=== PATIENT | female | born 1950 | race Caucasian/White ===

== ENCOUNTER 2020-05-11 21:32 | Emergency (ER) | payer MEDICARE, OTHER, SELFPAY ==
[2020-05-11 22:03] VITALS: BP 175/100; PULSE 67; RESP 18; TEMP 36.7; O2SAT 97; BMI 34.9
[2020-05-11 22:35] LABS: Basophils # 0.1 10^3/uL (0.0-0.1); Basophils % 1.2 %; Eosinophils # 0.1 10^3/uL (0.0-0.8); Eosinophils % 1.2 %; Hemoglobin 13.3 g/dL (11.5-15.3); Lymphocytes # 1.7 10^3/uL (0.8-4.8); Lymphocytes % 28.6 %; Mean Corpuscular HGB Conc 34.1 g/dL (30.0-36.0); Mean Corpuscular Hemoglobin 29.6 pg (28.0-34.0); Mean Corpuscular Volume 86.9 fL (81-99); Mean Platelet Volume 10.4 fL (7.4-10.4); Monocytes % 16.8 %; Nucleated Red Blood Cells % 0 %; Platelet Count 180 10^3/cmm (130-400); Red Blood Count 4.49 10^6/uL (4.1-5.3); Red Cell Distribution Width 12.2 % (12.1-15.1); White Blood Count 5.8 10^3/uL (4.0-10.0)
[2020-05-11 22:44] LABS: INR 1.09 (0.8-1.2)
--- NOTE | 2020-05-11 22:44 | ED_ITS ---
HPI - General Adult General: Chief complaint: General Medical Stated complaint: ams, n/v, shakes, twitching, anxiety Time Seen by Provider: 05/11/20 22:07 Source: patient Mode of arrival: ambulatory Limitations: no limitations History of Present Illness: HPI narrative: Belkis is a 69-year-old female who states she has been having muscle twitches and pains for days and weeks. She states it hurts all over and states she feels very anxious over. She states she also has had difficulty urinating. She denies any fever. She denies chest or abdominal pain. She states that she just feels like she has muscle spasms to her whole body. Associated symptoms: Deny chest pain, dyspnea, headache(s), nausea, rash or vomiting Review of Systems Const: Denies: fever(s), chills, body aches or change in appetite Eyes: Denies: blurry vision or eye discomfort ENMT: Denies: throat pain or dental pain Card: Denies: chest pain Resp: Denies: dyspnea GI: Denies: abdominal pain, nausea, vomiting or diarrhea : Denies: dysuria Musc: Denies: neck pain or back pain Skin/Breast: Denies: rash Neuro: Denies: headache(s) Psych: Reports: anxiety [place]/Lymph: Denies: easy bruising All/Imm: Denies: urticaria Physical Exam Const: COMMON NORMALS: no acute distress, patient oriented x3 and healthy appearing HENMT: COMMON NORMALS: normocephalic and atraumatic HEAD & SCALP: normocephalic and atraumatic Eye: COMMON NORMALS: Equal, round and reactive pupils present and EOMs intact bilaterally PUPIL: Yes Equal, round and reactive pupils present Neck/C-Spine: COMMON NORMALS: full ROM and supple Chest: COMMONS NORMALS: normal inspection of the chest and normal palpation of entire chest wall Resp: COMMON NORMALS: normal respiratory effort, No retractions, No use of accessory muscles and clear to auscultation bilaterally AUSCULTATION: clear to auscultation bilaterally Cardio: COMMON NORMALS: regular rate, regular rhythm and No murmurs present (Cardio) RATE: regular rate RHYTHM: regular rhythm GI: COMMON NORMALS: Normal to inspection, nondistended, normoactive bowel sounds present, Soft to palpation, non-tender and no masses PALPATION: Yes Soft to palpation Extremity: COMMON NORMALS: normal to inspection and full ROM Neuro: COMMON NORMALS: patient oriented x3, moves all extremities and no focal motor deficits Psych: COMMON NORMALS: mental status grossly normal, Normal thought process present and cooperative MOOD & AFFECT: Yes anxious THOUGHT PROCESS: Normal thought process present Skin: COMMON NORMALS: no rashes or lesions noted and no wounds GENERAL SKIN EXAM: no rashes or lesions noted Course Vital Signs: Vital signs: Vital Signs Temperature 98.1 F 05/11/20 22:03 Pulse Rate 69 05/12/20 00:39 Respiratory Rate 18 05/12/20 00:39 Blood Pressure 115/65 05/12/20 00:39 Pulse Oximetry 97 05/12/20 00:39 MDM - General Adult MDM Narrative: Medical decision making narrative: Patient presents with multiple claims with her main complaint of muscle spasms all over. She feels much improved after Ativan. Patient's lab work is normal including a normal EKG and x-ray. Patient's exam is benign and she is stable for discharge. Will prescribe her Robaxin for muscle spasms. She is to follow-up with her primary care doctor in 3 to 5 days and return if worsening. Lab Data: Labs: Lab Results 05/11/20 05/11/20 05/11/20 Range/Units 22:26 22:26 22:26 WBC 5.8 (4.0-10.0) 10^3/ uL RBC 4.49 (4.1-5.3) 10^6/u L Hgb 13.3 (11.5-15.3) g/dL Hct 39.0 (37.0-47.0) % MCV 86.9 (81-99) fL MCH 29.6 (28.0-34.0) pg MCHC 34.1 (30.0-36.0) g/dL RDW 12.2 (12.1-15.1) % Plt Count 180 (130-400) 10^3/c mm MPV 10.4 (7.4-10.4) fL Neut % (Auto) 52.0 % Lymph % (Auto) 28.6 % [place] % (Auto) 16.8 % Eos % (Auto) 1.2 % Baso % (Auto) 1.2 % Neut # (Auto) 3.0 (1.8-7.7) 10^3/u L Lymph # (Auto) 1.7 (0.8-4.8) 10^3/u L [place] # (Auto) 1.0 H (0.2-0.9) 10^3/u L Eos # (Auto) 0.1 (0.0-0.8) 10^3/u L Baso # (Auto) 0.1 (0.0-0.1) 10^3/u L Nucleated RBC % (a uto) 0 % Nucleated RBCs # 0.0 /100WBC PT 14.50 H (10.5-13.3) SECO NDS INR 1.09 (0.8-1.2) Sodium 137 (136-145) mmol/L Potassium 4.2 (3.5-5.1) mmol/L Chloride 100 (98-107) mmol/L Carbon Dioxide 25 (22-29) mmol/L Anion Gap 16.2 (5-19) BUN 8 (8-23) mg/dL Creatinine 0.6 (0.5-0.9) mg/dL GFR Calculation 98.8 (90-130) mL/min Glucose 120 H (65-115) mg/dL Calculated Osmolal ity 281 L (285-295) mOsm/k g Calcium 9.7 (8.5-10.5) mg/dL Total Bilirubin 0.5 (0.15-1.2) mg/dL AST 22 (0-32) U/L ALT 16 (0-33) U/L Alkaline Phosphata se 74 (35-105) IU/L Total Protein 6.3 L (6.6-8.7) g/dL Albumin 4.5 (3.5-5.2) g/dL Globulin 1.8 (1.3-4.6) g/dL Imaging Data^: CXR: Attestation: I personally reviewed and interpreted this imaging study as follows: My impression: no acute abnormality EKG Data^: EKG 1: Attestation: I personally reviewed and interpreted this EKG as follows: EKG interpretation date: 05/11/20 EKG interpretation time: 23:17 Interpretation: sinus martine hr [address] or t wave abnormalities qrs 95 qtc 395 Discharge Plan Discharge Patient Disposition: Home, Self-Care Clinical Impression: Muscle spasm Vomiting Qualifiers: Vomiting type: unspecified Vomiting Intractability: non-intractable Nausea presence: with nausea Qualified Code(s): R11.2 - Nausea with vomiting, unspeci fied Condition: Stable Prescriptions: New ondansetron 4 mg tablet,disintegrating 4 mg PO Q6H PRN (Reason: nausea and vomiting) Qty: 14 RF: 0 Robaxin-750 750 mg tablet 750 mg PO Q6H Qty: 30 RF: 0 Discharge Orders: Discharge Order (Routine); Ordered 05/11/20 Ordered By: Alba Stiles Referrals: Chung Holden MD [Primary Care Provider] - 1-3 days Discharge Diet: Advance as tolerated Discharge Activity: Resume usual activity Patient Instructions: Acute Nausea and Vomiting (ED), Muscle Spasm (ED) Discharge Date/Time: 05/12/20 00:40 Coding Level of Care Code ED Product Manager E Commerce for Walt Fwd Exam Comprehensive
[2020-05-11 22:49] LABS: Alanine Aminotransferase 16 U/L (0-33); Albumin Level 4.5 g/dL (3.5-5.2); Alkaline Phosphatase 74 IU/L (35-105); Anion Gap 16.2 (5-19); Aspartate Amino Transferase 22 U/L (0-32); Blood Urea Nitrogen 8 mg/dL (8-23); Calcium 9.7 mg/dL (8.5-10.5); Carbon Dioxide 25 mmol/L (22-29); Chloride 100 mmol/L (98-107); Globulin 1.8 g/dL (1.3-4.6); Glomerular Filtration Rate 98.8 mL/min (90-130); Glucose 120 mg/dL (65-115); Osmolality Calculated 281 mOsm/kg (285-295); Potassium 4.2 mmol/L (3.5-5.1); Sodium 137 mmol/L (136-145); Total Bilirubin 0.5 mg/dL (0.15-1.2); Total Protein 6.3 g/dL (6.6-8.7)
[2020-05-11] MEDS: sodium chloride 0.9% 1,000 ML 999 ML IV (22:52)
[2020-05-11] MEDS: LORazepam 2 mg/mL INJ 1 mL 1 MG IVP (22:53)
--- NOTE | 2020-05-11 22:54 | ECG_ITS ---
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 Measurements Intervals [place] Rate: 55 P: 57 NC: 187 QRS: 0 QRSD: 95 T: 46 QT: 407 QTc: 390 Interpretive Statements SINUS BRADYCARDIA Compared to ECG 06/16/2018 00:03:53 Sinus rhythm no longer present T-wave abnormality no longer present Electronically Signed On 05-12-2020 17:43:26 CDT by Partha Anderson M.D. [email or web address].[employer]/store/NU/[id number] f
[2020-05-11 22:57] VITALS: BP 147/97; PULSE 60; RESP 18; O2SAT 97
--- NOTE | 2020-05-11 22:57 | XRR_ITS ---
PROCEDURE INFORMATION: Exam: XR Chest, 1 View Exam date and time: 05/11/2020 11:27 PM Age: 69 years old Clinical indication: Other: AMS, anxiety; Additional info: HTN TECHNIQUE: Imaging protocol: XR of the chest Views: 1 view. COMPARISON: CR Chest 1 [place] [id number] 06/15/2018 9:11 PM FINDINGS: Lungs: Unremarkable. No consolidation. Pleural space: Unremarkable. No pleural effusion. No pneumothorax. Heart/Mediastinum: Unremarkable. No cardiomegaly. Bones/joints: Unremarkable. XR/XR chest 1V portable [id number] IMPRESSION: No acute findings.
[2020-05-11 23:39] VITALS: BP 165/74; PULSE 52; RESP 16; O2SAT 96
[2020-05-11 23:40] VITALS: BP 165/74; PULSE 50; RESP 13; O2SAT 96
[2020-05-12] VITALS: BP 156/88; PULSE 68; RESP 21; O2SAT 98
[2020-05-12 00:39] VITALS: BP 115/65; PULSE 69; RESP 18; O2SAT 97
--- NOTE | 2020-05-12 04:10 | ECG_ITS ---
[facility] Test Date: 2020-05-11 Pat Name: Belkis Henson Department: Room: Gender: Female [place] Tender: : 1950 Requested By: Alba Stiles Order Number: [id number] Devan MD: Partha Anderson M.D. Measurements Intervals [place] Rate: 55 P: 57 MS: 187 QRS: 0 QRSD: 95 T: 46 QT: 407 QTc: 390 Interpretive Statements SINUS BRADYCARDIA Compared to ECG 06/16/2018 00:03:53 Sinus rhythm no longer present T-wave abnormality no longer present Electronically Signed On 05-12-2020 17:45:44 CDT by Partha Anderson M.D. [email or web address].[employer]/store/NU/[id number] f
== END 2020-05-12 00:40 | disposition home or self-care (01) ==
PROVIDERS: Emergency Provider Emergency Medicine; PCP Family Medicine
DX: M62.838 Other muscle spasm (principal); R11.2 Nausea with vomiting, unspecified
CPT/HCPCS: 12345; 36415; 71045; 80053; 85025; 85610; 93005; 96361; 96374; 96375; 99283; J2060; J7030

== ENCOUNTER 2021-04-06 15:03 | Outpatient (CLI) | payer MEDICARE, SELFPAY ==
--- NOTE | 2021-04-06 15:19 | XR_ITS ---
WS: [id number] Exam: XR knee RT 1-2V [id number] Date/Time of Exam: 04/06/2021 3:25 PM Reason For Exam: RIGHT KNNEE PAIN No fracture or dislocation. The joint compartments are relatively well maintained. No joint effusion. XR/XR knee RT 1-2V [id number] IMPRESSION: 1. No fracture, joint effusion or other significant finding.
--- NOTE | 2021-04-06 15:25 | XR_ITS ---
WS: [id number] Exam: XR hip RT 2-3V wo/w pel* [id number] Date/Time of Exam: 04/06/2021 3:25 PM Reason For Exam: RT KNEE PAIN Comparison 12/05/2018. No acute fracture or dislocation. Moderate DJD of the joint compartment. Normal soft tissues. XR/XR hip RT 2-3V wo/w pel* [id number] IMPRESSION: 1. Moderate DJD. No fracture or other significant finding.
== END 2021-04-06 15:04 | disposition home or self-care (01) ==
LOC: RAD 15:12
PROVIDERS: PCP Family Medicine; Visit Provider Family Medicine
DX: M25.561 Pain in right knee (principal); M16.11 Unilateral primary osteoarthritis, right hip
CPT/HCPCS: 73502; 73560

== ENCOUNTER → 2021-05-18 09:40 | Outpatient (BNVA) | payer MEDICARE, SELFPAY | PROVIDERS: PCP Family Medicine; Referring Provider Family Medicine; Visit Provider Specialist | DX: M16.11 Unilateral primary osteoarthritis, right hip (principal); M77.8 Other enthesopathies, not elsewhere classified; M25.551 Pain in right hip; M25.561 Pain in right knee | CPT/HCPCS: 73502; 73560; 73565 ==

== ENCOUNTER 2021-05-24 14:03 | Outpatient (RCR) | payer MEDICARE, SELFPAY | END 2021-06-07 11:07 | disposition home or self-care (01) | LOC: SPT 14:03 | PROVIDERS: PCP Family Medicine; Referring Provider Specialist; Visit Provider Specialist | DX: M54.5 Low back pain (principal) | CPT/HCPCS: 97110; 97161 ==

== ENCOUNTER → 2021-09-28 10:56 | Outpatient (BNVA) | payer MEDICARE, SELFPAY | PROVIDERS: PCP Family Medicine; Visit Provider Specialist | DX: M79.661 Pain in right lower leg (principal) | CPT/HCPCS: 73590 ==

== ENCOUNTER 2021-11-28 10:59 | Outpatient (CLI) | payer MEDICARE, SELFPAY ==
[2021-11-28 11:11] VITALS: BP 158/86; BP 167/93; PULSE 69; PULSE 71; RESP 18; TEMP 36.5; TEMP 36.6; O2SAT 96; O2SAT 97; BMI 35.5
[2021-11-28 12:06] VITALS: BP 177/94; PULSE 72; RESP 18; TEMP 36.5; O2SAT 97
== END 2021-11-28 11:00 | disposition home or self-care (01) ==
LOC: OPS 11:09
PROVIDERS: PCP Family Medicine
DX: U07.1 COVID-19 (principal)
CPT/HCPCS: 96365

== ENCOUNTER 2023-08-04 18:04 | Emergency (ER) | payer MEDICARE, SELFPAY ==
--- NOTE | 2023-08-04 18:09 | ECG_ITS ---
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 Measurements Intervals [place] Rate: 72 P: 61 CT: 176 QRS: 5 QRSD: 89 T: 56 QT: 363 QTc: 397 Interpretive Statements SINUS RHYTHM Compared to ECG 05/11/2020 23:17:40 Sinus bradycardia no longer present Electronically Signed On 08-04-2023 20:29:15 CDT by Jose Elias Toussaint M.D. [email or web address] hospital[facility].fabrik/store/NU/[id number] f
[2023-08-04 18:11] VITALS: BP 167/72; PULSE 61; RESP 17; TEMP 36.9; BMI 34.9
--- NOTE | 2023-08-04 18:14 | XRR_ITS ---
PROCEDURE INFORMATION: Exam: XR Chest Exam date and time: 08/04/2023 6:33 PM Age: 72 years old Clinical indication: Pain; Chest pressure; Patient HX: C/O cp; Additional info: Chest pain TECHNIQUE: Imaging protocol: Radiologic exam of the chest. Views: 1 view. COMPARISON: CR XR chest 1V portable [id number] 05/11/2020 11:14 PM FINDINGS: Lungs: Unremarkable. No consolidation. Pleural spaces: Unremarkable. No pleural effusion. No pneumothorax. Heart/Mediastinum: Unremarkable. No cardiomegaly. Bones/joints: Unremarkable for age. XR/XR chest 1V portable [id number] IMPRESSION: Negative chest exam.
[2023-08-04 18:22] VITALS: O2SAT 96
[2023-08-04 18:48] LABS: Basophils # 0.1 10^3/uL (0.0-0.1); Basophils % 1.1 %; Eosinophils # 0.2 10^3/uL (0.0-0.8); Eosinophils % 2.9 %; Hematocrit 37.6 % (36-47); Lymphocytes # 1.2 10^3/uL (0.8-4.8); Lymphocytes % 19.3 %; Mean Corpuscular HGB Conc 34.6 g/dL (30-55); Mean Corpuscular Hemoglobin 29.7 pg (27-33); Mean Corpuscular Volume 85.8 fl (85-98); Mean Platelet Volume 10.4 fL (7.4-10.4); Monocytes # 0.8 10^3/uL (0.2-0.9); Monocytes % 13.2 %; Neutrophils # 3.96 10^3/uL (1.8-7.7); Nucleated Red Blood Cells % 0 %; Platelet Count 214 10^3/cmm (157-399); Red Blood Count 4.38 10^6/uL (3.85-5.65); Red Cell Distribution Width 12.5 % (12.1-15.1); White Blood Count 6.28 10^3/uL (3.29-11.43)
--- NOTE | 2023-08-04 18:48 | W.ED.CHESTPA ---
HPI - Chest Pain General: Chief Complaint: Chest Pain Stated Complaint: chest pain,heaviness Time Seen by Provider: 08/04/23 18:14 History of Present Illness: Patient presents to the ER with complaints of chest heaviness. She said that her chest pain when it first started she could push on her chest and make it hurt worse and it was very sensitive so she put lidocaine patch on which helped but then it started becoming more pressure. Patient denies any previous episodes of chest pain, coronary artery disease, stents etc. Review of Systems General: Reports: 10 or more systems reviewed and unremarkable except in HPI and below PFSH ED PFSH: Surgical History History of laminectomy Physical Exam Const: COMMON NORMALS: no acute distress, average body habitus, patient oriented x3, no limitations, healthy appearing, alert and well nourished HENMT: COMMON NORMALS: normocephalic, atraumatic, hearing grossly normal bilaterally, external ears normal, Normal external nose present and moist oral mucous membranes HEAD & SCALP: normocephalic and atraumatic NOSE: Normal external nose present EXTERNAL EAR: Yes external ears normal Eye: COMMON NORMALS: Equal, round and reactive pupils present, EOMs intact bilaterally, conjunctivae normal and no scleral icterus CONJUNCTIVA: Yes conjunctivae normal PUPIL: Yes Equal, round and reactive pupils present Neck/C-Spine: COMMON NORMALS: full ROM, no lymphadenopathy, supple, no meningeal signs, no JVD and Thyroid normal THYROID: Thyroid normal Chest: COMMONS NORMALS: normal inspection of the chest; negative for normal palpation of entire chest wall (Tender to palpate sternal region) Resp: COMMON NORMALS: normal respiratory effort, No retractions, No use of accessory muscles and clear to auscultation bilaterally AUSCULTATION: clear to auscultation bilaterally Cardio: COMMON NORMALS: no JVD, regular rate, regular rhythm, S1 normal heart sound present, S2 normal heart sound present, No gallops present (Cardio), No clicks present (Cardio), No murmurs present (Cardio) and No rub (Cardio) RATE: regular rate RHYTHM: regular rhythm HEART SOUNDS: S1 normal heart sound present and S2 normal heart sound present GI: COMMON NORMALS: Normal to inspection, nondistended, normoactive bowel sounds present, Soft to palpation, non-tender, No hepatosplenomegaly present and no masses PALPATION: Yes Soft to palpation and Yes No hepatosplenomegaly present : COMMON NORMALS: Yes no CVA tenderness BLADDER/KIDNEY EXAM: Yes no CVA tenderness Back/Pelvis: COMMON NORMALS: no CVA tenderness Extremity: NARRATIVE EXTREMITY EXAM: No edema bilateral lower extremities Neuro: COMMON NORMALS: patient oriented x3 SENSORIUM/ORIENTATION: Yes alert MENINGEAL SIGNS: Yes no meningeal signs Course Vital Signs: Vital signs: Vital Signs Temperature 98.5 F 08/04/23 18:11 Pulse Rate 101 H 08/04/23 20:40 Respiratory Rate 17 08/04/23 18:11 Blood Pressure 146/80 08/04/23 20:40 Pulse Oximetry 95 08/04/23 20:40 Oxygen Delivery Me thod Room Air 08/04/23 18:22 MDM - Chest Pain Medical Decision Making Patient presents to the ER with complaints of chest pain. Patient was worked up in a normal chest pain fashion that included chest x-ray serial EKGs and serial lab work. All of which were negative. This is felt the patient's chest pain is noncardiac in nature therefore patient be discharged home to follow-up with her PCP in the next 7 days for further evaluation and testing. Differential Diagnosis Unlikely acute massive pulmonary embolism, acute respiratory failure, acute myocardial infarction, cardiac arrest or sudden cardiac Medical Records I reviewed the patient's medical records. Lab Data I reviewed the patient's lab results. 08/04/23 18:30 08/04/23 18:30 Radiology Impressions Chest X-Ray 08/04/23 18:14 IMPRESSION: Negative chest exam. Laboratory Results WBC 6.28 10^3/uL (3.29-11.43) 08/04/23 18:30 RBC 4.38 10^6/uL (3.85-5.65) 08/04/23 18:30 Hgb 13.00 g/dL (11.27-16.99) 08/04/23 18:30 Hct 37.6 % (36-47) 08/04/23 18:30 MCV 85.8 fl (85-98) 08/04/23 18:30 MCH 29.7 pg (27-33) 08/04/23 18:30 MCHC 34.6 g/dL (30-55) 08/04/23 18:30 RDW 12.5 % (12.1-15.1) 08/04/23 18:30 Plt Count 214 10^3/cmm (157-399) 08/04/23 18:30 MPV 10.4 fL (7.4-10.4) 08/04/23 18:30 Neut % (Auto) 63.0 % 08/04/23 18:30 Lymph % (Auto) 19.3 % 08/04/23 18:30 [place] % (Auto) 13.2 % 08/04/23 18:30 Eos % (Auto) 2.9 % 08/04/23 18:30 Baso % (Auto) 1.1 % 08/04/23 18:30 Neut # (Auto) 3.96 10^3/uL (1.8-7.7) 08/04/23 18:30 Lymph # (Auto) 1.2 10^3/uL (0.8-4.8) 08/04/23 18:30 [place] # (Auto) 0.8 10^3/uL (0.2-0.9) 08/04/23 18:30 Eos # (Auto) 0.2 10^3/uL (0.0-0.8) 08/04/23 18:30 Baso # (Auto) 0.1 10^3/uL (0.0-0.1) 08/04/23 18:30 Nucleated RBC % (auto) 0 % 08/04/23 18:30 Nucleated RBCs # 0.0 /100WBC 08/04/23 18:30 Sodium 132 mmol/L (136-145) L 08/04/23 18:30 Potassium 3.9 mmol/L (3.5-5.1) 08/04/23 18:30 Chloride 98 mmol/L (98-107) 08/04/23 18:30 Carbon Dioxide 25 mmol/L (22-29) 08/04/23 18:30 Anion Gap 12.9 (5-19) 08/04/23 18:30 BUN 18 mg/dL (8-23) 08/04/23 18:30 Creatinine 0.7 mg/dL (0.5-0.9) 08/04/23 18:30 GFR Calculation Not Reportable 08/04/23 18: Glucose 322 mg/dL (65-115) H 08/04/23 18:30 Calculated Osmolality 288 mOsm/kg (285-295) 08/04/23 18:30 Calcium 9.7 mg/dL (8.5-10.5) 08/04/23 18:30 Total Bilirubin 0.4 mg/dL (0.15-1.2) 08/04/23 18:30 AST 19 U/L (0-32) 08/04/23 18:30 ALT 16 U/L (0-33) 08/04/23 18:30 Alkaline Phosphatase 78 U/L (35-105) 08/04/23 18:30 Troponin T Baseline 8 ng/L (0-10) 08/04/23 18:30 Troponin T 120 Minute 8.02 ng/L (0-10) 08/04/23 20:30 Delta Troponin T 0.02 ABS# (0-10) 08/04/23 20:30 Total Protein 5.9 g/dL (6.6-8.7) L 08/04/23 18:30 Albumin 4.1 g/dL (3.5-5.2) 08/04/23 18:30 Globulin 1.8 g/dL (1.3-4.6) 08/04/23 18:30 All radiology interpretation(s) finalized by discharge EKG Data EKG 1: I personally reviewed and interpreted this EKG as follows: EKG interpretation date: 08/04/23 EKG interpretation time: 18:10 Prior EKG tracings: not available for review Interpretation: EKG showed ventricular rate 72 bpm, NE interval 176, QRS duration 89, QTc 386, sinus rhythm no ST-T wave changes EKG 2: I personally reviewed and interpreted this EKG as follows: EKG interpretation date: 08/04/23 EKG interpretation time: 20:34 Prior EKG tracings: available for review Interpretation: EKG showed ventricular rate 58 bpm, NE interval 208, QRS duration 81, QTc of 384, sinus bradycardia no ST-T wave changes Discharge Plan Discharge Patient Disposition: Home Clinical Impression: Chest pain, non-cardiac Condition: Stable Prescriptions: No Action metformin 500 mg tablet 500 mg PO DAILY permethrin 5 % cream 1 applic topical Q14D Rx Instructions: apply second treatment 14 days after first treatment if live lice remain tramadol-acetaminophen 37.5-325 mg tablet 1 tab PO BID PRN coenzyme Q10 [Co Q-10] 10 mg capsule 10 mg PO TID fluticasone propionate 50 mcg/actuation spray,suspension 1 spray intranasal DAILY Rx Instructions: administer into each nostril rosuvastatin [Crestor] 20 mg tablet 20 mg PO DAILY lisinopril 20 mg tablet 20 mg PO DAILY Vitamin D3 100 mcg (4,000 unit) capsule 100 mcg PO DAILY meloxicam 15 mg tablet 15 mg PO DAILY (DME) FreeStyle Lite Strips Strip See Rx Instructions .Route Qty: 100 3RF Rx Instructions: to use once daily in freestyle lite meter 90 day supply montelukast 10 mg tablet See Rx Instructions .ROUTE .COMPLEX Qty: 90 3RF Dose Instruction: TAKE 1 TABLET BY MOUTH EVERY DAY Rx Instructions: TAKE 1 TABLET BY MOUTH EVERY DAY Robaxin-750 750 mg tablet 750 mg PO Q6H Qty: 30 0RF Discharge Orders: Discharge ED (Routine); Ordered 08/04/23 Ordered By: Dale Alfaro Referrals: Edison Johns, [Primary Care Provider] - 1 week Patient Instructions: Noncardiac Chest Pain (ED) Activity Restrictions/Additional Instructions: Please follow-up with your family practice physician in the next 7 days for further evaluation and treatment of your chest pain that is felt to be noncardiac in nature. Coding Level of Care Code ED [place] Trimmer for Walt Tong
[2023-08-04 19:06] LABS: Troponin(5th) Baseline 8 ng/L (0-10)
[2023-08-04 19:08] LABS: Alanine Aminotransferase 16 U/L (0-33); Albumin Level 4.1 g/dL (3.5-5.2); Alkaline Phosphatase 78 U/L (35-105); Anion Gap 12.9 (5-19); Aspartate Amino Transferase 19 U/L (0-32); Blood Urea Nitrogen 18 mg/dL (8-23); Calcium 9.7 mg/dL (8.5-10.5); Carbon Dioxide 25 mmol/L (22-29); Chloride 98 mmol/L (98-107); Globulin 1.8 g/dL (1.3-4.6); Glucose 322 mg/dL (65-115); Osmolality Calculated 288 mOsm/kg (285-295); Potassium 3.9 mmol/L (3.5-5.1); Sodium 132 mmol/L (136-145); Total Bilirubin 0.4 mg/dL (0.15-1.2); Total Protein 5.9 g/dL (6.6-8.7)
--- NOTE | 2023-08-04 19:23 | PC.NURSE ---
Received report at [facility] at [id number]
--- NOTE | 2023-08-04 19:33 | PC.NURSE ---
EKG was performed during dayshift. This nurse documented EKG has been completed, at this time.
--- NOTE | 2023-08-04 20:37 | ECG_ITS ---
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 Measurements Intervals [place] Rate: 58 P: 63 ND: 208 QRS: -9 QRSD: 81 T: 52 QT: 386 QTc: 382 Interpretive Statements SINUS BRADYCARDIA Compared to ECG 08/04/2023 18:10:16 Sinus rhythm no longer present Electronically Signed On 08-05-2023 14:53:12 CDT by Jose Elias Toussaint M.D. [email or web address].[facility] healthNetBoss Technologiespremier healthCatapult Health/store/OM/[id number]
[2023-08-04 20:40] VITALS: BP 146/80; PULSE 101; O2SAT 95
[2023-08-04 21:00] LABS: Troponin 5 2HR 8.02 ng/L (0-10)
[2023-08-04 21:02] LABS: Troponin 5 2HR Delta 0.02 ABS# (0-10)
[2023-08-04 21:33] VITALS: BP 137/76; PULSE 61; RESP 18; O2SAT 96
== END 2023-08-04 21:40 | disposition home or self-care (01) ==
PROVIDERS: Emergency Provider Emergency Medicine; PCP Electrodiagnostic Medicine
DX: R07.89 Other chest pain (principal); Z79.84 Long term (current) use of oral hypoglycemic drugs
CPT/HCPCS: 36415; 71045; 80053; 84484; 85025; 93005; 99285

== ENCOUNTER 2024-10-18 12:54 | Emergency (ER) | payer MEDICARE, SELFPAY ==
[2024-10-18 13:38] VITALS: BP 170/101; PULSE 66; RESP 20; TEMP 36.9; O2SAT 99
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
[2024-10-18 15:28] VITALS: RESP 18; O2SAT 97
[2024-10-18] MEDS: oxyCODONE-APAP 5-325 mg Tablet 1 TAB PO (15:28)
[2024-10-18 16:53] VITALS: BP 184/79; PULSE 62; RESP 16; O2SAT 96
== END 2024-10-18 16:49 | disposition home or self-care (01) ==
PROVIDERS: Emergency Provider Emergency Medicine; PCP Electrodiagnostic Medicine
DX: S29.012A Strain of muscle and tendon of back wall of thorax, initial encounter (principal); V89.2XXA Person injured in unspecified motor-vehicle accident, traffic, initial encounter; Z79.84 Long term (current) use of oral hypoglycemic drugs
CPT/HCPCS: 72125; 72128; 99284

== ENCOUNTER 2025-03-13 08:00 | Emergency (ER) | payer MEDICARE, OTHER, SELFPAY ==
[2025-03-13 08:09] VITALS: BP 156/106; PULSE 59; RESP 16; TEMP 36.8; O2SAT 96; BMI 32.1
--- NOTE | 2025-03-13 08:15 | CT_ITS ---
WS: [id number] CT scan of the abdomen and pelvis without Oral and IV contrast. Additional two- dimensional coronal and sagittal reconstruction was performed. 03/13/2025 Clinical Data: l flank pain Comparison: CT abdomen pelvis, 09/26/2016 DLP: 800.[address] scans at [facility] use at least one of these dose optimization techniques: automated exposure control; mA and/or kV adjustment per patient size (includes targeted exams where dose is matched to clinical indication); or iterative reconstruction. Findings: The lower lungs show no nodules, masses or effusions. There is a small hiatal hernia. The gallbladder, spleen, adrenal glands and pancreas are normal. There are cholecystectomy clips in the gallbladder fossa. The kidneys show equal bilateral contrast excretion with no hydronephrosis, masses or calculi. There is a left renal cortical cyst. The abdominal aorta is normal in size. No appendicitis or diverticulitis is seen. The stomach and small bowel are not remarkable. The patient has had distal colon surgery. No abscess, adenopathy, ascites or intra-abdominal mass is seen. The bladder is unremarkable. No inguinal hernia is seen. The uterus is normal. The lumbar vertebral bodies show osteoarthritis, levoscoliosis and minimal compression fractures. CT/CT kidney stone [id number] Impression: Negative for acute intra-abdominal or pelvic abnormalities.
--- NOTE | 2025-03-13 08:16 | W.ED.BACK ---
HPI - Back Pain/Injury General: Chief Complaint: Back Pain/Injury Stated Complaint: left lower abdominal/back pain Time Seen by Provider: 03/13/25 08:03 Source: patient Mode of arrival: ambulatory Limitations: no limitations History of Present Illness: 74-year-old female who states that she been having left flank pain over the last 2 days states pains been sharp in nature rates an 8 out of 10 states that radiates in her left lower quadrant and into her groin denies any pain with palpation denies any worsening improving factors denies any fevers or dysuria Associated symptoms: Reports abdominal pain; Deny chills, dysuria, fever(s), nausea or vomiting Related Data Home Medications ?Medication ?Instructions ?Recorded ?Confirmed fluticasone propionate 50 1 spray intranasal DAILY 05/18/21 03/13/25 mcg/actuation nasal spray,suspension lisinopril 20 mg tablet 20 mg PO DAILY 05/18/21 03/13/25 levocetirizine 5 mg tablet 5 mg PO DAILY PRN allergies 10/18/24 03/13/25 metformin 500 mg tablet,extended 500 mg PO BID 03/13/25 03/13/25 release 24 hr Previous Rx's ?Medication ?Instructions ?Recorded blood sugar diagnostic (FreeStyle #100 ea 03/19/23 Lite Strips) naproxen 500 mg tablet (Naprosyn) 500 mg PO BID PRN pain #20 tabs 10/18/24 hydrocodone 5 mg-acetaminophen 325 1 tab PO Q6H PRN pain #14 tabs 03/13/25 mg tablet naproxen 500 mg tablet (Naprosyn) 500 mg PO BID PRN pain #20 tabs 03/13/25 Allergies Allergy/AdvReac Type Severity Reaction Status Date / Time No Known Allergies Allergy Verified 03/12/25 10:06 Review of Systems Const: Denies: fever(s), chills, body aches or change in appetite ENMT: Denies: throat pain or dental pain Card: Denies: chest pain Resp: Denies: dyspnea GI: Reports: abdominal pain; Denies: nausea, vomiting or diarrhea : Reports: flank pain; Denies: dysuria Musc: Denies: neck pain or back pain Skin/Breast: Denies: rash Neuro: Denies: headache(s) PFSH ED PFSH: Surgical History History of laminectomy Physical Exam Const: COMMON NORMALS: no acute distress, patient oriented x3 and healthy appearing HENMT: COMMON NORMALS: normocephalic and atraumatic HEAD & SCALP: normocephalic and atraumatic Eye: COMMON NORMALS: conjunctivae normal CONJUNCTIVA: Yes conjunctivae normal Neck/C-Spine: COMMON NORMALS: full ROM and supple Chest: COMMONS NORMALS: normal inspection of the chest Resp: COMMON NORMALS: normal respiratory effort Cardio: COMMON NORMALS: regular rate, regular rhythm and No murmurs present (Cardio) RATE: regular rate RHYTHM: regular rhythm GI: COMMON NORMALS: Normal to inspection, nondistended, normoactive bowel sounds present, Soft to palpation, non-tender and no masses PALPATION: Yes Soft to palpation Extremity: COMMON NORMALS: normal to inspection and full ROM Neuro: COMMON NORMALS: patient oriented x3, moves all extremities and no focal motor deficits Psych: COMMON NORMALS: mental status grossly normal, Normal thought process present and cooperative THOUGHT PROCESS: Normal thought process present Skin: COMMON NORMALS: no rashes or lesions noted and no wounds GENERAL SKIN EXAM: no rashes or lesions noted Course Vital Signs: Vital signs: Vital Signs Temperature 98.2 F 03/13/25 08:09 Pulse Rate 60 03/13/25 08:43 Respiratory Rate 18 03/13/25 08:43 Blood Pressure 161/81 03/13/25 08:43 Pulse Oximetry 95 03/13/25 08:43 Oxygen Delivery Me thod Room Air 03/13/25 08:43 MDM - Back Pain/Injury Medical Decision Making Patient presents here with flank pain urine blood work CT scan here are all normal could be muscle pain she does feel improved here we will prescribe her pain meds for home she has to follow-up with PCP and return if worsening. Medical Records I reviewed the patient's medical records. Labs I reviewed the patient's lab results. 03/13/25 08:24 03/13/25 08:24 Radiology Impressions Abdomen/Pelvis CT 03/13/25 08:15 Impression: Negative for acute intra-abdominal or pelvic abnormalities. Laboratory Results WBC 8.12 10^3/uL (3.29-11.43) 03/13/25 08:24 RBC 4.39 10^6/uL (3.85-5.65) 03/13/25 08:24 Hgb 13.20 g/dL (11.27-16.99) 03/13/25 08:24 Hct 37.7 % (36-47) 03/13/25 08:24 MCV 85.9 fl (85-98) 03/13/25 08:24 MCH 30.1 pg (27-33) 03/13/25 08:24 MCHC 35.0 g/dL (30-55) 03/13/25 08:24 RDW 12.0 % (12.1-15.1) L 03/13/25 08:24 Plt Count 243 10^3/cmm (157-399) 03/13/25 08:24 MPV 9.7 fL (7.4-10.4) 03/13/25 08:24 Neut % (Auto) 65.7 % 03/13/25 08:24 Lymph % (Auto) 13.3 % 03/13/25 08:24 Frio % (Auto) 16.7 % 03/13/25 08:24 Eos % (Auto) 2.2 % 03/13/25 08:24 Baso % (Auto) 1.1 % 03/13/25 08:24 Neut # (Auto) 5.33 10^3/uL (1.8-7.7) 03/13/25 08:24 Lymph # (Auto) 1.1 10^3/uL (0.8-4.8) 03/13/25 08:24 Frio # (Auto) 1.4 10^3/uL (0.2-0.9) H 03/13/25 08:24 Eos # (Auto) 0.2 10^3/uL (0.0-0.8) 03/13/25 08:24 Baso # (Auto) 0.1 10^3/uL (0.0-0.1) 03/13/25 08:24 Nucleated RBC % (auto) 0 % 03/13/25 08:24 Nucleated RBCs # 0.0 /100WBC 03/13/25 08:24 Sodium 132 mmol/L (136-145) L 03/13/25 08:24 Potassium 4.5 mmol/L (3.5-5.1) 03/13/25 08:24 Chloride 97 mmol/L (98-107) L 03/13/25 08:24 Carbon Dioxide 23 mmol/L (22-29) 03/13/25 08:24 Anion Gap 16.5 (5-19) 03/13/25 08:24 BUN 17 mg/dL (8-23) 03/13/25 08:24 Creatinine 0.6 mg/dL (0.5-0.9) 03/13/25 08:24 GFR Calculation Not Reportable 03/13/25 08:24 Glucose 153 mg/dL (65-115) H 03/13/25 08:24 Calculated Osmolality 279 mOsm/kg (285-295) L 03/13/25 08:24 Calcium 9.4 mg/dL (8.5-10.5) 03/13/25 08:24 Total Bilirubin 0.5 mg/dL (0.15-1.2) 03/13/25 08:24 AST 15 U/L (0-32) 03/13/25 08:24 ALT 14 U/L (0-33) 03/13/25 08:24 Alkaline Phosphatase 88 U/L (35-105) 03/13/25 08:24 Total Protein 6.1 g/dL (6.6-8.7) L 03/13/25 08:24 Albumin 3.8 g/dL (3.5-5.2) 03/13/25 08:24 Globulin 2.3 g/dL (1.3-4.6) 03/13/25 08:24 Lipase 27 U/L (13-60) 03/13/25 08:24 Urine Color Yellow (Yellow) 03/13/25 09:23 Urine Appearance Clear (CLEAR) 03/13/25 09:23 Urine pH 5.5 (5-7) 03/13/25 09:23 Ur Specific [place] 1.008 (1.005-1.030) 03/13/25 09:23 Urine Protein Negative (Negative) 03/13/25 09:23 Urine Glucose (UA) Negative (Normal) 03/13/25 09:23 Urine Ketones Negative (Negative) 03/13/25 09:23 Urine Blood Negative (Negative) 03/13/25 09:23 Urine Nitrate Negative (Negative) 03/13/25 09:23 Urine Bilirubin Negative (Negative) 03/13/25 09:23 Urine Urobilinogen 0.2 mg/dL (Negative) 03/13/25 09:23 Ur Leukocyte Esterase Negative (Negative) 03/13/25 09:23 Urine RBC 0-2 /hpf (0-2) 03/13/25 09:23 Urine WBC 0-5 /hpf (0-5) 03/13/25 09:23 Ur Squamous Epith Cells 0-5 /hpf (0-5) 03/13/25 09:23 Amorphous Sediment Not Reportable 03/13/25 09:23 Urine Bacteria None seen /hpf (NONE) 03/13/25 09:23 Hyaline Casts 0-4 /lpf H 03/13/25 09:23 All radiology interpretation(s) finalized by discharge Discharge Plan Discharge Patient Disposition: Home Clinical Impression: Back pain Condition: Stable Prescriptions: New hydrocodone-acetaminophen 5-325 mg tablet 1 tab PO Q6H PRN (Reason: pain) Qty: 14 0RF naproxen [Naprosyn] 500 mg tablet 500 mg PO BID PRN (Reason: pain) Qty: 20 0RF No Action fluticasone propionate 50 mcg/actuation spray,suspension 1 spray intranasal DAILY Rx Instructions: administer into each nostril lisinopril 20 mg tablet 20 mg PO DAILY (DME) FreeStyle Lite Strips Strip See Rx Instructions .Route Qty: 100 3RF Rx Instructions: to use once daily in freestyle lite meter 90 day supply levocetirizine 5 mg tablet 5 mg PO DAILY PRN (Reason: allergies) naproxen [Naprosyn] 500 mg tablet 500 mg PO BID PRN (Reason: pain) Qty: 20 0RF metformin 500 mg tablet extended release 24 hr 500 mg PO BID Discharge Orders: Discharge ED (Routine); Ordered 03/13/25 Ordered By: Alba Stiles Referrals: Edison Johns DO [Primary Care Provider, Family Practice] - 4-7 days Discharge Diet: Advance as tolerated Discharge Activity: Resume usual activity Patient Instructions: Back Pain (ED), Opioid Safety Print Language: Japanese Coding Level of Care Code ED 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
[2025-03-13 08:32] LABS: Basophils # 0.1 10^3/uL (0.0-0.1); Basophils % 1.1 %; Eosinophils # 0.2 10^3/uL (0.0-0.8); Eosinophils % 2.2 %; Hematocrit 37.7 % (36-47); Lymphocytes # 1.1 10^3/uL (0.8-4.8); Lymphocytes % 13.3 %; Mean Corpuscular Hemoglobin 30.1 pg (27-33); Mean Corpuscular Volume 85.9 fl (85-98); Mean Platelet Volume 9.7 fL (7.4-10.4); Monocytes # 1.4 10^3/uL (0.2-0.9); Monocytes % 16.7 %; Neutrophils # 5.33 10^3/uL (1.8-7.7); Neutrophils % 65.7 %; Nucleated Red Blood Cells % 0 %; Platelet Count 243 10^3/cmm (157-399); Red Blood Count 4.39 10^6/uL (3.85-5.65); White Blood Count 8.12 10^3/uL (3.29-11.43)
[2025-03-13] MEDS: morphine 4 mg/mL SDV 1 mL IVP (08:39)
[2025-03-13] MEDS: ondansetron 2 mg/ML SDV 2 mL 4 MG IVP (08:39)
[2025-03-13 08:43] VITALS: BP 161/81; PULSE 60; RESP 18; O2SAT 95
[2025-03-13 08:54] LABS: Alanine Aminotransferase 14 U/L (0-33); Albumin Level 3.8 g/dL (3.5-5.2); Alkaline Phosphatase 88 U/L (35-105); Anion Gap 16.5 (5-19); Aspartate Amino Transferase 15 U/L (0-32); Blood Urea Nitrogen 17 mg/dL (8-23); Calcium 9.4 mg/dL (8.5-10.5); Carbon Dioxide 23 mmol/L (22-29); Chloride 97 mmol/L (98-107); Creatinine Clr Calc Pharmacy 57.0959; Globulin 2.3 g/dL (1.3-4.6); Glucose 153 mg/dL (65-115); Lipase 27 U/L (13-60); Osmolality Calculated 279 mOsm/kg (285-295); Potassium 4.5 mmol/L (3.5-5.1); Sodium 132 mmol/L (136-145); Total Bilirubin 0.5 mg/dL (0.15-1.2); Total Protein 6.1 g/dL (6.6-8.7)
[2025-03-13 09:29] LABS: Bilirubin Urine Negative (Negative); Blood Urine Negative (Negative); Glucose Urine UA Negative (Normal); Ketones Urine Negative (Negative); Leukocyte Esterase Urine Negative (Negative); Nitrate Urine Negative (Negative); Protein Urine Negative (Negative); Specific Gravity, Urine 1.008 (1.005-1.030); Urine Appearance Clear (CLEAR); Urine Color Yellow (Yellow); Urobilinogen Urine 0.2 mg/dL (Negative); pH Urine 5.5 (5-7)
[2025-03-13 09:35] LABS: Add Urine Microscopic? YES; Bacteria Urine None Seen /hpf; Hyaline Casts Urine 0-4 /lpf; RBC Urine 0-2 /hpf (0-2); Squamous Epithelial Cell Urine 0-5 /hpf (0-5); WBC Urine 0-5 /hpf (0-5)
[2025-03-13 10:35] VITALS: BP 166/80; PULSE 62; RESP 18; O2SAT 97
== END 2025-03-13 10:36 | disposition home or self-care (01) ==
PROVIDERS: Emergency Provider Emergency Medicine; PCP Electrodiagnostic Medicine
DX: M54.9 Dorsalgia, unspecified (principal); Z79.84 Long term (current) use of oral hypoglycemic drugs; R10.32 Left lower quadrant pain
CPT/HCPCS: 36415; 74176; 80053; 81001; 83690; 85025; 96374; 96375; 99285; J2270; J2405

== ENCOUNTER 2025-03-19 21:13 | Emergency (ER) | payer MEDICARE, OTHER, SELFPAY ==
[2025-03-19 21:17] VITALS: BP 163/57; PULSE 73; RESP 18; TEMP 36.4; O2SAT 97; BMI 33.0
--- NOTE | 2025-03-19 21:26 | ECG_ITS ---
[facility]: 2025-03-19 Pat Name: Belkis Henson Department: Room: Gender: Female Ophthalmology Technician: : 1950 Requested By: GRISELDA MOE Order Number: [id number] Devan MD: FRANCA POOLE Measurements Intervals [place] Rate: 68 P: 50 AL: 189 QRS: 10 QRSD: 90 T: 50 QT: 361 QTc: 385 Interpretive Statements SINUS RHYTHM Compared to ECG 08/04/2023 20:37:33 Sinus bradycardia no longer present Electronically Signed On 03-21-2025 16:27:23 CDT by FRANCA POOLE [email or web address] [id number]
== END 2025-03-19 22:25 | disposition left against medical advice (07) ==
PROVIDERS: Emergency Provider Family Medicine; PCP Electrodiagnostic Medicine
DX: R00.1 Bradycardia, unspecified (principal)
CPT/HCPCS: 93005

== ENCOUNTER 2025-04-19 15:18 | Emergency (ER) | payer MEDICARE, OTHER, SELFPAY ==
[2025-04-19] VITALS (7 sets, daily range): BP systolic 148–195; BP diastolic 81–121; PULSE 54–72; RESP 16–19; TEMP 36.7; O2SAT 93–97; BMI 33.4
--- NOTE | 2025-04-19 15:32 | CTR_ITS ---
PROCEDURE INFORMATION: Exam: CT Head Without Contrast Exam date and time: 04/19/2025 3:35 PM Age: 74 years old Clinical indication: Stroke-like symptoms; Visual disturbance; Additional info: Symptoms of acute stroke TECHNIQUE: Imaging protocol: Computed tomography of the head without contrast. Radiation optimization: All CT scans at this facility use at least one of these dose optimization techniques: automated exposure control; mA and/or kV adjustment per patient size (includes targeted exams where dose is matched to clinical indication); or iterative reconstruction. Other technique: STROKE PROTOCOL was implemented. COMPARISON: CT cervical spin wo con* [id number] 10/18/2024 3:18 PM RADIATION DOSE METRICS: Total DLP (mGy-cm): 1035.38 FINDINGS: Brain: No intracranial hemorrhage. There is global parenchymal volume loss. Periventricular white matter hypoattenuation is nonspecific but most likely due to small vessel disease. No evidence of acute territorial infarct or cerebral edema. No mass effect or midline shift. Cerebral ventricles: Prominent ventricles likely secondary to volume loss. Paranasal sinuses: Mild mucosal thickening of the paranasal sinuses. No air-fluid levels. Mastoid air cells: The mastoid air cells are clear. Bones: Benign hyperostosis frontalis is present. Soft tissues: Soft tissues are unremarkable as visualized. CT/CT head thrombolytic [id number] IMPRESSION: No acute intracranial findings. ASSESSMENT: ASPECTS ([facility] Stroke Program Early CT Score) is 10.
[2025-04-19 15:36] LABS: Glucose Point of Care 145 mg/dL (70-110)
--- NOTE | 2025-04-19 15:36 | CTR_ITS ---
PROCEDURE INFORMATION: Exam: CTA Head With Contrast, Arteriography Exam date and time: 04/19/2025 3:44 PM Age: 74 years old Clinical indication: Visual disturbance; Additional info: VALLES TECHNIQUE: Imaging protocol: Computed tomographic angiography of the head with contrast. Exam focused on the arteries. 3D rendering (Not supervised by radiologist): MIP and/or 3D reconstructed images were created by the technologist. Radiation optimization: All CT scans at this facility use at least one of these dose optimization techniques: automated exposure control; mA and/or kV adjustment per patient size (includes targeted exams where dose is matched to clinical indication); or iterative reconstruction. Contrast material: OMNI 350; Contrast volume: 100 ml; Contrast route: INTRAVENOUS (IV); COMPARISON: CT head thrombolytic [id number] 04/19/2025 3:35 PM RADIATION DOSE METRICS: Total DLP (mGy-cm): 416.16 FINDINGS: ANTERIOR CIRCULATION: Right internal carotid artery: The intracranial right internal carotid artery demonstrates mild atherosclerotic calcification of the carotid siphon without significant stenosis. No aneurysm. Right middle cerebral artery: Right middle cerebral artery is patent. No significant stenosis. No aneurysm. Right anterior cerebral artery: Right anterior cerebral artery is patent. No significant stenosis. No aneurysm. Left internal carotid artery: The intracranial left internal carotid artery demonstrates mild atherosclerotic calcification of the carotid siphon without significant stenosis. No aneurysm. Left middle cerebral artery: Left middle cerebral artery is patent. No significant stenosis. No aneurysm. Left anterior cerebral artery: Left anterior cerebral artery is patent. No significant stenosis. No aneurysm. POSTERIOR CIRCULATION: Right vertebral artery: Right vertebral artery is patent. No significant stenosis. No aneurysm. Left vertebral artery: Left vertebral artery is patent. No significant stenosis. No aneurysm. Basilar artery: The basilar artery is patent. No significant stenosis. No aneurysm. Right posterior cerebral artery: Right posterior cerebral artery is patent. No significant stenosis. No aneurysm. Left posterior cerebral artery: Left posterior cerebral artery is patent. No significant stenosis. No aneurysm. Veins: The visualized dural venous sinuses are patent. Brain: Please see separately ordered CT of the head for detailed report. Cerebral ventricles: Please see separately ordered CT of the head for detailed report. Bones/joints: Unremarkable. Soft tissues: Unremarkable. PROCEDURE INFORMATION: Exam: CTA Neck With Contrast Exam date and time: 04/19/2025 3:44 PM Age: 74 years old Clinical indication: Visual disturbance; Additional info: VALLES TECHNIQUE: Imaging protocol: Computed tomographic angiography of the neck with contrast. Exam focused on the cervical segments of the vasculature. 3D rendering (Not supervised by radiologist): MIP and/or 3D reconstructed images were created by the technologist. Radiation optimization: All CT scans at this facility use at least one of these dose optimization techniques: automated exposure control; mA and/or kV adjustment per patient size (includes targeted exams where dose is matched to clinical indication); or iterative reconstruction. Contrast material: OMNI 350; Contrast volume: 100 ml; Contrast route: INTRAVENOUS (IV); COMPARISON: CT cervical spin wo con* [id number] 10/18/2024 3:18 PM RADIATION DOSE METRICS: Total DLP (mGy-cm): 416.16 FINDINGS: Right common carotid artery: The right common carotid artery demonstrates mild atherosclerotic narrowing, predominantly at the level of the carotid bulb. No significant stenosis. No dissection. Right internal carotid artery: The right internal carotid artery shows no evidence of significant stenosis. Right external carotid artery: The right external carotid artery shows no evidence of significant stenosis. Left common carotid artery: The left common carotid artery demonstrates mild atherosclerotic narrowing, predominantly at the level of the carotid bulb. No significant stenosis. No dissection. Left internal carotid artery: The left internal carotid artery shows no evidence of significant stenosis. Left external carotid artery: The left external carotid artery shows no evidence of significant stenosis. Right vertebral artery: Mild stenosis of the ostium of the right vertebral artery and the proximal V2 segment. No high-grade stenosis or occlusion. Left vertebral artery: Mild stenosis of the left vertebral artery proximal V2 segment due to degenerative changes of the cervical spine. No high-grade stenosis or occlusion. Thyroid: 7 mm left thyroid lobe nodule. Soft tissues: Partially visualized 3.8 cm left subscapular bursal cyst. Bones/joints: The cervical spine demonstrates severe degenerative changes at multiple levels. Postsurgical/decompressive changes from C3-C6. Lungs: The visualized portions of the lungs are unremarkable. CT/CT angio headneck* [id number] IMPRESSION: No large vessel stenosis or occlusion. IMPRESSION: No significant stenosis or occlusion. COMMENTS: Consistent with the [employer]'s Incidental Findings Committee white paper (J Am Renee Radiol 2015): In patients aged 35 years and older with an incidental thyroid nodule equal to or greater than 1.[address], MRI or extrathyroidal US, further evaluation with dedicated thyroid US is recommended for patients with normal life expectancy and without comorbidities. For smaller nodules without suspicious features, no further evaluation or follow up is recommended. REFERENCES: NASCET CRITERIA. The degree of stenosis in the cervical segment of the internal carotid artery is based on NASCET criteria. Normal is no stenosis. Mild is less than 50% stenosis. Moderate is 50-69% stenosis. Severe is 70% to 99% stenosis. Total occlusion is no detectable patent lumen.
--- NOTE | 2025-04-19 15:55 | W.ED.NEUROSD ---
HPI - Neuro Symptoms/Deficit General: Chief Complaint: Neuro Symptoms/Deficit Stated Complaint: stroke like symptoms Time Seen by Provider: 04/19/25 15:30 Source: patient Mode of arrival: ambulatory Limitations: no limitations History of Present Illness: 74-year-old female states that roughly 8 3 PM she started having seeing some spots in her vision with both eyes and then had a headache. She denies any slurred speech denies any weakness she is amatory here. She states that her headaches improved and her vision is improved as well and is back to baseline. She denies any vomiting diarrhea denies any chest pain Associated symptoms: Reports headache(s); Deny chest pain, nausea or vomiting Related Data Home Medications ?Medication ?Instructions ?Recorded ?Confirmed fluticasone propionate 50 1 spray intranasal DAILY PRN 05/18/21 04/19/25 mcg/actuation nasal allergies spray,suspension levocetirizine 5 mg tablet 5 mg PO DAILY PRN allergies 10/18/24 04/19/25 metformin 500 mg tablet,extended 500 mg PO DAILY 03/13/25 04/19/25 release 24 hr acetaminophen 325 mg tablet 650 mg PO QID PRN Pain 04/19/25 04/19/25 ascorbic acid (vitamin C) 500 mg 500 mg PO BID 04/19/25 04/19/25 tablet (Vitamin C) cholecalciferol (vitamin D3) 50 50 mcg PO DAILY 04/19/25 04/19/25 mcg (2,000 unit) tablet (Vitamin D3) cyanocobalamin (vitamin B-12) 100 100 mcg PO DAILY 04/19/25 04/19/25 mcg tablet (Vitamin B-12) magnesium 250 mg tablet 250 mg PO DAILY 04/19/25 04/19/25 metoprolol succinate 50 mg 50 mg PO QPM 04/19/25 04/19/25 tablet,extended release 24 hr omega 3,6,9-borage seed 2 cap PO DAILY 04/19/25 04/19/25 oil-flaxseed oil-fish oil 1,233 mg capsule (Felice 3-6-9) sennosides 8.6 mg-docusate sodium 10 tab PO BID PRN Constipation 04/19/25 04/19/25 50 mg tablet (Senexon-S) tramadol 50 mg tablet 50 mg PO TID PRN Pain 04/19/25 04/19/25 vitamin B complex 1 tab PO DAILY 04/19/25 04/19/25 Previous Rx's ?Medication ?Instructions ?Recorded blood sugar diagnostic (FreeStyle #100 ea 03/19/23 Lite Strips) hydrocodone 5 mg-acetaminophen 325 1 tab PO Q6H PRN pain #14 tabs 03/13/25 mg tablet aspirin 81 mg capsule 81 mg PO DAILY #30 caps 04/19/25 atorvastatin 80 mg tablet (Lipitor) 80 mg PO DAILY #30 tabs 04/19/25 Allergies Allergy/AdvReac Type Severity Reaction Status Date / Time No Known Allergies Allergy Verified 03/19/25 21:28 Review of Systems Const: Denies: fever(s), chills, body aches or change in appetite Eyes: Reports: blurry vision; Denies: eye discomfort ENMT: Denies: throat pain or dental pain Card: Denies: chest pain Resp: Denies: dyspnea GI: Denies: abdominal pain, nausea, vomiting or diarrhea Musc: Denies: neck pain or back pain Skin/Breast: Denies: rash Neuro: Reports: headache(s) PFSH ED PFSH: Surgical History History of laminectomy NIH stroke score NIHSS: Level Of Consciousness - 1a: 0 Level Of Consciousness Questions - 1b: Both Correct Level Of Consciousness Commands - 1c: Both Correct Best Gaze - 2: Normal Visual Pelaez - 3: No Visual Loss Facial Palsy - 4: Normal Motor Arm Right - 5: No Drift Motor Arm Left - 5: No Drift Motor Leg Right - 6: No Drift Motor Leg Left - 6: No Drift Limb Ataxia - 7: Absent Sensory - 8: Normal Best Language - 9: No Aphasia Dysarthia - 10: Normal Extinction And Inattention - 11: 0 Score: Total Score: 0 Physical Exam Const: COMMON NORMALS: no acute distress, patient oriented x3 and healthy appearing HENMT: COMMON NORMALS: normocephalic and atraumatic HEAD & SCALP: normocephalic and atraumatic Eye: COMMON NORMALS: Equal, round and reactive pupils present and EOMs intact bilaterally GENERAL EYE: appearance normal, both eyes and all related structures VISUAL PELAEZ: No peripheral vision loss, No central vision loss, No left visual field cut, No right visual field cut, No bitemporal visual field cut, No binasal visual field cut and No visual field cut by quadrant ALIGNMENT: Yes alignment normal PUPIL: Yes Equal, round and reactive pupils present EOM: No EOM abnormal Neck/C-Spine: COMMON NORMALS: full ROM and supple Chest: COMMONS NORMALS: normal inspection of the chest Resp: COMMON NORMALS: normal respiratory effort, No retractions, No use of accessory muscles and clear to auscultation bilaterally AUSCULTATION: clear to auscultation bilaterally Cardio: COMMON NORMALS: regular rate, regular rhythm and No murmurs present (Cardio) RATE: regular rate RHYTHM: regular rhythm Extremity: COMMON NORMALS: normal to inspection and full ROM Neuro: COMMON NORMALS: patient oriented x3, moves all extremities and no focal motor deficits CRANIAL NERVES: Yes CN normal except as noted SPEECH: speech normal GAIT: Yes Normal gait present SENSORY EXAM: No sensory level loss detected MOTOR EXAM: 5/5 motor strength present throughout Psych: COMMON NORMALS: mental status grossly normal, Normal thought process present and cooperative THOUGHT PROCESS: Normal thought process present Skin: COMMON NORMALS: no rashes or lesions noted and no wounds GENERAL SKIN EXAM: no rashes or lesions noted Course Vital Signs: Vital signs: Vital Signs Temperature 98.0 F 04/19/25 15:22 Pulse Rate 60 04/19/25 17:25 Respiratory Rate 18 04/19/25 17:03 Blood Pressure 148/88 04/19/25 17:25 Pulse Oximetry 97 04/19/25 17:25 Oxygen Delivery Me thod Room Air 04/19/25 17:05 MDM - Neuro Symptoms/Deficit Medical Decision Making Patient presents here with headache along with some blurred vision that is all since resolved. She has no signs of acute stroke here no signs of meningitis or surrounding hemorrhage CTA is normal she stable for discharge has follow-up with her PCP along with neurology return if worsening. Medical Records I reviewed the patient's medical records. Lab Data I reviewed the patient's lab results. 04/19/25 16:04 04/19/25 16:[address] 04/19/25 15:32 IMPRESSION: No acute intracranial findings. ASSESSMENT: ASPECTS (Dorothy Stroke Program Early CT Score) is 10. ADDENDUM: 04/19/25 6531 COMMENT: THIS REPORT CONTAINS FINDINGS THAT MAY BE CRITICAL TO PATIENT CARE. The exam findings were verbally communicated by me to DANIKA KEEN via telephone conference at 3:49 PM CDT on 04/19/2025. The findings were acknowledged and understood. Head/Neck CTA 04/19/25 15:36 IMPRESSION: No large vessel stenosis or occlusion. IMPRESSION: No significant stenosis or occlusion. COMMENTS: Consistent with the [place] [employer]'s Incidental Findings Committee white paper (J Am Renee Radiol 2015): In patients aged 35 years and older with an incidental thyroid nodule equal to or greater than 1.[address], MRI or extrathyroidal US, further evaluation with dedicated thyroid US is recommended for patients with normal life expectancy and without comorbidities. For smaller nodules without suspicious features, no further evaluation or follow up is recommended. REFERENCES: NASCET CRITERIA. The degree of stenosis in the cervical segment of the internal carotid artery is based on NASCET criteria. Normal is no stenosis. Mild is less than 50% stenosis. Moderate is 50-69% stenosis. Severe is 70% to 99% stenosis. Total occlusion is no detectable patent lumen. Laboratory Results WBC 6.32 10^3/uL (3.29-11.43) 04/19/25 16:04 Corrected WBC Cancelled 04/19/25 15:40 RBC 4.42 10^6/uL (3.85-5.65) 04/19/25 16:04 Hgb 12.90 g/dL (11.27-16.99) 04/19/25 16:04 Hct 38.7 % (36-47) 04/19/25 16:04 MCV 87.6 fl (85-98) 04/19/25 16:04 MCH 29.2 pg (27-33) 04/19/25 16:04 MCHC 33.3 g/dL (30-55) 04/19/25 16:04 RDW 12.8 % (12.1-15.1) 04/19/25 16:04 Plt Count 193 10^3/cmm (157-399) 04/19/25 16:04 MPV 10.5 fL (7.4-10.4) H 04/19/25 16:04 Gran % Cancelled 04/19/25 15:40 Neut % (Auto) 56.0 % 04/19/25 16:04 Lymph % (Auto) 21.4 % 04/19/25 16:04 [place] % (Auto) 18.5 % 04/19/25 16:04 Eos % (Auto) 2.2 % 04/19/25 16:04 Baso % (Auto) 1.3 % 04/19/25 16:04 Neut # (Auto) 3.54 10^3/uL (1.8-7.7) 04/19/25 16:04 Lymph # (Auto) 1.4 10^3/uL (0.8-4.8) 04/19/25 16:04 [place] # (Auto) 1.2 10^3/uL (0.2-0.9) H 04/19/25 16:04 Eos # (Auto) 0.1 10^3/uL (0.0-0.8) 04/19/25 16:04 Baso # (Auto) 0.1 10^3/uL (0.0-0.1) 04/19/25 16:04 Absolute Gran (auto) Cancelled 04/19/25 15:40 Nucleated RBC % (auto) 0 % 04/19/25 16:04 Nucleated RBCs # 0.0 /100WBC 04/19/25 16:04 PT 14.50 SECONDS (12.1-14.9) 04/19/25 16:04 INR 1.06 (0.8-1.2) 04/19/25 16:04 APTT 25.9 SECONDS (23.9-36.7) 04/19/25 16:04 Sodium 135 mmol/L (136-145) L 04/19/25 16:04 Potassium 4.2 mmol/L (3.5-5.1) 04/19/25 16:04 Chloride 100 mmol/L (98-107) 04/19/25 16:04 Carbon Dioxide 24 mmol/L (22-29) 04/19/25 16:04 Anion Gap 15.2 (5-19) 04/19/25 16:04 BUN 13 mg/dL (8-23) 04/19/25 16:04 Creatinine 0.8 mg/dL (0.5-0.9) 04/19/25 16:04 GFR Calculation Not Reportable 04/19/25 16:04 Glucose 134 mg/dL (65-115) H 04/19/25 16:04 POC Glucose 145 mg/dL (70-110) H 04/19/25 15:33 Calculated Osmolality 282 mOsm/kg (285-295) L 04/19/25 16:04 Calcium 9.2 mg/dL (8.5-10.5) 04/19/25 16:04 Total Bilirubin 0.4 mg/dL (0.15-1.2) 04/19/25 16:04 AST 18 U/L (0-32) 04/19/25 16:04 ALT 10 U/L (0-33) 04/19/25 16:04 Alkaline Phosphatase 114 U/L (35-105) H 04/19/25 16:04 Total Protein 6.2 g/dL (6.6-8.7) L 04/19/25 16:04 Albumin 3.8 g/dL (3.5-5.2) 04/19/25 16:04 Globulin 2.4 g/dL (1.3-4.6) 04/19/25 16:04 Urine Color Yellow (Yellow) 04/19/25 16:22 Urine Appearance Clear (CLEAR) 04/19/25 16:22 Urine pH 5.0 (5-7) 04/19/25 16:22 Ur Specific [place] 1.059 (1.005-1.030) H 04/19/25 16:22 Urine Protein Negative (Negative) 04/19/25 16:22 Urine Glucose (UA) Negative (Normal) 04/19/25 16:22 Urine Ketones Negative (Negative) 04/19/25 16:22 Urine Blood Negative (Negative) 04/19/25 16:22 Urine Nitrate Negative (Negative) 04/19/25 16:22 Urine Bilirubin Negative (Negative) 04/19/25 16:22 Urine Urobilinogen 0.2 mg/dL (Negative) 04/19/25 16:22 Ur Leukocyte Esterase Negative (Negative) 04/19/25 16:22 Urine RBC 0-2 /hpf (0-2) 04/19/25 16:22 Urine WBC 0-5 /hpf (0-5) 04/19/25 16:22 Ur Squamous Epith Cells 0-5 /hpf (0-5) 04/19/25 16:22 Amorphous Sediment Not Reportable 04/19/25 16:22 Urine Bacteria None seen /hpf (NONE) 04/19/25 16:22 Hyaline Casts 0-4 /lpf H 04/19/25 16:22 Urine Opiates Screen Negative ng/mL (Negative) 04/19/25 16:22 Ur Barbiturates Screen Negative ng/mL (Negative) 04/19/25 16:22 Ur Phencyclidine Scrn Negative ng/mL (Negative) 04/19/25 16:22 Ur Amphetamines Screen Negative ng/mL (Negative) 04/19/25 16:22 U Benzodiazepines Scrn Negative ng/mL (Negative) 04/19/25 16:22 Urine Cocaine Screen Negative ng/mL (Negative) 04/19/25 16:22 U Marijuana (THC) Screen Negative ng/mL (Negative) 04/19/25 16:22 All radiology interpretation(s) finalized by discharge Discharge Plan Discharge Patient Disposition: Home Clinical Impression: Headache, Hypertension Condition: Stable Prescriptions: New aspirin 81 mg capsule 81 mg PO DAILY Qty: 30 0RF atorvastatin [Lipitor] 80 mg tablet 80 mg PO DAILY Qty: 30 0RF No Action fluticasone propionate 50 mcg/actuation spray,suspension 1 spray intranasal DAILY PRN (Reason: allergies) Rx Instructions: administer into each nostril (DME) FreeStyle Lite Strips Strip See Rx Instructions .Route Qty: 100 3RF Rx Instructions: to use once daily in freestyle lite meter 90 day supply levocetirizine 5 mg tablet 5 mg PO DAILY PRN (Reason: allergies) metformin 500 mg tablet extended release 24 hr 500 mg PO DAILY hydrocodone-acetaminophen 5-325 mg tablet 1 tab PO Q6H PRN (Reason: pain) Qty: 14 0RF acetaminophen 325 mg Tablet 650 mg PO QID PRN (Reason: Pain) cyanocobalamin (vitamin B-12) [Vitamin B-12] 100 mcg Tablet 100 mcg PO DAILY metoprolol succinate 50 mg tablet extended release 24 hr 50 mg PO QPM sennosides-docusate sodium [Senexon-S] 8.6-50 mg tablet 10 tab PO BID PRN (Reason: Constipation) tramadol 50 mg tablet 50 mg PO TID PRN (Reason: Pain) ascorbic acid (vitamin C) [Vitamin C] 500 mg Tablet 500 mg PO BID vitamin B complex Tablet 1 tab PO DAILY magnesium 250 mg Tablet 250 mg PO DAILY cholecalciferol (vitamin D3) [Vitamin D3] 50 mcg (2,000 unit) Tablet 50 mcg PO DAILY Felice 3-6-9 1,233 mg Capsule 2 cap PO DAILY Discharge Orders: Discharge ED (Routine); Ordered 04/19/25 Ordered By: Danika Keen Referrals: Edison Johns, [Primary Care Provider, Family Practice] - 4-7 days Discharge Diet: Advance as tolerated Discharge Activity: Resume usual activity Patient Instructions: General Headache (ED) Print Language: Maltese Coding Level of Care Code ED Television Announcer for Walt Tong
[2025-04-19] MEDS: iohexol 350 mg/mL 500 mL Btl (per mL) IV (15:56)
--- NOTE | 2025-04-19 15:59 | ECG_ITS ---
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 Measurements Intervals [place] Rate: 61 P: 53 NV: 190 QRS: -29 QRSD: 82 T: 43 QT: 410 QTc: 416 Interpretive Statements SINUS RHYTHM BORDERLINE LEFT AXIS DEVIATION [QRS AXIS < -20] Compared to ECG 03/19/2025 21:26:39 No significant changes Electronically Signed On 04-20-2025 08:58:25 CDT by Jose Elias Toussaint M.D. [email or web address]
[2025-04-19 16:10] LABS: Basophils # 0.1 10^3/uL (0.0-0.1); Basophils % 1.3 %; Eosinophils # 0.1 10^3/uL (0.0-0.8); Eosinophils % 2.2 %; Hematocrit 38.7 % (36-47); Lymphocytes # 1.4 10^3/uL (0.8-4.8); Lymphocytes % 21.4 %; Mean Corpuscular HGB Conc 33.3 g/dL (30-55); Mean Corpuscular Hemoglobin 29.2 pg (27-33); Mean Corpuscular Volume 87.6 fl (85-98); Mean Platelet Volume 10.5 fL (7.4-10.4); Monocytes # 1.2 10^3/uL (0.2-0.9); Monocytes % 18.5 %; Neutrophils # 3.54 10^3/uL (1.8-7.7); Nucleated Red Blood Cells % 0 %; Platelet Count 193 10^3/cmm (157-399); Red Blood Count 4.42 10^6/uL (3.85-5.65); Red Cell Distribution Width 12.8 % (12.1-15.1); White Blood Count 6.32 10^3/uL (3.29-11.43)
[2025-04-19 16:22] LABS: INR 1.06 (0.8-1.2)
[2025-04-19 16:23] LABS: Partial Thromboplastin Time 25.9 SECONDS (23.9-36.7)
[2025-04-19 16:26] LABS: Alanine Aminotransferase 10 U/L (0-33); Albumin Level 3.8 g/dL (3.5-5.2); Alkaline Phosphatase 114 U/L (35-105); Anion Gap 15.2 (5-19); Aspartate Amino Transferase 18 U/L (0-32); Blood Urea Nitrogen 13 mg/dL (8-23); Calcium 9.2 mg/dL (8.5-10.5); Carbon Dioxide 24 mmol/L (22-29); Chloride 100 mmol/L (98-107); Creatinine Clr Calc Pharmacy 58.2792; Globulin 2.4 g/dL (1.3-4.6); Glucose 134 mg/dL (65-115); Osmolality Calculated 282 mOsm/kg (285-295); Potassium 4.2 mmol/L (3.5-5.1); Sodium 135 mmol/L (136-145); Total Bilirubin 0.4 mg/dL (0.15-1.2); Total Protein 6.2 g/dL (6.6-8.7)
[2025-04-19] MEDS: ketorolac 30 mg/mL INJ 15 MG IVP (16:32)
[2025-04-19] MEDS: hyDRALAzine 20 mg/mL INJ 1 mL 10 MG IVP (16:33)
[2025-04-19 16:46] LABS: Bilirubin Urine Negative (Negative); Blood Urine Negative (Negative); Glucose Urine UA Negative (Normal); Ketones Urine Negative (Negative); Leukocyte Esterase Urine Negative (Negative); Nitrate Urine Negative (Negative); Protein Urine Negative (Negative); Urine Appearance Clear (CLEAR); Urine Color Yellow (Yellow); Urobilinogen Urine 0.2 mg/dL (Negative)
[2025-04-19 16:50] LABS: Amphetamines Screen Urine Negative (Negative); Barbiturates Screen Urine Negative (Negative); Benzodiazepines Screen Urine Negative (Negative); Cocaine Screen Urine Negative (Negative); Opiate Screen Urine Negative (Negative); PCP Screen Urine Negative (Negative); THC Screen Urine Negative (Negative)
[2025-04-19 16:51] LABS: Add Urine Microscopic? YES; Bacteria Urine None Seen /hpf; Hyaline Casts Urine 0-4 /lpf; RBC Urine 0-2 /hpf (0-2); Squamous Epithelial Cell Urine 0-5 /hpf (0-5); WBC Urine 0-5 /hpf (0-5)
[2025-04-19 16:52] LABS: Specific Gravity, Urine 1.059 (1.005-1.030)
[2025-04-19] MEDS: morphine 4 mg/mL SDV 1 mL IVP (17:03)
[2025-04-19] MEDS: ondansetron 2 mg/ML SDV 2 mL 4 MG IVP (17:03)
--- NOTE | 2025-04-20 07:32 | DCPLANNER ---
messaged neurology for er f/u
== END 2025-04-19 17:26 | disposition home or self-care (01) ==
PROVIDERS: Emergency Provider Emergency Medicine; PCP Electrodiagnostic Medicine
DX: I10 Essential (primary) hypertension (principal); R51.9 Headache, unspecified; Z79.84 Long term (current) use of oral hypoglycemic drugs; Z79.899 Other long term (current) drug therapy
CPT/HCPCS: 36416; 70450; 70496; 70498; 80053; 80306; 81001; 82962; 85025; 85610; 85730; 93005; 96374; 96375; 99285; J0360; J1885; J2270; J2405

== ENCOUNTER 2025-04-24 18:59 | Emergency (ER) | payer MEDICARE, OTHER, SELFPAY ==
[2025-04-24 19:03] VITALS: BP 216/85; PULSE 63; RESP 18; TEMP 36.7; O2SAT 97; BMI 33.0
--- NOTE | 2025-04-24 19:27 | W.ED.RECABL ---
HPI - Recheck/Abnormal Lab/Rx General: Chief Complaint: Recheck/Abnormal Lab/Rx Stated Complaint: High BP Shaking Not comfortable Breathing Time Seen by Provider: 04/24/25 19:21 History of Present Illness: Patient is a female presenting with elevated blood pressure. She reports a recent ER visit on Sunday (4 days ago) for visual disturbances described as jagged light in her vision and a severe headache, which she states is unusual for her. At that time, her home BP reading was 166/92-99. In the ER, she received a head CT scan and medications for blood pressure and headache. Today, she reports a concerning home BP reading of 199/111, with a second reading of 220/111, prompting her visit. Patient has a complex history involving back pain that began in February, which she initially treated with traction, massage therapy, and exercise. She was previously prescribed hydrocodone and naproxen, which caused GI upset. Her PCP reportedly found abnormal electrolytes (high potassium, low sodium) and subsequently changed her antihypertensive medication from lisinopril, which she had taken for years, to metoprolol. She was also prescribed tramadol for pain. Patient reports being cautious about medication use, preferring non-pharmacological approaches including ice, TENS unit, massage, and traction. She also mentions persistent nausea for which she saw her doctor on and was prescribed what she believes was omeprazole ( something azole ) and calcium carbonate ( prescription Tums ). Patient denies feeling stressed when asked directly. Related Data Home Medications ?Medication ?Instructions ?Recorded ?Confirmed fluticasone propionate 50 1 spray intranasal DAILY PRN 05/18/21 04/19/25 mcg/actuation nasal allergies spray,suspension levocetirizine 5 mg tablet 5 mg PO DAILY PRN allergies 10/18/24 04/19/25 metformin 500 mg tablet,extended 500 mg PO DAILY 03/13/25 04/19/25 release 24 hr acetaminophen 325 mg tablet 650 mg PO QID PRN Pain 04/19/25 04/19/25 ascorbic acid (vitamin C) 500 mg 500 mg PO BID 04/19/25 04/19/25 tablet (Vitamin C) cholecalciferol (vitamin D3) 50 50 mcg PO DAILY 04/19/25 04/19/25 mcg (2,000 unit) tablet (Vitamin D3) cyanocobalamin (vitamin B-12) 100 100 mcg PO DAILY 04/19/25 04/19/25 mcg tablet (Vitamin B-12) magnesium 250 mg tablet 250 mg PO DAILY 04/19/25 04/19/25 metoprolol succinate 50 mg 50 mg PO QPM 04/19/25 04/19/25 tablet,extended release 24 hr omega 3,6,9-borage seed 2 cap PO DAILY 04/19/25 04/19/25 oil-flaxseed oil-fish oil 1,233 mg capsule (Felice 3-6-9) sennosides 8.6 mg-docusate sodium 10 tab PO BID PRN Constipation 04/19/25 04/19/25 50 mg tablet (Senexon-S) tramadol 50 mg tablet 50 mg PO TID PRN Pain 04/19/25 04/19/25 vitamin B complex 1 tab PO DAILY 04/19/25 04/19/25 Previous Rx's ?Medication ?Instructions ?Recorded blood sugar diagnostic (FreeStyle #100 ea 03/19/23 Lite Strips) hydrocodone 5 mg-acetaminophen 325 1 tab PO Q6H PRN pain #14 tabs 03/13/25 mg tablet aspirin 81 mg capsule 81 mg PO DAILY #30 caps 04/19/25 atorvastatin 80 mg tablet (Lipitor) 80 mg PO DAILY #30 tabs 04/19/25 Allergies Allergy/AdvReac Type Severity Reaction Status Date / Time erythromycin base Allergy ADR-Gastrointestinal Verified 04/24/25 20:54 Upset Review of Systems General: Reports: 10 or more systems reviewed and unremarkable except in HPI and below PFSH ED PFSH: Surgical History History of laminectomy Physical Exam Const: COMMON NORMALS: no acute distress, patient oriented x3, alert and well nourished HENMT: COMMON NORMALS: normocephalic HEAD & SCALP: normocephalic Eye: COMMON NORMALS: Equal, round and reactive pupils present, EOMs intact bilaterally and conjunctivae normal CONJUNCTIVA: Yes conjunctivae normal PUPIL: Yes Equal, round and reactive pupils present Chest: COMMONS NORMALS: normal inspection of the chest and normal palpation of entire chest wall Resp: COMMON NORMALS: normal respiratory effort, No retractions, No use of accessory muscles, clear to auscultation bilaterally and percussion normal AUSCULTATION: clear to auscultation bilaterally PERCUSSION: percussion normal GI: COMMON NORMALS: Normal to inspection, nondistended, normoactive bowel sounds present, Soft to palpation, non-tender, No hepatosplenomegaly present, no masses and no bruits PALPATION: Yes Soft to palpation and Yes No hepatosplenomegaly present Extremity: COMMON NORMALS: normal to inspection, full ROM, capillary refill normal, no joint enlargement, no clubbing, cyanosis or edema, no calf tenderness and no pedal edema Neuro: COMMON NORMALS: patient oriented x3 SENSORIUM/ORIENTATION: Yes alert Skin: COMMON NORMALS: no rashes or lesions noted, turgor normal and no jaundice GENERAL SKIN EXAM: no rashes or lesions noted and turgor normal Course Vital Signs: Vital signs: Vital Signs Temperature 98.1 F 04/24/25 19:03 Pulse Rate 65 04/24/25 20:42 Respiratory Rate 18 04/24/25 20:42 Blood Pressure 178/93 04/24/25 20:42 Pulse Oximetry 95 04/24/25 20:42 Oxygen Delivery Me thod Room Air 04/24/25 19:03 MDM - Recheck/Abnormal Lab/Rx Medical Decision Making 1. Hypertensive Urgency - BP significantly elevated at 199-220/111 per home measurements - Recent medication change from lisinopril to metoprolol - Plan: Administer immediate treatment to lower BP safely - Review recent ER labs and imaging - Consider adjustment of antihypertensive regimen - Rule out secondary causes of hypertension given abrupt elevation and electrolyte abnormalities 2. Chronic Back Pain - History of back pain with previous MRI - Currently managing with non-pharmacological approaches (ice, TENS, massage, traction) - Previously tried hydrocodone, naproxen (with GI side effects), and tramadol - Plan: Consider pain management referral if conservative measures insufficient - Evaluate need for updated imaging 3. Gastrointestinal Issues/Nausea - Recently prescribed PPI (likely omeprazole) and calcium carbonate - Plan: Assess effectiveness of current regimen - Consider H. pylori testing if symptoms persist 4. Electrolyte Abnormalities (per history) - Reported high potassium and low sodium - Plan: Review recent labs - Consider repeat electrolyte panel - Evaluate for causes of electrolyte disturbances Follow-up: Schedule appointment in 1 week to reassess BP control and symptom management. Provide patient education on home BP monitoring and when to seek emergency care. Lab Data 04/24/25 20:09 04/24/25 20:09 Laboratory Results WBC 6.53 10^3/uL (3.29-11.43) 04/24/25 20:09 RBC 4.82 10^6/uL (3.85-5.65) 04/24/25 20:09 Hgb 14.10 g/dL (11.27-16.99) 04/24/25 20:09 Hct 41.1 % (36-47) 04/24/25 20:09 MCV 85.3 fl (85-98) 04/24/25 20:09 MCH 29.3 pg (27-33) 04/24/25 20: MCHC 34.3 g/dL (30-55) 04/24/25 20:09 RDW 12.7 % (12.1-15.1) 04/24/25 20:09 Plt Count 213 10^3/cmm (157-399) 04/24/25 20:09 MPV 11.1 fL (7.4-10.4) H 04/24/25 20:09 Neut % (Auto) 57.6 % 04/24/25 20:09 Lymph % (Auto) 20.5 % 04/24/25 20:09 [place] % (Auto) 17.5 % 04/24/25 20:09 Eos % (Auto) 2.5 % 04/24/25 20:09 Baso % (Auto) 1.4 % 04/24/25 20:09 Neut # (Auto) 3.77 10^3/uL (1.8-7.7) 04/24/25 20:09 Lymph # (Auto) 1.3 10^3/uL (0.8-4.8) 04/24/25 20:09 [place] # (Auto) 1.1 10^3/uL (0.2-0.9) H 04/24/25 20:09 Eos # (Auto) 0.2 10^3/uL (0.0-0.8) 04/24/25 20:09 Baso # (Auto) 0.1 10^3/uL (0.0-0.1) 04/24/25 20:09 Nucleated RBC % (auto) 0 % 04/24/25 20: Nucleated RBCs # 0.0 /100WBC 04/24/25 20:09 Sodium 137 mmol/L (136-145) 04/24/25 20:09 Potassium 4.1 mmol/L (3.5-5.1) 04/24/25 20:09 Chloride 103 mmol/L (98-107) 04/24/25 20:09 Carbon Dioxide 23 mmol/L (22-29) 04/24/25 20:09 Anion Gap 15.1 (5-19) 04/24/25 20:09 BUN 12 mg/dL (8-23) 04/24/25 20:09 Creatinine 0.5 mg/dL (0.5-0.9) 04/24/25 20:09 GFR Calculation Not Reportable 04/24/25 20:09 Glucose 122 mg/dL (65-115) H 04/24/25 20:09 Calculated Osmolality 285 mOsm/kg (285-295) 04/24/25 20:09 Calcium 9.6 mg/dL (8.5-10.5) 04/24/25 20:09 No radiology studies performed this visit ED provider radiology interpretation(s): None EKG Data EKG 1: Other EKG comments: EKG reveals sinus bradycardia with normal intervals axis. QTc is not prolonged regular rhythm and bradycardic rate. No arrhythmias or ST elevation or depression. Other Data Patient seemed a little bit anxious when I was meeting with her I gave her some Ativan and that brought her blood pressure down she denied any significant symptoms some check of routine labs were unremarkable it was felt that she could have adjustment of her outpatient medications and discharged home. Discharge Plan Discharge Patient Disposition: Home Clinical Impression: Hypertension Condition: Stable Prescriptions: No Action fluticasone propionate 50 mcg/actuation spray,suspension 1 spray intranasal DAILY PRN (Reason: allergies) Rx Instructions: administer into each nostril (DME) FreeStyle Lite Strips Strip See Rx Instructions .Route Qty: 100 3RF Rx Instructions: to use once daily in freestyle lite meter 90 day supply levocetirizine 5 mg tablet 5 mg PO DAILY PRN (Reason: allergies) metformin 500 mg tablet extended release 24 hr 500 mg PO DAILY hydrocodone-acetaminophen 5-325 mg tablet 1 tab PO Q6H PRN (Reason: pain) Qty: 14 0RF acetaminophen 325 mg Tablet 650 mg PO QID PRN (Reason: Pain) cyanocobalamin (vitamin B-12) [Vitamin B-12] 100 mcg Tablet 100 mcg PO DAILY metoprolol succinate 50 mg tablet extended release 24 hr 50 mg PO QPM sennosides-docusate sodium [Senexon-S] 8.6-50 mg tablet 10 tab PO BID PRN (Reason: Constipation) tramadol 50 mg tablet 50 mg PO TID PRN (Reason: Pain) ascorbic acid (vitamin C) [Vitamin C] 500 mg Tablet 500 mg PO BID vitamin B complex Tablet 1 tab PO DAILY magnesium 250 mg Tablet 250 mg PO DAILY cholecalciferol (vitamin D3) [Vitamin D3] 50 mcg (2,000 unit) Tablet 50 mcg PO DAILY Felice 3-6-9 1,233 mg Capsule 2 cap PO DAILY aspirin 81 mg capsule 81 mg PO DAILY Qty: 30 0RF atorvastatin [Lipitor] 80 mg tablet 80 mg PO DAILY Qty: 30 0RF Discharge Orders: Discharge ED (Routine); Ordered 04/24/25 Ordered By: Michele Briones Referrals: Edison Johns DO [Primary Care Provider, Family Practice] Discharge Diet: Advance as tolerated Discharge Activity: Resume usual activity Patient Instructions: Opioid Safety, Pain Management Activity Restrictions/Additional Instructions: 1. Take Rx as directed. Can double metoprolol if blood pressure running high. Low salt. Weight loss. 2. Follow up with PCP for recheck next week. Return for new or worsening symptoms. Print Language: Nauruan Coding Level of Care Code ED Rotary Operator for Walt Tong
[2025-04-24] MEDS: LORazepam 1 MG/0.5 ML injection IVP (20:19)
[2025-04-24 20:30] LABS: Basophils # 0.1 10^3/uL (0.0-0.1); Basophils % 1.4 %; Eosinophils # 0.2 10^3/uL (0.0-0.8); Eosinophils % 2.5 %; Hematocrit 41.1 % (36-47); Lymphocytes # 1.3 10^3/uL (0.8-4.8); Lymphocytes % 20.5 %; Mean Corpuscular HGB Conc 34.3 g/dL (30-55); Mean Corpuscular Hemoglobin 29.3 pg (27-33); Mean Corpuscular Volume 85.3 fl (85-98); Mean Platelet Volume 11.1 fL (7.4-10.4); Monocytes # 1.1 10^3/uL (0.2-0.9); Monocytes % 17.5 %; Neutrophils # 3.77 10^3/uL (1.8-7.7); Neutrophils % 57.6 %; Nucleated Red Blood Cells % 0 %; Platelet Count 213 10^3/cmm (157-399); Red Blood Count 4.82 10^6/uL (3.85-5.65); Red Cell Distribution Width 12.7 % (12.1-15.1); White Blood Count 6.53 10^3/uL (3.29-11.43)
[2025-04-24 20:42] VITALS: BP 178/93; PULSE 65; RESP 18; O2SAT 95
[2025-04-24 20:45] LABS: Anion Gap 15.1 (5-19); Blood Urea Nitrogen 12 mg/dL (8-23); Calcium 9.6 mg/dL (8.5-10.5); Carbon Dioxide 23 mmol/L (22-29); Chloride 103 mmol/L (98-107); Creatinine Clr Calc Pharmacy 57.9661; Glucose 122 mg/dL (65-115); Osmolality Calculated 285 mOsm/kg (285-295); Potassium 4.1 mmol/L (3.5-5.1); Sodium 137 mmol/L (136-145)
[2025-04-24 21:23] VITALS: BP 163/91; PULSE 66; O2SAT 95
== END 2025-04-24 21:29 | disposition home or self-care (01) ==
PROVIDERS: Emergency Provider Family Medicine; PCP Electrodiagnostic Medicine
DX: I10 Essential (primary) hypertension (principal); Z79.82 Long term (current) use of aspirin
CPT/HCPCS: 80048; 85025; 96374; 99284; J2060

== ENCOUNTER 2025-05-01 13:55 | Observation (INO) | payer MEDICARE, OTHER, SELFPAY ==
[2025-05-01] VITALS (8 sets, daily range): BP systolic 170–182; BP diastolic 68–99; PULSE 47–88; RESP 16–18; TEMP 36.4–36.8; O2SAT 96–98; BMI 32.5
--- NOTE | 2025-05-01 14:06 | W.ED.NEUROSD ---
HPI - Neuro Symptoms/Deficit General: Chief Complaint: Neuro Symptoms/Deficit Stated Complaint: stroke like Time Seen by Provider: 05/01/25 14:01 History of Present Illness: 74-year-old female presents emergency room with complaints of left hand weakness difficulty with speech and word finding began around noon today her last known well is at noon. She presents here with still very mild dysarthria and aphasia at worst. The rest of her stroke score is normal for a total stroke score of 2 she was seen earlier this month with similar symptoms had a CTA head and a CTA head and neck both of which were unremarkable. Blood pressure is somewhat elevated initially when she presents here. Associated symptoms: Deny chest pain Related Data Home Medications ?Medication ?Instructions ?Recorded ?Confirmed fluticasone propionate 50 1 spray intranasal DAILY PRN 05/18/21 05/01/25 mcg/actuation nasal allergies spray,suspension metformin 500 mg tablet,extended 500 mg PO DAILY 03/13/25 05/01/25 release 24 hr acetaminophen 325 mg tablet 650 mg PO QID PRN Pain 04/19/25 05/01/25 ascorbic acid (vitamin C) 500 mg 500 mg PO BID 04/19/25 05/01/25 tablet (Vitamin C) cholecalciferol (vitamin D3) 50 50 mcg PO DAILY 04/19/25 05/01/25 mcg (2,000 unit) tablet (Vitamin D3) cyanocobalamin (vitamin B-12) 100 100 mcg PO DAILY 04/19/25 05/01/25 mcg tablet (Vitamin B-12) magnesium 250 mg tablet 250 mg PO DAILY 04/19/25 05/01/25 metoprolol succinate 50 mg 50 mg PO QPM 04/19/25 05/01/25 tablet,extended release 24 hr omega 3,6,9-borage seed 2 cap PO DAILY 04/19/25 05/01/25 oil-flaxseed oil-fish oil 1,233 mg capsule (Felice 3-6-9) tramadol 50 mg tablet 50 mg PO TID PRN Pain 04/19/25 05/01/25 vitamin B complex 1 tab PO DAILY 04/19/25 05/01/25 pantoprazole 40 mg tablet,delayed 40 mg PO DAILY 05/01/25 05/01/25 release sertraline 50 mg tablet 50 mg PO DAILY 05/01/25 05/01/25 sucralfate 1 gram tablet 1 g PO QID PRN stomach pain 05/01/25 05/01/25 Previous Rx's ?Medication ?Instructions ?Recorded blood sugar diagnostic (FreeStyle #100 ea 03/19/23 Lite Strips) hydrocodone 5 mg-acetaminophen 325 1 tab PO Q6H PRN pain #14 tabs 03/13/25 mg tablet aspirin 81 mg capsule 81 mg PO DAILY #30 caps 04/19/25 atorvastatin 80 mg tablet (Lipitor) 80 mg PO DAILY #30 tabs 04/19/25 Allergies Allergy/AdvReac Type Severity Reaction Status Date / Time erythromycin base Allergy ADR-Gastrointestinal Verified 04/24/25 20:54 Upset naproxen Allergy ADR-Abdominal Verified 05/01/25 16:02 Pain Review of Systems Const: Denies: fever(s) or chills Card: Denies: chest pain Resp: Denies: dyspnea GI: Denies: abdominal pain : Denies: dysuria, urinary frequency or urinary urgency Musc: Denies: neck pain or back pain Skin/Breast: Denies: rash PFSH ED PFSH: Medical History (Updated 05/01/25 @ 17:08 by Anthony Moore MD) HTN (hypertension) Surgical History History of laminectomy Social History (Updated 05/01/25 @ 17:04 by Anthony Moore MD) Smoking and tobacco/nicotine status: never used tobacco/nicotine Alcohol intake: never Substance/Drug Use: never NIH stroke score NIHSS: Level Of Consciousness - 1a: 0 Level Of Consciousness Questions - 1b: Both Correct Level Of Consciousness Commands - 1c: Both Correct Best Gaze - 2: Normal Visual Workman - 3: No Visual Loss Facial Palsy - 4: Normal Motor Arm Right - 5: No Drift Motor Arm Left - 5: No Drift Motor Leg Right - 6: No Drift Motor Leg Left - 6: No Drift Limb Ataxia - 7: Absent Sensory - 8: Normal Best Language - 9: Mild/Moderate Aphasia Dysarthia - 10: Mild/Moderate Dysarthia Extinction And Inattention - 11: 0 Score: Total Score: 2 Physical Exam Const: COMMON NORMALS: no acute distress GENERAL APPEARANCE: cooperative and comfortable ORIENTATION/CONSCIOUSNESS: Yes awake, Yes oriented to person, Yes oriented to place and Yes oriented to time HENMT: COMMON NORMALS: normocephalic, atraumatic and hearing grossly normal bilaterally HEAD & SCALP: normocephalic and atraumatic Resp: COMMON NORMALS: normal respiratory effort, No retractions, No use of accessory muscles and clear to auscultation bilaterally AUSCULTATION: clear to auscultation bilaterally Cardio: COMMON NORMALS: regular rate, regular rhythm and No murmurs present (Cardio) RATE: regular rate RHYTHM: regular rhythm GI: COMMON NORMALS: Soft to palpation and No hepatosplenomegaly present AUSCULTATION: Yes normoactive bowel sounds PALPATION: Yes Soft to palpation, No Tenderness to palpation present (GI), No Guarding due to palpation present (GI) and Yes No hepatosplenomegaly present Extremity: COMMON NORMALS: normal to inspection, capillary refill normal, no clubbing, cyanosis or edema, no calf tenderness and no pedal edema Neuro: SENSORIUM/ORIENTATION: Yes oriented to person, Yes oriented to place and Yes oriented to time Skin: COMMON NORMALS: no rashes or lesions noted GENERAL SKIN EXAM: no rashes or lesions noted Course Vital Signs: Vital signs: Vital Signs Temperature 98.0 F 05/01/25 14:04 Pulse Rate 88 05/01/25 17:09 Respiratory Rate 16 05/01/25 14:04 Blood Pressure 179/99 05/01/25 17:09 Pulse Oximetry 98 05/01/25 17:09 Oxygen Delivery Me thod Room Air 05/01/25 14:33 MDM - Neuro Symptoms/Deficit Medical Decision Making NIH of 2 she is 3 hours from last known well. CT shows subacute stroke at this point I do not believe she is a candidate for any thrombolytics. I contacted [facility] who is on-call for stroke call. Dr. Preston on-call agreed after reviewing the presentation and the imaging with me he does not recommend any further imaging at this time. He felt there is no need for a CTA. She is not can to be an embolectomy candidate as she is not a thrombolytic candidate at this time. Will admit for new subacute stroke. Medical Records I reviewed the patient's medical records. Lab Data I reviewed the patient's lab results. 05/01/25 14:15 05/01/25 14:[address] 05/01/25 14:15 IMPRESSION: 1. No evidence of intracranial hemorrhage or mass effect. 2. Suspected small subacute infarct in the LEFT thalamus measuring 6 to 7 mm. This can be followed up with MRI if indicated 3. No other new findings. Notified Pako Chavarria DO at 05/01/2025 2:26 PM. Laboratory Results WBC 6.55 10^3/uL (3.29-11.43) 05/01/25 14:15 RBC 4.80 10^6/uL (3.85-5.65) 05/01/25 14:15 Hgb 14.10 g/dL (11.27-16.99) 05/01/25 14:15 Hct 40.3 % (36-47) 05/01/25 14:15 MCV 84.0 fl (85-98) L 05/01/25 14:15 MCH 29.4 pg (27-33) 05/01/25 14:15 MCHC 35.0 g/dL (30-55) 05/01/25 14:15 RDW 12.5 % (12.1-15.1) 05/01/25 14:15 Plt Count 167 10^3/cmm (157-399) 05/01/25 14:15 MPV 10.9 fL (7.4-10.4) H 05/01/25 14:15 Neut % (Auto) 58.4 % 05/01/25 14:15 Lymph % (Auto) 22.6 % 05/01/25 14:15 Bradley % (Auto) 15.3 % 05/01/25 14:15 Eos % (Auto) 2.0 % 05/01/25 14:15 Baso % (Auto) 1.1 % 05/01/25 14:15 Neut # (Auto) 3.83 10^3/uL (1.8-7.7) 05/01/25 14:15 Lymph # (Auto) 1.5 10^3/uL (0.8-4.8) 05/01/25 14:15 Bradley # (Auto) 1.0 10^3/uL (0.2-0.9) H 05/01/25 14:15 Eos # (Auto) 0.1 10^3/uL (0.0-0.8) 05/01/25 14:15 Baso # (Auto) 0.1 10^3/uL (0.0-0.1) 05/01/25 14:15 Nucleated RBC % (auto) 0 % 05/01/25 14:15 Nucleated RBCs # 0.0 /100WBC 05/01/25 14:15 PT 13.60 SECONDS (12.1-14.9) 05/01/25 14:15 INR 0.97 (0.8-1.2) 05/01/25 14:15 APTT 19.0 SECONDS (23.9-36.7) L 05/01/25 14:15 Sodium 132 mmol/L (136-145) L 05/01/25 14:15 Potassium 4.6 mmol/L (3.5-5.1) 05/01/25 14:15 Chloride 95 mmol/L (98-107) L 05/01/25 14:15 Carbon Dioxide 25 mmol/L (22-29) 05/01/25 14:15 Anion Gap 16.6 (5-19) 05/01/25 14:15 BUN 13 mg/dL (8-23) 05/01/25 14:15 Creatinine 0.7 mg/dL (0.5-0.9) 05/01/25 14:15 GFR Calculation Not Reportable 05/01/25 14:15 Glucose 130 mg/dL (65-115) H 05/01/25 14:15 POC Glucose 139 mg/dL (70-110) H 05/01/25 14:02 Calculated Osmolality 276 mOsm/kg (285-295) L 05/01/25 14:15 Calcium 9.7 mg/dL (8.5-10.5) 05/01/25 14:15 Total Bilirubin 0.4 mg/dL (0.15-1.2) 05/01/25 14:15 AST 27 U/L (0-32) 05/01/25 14:15 ALT 15 U/L (0-33) 05/01/25 14:15 Alkaline Phosphatase 118 U/L (35-105) H 05/01/25 14:15 NT-Pro-B Natriuret Pep 335 pg/mL (0-450) 05/01/25 14:15 Total Protein 6.8 g/dL (6.6-8.7) 05/01/25 14:15 Albumin 4.1 g/dL (3.5-5.2) 05/01/25 14:15 Globulin 2.7 g/dL (1.3-4.6) 05/01/25 14:15 All radiology interpretation(s) finalized by discharge Discharge Plan Discharge Patient Disposition: Admitted As Inpatient Admit Provider: Anthony Moore Clinical Impression: Cerebrovascular accident, HTN (hypertension) Condition: Stable Coding Level of Care Code ED Supervisor Locomotive for Walt Tong
[2025-05-01 14:10] LABS: Glucose Point of Care 139 mg/dL (70-110)
--- NOTE | 2025-05-01 14:15 | CT_ITS ---
WS: [id number] CT HEAD TECHNIQUE: Noncontrast CT of the head obtained from the skullbase to the vertex. CLINICAL INFORMATION: RT ARM TINGLING COMPARISON: 04/19/2025 DLP: [address] scans at [facility] use at least one of these dose optimization techniques: automated exposure control; mA and/or kV adjustment per patient size (includes targeted exams where dose is matched to clinical indication); or iterative reconstruction. FINDINGS: No evidence of intracranial hemorrhage or mass effect. Ventricular system and basal cisterns are patent. Mild small vessel changes with mild parenchymal volume loss. No extra-axial fluid collections. Suspected small subacute infarct in the LEFT thalamus measuring 6 to 7 mm. This can be followed up with MRI if indicated. This appears new compared to 04/19/2025 Paranasal sinuses and mastoid air cells are well aerated. .Normal visualized soft tissues. CT/CT head thrombolytic [id number] IMPRESSION: 1. No evidence of intracranial hemorrhage or mass effect. 2. Suspected small subacute infarct in the LEFT thalamus measuring 6 to 7 mm. This can be followed up with MRI if indicated 3. No other new findings. Notified Pako Chavarria DO at 05/01/2025 2:26 PM.
[2025-05-01 14:25] LABS: Basophils # 0.1 10^3/uL (0.0-0.1); Basophils % 1.1 %; Eosinophils # 0.1 10^3/uL (0.0-0.8); Hematocrit 40.3 % (36-47); Lymphocytes # 1.5 10^3/uL (0.8-4.8); Lymphocytes % 22.6 %; Mean Corpuscular Hemoglobin 29.4 pg (27-33); Mean Platelet Volume 10.9 fL (7.4-10.4); Monocytes % 15.3 %; Neutrophils # 3.83 10^3/uL (1.8-7.7); Neutrophils % 58.4 %; Nucleated Red Blood Cells % 0 %; Platelet Count 167 10^3/cmm (157-399); Red Cell Distribution Width 12.5 % (12.1-15.1); White Blood Count 6.55 10^3/uL (3.29-11.43)
--- NOTE | 2025-05-01 14:31 | ECG_ITS ---
[facility] Test Date: 2025-05-01 Pat Name: Belkis Henson Department: Room: Gender: Female Research [employer]: : 1950 Requested By: Pako Garcia Order Number: [id number] Devan MD: Divina Jose M.D. Measurements Intervals Cashion Rate: 47 P: 14 MN: 177 QRS: -13 QRSD: 85 T: 35 QT: 430 QTc: 382 Interpretive Statements SINUS BRADYCARDIA VOLTAGE CRITERIA FOR LVH [MEETS CRITERIA IN ONE OF: R(aVL), S(V1), R(V5), R(V5/V6)+S(V1)] Compared to ECG 04/19/2025 15:59:23 Left ventricular hypertrophy now present Sinus rhythm no longer present Electronically Signed On 05-03-2025 19:29:36 CDT by Divina Jose M.D. [id number]
[2025-05-01 14:39] LABS: INR 0.97 (0.8-1.2)
[2025-05-01 14:42] LABS: Alanine Aminotransferase 15 U/L (0-33); Albumin Level 4.1 g/dL (3.5-5.2); Alkaline Phosphatase 118 U/L (35-105); Blood Urea Nitrogen 13 mg/dL (8-23); Calcium 9.7 mg/dL (8.5-10.5); Carbon Dioxide 25 mmol/L (22-29); Chloride 95 mmol/L (98-107); Creatinine Clr Calc Pharmacy 57.5832; Globulin 2.7 g/dL (1.3-4.6); Glucose 130 mg/dL (65-115); Osmolality Calculated 276 mOsm/kg (285-295); Sodium 132 mmol/L (136-145); Total Bilirubin 0.4 mg/dL (0.15-1.2); Total Protein 6.8 g/dL (6.6-8.7)
--- NOTE | 2025-05-01 14:42 | DCPLANNER ---
Addendum entered by Nadya Frances 05/01/25 15:03: called us back at 1502. Original Note: called [facility] for tele stroke @ [id number]
[2025-05-01 14:56] LABS: Slide Review Slide Review Perform
[2025-05-01 15:01] LABS: Anion Gap 16.6 (5-19); Aspartate Amino Transferase 27 U/L (0-32); Potassium 4.6 mmol/L (3.5-5.1)
--- NOTE | 2025-05-01 15:57 | PC.PHAR ---
Patient is not taking her stomacj medication at this time . Patient states she takes Tramadol as needed , and hasn't needed it lately. Patient also states davey Doctor told her to take her Sertraline 1/2 for a few days then take a whole one. Patient today took a half of a sertraline ,asprin and her Metoprolol and Metformin .
--- NOTE | 2025-05-01 16:55 | PM.HP ---
Providers/Chief Complaint Admitting Physician: Anthony Moore MD Primary Care Provider: Edison Johns DO Chief Complaint: stroke like History of Present Illness Belkis Henson is a 74 year old female with a past medical history of hypertension, hyperlipidemia, type 2 diabetes who presents to [facility] for right sided weakness. Currently patient is alert oriented x 3, following all commands, currently denying any significant symptomatology, she tells me that she does not have any symptomatology. But at about 11 AM she was going between [employer], she noticed numbness around her mouth, which was associated with the right hand numbness and clumsiness, she tells me that her right upper extremity felt weird so must if he was having a spasm, she dropped her phone, but was able to call her who is in the car, she eventually got into car, continue to have numbness around her mouth, right arm weakness she does report unsteadiness on her feet, potentially right leg weakness but very mild, she does report some word finding difficulty, does report slurring of her words, troubles with S's and T's, her symptoms lasted for about 30 minutes, eventually they got home, they had asked the family friends what to do, her daughter recommended for them to go to the emergency room, but they were not entirely convinced, so her had googled some of her symptoms, and recommended for her to the emergency room so at that point they decided to come to the emergency room. Patient was a stroke alert on admission, NIH stroke scale on admission was 2, [facility] was involved, patient was not deemed a tPA candidate, not a candidate for embolectomy, patient had a CT done a few weeks ago which was within normal limits so there was no need for a repeat CTA, head CT shows suspected small subacute infarct in the left thalamus measuring 6 to 7 mm, she does not take Plavix at home, she does take aspirin, she tells me that she has a intolerance to statins more specifically atorvastatin, so she does have Crestor at home which she tolerates, but has not been using it recently, during my evaluation, no significant slurring of her words, no facial droop, no paresthesias, pupils equal round reactive to light, extraocular movements intact, right hand numbness and clumsiness has resolved, she does have slight weakness of the right lower extremity compared to the left, right upper extremity compared to the left, NIH stroke scale would be 2-3, patient tells me that she is back to baseline she feels. Patient was here in the emergency room on 04/19/2025 reporting spots in her vision, headache, and a stroke scale 0, CT head no acute findings, CTA no acute findings, discharged on aspirin/statin, she was here in the emergency room on 04/24, she reported elevated blood pressures at 199/111, 220/111 prompting her to visit the ER, she does tell me that her blood pressures have been elevated, when she got home today after the garage sale her systolic blood pressures were in the 170s Review of Systems Const: Denies: fever(s) Eyes: Denies: change in vision Card: Denies: chest pain Resp: Denies: dyspnea GI: Denies: abdominal pain : Denies: flank pain Medications/Allergies Home Medications ?Medication ?Instructions ?Recorded ?Confirmed ?Last Taken ?Type fluticasone propionate 50 1 spray intranasal DAILY PRN 05/18/21 05/01/25 04/17/25 History mcg/actuation nasal allergies spray,suspension blood sugar diagnostic (FreeStyle #100 ea 03/19/23 05/01/25 Unknown Rx Lite Strips) hydrocodone 5 mg-acetaminophen 325 1 tab PO Q6H PRN pain #14 tabs 03/13/25 05/01/25 Unknown Rx mg tablet metformin 500 mg tablet,extended 500 mg PO DAILY 03/13/25 05/01/25 04/30/25 History release 24 hr acetaminophen 325 mg tablet 650 mg PO QID PRN Pain 04/19/25 05/01/25 04/30/25 History ascorbic acid (vitamin C) 500 mg 500 mg PO BID 04/19/25 05/01/25 04/30/25 History tablet (Vitamin C) aspirin 81 mg capsule 81 mg PO DAILY #30 caps 04/19/25 05/01/25 05/01/25 Rx atorvastatin 80 mg tablet (Lipitor) 80 mg PO DAILY #30 tabs 04/19/25 05/01/25 Unknown Rx cholecalciferol (vitamin D3) 50 50 mcg PO DAILY 04/19/25 05/01/25 04/30/25 History mcg (2,000 unit) tablet (Vitamin D3) cyanocobalamin (vitamin B-12) 100 100 mcg PO DAILY 04/19/25 05/01/25 04/18/25 History mcg tablet (Vitamin B-12) magnesium 250 mg tablet 250 mg PO DAILY 04/19/25 05/01/25 04/30/25 History metoprolol succinate 50 mg 50 mg PO QPM 04/19/25 05/01/25 05/01/25 History tablet,extended release 24 hr omega 3,6,9-borage seed 2 cap PO DAILY 04/19/25 05/01/25 04/30/25 History oil-flaxseed oil-fish oil 1,233 mg capsule (Felice 3-6-9) tramadol 50 mg tablet 50 mg PO TID PRN Pain 04/19/25 05/01/25 Unknown History vitamin B complex 1 tab PO DAILY 04/19/25 05/01/25 04/18/25 History pantoprazole 40 mg tablet,delayed 40 mg PO DAILY 05/01/25 05/01/25 Unknown History release sertraline 50 mg tablet 50 mg PO DAILY 05/01/25 05/01/25 05/01/25 08:00 History sucralfate 1 gram tablet 1 g PO QID PRN stomach pain 05/01/25 05/01/25 Unknown History Allergies Allergy/AdvReac Type Severity Reaction Status Date / Time erythromycin base Allergy ADR-Gastrointestinal Verified 04/24/25 20:54 Upset naproxen Allergy ADR-Abdominal Verified 05/01/25 16:02 Pain PFSH Acute PFSH: Medical History (Updated 05/01/25 @ 17:08 by Anthony Moore MD) HTN (hypertension) Surgical History History of laminectomy Social History (Updated 05/01/25 @ 17:04 by Anthony Moore MD) Smoking and tobacco/nicotine status: never used tobacco/nicotine Alcohol intake: never Substance/Drug Use: never Vitals/I&O/Wt Last Vital Signs Temp 98.0 F 05/01/25 14:04 Pulse 47 L 05/01/25 14:33 Resp 16 05/01/25 14:04 BP 179/98 05/01/25 16:40 Pulse Ox 96 05/01/25 14:33 O2 Del Method Room Air 05/01/25 14:33 Weight last 48 hrs Weight 78.381 kg Physical Exam Const: COMMON NORMALS: no acute distress and patient oriented x3 HENMT: COMMON NORMALS: normocephalic HEAD & SCALP: normocephalic Eye: COMMON NORMALS: Equal, round and reactive pupils present Resp: COMMON NORMALS: normal respiratory effort, No retractions, No use of accessory muscles and clear to auscultation bilaterally AUSCULTATION: clear to auscultation bilaterally Cardio: COMMON NORMALS: regular rate, regular rhythm, S1 normal heart sound present and S2 normal heart sound present RATE: regular rate RHYTHM: regular rhythm HEART SOUNDS: S1 normal heart sound present and S2 normal heart sound present GI: COMMON NORMALS: Normal to inspection, nondistended, normoactive bowel sounds present, Soft to palpation and non-tender Extremity: COMMON NORMALS: no calf tenderness and no pedal edema Neuro: COMMON NORMALS: patient oriented x3, CN's II-XII intact bilaterally, moves all extremities and no sensory deficits noted Psych: COMMON NORMALS: mental status grossly normal Data 05/01/25 14:15 05/01/25 14:15 A&P Assessment and plan (1) Acute CVA (cerebrovascular accident): Head CT CT/CT head thrombolytic [id number] IMPRESSION: 1. No evidence of intracranial hemorrhage or mass effect. 2. Suspected small subacute infarct in the LEFT thalamus measuring 6 to 7 mm. This can be followed up with MRI if indicated 3. No other new findings. Had CTA from 04/19/2025 CT/CT angio headneck* [id number] IMPRESSION: No large vessel stenosis or occlusion. IMPRESSION: No significant stenosis or occlusion. - [facility] neurology consulted -Not a tPA candidate -NIH stroke scale 2 Plan -Admit to medical floors -Neurochecks -NIH stroke scale -Speech eval -Dysphagia eval, bedside -PT OT -Aspirin, statin, Plavix -Allow for permissive hypertension treat if systolic greater than 220 or diastolic rhythm 120 -Cardiac echo -Telemetry monitoring -Type 2 diabetes mellitus A1c, low-dose sign scale -Hyperlipidemia, lipid panel -Full code -Lovenox for DVT prophylaxis PDMP PDMP Reviewed: Not Reviewed Attestations Medical Necessity Statement*: Patient requires hospitalization for acute CVA, outpatient observation Diagnoses Acute CVA (cerebrovascular accident) I63.9 NIH stroke score NIHSS Level Of Consciousness - 1a: 3 Level Of Consciousness Questions - 1b: Both Correct Level Of Consciousness Commands - 1c: Both Correct Best Gaze - 2: Normal Visual Workman - 3: No Visual Loss Facial Palsy - 4: Normal Motor Arm Right - 5: No Drift Motor Arm Left - 5: No Drift Motor Leg Right - 6: No Drift Motor Leg Left - 6: No Drift Limb Ataxia - 7: Absent Sensory - 8: Normal Best Language - 9: No Aphasia Dysarthia - 10: Normal
[2025-05-01 17:09] LABS: Bilirubin Urine Negative (Negative); Blood Urine Negative (Negative); Glucose Urine UA Negative (Normal); Ketones Urine Negative (Negative); Leukocyte Esterase Urine Negative (Negative); Nitrate Urine Negative (Negative); Protein Urine Negative (Negative); Specific Gravity, Urine 1.008 (1.005-1.030); Urine Appearance Clear (CLEAR); Urine Color Yellow (Yellow); Urobilinogen Urine 0.2 mg/dL (Negative)
[2025-05-01 17:14] LABS: Add Urine Microscopic? YES; Bacteria Urine None Seen /hpf; Hyaline Casts Urine 0-4 /lpf; RBC Urine 0-2 /hpf (0-2); Squamous Epithelial Cell Urine 0-5 /hpf (0-5); WBC Urine 0-5 /hpf (0-5)
[2025-05-01 17:16] LABS: Amphetamines Screen Urine Negative (Negative); Barbiturates Screen Urine Negative (Negative); Benzodiazepines Screen Urine Negative (Negative); Cocaine Screen Urine Negative (Negative); Opiate Screen Urine Negative (Negative); PCP Screen Urine Negative (Negative); THC Screen Urine Negative (Negative)
[2025-05-01 17:21] LABS: NT Pro B Type Natriuretic Pept 335 pg/mL (0-450)
[2025-05-01 17:36] LABS: Add Urine Culture? No
[2025-05-01 17:42] LABS: Glucose Point of Care 125 mg/dL (70-110)
[2025-05-01 17:43] LABS: Chol HDL Ratio 4.73 mg/dL (0.0-4.40); Cholesterol 227 mg/dL (0-200); HDL Cholesterol 48 mg/dL (60-100); LDL Cholesterol Calculated 143 mg/dL (50-129); LDL HDL Ratio 2.98 RATIO (0.00-3.22); Triglycerides 181 mg/dL (0-150)
[2025-05-01 18:00] LABS: Glucose Point of Care 131 mg/dL (70-110)
[2025-05-01] MEDS: docusate sodium 100 mg Capsule PO (18:11)
[2025-05-01] MEDS: pantoprazole 40 mg SDV IVP (18:11)
[2025-05-01] MEDS: enoxaparin 40 mg/0.4 mL Syringe SUBCUT (18:11)
[2025-05-01 20:13] LABS: Thyroid Stimulating Hormone 0.41 uIU/mL (0.27-4.20)
[2025-05-01 20:37] LABS: Estmated Average Glucose 166; Hemoglobin A1C 7.4 % (4.0-6.0)
[2025-05-01] MEDS: TRAMadol 50 mg Tablet PO (23:20)
[2025-05-02 01:32] VITALS: BP 184/83; PULSE 51; RESP 16; TEMP 36.6; O2SAT 94
[2025-05-02 04:05] LABS: Basophils # 0.1 10^3/uL (0.0-0.1); Basophils % 1.5 %; Eosinophils # 0.2 10^3/uL (0.0-0.8); Eosinophils % 3.6 %; Hematocrit 38.8 % (36-47); Lymphocytes # 1.9 10^3/uL (0.8-4.8); Lymphocytes % 30.4 %; Mean Corpuscular HGB Conc 34.8 g/dL (30-55); Mean Corpuscular Hemoglobin 30.1 pg (27-33); Mean Corpuscular Volume 86.4 fl (85-98); Mean Platelet Volume 11.3 fL (7.4-10.4); Monocytes # 1.2 10^3/uL (0.2-0.9); Monocytes % 19.7 %; Neutrophils # 2.65 10^3/uL (1.8-7.7); Neutrophils % 43.5 %; Nucleated Red Blood Cells % 0 %; Platelet Count 175 10^3/cmm (157-399); Red Blood Count 4.49 10^6/uL (3.85-5.65); Red Cell Distribution Width 12.3 % (12.1-15.1); White Blood Count 6.09 10^3/uL (3.29-11.43)
[2025-05-02 04:22] LABS: Alanine Aminotransferase 13 U/L (0-33); Alkaline Phosphatase 106 U/L (35-105); Anion Gap 15.1 (5-19); Aspartate Amino Transferase 18 U/L (0-32); Blood Urea Nitrogen 12 mg/dL (8-23); Calcium 9.4 mg/dL (8.5-10.5); Carbon Dioxide 25 mmol/L (22-29); Chloride 102 mmol/L (98-107); Globulin 2.1 g/dL (1.3-4.6); Glucose 126 mg/dL (65-115); Osmolality Calculated 287 mOsm/kg (285-295); Potassium 4.1 mmol/L (3.5-5.1); Sodium 138 mmol/L (136-145); Total Bilirubin 0.6 mg/dL (0.15-1.2); Total Protein 6.1 g/dL (6.6-8.7)
[2025-05-02 05:43] VITALS: BP 168/76; PULSE 46; RESP 16; TEMP 37; O2SAT 97
[2025-05-02 06:00] VITALS: PULSE 44
[2025-05-02 06:07] LABS: Glucose Point of Care 136 mg/dL (70-110)
--- OUTSIDE RECORDS SUMMARY | 2025-05-02 07:02 | XMS_ITS | Encounter Summary ---
Author Organization [facility] Address [address] [place] [address] Care Team Providers Care Senior Design Engineering Specialist Name Role Phone Chung Holden MD Primary Care Provider Reason for Referral * Outpatient Services (Routine) - Closed Specialty Diagnoses / Procedures Referred By Contac t Referred To Contact Diagnoses Other screening mammogram Procedures MAMMO DIGITIZED STUDY Candace An MD [address] [address] Phone: tel: fax: Referral ID Status Reason Start Date Expiration Date Visits Re quested Visits Authorized [id number] Closed 09/07/2011 09/06/2012 1 1 * Outpatient Services (Routine) - Closed Specialty Diagnoses / Procedures Referred By Mini crowley Referred To Contact Diagnoses Other screening mammogram Procedures MAMMO DIGITIZED STUDY Cnadace An MD [address] [address] Phone: tel: fax: Referral ID Status Reason Start Date Expiration Date Visits Re quested Visits Authorized [id number] Closed 09/07/2011 09/06/2012 1 1 Encounter Details Date Type Department Care Team (Late st Contact Info) Description 09/07/2011 Ancillary Orders [facility] Pre-Registration [place] CALL TO MAKE APPOINTMENT ONLY [address] [place] [address] Candace An MD [address] [facility] [place] [address] Other screening mammogram Social History Tobacco Use Types Packs/Day Years Used Date Smoking Tobacco: Never Smokeless Tobacco: Never Alcohol Use Standard Drinks/Week Comments No 0 (1 standard drink = 0.6 oz pur e alcohol) Comments No Sex and Gender Information Value Date Recorded Sex Assigned at Not on file 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 Exam was auto-finalized. Procedure Note Xnea Camacho - 09/07/2011 Order information only. Exam was auto-finalized. Candace An MD DIAGNOSTIC IMAGING ORDERAB LES Final Result * MAMMO DIGITIZED STUDY (05/10/2007 6:33 AM CDT) Narrative Xena Camacho - 09/07/2011 6:33 AM CDT Order information only. Exam was auto-finalized. Procedure Note Xena Camacho - 09/07/2011 Order information only. Exam was auto-finalized. us Candace An MD DIAGNOSTIC IMAGING ORDERAB LES Final Result documented in this encounter Visit Diagnoses Diagnosis Other screening mammogram Other screening mammogram Other screening mammogram documented in this encounter Care Teams Senior Design Engineering Specialist Relationship Specialty Start Date End Date Chung Holden MD [address] [place] [id number] PCP - General Family Practice 04/12/20 documented as of this encounter
--- OUTSIDE RECORDS SUMMARY | 2025-05-02 07:02 | XMS_ITS | Encounter Summary ---
Author Organization [facility] Address [address] [place] [address] Care Team Providers Care Die Casting Machine Setter Name Role Phone Chung Holden MD Primary Care Provider [phone] Encounter Details Date Type Department Care Team (Latest Contact Info) Description 11/21/2002 Outpatient Historical [facility] Tin Pearce Jr., MD [address] [place] [address] HYPERTENSION NOS (Primary Dx); IRON DEFIC ANEMIA NOS Social History Tobacco Use Types Packs/Day Years Used Date Smoking Tobacco: Never Assessed Comments Unknown Sex and Gender Information Value Date Recorded Sex Assigned at Not on file 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
--- OUTSIDE RECORDS SUMMARY | 2025-05-02 07:02 | XMS_ITS | Encounter Summary ---
Author Organization [facility] Address [address] [place] [address] Care Team Providers Care Tobacco Curer Name Role Phone Chung Holden MD Primary Care Provider [phone] Encounter Details Date Type Department Care Team (Late st Contact Info) Description 02/18/2003 Outpatient Historical [facility] Dermatology- [address] [place] 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
--- OUTSIDE RECORDS SUMMARY | 2025-05-02 07:02 | XMS_ITS | Encounter Summary ---
Author Organization [facility] Address [address] [place] [address] Care Team Providers Care Power House Control Room Operator Name Role Phone Chung Holden MD Primary Care Provider [phone] Encounter Details Date Type Department Care Team (Latest Contact Info) Description 06/18/2003 Outpatient Historical [facility] Tin Pearce Jr., MD [address] [place] [address] ACUTE PHARYNGITIS (Primary Dx); ACUTE SINUSITIS NOS Social History Tobacco Use Types Packs/Day Years Used Date Smoking Tobacco: Never Assessed Comments Unknown Sex and Gender Information Value Date Recorded Sex Assigned at Not on file 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
--- OUTSIDE RECORDS SUMMARY | 2025-05-02 07:02 | XMS_ITS | Encounter Summary ---
Author Organization [facility] Address [address] [place] [address] Care Team Providers Care Fly Fishing Guide Name Role Phone Chung Holden MD Primary Care Provider [phone] Encounter Details Date Type Department Care Team (Latest Contact Info) Description 01/05/2003 Outpatient Historical [facility] Tin Pearce Jr., MD [address] [place] [address] HYPERTENSION NOS (Primary Dx); Plantar fibromatosis; GENERALIZED ANXIETY DIS Social History Tobacco Use Types Packs/Day Years Used Date Smoking Tobacco: Never Assessed Comments Unknown Sex and Gender Information Value Date Recorded Sex Assigned at Not on file 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
--- OUTSIDE RECORDS SUMMARY | 2025-05-02 07:02 | XMS_ITS | Encounter Summary ---
Author Organization [facility] Address [address] [place] [address] Care Team Providers Care [facility] Home Health Name Role Phone Chung Holden MD Primary Care Provider [phone] Encounter Details Date Type Department Care Team (Late st Contact Info) Description 02/18/2003 Outpatient Historical [facility] Dermatology- [place] [address] [facility] [address] [place] [address] Juan Ramon Womack MD [address] [place] [address] KERATODERMA, ACQUIRED (Primary Dx) Social History Tobacco Use Types Packs/Day Years Used Date Smoking Tobacco: Never Assessed Comments Unknown Sex and Gender Information Value Date Recorded Sex Assigned at Not on file 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
--- OUTSIDE RECORDS SUMMARY | 2025-05-02 07:02 | XMS_ITS | Encounter Summary ---
Author Organization [facility] Address [address] [place] [address] Care Team Providers Care Dimension Specification Inspector Name Role Phone Chung Holden MD Primary Care Provider [phone] Reason for Referral * Outpatient Services (Routine) - Closed Specialty Diagnoses / Procedures Referred By Mini crowley Referred To Contact Diagnoses Other screening mammogram Procedures MAMMO DIGITAL SCREEN BILAT Ag Urbina MD [address] [address] Phone: tel: fax: Referral ID Status Reason Start Date Expiration Date Visits Re quested Visits Authorized [id number] Closed 09/09/2012 09/09/2013 1 1 Encounter Details Date Type Department Care Team (Late st Contact Info) Description 09/09/2012 Ancillary Orders [facility] [address] [facility] [address] [place] [address] Ag Urbina MD [address] [address] Other screening mammogram Social History Tobacco Use Types Packs/Day Years Used Date Smoking Tobacco: Never Smokeless Tobacco: Never Alcohol Use Standard Drinks/Week Comments No 0 (1 standard drink = 0.6 oz pur e alcohol) Comments No Sex and Gender Information Value Date Recorded Sex Assigned at Not on file 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 Findings: Bilateral CC and MLO views were obtained. This examination was reviewed with the aid of a computer-aided detection system(CAD). The breast tissue density is fatty. No significant new findings since the prior mammogram(s). Procedure Note Aarti Jang MD - 09/10/2012 Bilateral Mammogram Reason for Exam: Screening Comparison: Comparison is made with the prior exam(s) dated 2010. Findings: Bilateral CC and MLO views were obtained. This examination was reviewed with the aid of a computer-aided detectionsystem(CAD). The breast tissue density is fatty. No significant new findings since the prior mammogram(s). Ag Urbina MD MAMMO ORDERABLES Final Result documented in this encounter Visit Diagnoses Diagnosis Other screening mammogram Other screening mammogram documented in this encounter Care Teams Dimension Specification Inspector Relationship Specialty Start Date End Date Chung Holden MD [address] [place] [phone] PCP - General Family Practice 04/12/20 documented as of this encounter
--- OUTSIDE RECORDS SUMMARY | 2025-05-02 07:02 | XMS_ITS | Encounter Summary ---
Author Organization [facility] Address [address] [place] [address] Care Team Providers Care Cotton Grader Name Role Phone Chung Holden MD Primary Care Provider [phone] Encounter Details Date Type Department Care Team (Latest Contact Info) Description 02/04/2003 Outpatient Historical [facility] Tin Pearce Jr., MD [address] [place] [address] BRONCHITIS NOS (Primary Dx); HYPERTENSION NOS; ACUTE PHARYNGITIS Social History Tobacco Use Types Packs/Day Years Used Date Smoking Tobacco: Never Assessed Comments Unknown Sex and Gender Information Value Date Recorded Sex Assigned at Not on file 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
--- OUTSIDE RECORDS SUMMARY | 2025-05-02 07:02 | XMS_ITS | Encounter Summary ---
Author Organization [facility] Address [address] [place] [address] Care Team Providers Care Material Handler 2Nd Shift Name Role Phone Chung Holden MD Primary Care Provider [phone] Encounter Details Date Type Department Care Team (Latest Contact Info) Description 05/20/2012 Ancillary Orders [facility] Pre-Registration [place] CALL TO MAKE APPOINTMENT ONLY [address] [place] [address] Tin Pearce Jr., MD [address] [place] [address] Other screening mammogram Social History Tobacco Use Types Packs/Day Years Used Date Smoking Tobacco: Never Smokeless Tobacco: Never Alcohol Use Standard Drinks/Week Comments No 0 (1 standard drink = 0.6 oz pur e alcohol) Comments No Sex and Gender Information Value Date Recorded Sex Assigned at Not on file 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
--- OUTSIDE RECORDS SUMMARY | 2025-05-02 07:02 | XMS_ITS | Encounter Summary ---
Author Organization [facility] Address [address] [place] [address] Care Team Providers Care Farm Assistant Name Role Phone Chung Holden MD Primary Care Provider Reason for Referral * Outpatient Services (Routine) - Closed Specialty Diagnoses / Procedures Referred By Mini crowley Referred To Contact Diagnoses Other screening mammogram Procedures MAMMO DIGITAL SCREEN BILAT Candace An MD [address] [facility] [address] [place] [address] Phone: tel: fax: Referral ID Status Reason Start Date Expiration Date Visits Re quested Visits Authorized [id number] Closed 07/04/2011 07/03/2012 1 1 Encounter Details Date Type Department Care Team (Late st Contact Info) Description 07/04/2011 Ancillary Orders [facility] Pre-Registration [place] CALL TO MAKE APPOINTMENT ONLY [address] [place] [address] Candace An MD [address] [facility], [facility] [address] [place] [address] Other screening mammogram Social History Tobacco Use Types Packs/Day Years Used Date Smoking Tobacco: Never Smokeless Tobacco: Never Alcohol Use Standard Drinks/Week Comments No 0 (1 standard drink = 0.6 oz pur e alcohol) Comments No Sex and Gender Information Value Date Recorded Sex Assigned at Not on file 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 Findings: Bilateral CC and MLO views were obtained. This examination was reviewed with the aid of a computer-aided detection system(CAD). The breast tissue density is fatty. No significant new findings since the prior mammogram(s). Procedure Note Sandra Canales MD - 09/12/2011 Bilateral Mammogram Reason for Exam: Screening Comparison: Comparison is made with multiple prior exams, the most recentdated 06/17/2010. Findings: Bilateral CC and MLO views were obtained. This examination was reviewed with the aid of a computer-aided detectionsystem(CAD). The breast tissue density is fatty. No significant new findings since the prior mammogram(s). us Candace An MD MAMMO ORDERABLES Final Res ult documented in this encounter Visit Diagnoses Diagnosis Other screening mammogram Other screening mammogram documented in this encounter Care Teams Farm Assistant Relationship Specialty Start Date End Date Chung Holden MD [address] [place] [address] PCP - General Family Practice 04/12/20 documented as of this encounter
--- OUTSIDE RECORDS SUMMARY | 2025-05-02 07:02 | XMS_ITS | Encounter Summary ---
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
--- OUTSIDE RECORDS SUMMARY | 2025-05-02 07:02 | XMS_ITS | Encounter Summary ---
Author Organization [facility] Address [address] [place] [address] Care Team Providers Care Machine Sole Leveler Name Role Phone Chung Holden MD Primary Care Provider Encounter Details Date Type Department Care Team (Late st Contact Info) Description 01/14/[address] [facility] Dermatology- [address] [place] 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
--- OUTSIDE RECORDS SUMMARY | 2025-05-02 07:02 | XMS_ITS | Encounter Summary ---
Author Organization [facility] Address [address] [place] [address] Care Team Providers Care Process Checker Name Role Phone Edison Johns DO Primary Care Provider [phone] Encounter Details Date Type Department Care Team (Late st Contact Info) Description 04/28/2025 External Device Data [place] ABSTRACTION Provider, Abstract NO ADDRESS ON FILE Social History Tobacco Use Types Packs/Day Years Used Date Smoking Tobacco: Never Smokeless Tobacco: Never Alcohol Use Standard Drinks/Week Comments No 0 (1 standard drink = 0.6 oz pur e alcohol) Comments No Sex and Gender Information Value Date Recorded Sex Assigned at Not on file Legal Sex Female 4:20 PM STEWARD/STEWARDESS ROOM Gender Identity Not on file Sexual Orientation Not on file documented as of this encounter Plan of Treatment Not on file documented as of this encounter Visit Diagnoses Not on filedocumented in this encounter Care Teams Process Checker Relationship Specialty Start Date End Date Edison Johns DO [address] [facility] [address] [place] [address] PCP - General Family Practice 01/26/23 documented as of this encounter
--- OUTSIDE RECORDS SUMMARY | 2025-05-02 07:02 | XMS_ITS | Encounter Summary ---
Author Organization [facility] Address [address] [place] [address] Care Team Providers Care Certified Lactation Counselor Name Role Phone Chung Holden MD Primary Care Provider [phone] Encounter Details Date Type Department Care Team (Latest Contact Info) Description 11/14/2002 Outpatient Historical [facility] Tin Pearce Jr., MD [address] [place] [address] HEADACHE (Primary Dx); HYPERTENSION NOS Social History Tobacco Use Types Packs/Day Years Used Date Smoking Tobacco: Never Assessed Comments Unknown Sex and Gender Information Value Date Recorded Sex Assigned at Not on file 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
--- OUTSIDE RECORDS SUMMARY | 2025-05-02 07:02 | XMS_ITS | Encounter Summary ---
Author Organization [facility] Address [address] [place] [address] Care Team Providers Care Networking Technology Instructor Name Role Phone Chung Holden MD Primary Care Provider [phone] Encounter Details Date Type Department Care Team (Latest Contact Info) Description 11/18/2002 Outpatient Historical [facility] [address] [place] [address] Ramses Chairez, Tin Stewart MD [address] [place] [address] CHOLELITH W CHOLECYS NEC (Primary Dx) Social History Tobacco Use Types Packs/Day Years Used Date Smoking Tobacco: Never Assessed Comments Unknown Sex and Gender Information Value Date Recorded Sex Assigned at Not on file Legal Sex Female 5:35 AM HEAD ESTHETICIAN Gender Identity Not on file Sexual Orientation Not on file documented as of this encounter Plan of Treatment Not on file documented as of this encounter Visit Diagnoses Diagnosis Calculus of gallbladder with other cholecystitis, without mention of obstruction- Primary documented in this encounter Care Teams Networking Technology Instructor Relationship Specialty Start Date End Date Chung Holden MD [address] [place] [address] PCP - General Family Practice 04/12/20 documented as of this encounter
--- OUTSIDE RECORDS SUMMARY | 2025-05-02 07:03 | XMS_ITS | Encounter Summary ---
Author Organization [facility] Address [address] [place] [address] Care Team Providers Care Flat Locker Name Role Phone Chung Holden MD Primary Care Provider [phone] Encounter Details Date Type Department Care Team (Late st Contact Info) Description 05/21/2006 Outpatient Historical [facility] [address] [place] 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 REASON FOR THIS STUDY: Right ear pain. TECHNIQUE: Intravenous contrast was given during the study. FINDINGS: The bone windows show grossly normal appearance of the temporal bones. The mastoid air cells and middle ear cavities are well aerated on both sides. The skull base shows no evidence of bone erosion. The paranasal sinuses are clear. The temporomandibular joints are grossly normal. Mild spondylosis is seen throughout the cervical spine. The parotid glands are mildly enlarged bilaterally without focal lesions. The submandibular glands and spaces appear normal. The floor of the mouth, tongue base, and parapharyngeal spaces appear normal. The carotid arteries show tortuosity and mild looping bilaterally, more on the right than on the left. No stenoses are identified. The infrahyoid neck shows no masses or adenopathy. IMPRESSION: Other than tortuosity and looping of the internal carotid arteries, the study is unremarkable in appearance. jaw Dictated By: Tin Berg M.D. Electronically Signed By: Tni Berg M.D. Date Signed: 05/21/06 JAW Procedure Note 09/30/2009 CT OF THE NECK: DATE: 05/21/2006. REASON FOR THIS STUDY: Right ear pain. TECHNIQUE: Intravenous contrast was given during the study. FINDINGS: The bone windows show grossly normal appearance of the temporal bones.The mastoid air cells and middle ear cavities are well aerated on both sides. The skull base shows noevidence of bone erosion. The paranasal sinuses are clear. The temporomandibular joints are grosslynormal. Mild spondylosis is seen throughout the cervical spine. The parotid glands are mildly enlarged bilaterally without focal lesions.The submandibular glands and spaces appear normal. The floor of the mouth, tongue base, andparapharyngeal spaces appear normal. The carotid arteries show tortuosity and mild looping bilaterally, more onthe right than on the left. No stenoses are identified. The infrahyoid neck shows no masses or adenopathy. IMPRESSION: Other than tortuosity and looping of the internal carotid arteries, thestudy is unremarkable in appearance. jaw Dictated By: Tin Berg M.D. Electronically Signed By: Tin Berg M.D. Date Signed: 05/21/06 JAW us Tin Pearce Jr., MD CT ORDERABLES Final R esult documented in this encounter Visit Diagnoses Not on filedocumented in this encounter Care Teams Flat Locker Relationship Specialty Start Date End Date Chung Holden MD [address] [place] [address] PCP - General Family Practice 04/12/20 documented as of this encounter
--- OUTSIDE RECORDS SUMMARY | 2025-05-02 07:03 | XMS_ITS | Encounter Summary ---
Author Organization [facility] Address [address] [place] [address] Care Team Providers Care Pipe And Tank Fabricator Name Role Phone Chung Holden MD Primary Care Provider [phone] Encounter Details Date Type Department Care Team (Latest Contact Info) Description 03/21/2005 Outpatient Historical [address] [address] Maxime Nance PsyD NO ADDRESS ON FILE ADJUSTMENT DISORDER W MIXED MOOD (Primary Dx) Social History Tobacco Use Types Packs/Day Years Used Date Smoking Tobacco: Never Assessed Comments Unknown Sex and Gender Information Value Date Recorded Sex Assigned at Not on file 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
--- OUTSIDE RECORDS SUMMARY | 2025-05-02 07:03 | XMS_ITS | Encounter Summary ---
Author Organization [facility] Address [address] Attn: [place] [address] Care Team Providers Care Tower Switch Operator Name Role Phone Chung Holden MD Primary Care Provider [phone] Encounter Details Date Type Department Care Team (Late st Contact Info) Description 06/04/2008 Outpatient Historical Sandra Rader, DESIGN EDITOR NO ADDRESS ON FILE Social History Tobacco Use Types Packs/Day Years Used Date Smoking Tobacco: Never Alcohol Use Standard Drinks/Week Comments No 0 (1 standard drink = 0.6 oz pur e alcohol) Comments No Sex and Gender Information Value Date Recorded Sex Assigned at Not on file Legal Sex Female 5:35 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 DRYING AND 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 Gender Identity Not on file Sexual Orientation Not on file documented as of this encounter Plan of Treatment Not on file documented as of this encounter Procedures Procedure Name Priority Date/Time Associated Diagnosis Comments PATHOLOGY Routine 06/04/2008 12:23 AM CDT documented in this encounter Results * PATHOLOGY (06/04/2008 12:23 AM CDT) PATHOLOGY/MARGIE ACOSTA REPORT [facility] Anatomic Pathology Dept [address] [facility] [address] Patient: CORDELIA DEMARCO Accn No: [id number] Collected: 06/04/2008 12:23:00 AM CYTOLOGY INDUSTRIAL ECOLOGY TECHNICIAN FINAL REPORT - - STITCH WELDER PAP History Specimen Source: None Provided Post-Menopausal Last Pap Date: None Provided Specimen Adequacy No endocervical cells identified. The presence or absence of an endocervical component is indeterminate in this specimen secondary to atrophy causing difficulty in distinguishing parabasilar type cells from squamous metaplastic cells. Diagnosis NEGATIVE FOR INTRAEPITHELIAL LESION OR MALIGNANCY. (Previously noted as Within Normal Limits) Joint Cleaning Machine Operator CHAIM 06/09/08 Completed by: TANNER PERRY(ASCP) (Electronically signed by) 06/09/08 Additional Diagnosis Atrophic Smear Comment Routine follow-up is suggested. Important Info About Pap Smears HPV Testing off the Thin Prep vial can be done as a means of further evaluating a Thin Prep Report. For information about ordering the HPV test, phone Cytology at . Treatment or follow-up recommendations (if any) that are considered within this report are based upon general recommendations as contained in 2001 Consensus Guidelines For Cervical Cytological Abnormalities SHIRA: March 05, 2002, and are provided as a general guideline rather than as a specific recommendation. Final decisions about the most appropriate treatment and follow-up should be made on an individualized basis by the treating physician in consultation with his/her patient. INTERFACE SYSTEM 06/04/2008 12:2 3 AM CDT Sandra Rader DESIGN EDITOR PATHOLOGY/CYTOLOGY ORDERABLES Fi nal Result INTERFACE SYSTEM Refer to clinic/hospital department documented in this encounter Visit Diagnoses Not on filedocumented in this encounter Care Teams Tower Switch Operator Relationship Specialty Start Date End Date Chung Holden MD [address] [place] [address] PCP - General Family Practice 04/12/20 documented as of this encounter
--- OUTSIDE RECORDS SUMMARY | 2025-05-02 07:03 | XMS_ITS | Encounter Summary ---
Author Organization [facility] Address [address] [place] [address] Care Team Providers Care Tenon Machine Operator Name Role Phone Chung Holden MD Primary Care Provider Encounter Details Date Type Department Care Team (Latest Contact Info) Description 02/09/2004 Outpatient Historical [facility] [address] [phone] Rambo Cuellar, DPM NO ADDRESS ON FILE OTHER HAMMER TOE (Primary Dx) Social History Tobacco Use Types Packs/Day Years Used Date Smoking Tobacco: Never Assessed Comments Unknown Sex and Gender Information Value Date Recorded Sex Assigned at Not on file Legal Sex Female 5:35 AM CARD SCRAPER Gender Identity Not on file Sexual Orientation Not on file documented as of this encounter Plan of Treatment Not on file documented as of this encounter Visit Diagnoses Diagnosis Other hammer toe (acquired)- Primary documented in this encounter Care Teams Tenon Machine Operator Relationship Specialty Start Date End Date Chung Holden MD [address] [place] [phone] PCP - General Family Practice 04/12/20 documented as of this encounter
--- OUTSIDE RECORDS SUMMARY | 2025-05-02 07:03 | XMS_ITS | Encounter Summary ---
Author Organization [facility] Address [address] [place] [address] Care Team Providers Care Window Shade Ring Sewer Name Role Phone Chung Holden MD Primary Care Provider [phone] Encounter Details Date Type Department Care Team (Latest Contact Info) Description 01/29/2004 Outpatient Historical [facility] Podiatry-Avalos Stonewall Darron [address] [place] [phone] Rambo Cuellar, DPM NO ADDRESS ON FILE OTHER HAMMER TOE (Primary Dx) Social History Tobacco Use Types Packs/Day Years Used Date Smoking Tobacco: Never Assessed Comments Unknown Sex and Gender Information Value Date Recorded Sex Assigned at Not on file 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
--- OUTSIDE RECORDS SUMMARY | 2025-05-02 07:03 | XMS_ITS | Encounter Summary ---
Author Organization [facility] Address [address] [place] [address] Care Team Providers Care Tailman Name Role Phone Chung Holden MD Primary Care Provider [phone] Encounter Details Date Type Department Care Team (Latest Contact Info) Description 12/02/2003 Outpatient Historical [facility] OBGYN-[address] [place] [address] Nguyễn Chairez, Angel Cano MD NO ADDRESS ON FILE Routine medical exam (Primary Dx); Gynecologic examination; SCREENING MAL NEOP-RECTUM Social History Tobacco Use Types Packs/Day Years Used Date Smoking Tobacco: Never Assessed Comments Unknown Sex and Gender Information Value Date Recorded Sex Assigned at Not on file Legal Sex Female 5:35 AM MECHANICAL APPLICATIONS ENGINEER Gender Identity Not on file Sexual Orientation Not on file documented as of this encounter Plan of Treatment Not on file documented as of this encounter Visit Diagnoses Diagnosis Routine medical exam- Primary Routine general medical examination at a health care facility Gynecologic examination Gynecological examination Screening for malignant neoplasm of the rectum documented in this encounter Care Teams Tailman Relationship Specialty Start Date End Date Chung Holden MD [address] [place] [phone] PCP - General Family Practice 04/12/20 documented as of this encounter
--- OUTSIDE RECORDS SUMMARY | 2025-05-02 07:03 | XMS_ITS | Encounter Summary ---
Author Organization [facility] Address [address] [place] [address] Care Team Providers Care Geropsychologist Name Role Phone Chung Holden MD Primary Care Provider [phone] Encounter Details Date Type Department Care Team (Latest Contact Info) Description 05/26/2005 Outpatient Historical [facility] Services [address] [place] [address] Tin Pearce Jr., MD [address] [facility], [address] URINARY SYS SYMPTOM NEC (Primary Dx) Social History Tobacco Use Types Packs/Day Years Used Date Smoking Tobacco: Never Assessed Comments Unknown Sex and Gender Information Value Date Recorded Sex Assigned at Not on file Legal Sex Female 5:35 AM TRAFFIC WORKFORCE REPRESENTATIVE Gender Identity Not on file Sexual Orientation Not on file documented as of this encounter Plan of Treatment Not on file documented as of this encounter Visit Diagnoses Diagnosis Urinary sys symptom NEC- Primary Other symptoms involving urinary system documented in this encounter Care Teams Geropsychologist Relationship Specialty Start Date End Date Chung Holden MD [address] [place] [phone] PCP - General Family Practice 04/12/20 documented as of this encounter
--- OUTSIDE RECORDS SUMMARY | 2025-05-02 07:03 | XMS_ITS | Encounter Summary ---
Author Organization [facility] Address [address] [place] [address] Care Team Providers Care Physical Therapist Center Manager Name Role Phone Chung Holden MD Primary Care Provider [phone] Encounter Details Date Type Department Care Team (Late st Contact Info) Description 05/18/2006 Outpatient [facility] [place] [address] [place], [place] [address] Tin Pearce Jr., MD [address] [place] [address] Other Screening Mammogram (Primary Dx) Social History Tobacco Use Types Packs/Day Years Used Date Smoking Tobacco: Never Assessed Comments Unknown Sex and Gender Information Value Date Recorded Sex Assigned at Not on file Legal Sex Female 5:35 AM LEATHER TOOLER Gender Identity Not on file Sexual Orientation Not on file documented as of this encounter Plan of Treatment Not on file documented as of this encounter Visit Diagnoses Diagnosis Other screening mammogram- Primary documented in this encounter Care Teams Physical Therapist Center Manager Relationship Specialty [place] [address] [place] [phone] PCP - General Family Practice 04/12/20 documented as of this encounter
--- OUTSIDE RECORDS SUMMARY | 2025-05-02 07:03 | XMS_ITS | Encounter Summary ---
Author Organization [facility] Address [address] [place] [address] Care Team Providers Care Yarder Operator Name Role Phone Chung Holden MD Primary Care Provider [phone] Encounter Details Date Type Department Care Team (Late st Contact Info) Description 12/02/2003 Outpatient Historical [facility] 06 Sandra Rader, SUPERVISOR ASPHALT PAVING NO ADDRESS ON FILE Social History Tobacco Use Types Packs/Day Years Used Date Smoking Tobacco: Never Assessed Comments Unknown Sex and Gender Information Value Date Recorded Sex Assigned at Not on file Legal Sex Female 5:35 AM WEBSITE OPTIMIZATION STRATEGIST Gender Identity Not on file Sexual Orientation Not on file documented as of this encounter Plan of Treatment Not on file documented as of this encounter Visit Diagnoses Not on filedocumented in this encounter Care Teams Yarder Operator Relationship Specialty Start Date End Date Chung Holden MD [address] [place] [address] PCP - General Family Practice 04/12/20 documented as of this encounter
--- OUTSIDE RECORDS SUMMARY | 2025-05-02 07:03 | XMS_ITS | Encounter Summary ---
Author Organization [facility] Address [address] [place] [address] Care Team Providers Care Merchant Miller Name Role Phone Chung Hodlen MD Primary Care Provider [phone] Encounter Details Date Type Department Care Team (Late st Contact Info) Description 05/09/2005 Outpatient Historical [facility] 06 Sandra Rader, KST OPERATOR NO ADDRESS ON FILE Social History Tobacco Use Types Packs/Day Years Used Date Smoking Tobacco: Never Assessed Comments Unknown Sex and Gender Information Value Date Recorded Sex Assigned at Not on file Legal Sex Female 5:35 AM GLOBAL LOGISTICS MANAGER Gender Identity Not on file Sexual Orientation Not on file documented as of this encounter Plan of Treatment Not on file documented as of this encounter Visit Diagnoses Not on filedocumented in this encounter Care Teams Merchant Miller Relationship Specialty Start Date End Date Chung Holden MD [address] [place] [address] PCP - General Family Practice 04/12/20 documented as of this encounter
--- OUTSIDE RECORDS SUMMARY | 2025-05-02 07:03 | XMS_ITS | Encounter Summary ---
Author Organization [facility] Address [address] [place] [address] Care Team Providers Care Terminal Gauger Supervisor Name Role Phone Chung Holden MD Primary Care Provider [phone] Encounter Details Date Type Department Care Team (Latest Contact Info) Description 02/05/2004 Outpatient Historical [facility] Riki Onofre MD [address] [place] [address] PREOP EXAM OTHER SPECIFIED (Primary Dx); Preop cardiovascular exam Social History Tobacco Use Types Packs/Day Years Used Date Smoking Tobacco: Never Assessed Comments Unknown Sex and Gender Information Value Date Recorded Sex Assigned at Not on file Legal Sex Female 5:35 AM ENDORSEMENT CLERK Gender Identity Not on file Sexual Orientation Not on file documented as of this encounter Plan of Treatment Not on file documented as of this encounter Visit Diagnoses Diagnosis Other specified pre-operative examination- Primary Preop cardiovascular exam Pre-operative cardiovascular examination documented in this encounter Care Teams Terminal Gauger Supervisor Relationship Specialty [place] [address] [place] [phone] PCP - General Family Practice 04/12/20 documented as of this encounter
--- OUTSIDE RECORDS SUMMARY | 2025-05-02 07:03 | XMS_ITS | Encounter Summary ---
Author Organization [facility] Address [address] [place] [address] Care Team Providers Care High School Computer Science Teacher Name Role Phone Chung Holden MD Primary Care Provider [phone] Encounter Details Date Type Department Care Team (Latest Contact Info) Description 04/07/2004 Outpatient Historical [facility] Podiatry-Avalos [place] Darron [address] [place] [address] Rambo Cuellar, DPM NO ADDRESS ON FILE OTHER HAMMER TOE (Primary Dx); JOINT EFFUSION-ANKLE; JOINT PAIN-ANKLE Social History Tobacco Use Types Packs/Day Years Used Date Smoking Tobacco: Never Assessed Comments Unknown Sex and Gender Information Value Date Recorded Sex Assigned at Not on file Legal Sex Female 5:35 AM MIXING TANK OPERATOR Gender Identity Not on file Sexual Orientation Not on file documented as of this encounter Plan of Treatment Not on file documented as of this encounter Visit Diagnoses Diagnosis Other hammer toe (acquired)- Primary Effusion of ankle and foot joint Pain in joint, ankle and foot documented in this encounter Care Teams High School Computer Science Teacher Relationship Specialty Start Date End Date Chung Holden MD [address] [place] [phone] PCP - General Family Practice 04/12/20 documented as of this encounter
--- OUTSIDE RECORDS SUMMARY | 2025-05-02 07:03 | XMS_ITS | Encounter Summary ---
Author Organization [facility] Address [address] [place] [address] Care Team Providers Care Hunter Guide Name Role Phone Chung Holden MD Primary Care Provider [phone] Encounter Details Date Type Department Care Team (Latest Contact Info) Description 01/22/2004 Outpatient Historical [facility] Riki Onofre MD [address] [place] [address] INGROWING NAIL (Primary Dx); ALLERGIC RHINITIS NOS; ACUTE PHARYNGITIS Social History Tobacco Use Types Packs/Day Years Used Date Smoking Tobacco: Never Assessed Comments Unknown Sex and Gender Information Value Date Recorded Sex Assigned at Not on file Legal Sex Female 5:35 AM 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
--- OUTSIDE RECORDS SUMMARY | 2025-05-02 07:03 | XMS_ITS | Encounter Summary ---
Author Organization [facility] Address [address] [place] [address] Care Team Providers Care Refractory Worker Name Role Phone Chung Holden MD Primary Care Provider [phone] Encounter Details Date Type Department Care Team (Latest Contact Info) Description 05/21/2006 Outpatient Historical [facility] [address] [place] [address] Ruben Green MD [address] [address] Unspecified Otalgia (Primary Dx) Social History Tobacco Use Types Packs/Day Years Used Date Smoking Tobacco: Never Assessed Comments Unknown Sex and Gender Information Value Date Recorded Sex Assigned at Not on file Legal Sex Female 5:[address] TECHNICIAN Gender Identity Not on file Sexual Orientation Not on file documented as of this encounter Plan of Treatment Not on file documented as of this encounter Visit Diagnoses Diagnosis Otalgia, unspecified- Primary documented in this encounter Care Teams Refractory Worker Relationship Specialty Start Date End Date Chung Holden MD [address] [place] [phone] PCP - General Family Practice 04/12/20 documented as of this encounter
--- OUTSIDE RECORDS SUMMARY | 2025-05-02 07:03 | XMS_ITS | Encounter Summary ---
Author Organization [facility] Address [address] [place] [address] Care Team Providers Care Act Tutor Name Role Phone Chung Holden MD Primary Care Provider [phone] Reason for Referral * Outpatient Services (Routine) - Closed Specialty Diagnoses / Procedures Referred By Mini crowley Referred To Contact Radiology Diagnoses Encounter for screening mammogram for malignant neoplasm of breast Procedures MAMMO DIGITAL SCREEN Candace Billings MD Phone: tel: fax: [facility] [address] [facility] [address] [place] [address] Phone: tel: fax: Referral ID Status Reason Start Date Expiration Date V isits Requested Visits Authorized [id number] Closed F [facility] TO SCHEDULE (SGF) 09/11/2016 10/12/2017 1 1 Encounter Details Date Type Department Care Team (Late st Contact Info) Description 09/11/2016 Ancillary Orders [facility] Pre-Registration [place] CALL TO MAKE APPOINTMENT ONLY [address] [place] [address] Candace An MD [address] [facility] [address] [place] [phone] Encounter for screening mammogram for malignant neoplasm of breast (Primary Dx) Social History Tobacco Use Types Packs/Day Years Used Date Smoking Tobacco: Never Smokeless Tobacco: Never Alcohol Use Standard Drinks/Week Comments No 0 (1 standard drink = 0.6 oz pur e alcohol) Comments No Sex and Gender Information Value Date Recorded Sex Assigned at Not on file Legal Sex Female 5:35 AM MEDICAL ASSISTING PROGRAM DIRECTOR Gender Identity Not on file Sexual Orientation [...] encounter Results * MAMMO DIGITAL SCREEN BILAT (12/06/2016 8:33 AM MEDICAL ASSISTING PROGRAM DIRECTOR) Anatomical Region Laterality Modality Breast Bilateral Mammography Narrative 12/07/2016 4:21 PM MEDICAL ASSISTING PROGRAM DIRECTOR Bilateral Mammogram Reason for Exam: Screening Comparison: Compared to: 09/18/2014 MAMMO DIGITAL SCREEN BILAT Findings: Bilateral CC and MLO views were obtained. This examination was reviewed with the aid of a computer-aided detection system(CAD). The breast tissue density is fatty. No significant new findings since the prior mammogram(s). us Candace An MD MAMMO ORDERABLES Final Res ult documented in this encounter Visit Diagnoses Diagnosis Encounter for screening mammogram for malignant neoplasm of breast- Primary Other screening mammogram Encounter for screening mammogram for malignant neoplasm of breast Other screening mammogram documented in this encounter Care Teams Act Tutor Relationship Specialty Start Date End Date Chung Holden MD [address] [place] [phone] PCP - General Family Practice 04/12/20 documented as of this encounter
--- OUTSIDE RECORDS SUMMARY | 2025-05-02 07:03 | XMS_ITS | Encounter Summary ---
Author Organization [facility] Address [address] [place] [address] Care Team Providers Care Working Manager Name Role Phone Chung Holden MD Primary Care Provider Encounter Details Date Type Department Care Team (Latest Contact Info) Description 05/18/2006 Outpatient Historical [facility] [address] [phone] Tenzin Rizvi MD NO ADDRESS ON FILE Other Screening Mammogram (Primary Dx) Social History Tobacco Use Types Packs/Day Years Used Date Smoking Tobacco: Never Assessed Comments Unknown Sex and Gender Information Value Date Recorded Sex Assigned at Not on file Legal Sex Female 5:35 AM ENGRAVER BLOCK Gender Identity Not on file Sexual Orientation Not on file documented as of this encounter Plan of Treatment Not on file documented as of this encounter Visit Diagnoses Diagnosis Other screening mammogram- Primary documented in this encounter Care Teams Working Manager Relationship Specialty Start Date End Date Chung Holden MD [address] [place] [phone] PCP - General Family Practice 04/12/20 documented as of this encounter
--- OUTSIDE RECORDS SUMMARY | 2025-05-02 07:03 | XMS_ITS | Encounter Summary ---
Author Organization [facility] Address [address] [place] [address] Care Team Providers Care Burlap Worker Name Role Phone Chung Holden MD Primary Care Provider Encounter Details Date Type Department Care Team (Latest Contact Info) Description 12/07/2003 Outpatient Historical [facility] Riki Onofre MD [address] [place] [address] URIN TRACT INFECTION NOS (Primary Dx); LUMBAGO Social History Tobacco Use Types Packs/Day Years Used Date Smoking Tobacco: Never Assessed Comments Unknown Sex and Gender Information Value Date Recorded Sex Assigned at Not on file Legal Sex Female 5:35 AM SWISS MACHINIST Gender Identity Not on file Sexual Orientation Not on file documented as of this encounter Plan of Treatment Not on file documented as of this encounter Visit Diagnoses Diagnosis Urinary tract infection, site not specified- Primary Lumbago documented in this encounter Care Teams Burlap Worker Relationship Specialty Start Date End Date Chung Holden MD [address] [place] [phone] PCP - General Family Practice 04/12/20 documented as of this encounter
--- OUTSIDE RECORDS SUMMARY | 2025-05-02 07:03 | XMS_ITS | Encounter Summary ---
Author Organization [facility] Address [address] [place] [address] Care Team Providers Care Jigger Crown Pouncing Machine Operator Name Role Phone Chung Holden MD Primary Care Provider [phone] Encounter Details Date Type Department Care Team (Latest Contact Info) Description 04/18/2005 Outpatient Historical [address] [address] Maxime Nance PsyD NO ADDRESS ON FILE ADJUSTMENT DISORDER W MIXED MOOD (Primary Dx) Social History Tobacco Use Types Packs/Day Years Used Date Smoking Tobacco: Never Assessed Comments Unknown Sex and Gender Information Value Date Recorded Sex Assigned at Not on file Legal Sex Female 5:35 AM MILL LABORER Gender Identity Not on file Sexual Orientation Not on file documented as of this encounter Plan of Treatment Not on file documented as of this encounter Visit Diagnoses Diagnosis Adjustment disorder with mixed anxiety and depressed mood- Primary documented in this encounter Care Teams Jigger Crown Pouncing Machine Operator Relationship Specialty Start Date End Date Chung Holden MD [address] [place] [phone] PCP - General Family Practice 04/12/20 documented as of this encounter
--- OUTSIDE RECORDS SUMMARY | 2025-05-02 07:03 | XMS_ITS | Encounter Summary ---
Author Organization [facility] Address [address] [place] [address] Care Team Providers Care Reactor Fueling Supervisor Name Role Phone Chung Holden MD Primary Care Provider [phone] Encounter Details Date Type Department Care Team ([facility] st Contact Info) Description 08/14/2006 Outpatient Historical [facility] Dermatology- [address] [place] [address] Juan Ramon Womack MD [address] [place] [address] Contact Dermatitis and Other Eczema, due to Unspecified Cause (Primary Dx) Social History Tobacco Use Types Packs/Day Years Used Date Smoking Tobacco: Never Assessed Comments Unknown Sex and Gender Information Value Date Recorded Sex Assigned at Not on file Legal Sex Female 5:35 AM INFORMATICS MANAGER Gender Identity Not on file Sexual Orientation Not on file documented as of this encounter Plan of Treatment Not on file documented as of this encounter Visit Diagnoses Diagnosis Contact dermatitis and other eczema, due to unspecified cause- Primary documented in this encounter Care Teams Reactor Fueling Supervisor Relationship Specialty Start Date End Date Chung Holden MD [address] [place] [address] PCP - General Family Practice 6/1/20 documented as of this encounter
--- OUTSIDE RECORDS SUMMARY | 2025-05-02 07:03 | XMS_ITS | Encounter Summary ---
Author Organization [facility] Address [address] [place] [address] Care Team Providers Care Farmer And Grazier Name Role Phone Chung Holden MD Primary Care Provider [phone] Encounter Details Date Type Department Care Team (Late st Contact Info) Description 05/26/2008 Outpatient [facility] Breast Center [facility] [address] [place], [place] [address] Candace An MD [address] [facility] [address] [place] [address] Social History Tobacco Use Types Packs/Day Years Used Date Smoking Tobacco: Never Alcohol Use Standard Drinks/Week Comments No 0 (1 standard drink = 0.6 oz pur e alcohol) Comments Unknown Sex and Gender Information Value Date Recorded Sex Assigned at Not on file Legal Sex Female 5:35 AM 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
--- OUTSIDE RECORDS SUMMARY | 2025-05-02 07:03 | XMS_ITS | Encounter Summary ---
Author Organization [facility] Address [address] [place] [address] Care Team Providers Care Audio Visual Design Engineer Name Role Phone Chung Holden MD Primary Care Provider [phone] Encounter Details Date Type Department Care Team (Latest Contact Info) Description 08/02/2004 Outpatient Historical [facility] Imaging Services [address] [place] [address] Tin Pearce Jr., MD [address] [place] [address] SWELLING IN HEAD & NECK (Primary Dx) Social History Tobacco Use Types Packs/Day Years Used Date Smoking Tobacco: Never Assessed Comments Unknown Sex and Gender Information Value Date Recorded Sex Assigned at Not on file Legal Sex Female 5:35 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
--- OUTSIDE RECORDS SUMMARY | 2025-05-02 07:03 | XMS_ITS | Encounter Summary ---
Author Organization [facility] Address [address] [place] [address] Care Team Providers Care Wood Heel Cementer Name Role Phone Chung Holden MD Primary Care Provider [phone] Encounter Details Date Type Department Care Team (Latest Contact Info) Description 03/02/2004 Outpatient Historical [facility] Podiatry-Robbie Stovallnn Darron [address] [place] [phone] Rambo Cuellar, DPM NO ADDRESS ON FILE ANOMALIES OF TOES NEC (Primary Dx) Social History Tobacco Use Types Packs/Day Years Used Date Smoking Tobacco: Never Assessed Comments Unknown Sex and Gender Information Value Date Recorded Sex Assigned at Not on file 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
--- OUTSIDE RECORDS SUMMARY | 2025-05-02 07:03 | XMS_ITS | Encounter Summary ---
Author Organization [facility] Address [address] [place] [address] Care Team Providers Care Lead Auditor Name Role Phone Chung Holden MD Primary Care Provider [phone] Encounter Details Date Type Department Care Team (Latest Contact Info) Description 02/06/2004 Outpatient Historical [facility] Rambo Cuellar DPM NO ADDRESS ON FILE PREOP EXAM OTHER UNSPECIFIED (Primary Dx) Social History Tobacco Use Types Packs/Day Years Used Date Smoking Tobacco: Never Assessed Comments Unknown Sex and Gender Information Value Date Recorded Sex Assigned at Not on file 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
--- OUTSIDE RECORDS SUMMARY | 2025-05-02 07:03 | XMS_ITS | Encounter Summary ---
Author Organization [facility] Address [address] [place] [address] Care Team Providers Care Petrologist Name Role Phone Chung Holden MD Primary Care Provider [phone] Encounter Details Date Type Department Care Team (Latest Contact Info) Description 02/17/2004 Outpatient Historical [facility] Podiatry-Robbie Stovallnn Darron [address] [place] [phone] Rambo Cuellar, DPM NO ADDRESS ON FILE ANOMALIES OF TOES NEC (Primary Dx) Social History Tobacco Use Types Packs/Day Years Used Date Smoking Tobacco: Never Assessed Comments Unknown Sex and Gender Information Value Date Recorded Sex Assigned at Not on file 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
--- OUTSIDE RECORDS SUMMARY | 2025-05-02 07:03 | XMS_ITS | Encounter Summary ---
Author Organization [facility] Address [address] [place] [address] Care Team Providers Care Aerospace Mechanic Name Role Phone Chung Holden MD Primary Care Provider [phone] Encounter Details Date Type Department Care Team (Latest Contact Info) Description 05/09/2004 Outpatient Historical [facility] Podiatry-Avalos Bergen Darron [address] [place] [address] Rambo Cuellar, DPM NO ADDRESS ON FILE OTHER HAMMER TOE (Primary Dx) Social History Tobacco Use Types Packs/Day Years Used Date Smoking Tobacco: Never Assessed Comments Unknown Sex and Gender Information Value Date Recorded Sex Assigned at Not on file Legal Sex Female 5:35 AM TOBACCO 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
--- OUTSIDE RECORDS SUMMARY | 2025-05-02 07:03 | XMS_ITS | Encounter Summary ---
Author Organization [facility] Address [address] [place] [address] Care Team Providers Care Director Energy Name Role Phone Chung Holden MD Primary Care Provider [phone] Reason for Referral * Outpatient Services (Routine) - Closed Specialty Diagnoses / Procedures Referred By Mini crowley Referred To Contact Diagnoses Other screening mammogram Breast cancer screening Procedures MAMMO DIGITAL SCREEN BILAT Ag Urbina MD [address] [address] Phone: tel: fax: [facility] Pre-Registration [place] CALL TO MAKE APPOINTMENT ONLY [address] [place] [address] Phone: tel: fax: Referral ID Status Reason Start Date Expiration Date V isits Requested Visits Authorized [id number] Closed F [facility] TO SCHEDULE (SGF) 08/15/2013 09/15/2014 1 1 Encounter Details Date Type Department Care Team (Late st Contact Info) Description 08/15/2013 Ancillary Orders [facility] Imaging Services [address] [place] [address] Ag Urbina MD [address] [facility] 1 [place] [address] Other screening mammogram (Primary Dx); Breast cancer screening Social History Tobacco Use Types Packs/Day Years Used Date Smoking Tobacco: Never Smokeless Tobacco: Never Alcohol Use Standard Drinks/Week Comments No 0 (1 standard drink = 0.6 oz pur e alcohol) Comments No Sex and Gender Information Value Date Recorded Sex Assigned at Not on file Legal Sex Female 5:35 AM SENIOR QUALITY ENGINEER Gender Identity Not on file Sexual [...] encounter Results * MAMMO DIGITAL SCREEN BILAT (09/12/2013 11:15 AM CDT) Anatomical Region Laterality Modality Breast Bilateral Mammography Narrative 09/15/2013 11:25 AM SENIOR QUALITY ENGINEER Bilateral Mammogram Reason for Exam: Screening Comparison: Compared to: 09/09/2012 MAMMO DIGITAL SCREEN BILAT, 09/08/2011 MAMMO DIGITAL SCREEN BILAT, 06/17/2010 MAMMO SCREENING BILAT, 06/17/2010 MAMMO DIGITIZED STUDY, 06/10/2009 MAMMO SCREENING BILAT, 05/10/2007 MAMMO DIGITIZED STUDY Findings: Bilateral CC and MLO views were obtained. This examination was reviewed with the aid of a computer-aided detection system(CAD). The breast tissue density is average. No significant new findings since the prior mammogram(s). Procedure Note Rosalie Andrade MD - 09/15/2013 Bilateral Mammogram Reason for Exam: Screening Comparison: Compared to: 09/09/2012 MAMMO DIGITAL SCREEN BILAT, 09/08/2011MAMMO DIGITAL SCREEN BILAT, 06/17/2010 MAMMO SCREENING BILAT, 06/17/2010MAMMO DIGITIZED STUDY, 06/10/2009 MAMMO SCREENING BILAT, 05/10/2007 MAMMODIGITIZED STUDY Findings: Bilateral CC and MLO views were obtained. This examination was reviewed with the aid of a computer-aided detectionsystem(CAD). The breast tissue density is average. No significant new findings since the prior mammogram(s). us Ag Urbina MD MAMMO ORDERABLES Final Result documented in this encounter Visit Diagnoses Diagnosis Other screening mammogram- Primary Breast cancer screening Breast screening, unspecified Other screening mammogram Breast cancer screening Breast screening, unspecified documented in this encounter Care Teams Director Energy Relationship Specialty [place] [address] [place] [phone] PCP - General Family Practice 04/12/20 documented as of this encounter
--- OUTSIDE RECORDS SUMMARY | 2025-05-02 07:03 | XMS_ITS | Encounter Summary ---
Author Organization [facility] Address [address] [place] [address] Care Team Providers Care Counter Waiter Name Role Phone Chung Holden MD Primary Care Provider [phone] Encounter Details Date Type Department Care Team (Latest Contact Info) Description 03/31/2005 Outpatient Historical [address] [address] Maxime Nance PsyD NO ADDRESS ON FILE ADJUSTMENT DISORDER W MIXED MOOD (Primary Dx) Social History Tobacco Use Types Packs/Day Years Used Date Smoking Tobacco: Never Assessed Comments Unknown Sex and Gender Information Value Date Recorded Sex Assigned at Not on file Legal Sex Female 5:35 AM DIRECTOR BROADCAST Gender Identity Not on file Sexual Orientation Not on file documented as of this encounter Plan of Treatment Not on file documented as of this encounter Visit Diagnoses Diagnosis Adjustment disorder with mixed anxiety and depressed mood- Primary documented in this encounter Care Teams Counter Waiter Relationship Specialty Start Date End Date Chung Holden MD [address] [place] [phone] PCP - General Family Practice 04/12/20 documented as of this encounter
--- OUTSIDE RECORDS SUMMARY | 2025-05-02 07:03 | XMS_ITS | Encounter Summary ---
Author Organization [facility] Address [address] [place] [address] Care Team Providers Care Sales Review Clerk Name Role Phone Chung Holden MD Primary Care Provider Reason for Referral * Outpatient Services (Routine) - Closed Specialty Diagnoses / Procedures Referred By Mini crowley Referred To Contact Diagnoses Other screening mammogram Procedures MAMMO DIGITAL SCREEN BILAT Candace An MD Phone: tel: fax: Referral ID Status Reason Start Date Expiration Date Visits Re quested Visits Authorized [id number] Closed 08/05/2015 09/04/2016 1 1 Encounter Details Date Type Department Care Team (Late st Contact Info) Description 08/05/2015 Ancillary Orders [facility] Pre-Registration [place] CALL TO MAKE APPOINTMENT ONLY [address] [place] [address] Candace An MD [address] [facility] [address] [place] [address] Other screening mammogram (Primary Dx) Social History Tobacco Use Types Packs/Day Years Used Date Smoking Tobacco: Never Smokeless Tobacco: Never Alcohol Use Standard Drinks/Week Comments No 0 (1 standard drink = 0.6 oz pur e alcohol) Comments No Sex and Gender Information Value Date Recorded Sex Assigned at Not on file Legal Sex Female 5:35 AM MATERIAL SPREADER Gender Identity Not on file Sexual Orientation [...] encounter Results * MAMMO DIGITAL SCREEN BILAT (09/20/2015 8:55 AM MATERIAL SPREADER) Anatomical Region Laterality Modality Breast Bilateral Mammography Narrative 09/21/2015 11:15 AM MATERIAL SPREADER Bilateral Mammogram Reason for Exam: Screening Comparison: Compared to: 09/18/2014 MAMMO DIGITAL SCREEN BILAT, 09/12/2013 MAMMO DIGITAL SCREEN BILAT, 09/09/2012 MAMMO DIGITAL SCREEN BILAT, 09/08/2011 MAMMO DIGITAL SCREEN BILAT, 06/17/2010 MAMMO SCREENING BILAT, 06/10/2009 MAMMO SCREENING BILAT Findings: Bilateral CC and MLO views were obtained. This examination was reviewed with the aid of a computer-aided detection system(CAD). The breast tissue density is fatty. No significant new findings since the prior mammogram(s). us Candace An MD MAMMO ORDERABLES Final Res ult documented in this encounter Visit Diagnoses Diagnosis Other screening mammogram- Primary Visit for screening mammogram Other screening mammogram documented in this encounter Care Teams Sales Review Clerk Relationship Specialty Start Date End Date Chung Holden MD [address] [place] [address] PCP - General Family Practice 04/12/20 documented as of this encounter
--- OUTSIDE RECORDS SUMMARY | 2025-05-02 07:03 | XMS_ITS | Encounter Summary ---
Author Organization [facility] Address [address] [place] [address] Care Team Providers Care Technology Project Manager Name Role Phone Chung Holden MD Primary Care Provider Encounter Details Date Type Department Care Team (Late st Contact Info) Description 06/06/2006 Outpatient Historical [facility] 06 Sandra Rader, BUTTON SEWING MACHINE OPERATOR NO ADDRESS ON FILE Social History Tobacco Use Types Packs/Day Years Used Date Smoking Tobacco: Never Assessed Comments Unknown Sex and Gender Information Value Date Recorded Sex Assigned at Not on file Legal Sex Female 5:35 AM GRAVITY METER OPERATOR Gender Identity Not on file Sexual Orientation Not on file documented as of this encounter Plan of Treatment Not on file documented as of this encounter Visit Diagnoses Not on filedocumented in this encounter Care Teams Technology Project Manager Relationship Specialty Start Date End Date Chung Holden MD [address] [place] [phone] PCP - General Family Practice 04/12/20 documented as of this encounter
--- OUTSIDE RECORDS SUMMARY | 2025-05-02 07:03 | XMS_ITS | Encounter Summary ---
Author Organization [facility] Address [address] [place] [address] Care Team Providers Care Small Business Representative Name Role Phone Chung Holden MD Primary Care Provider [phone] Encounter Details Date Type Department Care Team (Late st Contact Info) Description 05/20/2009 Ancillary Orders [facility] [address] [facility] [address] [place] [address] Akbar Orellana MD [address] [facility] [address] [place] [address] Screening Mammogram Social History Tobacco Use Types Packs/Day Years Used Date Smoking Tobacco: Never Alcohol Use Standard Drinks/Week Comments No 0 (1 standard drink = 0.6 oz pur e alcohol) Comments No Sex and Gender Information Value Date Recorded Sex Assigned at Not on file Legal Sex Female 5:35 AM HAND BINDER CUTTER Gender Identity Not on file Sexual Orientation Not on file documented as of this encounter Plan of Treatment Not on file documented as of this encounter Results * MAMMO SCREENING BILAT (06/10/2009 1:26 PM CDT) Anatomical Region Laterality Modality Breast Bilateral Mammography Narrative 06/13/2009 12:24 PM CDT Bilateral Mammogram Reason for Exam: Screening Comparison: Comparison is made with the prior exam(s) dated 01.03.05 Findings: Bilateral CC and MLO views were obtained. This examination was reviewed with the aid of a computer-aided detection system(CAD). The breast tissue density is fatty. No significant new findings since the prior mammogram(s). Procedure Note Nellie Mijares MD - 06/13/2009 Bilateral Mammogram Reason for Exam: Screening Comparison: Comparison is made with the prior exam(s) dated 01.03.05 Findings: Bilateral CC and MLO views were obtained. This examination was reviewed with the aid of a computer-aided detectionsystem(CAD). The breast tissue density is fatty. No significant new findings since the prior mammogram(s). Akbar Orellana MD MAMMO ORDERABLES Final R esult documented in this encounter Visit Diagnoses Diagnosis Screening mammogram Other screening mammogram Screening mammogram Other screening mammogram documented in this encounter Care Teams Small Business Representative Relationship Specialty Start Date End Date Chung Holden MD [address] [place] [phone] PCP - General Family Practice 04/12/20 documented as of this encounter
--- OUTSIDE RECORDS SUMMARY | 2025-05-02 07:03 | XMS_ITS | Encounter Summary ---
Author Organization [facility] Address [address] [place] [address] Care Team Providers Care Hand Former Name Role Phone Chung Holden MD Primary Care Provider [phone] Encounter Details Date Type Department Care Team (Latest Contact Info) Description 10/16/2017 Ancillary Orders [facility] Pre-Registration [place] CALL TO MAKE APPOINTMENT ONLY [address] [place] [address] Aries Mcdermott MD [address] [place] [address] Dizziness and giddiness Social History Tobacco Use Types Packs/Day Years Used Date Smoking Tobacco: Never Smokeless Tobacco: Never Alcohol Use Standard Drinks/Week Comments No 0 (1 standard drink = 0.6 oz pur e alcohol) Comments No Sex and Gender Information Value Date Recorded Sex Assigned at Not on file Legal Sex Female 5:35 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 COFFEE Gender Identity Not on file Sexual Orientation Not on file Occupation Industry Job Start Date Job End Date Not on file Not on file Not on file Not on file Not on file Not on file Not on file Not on file documented as of this encounter Plan of Treatment Not on file documented as of this encounter Visit Diagnoses Diagnosis Dizziness and giddiness documented in this encounter Care Teams Hand Former Relationship Specialty Start Date End Date Chung Holden MD [address] [place] [phone] PCP - General Family Practice 04/12/20 documented as of this encounter
--- OUTSIDE RECORDS SUMMARY | 2025-05-02 07:03 | XMS_ITS | Encounter Summary ---
Author Organization [facility] Address [address] [place] [address] Care Team Providers Care Sleeve Baster Name Role Phone Chung Holden MD Primary Care Provider [phone] Encounter Details Date Type Department Care Team (Late st Contact Info) Description 10/26/2016 Ancillary Orders [facility] Pre-Registration [place] CALL TO MAKE APPOINTMENT ONLY [address] [place] [address] Jason Ramos MD [address] [phone] Social History Tobacco Use Types Packs/Day Years Used Date Smoking Tobacco: Never Smokeless Tobacco: Never Alcohol Use Standard Drinks/Week Comments No 0 (1 standard drink = 0.6 oz pur e alcohol) Comments No Sex and Gender Information Value Date Recorded Sex Assigned at Not on file Legal Sex Female 5:35 AM SPRINKLER INSPECTOR Gender Identity Not on file Sexual [...] on filedocumented in this encounter Care Teams Sleeve Baster Relationship Specialty Start Date End Date Chung Holden MD [address] [place] [phone] PCP - General Family Practice 04/12/20 documented as of this encounter
--- OUTSIDE RECORDS SUMMARY | 2025-05-02 07:03 | XMS_ITS | Encounter Summary ---
Author Organization [facility] Address [address] [place] [address] Care Team Providers Care Environmental Management Specialist Name Role Phone Chung Holden MD Primary Care Provider [phone] Encounter Details Date Type Department Care Team (Late st Contact Info) Description 01/03/2005 Outpatient Historical [facility] Robbie Coreas [place] [address] [place] [phone] Nellie Mijares MD NO ADDRESS ON FILE SCREENING MAMM-MAILG NEOPL-OTHER (Primary Dx) Social History Tobacco Use Types Packs/Day Years Used Date Smoking Tobacco: Never Assessed Comments Unknown Sex and Gender Information Value Date Recorded Sex Assigned at Not on file Legal Sex Female 5:35 AM CHIEF DESIGN BRANCH Gender Identity Not on file Sexual Orientation Not on file documented as of this encounter Plan of Treatment Not on file documented as of this encounter Visit Diagnoses Diagnosis Other screening mammogram- Primary documented in this encounter Care Teams Environmental Management Specialist Relationship Specialty [place] [address] [place] [phone] PCP - General Family Practice 04/12/20 documented as of this encounter
--- OUTSIDE RECORDS SUMMARY | 2025-05-02 07:03 | XMS_ITS | Encounter Summary ---
Author Organization [facility] Address [address] [place] [address] Care Team Providers Care Associate Sales Manager Name Role Phone Chung Holden MD Primary Care Provider Encounter Details Date Type Department Care Team (Latest Contact Info) Description 01/29/2004 Outpatient Historical [facility] [place] [address] [place] [phone] Rambo Cuellar, DPM NO ADDRESS ON FILE OTHER HAMMER TOE (Primary Dx) Social History Tobacco Use Types Packs/Day Years Used Date Smoking Tobacco: Never Assessed Comments Unknown Sex and Gender Information Value Date Recorded Sex Assigned at Not on file Legal Sex Female 5:35 AM TUNGSTEN TENDER Gender Identity Not on file Sexual Orientation Not on file documented as of this encounter Plan of Treatment Not on file documented as of this encounter Visit Diagnoses Diagnosis Other hammer toe (acquired)- Primary documented in this encounter Care Teams Associate Sales Manager Relationship Specialty Start Date End Date Chung Holden MD [address] [place] [phone] PCP - General Family Practice 04/12/20 documented as of this encounter
--- OUTSIDE RECORDS SUMMARY | 2025-05-02 07:03 | XMS_ITS | Encounter Summary ---
Author Organization [facility] Address [address] [place] [address] Care Team Providers Care Box Stapler Name Role Phone Chung Holden MD Primary Care Provider Encounter Details Date Type Department Care Team (Late st Contact Info) Description 05/09/2005 Outpatient Historical [facility] [address] [facility] [address] [place] [address] Candace An MD [address] [facility] [address] [place] [address] Routine medical exam (Primary Dx); ROUTINE LABORATORY APPARATUS GLASS BLOWER EXAMINATION; SCREENING MAL NEOP-RECTUM Social History Tobacco Use Types Packs/Day Years Used Date Smoking Tobacco: Never Assessed Comments Unknown Sex and Gender Information Value Date Recorded Sex Assigned at Not on file Legal Sex Female 5:35 AM PROCESS CHECKER Gender Identity Not on file Sexual Orientation Not on file documented as of this encounter Plan of Treatment Not on file documented as of this encounter Visit Diagnoses Diagnosis Routine medical exam- Primary Routine general medical examination at a health care facility Routine gynecological examination Screening for malignant neoplasm of the rectum documented in this encounter Care Teams Box Stapler Relationship Specialty [place] [address] [place] [phone] PCP - General Family Practice 04/12/20 documented as of this encounter
--- OUTSIDE RECORDS SUMMARY | 2025-05-02 07:03 | XMS_ITS | Encounter Summary ---
Author Organization [facility] Address [address] [place] [address] Care Team Providers Care Console Attendant Name Role Phone Chung Holden MD Primary Care Provider Encounter Details Date Type Department Care Team (Latest Contact Info) Description 02/12/2004 Outpatient Historical [facility] [place] [address] [place] [phone] Rambo Cuellar, DPM NO ADDRESS ON FILE Pain in limb (Primary Dx) Social History Tobacco Use Types Packs/Day Years Used Date Smoking Tobacco: Never Assessed Comments Unknown Sex and Gender Information Value Date Recorded Sex Assigned at Not on file 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
--- OUTSIDE RECORDS SUMMARY | 2025-05-02 07:03 | XMS_ITS | Encounter Summary ---
Author Organization [facility] Address [address] [place] [address] Care Team Providers Care Cake Tester Name Role Phone Chung Holden MD Primary Care Provider [phone] Encounter Details Date Type Department Care Team (Late st Contact Info) Description 01/03/[address] 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
--- OUTSIDE RECORDS SUMMARY | 2025-05-02 07:03 | XMS_ITS | Encounter Summary ---
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
--- OUTSIDE RECORDS SUMMARY | 2025-05-02 07:03 | XMS_ITS | Encounter Summary ---
Author Organization [facility] Address [address] [place] [address] Care Team Providers Care Foam Rubber Molder Name Role Phone Chung Holden MD Primary Care Provider Encounter Details Date Type Department Care Team (Latest Contact Info) Description 12/02/2003 Outpatient Historical [facility] Robbie Coreas [place] [address] [place] [phone] Riki Onofre MD [address] [place] [address] SCREENING MAMM-MAILG NEOPL-OTHER (Primary Dx) Social History Tobacco Use Types Packs/Day Years Used Date Smoking Tobacco: Never Assessed Comments Unknown Sex and Gender Information Value Date Recorded Sex Assigned at Not on file 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
--- OUTSIDE RECORDS SUMMARY | 2025-05-02 07:03 | XMS_ITS | Encounter Summary ---
Author Organization [facility] Address [address] [place] [address] Care Team Providers Care Fall Internship Name Role Phone Chung Holden MD Primary Care Provider [phone] Encounter Details Date Type Department Care Team (Late st Contact Info) Description 05/21/2006 Outpatient Historical [facility] Imaging Services[facility] [place] [address] [place] [address] Ramses Chairez, Tin Stewart MD [address] [place] [phone] Unspecified Otalgia (Primary Dx) Social History Tobacco Use Types Packs/Day Years Used Date Smoking Tobacco: Never Assessed Comments Unknown Sex and Gender Information Value Date Recorded Sex Assigned at Not on file 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 Gender Identity Not on file Sexual Orientation Not on file documented as of this encounter Plan of Treatment Not on file documented as of this encounter Procedures Procedure Name Priority Date/Time Associated Diagnosis Comments POC CREATININE Routine 05/21/2006 11:50 AM CDT documented in this encounter Results * (ABNORMAL) POC CREATININE (05/21/2006 11:50 AM CDT) CREATININE POC 0.7(L) 0.7 - 1.2 mg/dL INTERFACE SYSTEM 05/21/2006 11:5 0 AM CDT us Tin Pearce Jr., MD POINT OF CARE TESTING F inal Result INTERFACE SYSTEM Refer to clinic/hospital department documented in this encounter Visit Diagnoses Diagnosis Otalgia, unspecified- Primary documented in this encounter Care Teams Fall Internship Relationship Specialty Start Date End Date Chung Holden MD [address] [place] [phone] PCP - General Family Practice 04/12/20 documented as of this encounter
--- OUTSIDE RECORDS SUMMARY | 2025-05-02 07:03 | XMS_ITS | Encounter Summary ---
Author Organization [facility] Address [address] [place] [address] Care Team Providers Care Machine Presser Name Role Phone Chung Holden MD Primary Care Provider [phone] Encounter Details Date Type Department Care Team (Latest Contact Info) Description 12/02/[address] 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
--- OUTSIDE RECORDS SUMMARY | 2025-05-02 07:03 | XMS_ITS | Encounter Summary ---
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
--- OUTSIDE RECORDS SUMMARY | 2025-05-02 07:03 | XMS_ITS | Encounter Summary ---
Author Organization [facility] Address [address] [place] [address] Care Team Providers Care Vegetable Buncher Name Role Phone Chung Holden MD Primary Care Provider Encounter Details Date Type Department Care Team (Late st Contact Info) Description 08/11/2011 Ancillary Orders [facility] Pre-Registration [place] CALL TO MAKE APPOINTMENT ONLY [address] [place] [address] Candace An MD [address] 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
--- OUTSIDE RECORDS SUMMARY | 2025-05-02 07:03 | XMS_ITS | Encounter Summary ---
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
--- OUTSIDE RECORDS SUMMARY | 2025-05-02 07:03 | XMS_ITS | Encounter Summary ---
Author Organization [facility] Address [address] [place] [address] Care Team Providers Care Corporate Tax Manager Name Role Phone Chung Holden MD Primary Care Provider Reason for Referral * Outpatient Services (Routine) - Closed Specialty Diagnoses / Procedures Referred By Contac t Referred To Contact Diagnoses Chest pain, unspecified Wheezing Procedures NM PHARMACOLOGICAL STRESS TEST Ag Urbina MD [address] [address] Phone: tel: fax: [facility] Pre-Registration [place] CALL TO MAKE APPOINTMENT ONLY [address] [place] [address] Phone: tel: fax: Referral ID Status Reason Start Date Expiration Date V isits Requested Visits Authorized [id number] Closed SGF [facility] TO SCHEDULE (SGF) 02/27/2014 03/30/2015 1 1 * Outpatient Services (Routine) - Closed Specialty Diagnoses / Procedures Referred By Contac t Referred To Contact Diagnoses Chest pain, unspecified Wheezing Procedures NM MYOCARD PERF IMAG SPECT MULT Ag Urbina MD [address] [address] Phone: tel: fax: [facility] Pre-Registration [place] CALL TO MAKE APPOINTMENT ONLY [address] [place] [address] Phone: tel: fax: Referral ID Status Reason Start Date Expiration Date V isits Requested Visits Authorized [id number] Closed [facility] TO SCHEDULE (SGF) 02/18/2014 04/10/2014 1 1 Encounter Details Date Type Department Care Team (Late st Contact Info) Description 02/27/2014 Ancillary Orders [facility] Pre-Registration [place] CALL TO MAKE APPOINTMENT ONLY [address] [place] [address] Ag Urbina MD [address] [address] Chest pain, unspecified (Primary Dx); Wheezing Social History Tobacco Use Types Packs/Day Years Used Date Smoking Tobacco: Never Smokeless Tobacco: Never Alcohol Use Standard Drinks/Week Comments No 0 (1 standard drink = 0.6 oz pur e alcohol) Comments No Sex and Gender Information Value Date Recorded Sex Assigned at Not on file 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 Sex Female 5:35 AM 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 Hypertension, obesity, family history of CAD. Pharmacologic stress testing was performed with Regadenoson 0.4 mg injected intravenously over 10 seconds. Additionally, low-level exercise was performed along with the vasodilator infusion (1 mile per hour for 4 minutes). The resting heart rate was 65 beats per minute and peak heart rate during stress was 104 beats per minute. Blood pressure was 130/90 mmHg at rest and 130/80 mm Hg at peak stress. Blood pressure response was appropriate during the stress procedure. The patient reported dyspnea and nausea during stress test. Aminophylline 50 mg was administered intravenously with good symptom relief. The resting electrocardiogram demonstrated normal sinus rhythm, minimal ST-segment changes. During stress, up to [address] depression were noted. There was evidence of no significant new arrhythmias. Myocardial perfusion imaging was performed at rest (30 minutes following the intravenous injection of 14.16 mCi of Tc99m Tetrofosmin). At peak pharmacologic effect, the patient was intravenously injected with 42.4 mCi of Tc99m Tetrofosmin. Gated post-stress tomographic imaging was performed 45 minutes after stress. The data was reconstructed in the short, horizontal long and vertical long axis views. Findings The overall quality of the study is fair. There is evidence of significant soft tissue attenuation artifact. Patient is 5 feet 1 inch tall and 220 pounds. Left ventricular cavity is noted to be normal in size on the rest images without further dilatation on post stress images. SPECT images demonstrate nonhomogeneous tracer distribution and myocardial perfusion throughout the myocardium. There appears to be mild, mostly fixed, anteroseptal and apical defect of mild intensity. No significant reversible defect is noted. Gated SPECT imaging reveals normal myocardial thickening and wall motion of all visualized segments. The left ventricular ejection fraction was calculated to be 67%, with an end-diastolic volume of 68 ml. Impression 1. Myocardial perfusion imaging is probably normal, although technically difficult. No obvious reversible defect is noted to suggest significant myocardial ischemia. Mild, mostly fixed, anteroseptal and apical defects are noted suggestive of artifact. 2. Global left ventricular systolic function is normal without segmental abnormalities and ejection fraction of 67%. 3. Equivocal response to stress by electrocardiographic criterion without development of chest pain. 4. No previous study is available for direct comparison. Wilfredo Gill MD, [facility] This laboratory has been accredited by the Intersocietal Commission for the Accreditation of Nuclear Medicine Laboratories (ICANL). Procedure Note Wilfredo Gill MD - 03/23/2014 Rest/Stress Single Isotope SPECT Myocardial Perfusion Imaging with pharmacologic stress and Gated Ejection Fraction Clinical Indication and History: Chest pain. Hypertension, obesity, family history of CAD. Pharmacologic stress testing was performed with Regadenoson 0.4 mg injected intravenously over 10 seconds. Additionally, low-level exercise was performed along with the vasodilator infusion (1 mile per hour for 4 minutes). The resting heart rate was 65 beats per minute and peak heart rate during stress was 104 beats per minute. Blood pressure was 130/90 mmHg at rest and 130/80 mm Hg at peak stress. Blood pressure response was appropriate during the stress procedure. The patient reported dyspnea and nausea during stress test. Aminophylline 50 mg was administered intravenously with good symptom relief. The resting electrocardiogram demonstrated normal sinus rhythm, minimal ST-segment changes. During stress, up to [address] depression were noted. There was evidence of no significant new arrhythmias. Myocardial perfusion imaging was performed at rest (30 minutes following the intravenous injection of 14.16 mCi of Tc99m Tetrofosmin). At peak pharmacologic effect, the patient was intravenously injected with 42.4 mCi of Tc99m Tetrofosmin. Gated post-stress tomographic imaging was performed 45 minutes after stress. The data was reconstructed in the short, horizontal long and vertical long axis views. Findings The overall quality of the study is fair. There is evidence of significant soft tissue attenuation artifact. Patient is 5 feet 1 inch tall and 220 pounds. Left ventricular cavity is noted to be normal in size on the rest images without further dilatation on post stress images. SPECT images demonstrate nonhomogeneous tracer distribution and myocardial perfusion throughout the myocardium. There appears to be mild, mostly fixed, anteroseptal and apical defect of mild intensity. No significant reversible defect is noted. Gated SPECT imaging reveals normal myocardial thickening and wall motion of all visualized segments. The left ventricular ejection fraction was calculated to be 67%, with an end-diastolic volume of 68 ml. Impression 1. Myocardial perfusion imaging is probably normal, although technically difficult. No obvious reversible defect is noted to suggest significant myocardial ischemia. Mild, mostly fixed, anteroseptal and apical defects are noted suggestive of artifact. 2. Global left ventricular systolic function is normal without segmental abnormalities and ejection fraction of 67%. 3. Equivocal response to stress by electrocardiographic criterion without development of chest pain. 4. No previous study is available for direct comparison. Wilfredo Gill MD, [facility] This laboratory has been accredited by the Intersocietal Commission for the Accreditation of Nuclear Medicine Laboratories (ICANL). us Ag Urbina MD [place] ORDERABLES Final Result INTERFACE SYSTEM Refer to clinic/hospital department * NM MYOCARD PERF IMAG SPECT MULT (03/23/2014 9:26 AM CDT) EJECTION FRACTION 67 55 - 85 percent INTERFACE SYSTEM 03/23/2014 8:08 AM CDT Narrative INTERFACE SYSTEM - 03/23/2014 4:10 PM CDT Rest/Stress Single Isotope SPECT Myocardial Perfusion Imaging with pharmacologic stress and Gated Ejection Fraction Clinical Indication and History: Chest pain. Hypertension, obesity, family history of CAD. Pharmacologic stress testing was performed with Regadenoson 0.4 mg injected intravenously over 10 seconds. Additionally, low-level exercise was performed along with the vasodilator infusion (1 mile per hour for 4 minutes). The resting heart rate was 65 beats per minute and peak heart rate during stress was 104 beats per minute. Blood pressure was 130/90 mmHg at rest and 130/80 mm Hg at peak stress. Blood pressure response was appropriate during the stress procedure. The patient reported dyspnea and nausea during stress test. Aminophylline 50 mg was administered intravenously with good symptom relief. The resting electrocardiogram demonstrated normal sinus rhythm, minimal ST-segment changes. During stress, up to [address] depression were noted. There was evidence of no significant new arrhythmias. Myocardial perfusion imaging was performed at rest (30 minutes following the intravenous injection of 14.16 mCi of Tc99m Tetrofosmin). At peak pharmacologic effect, the patient was intravenously injected with 42.4 mCi of Tc99m Tetrofosmin. Gated post-stress tomographic imaging was performed 45 minutes after stress. The data was reconstructed in the short, horizontal long and vertical long axis views. Findings The overall quality of the study is fair. There is evidence of significant soft tissue attenuation artifact. Patient is 5 feet 1 inch tall and 220 pounds. Left ventricular cavity is noted to be normal in size on the rest images without further dilatation on post stress images. SPECT images demonstrate nonhomogeneous tracer distribution and myocardial perfusion throughout the myocardium. There appears to be mild, mostly fixed, anteroseptal and apical defect of mild intensity. No significant reversible defect is noted. Gated SPECT imaging reveals normal myocardial thickening and wall motion of all visualized segments. The left ventricular ejection fraction was calculated to be 67%, with an end-diastolic volume of 68 ml. Impression 1. Myocardial perfusion imaging is probably normal, although technically difficult. No obvious reversible defect is noted to suggest significant myocardial ischemia. Mild, mostly fixed, anteroseptal and apical defects are noted suggestive of artifact. 2. Global left ventricular systolic function is normal without segmental abnormalities and ejection fraction of 67%. 3. Equivocal response to stress by electrocardiographic criterion without development of chest pain. 4. No previous study is available for direct comparison. Wilfrdeo Gill MD, [facility] This laboratory has been accredited by the Intersocietal Commission for the Accreditation of Nuclear Medicine Laboratories (ICANL). Procedure Note Wilfredo Gill MD - 03/23/2014 Rest/Stress Single Isotope SPECT Myocardial Perfusion Imaging with pharmacologic stress and Gated Ejection Fraction Clinical Indication and History: Chest pain. Hypertension, obesity, family history of CAD. Pharmacologic stress testing was performed with Regadenoson 0.4 mg injected intravenously over 10 seconds. Additionally, low-level exercise was performed along with the vasodilator infusion (1 mile per hour for 4 minutes). The resting heart rate was 65 beats per minute and peak heart rate during stress was 104 beats per minute. Blood pressure was 130/90 mmHg at rest and 130/80 mm Hg at peak stress. Blood pressure response was appropriate during the stress procedure. The patient reported dyspnea and nausea during stress test. Aminophylline 50 mg was administered intravenously with good symptom relief. The resting electrocardiogram demonstrated normal sinus rhythm, minimal ST-segment changes. During stress, up to [address] depression were noted. There was evidence of no significant new arrhythmias. Myocardial perfusion imaging was performed at rest (30 minutes following the intravenous injection of 14.16 mCi of Tc99m Tetrofosmin). At peak pharmacologic effect, the patient was intravenously injected with 42.4 mCi of Tc99m Tetrofosmin. Gated post-stress tomographic imaging was performed 45 minutes after stress. The data was reconstructed in the short, horizontal long and vertical long axis views. Findings The overall quality of the study is fair. There is evidence of significant soft tissue attenuation artifact. Patient is 5 feet 1 inch tall and 220 pounds. Left ventricular cavity is noted to be normal in size on the rest images without further dilatation on post stress images. SPECT images demonstrate nonhomogeneous tracer distribution and myocardial perfusion throughout the myocardium. There appears to be mild, mostly fixed, anteroseptal and apical defect of mild intensity. No significant reversible defect is noted. Gated SPECT imaging reveals normal myocardial thickening and wall motion of all visualized segments. The left ventricular ejection fraction was calculated to be 67%, with an end-diastolic volume of 68 ml. Impression 1. Myocardial perfusion imaging is probably normal, although technically difficult. No obvious reversible defect is noted to suggest significant myocardial ischemia. Mild, mostly fixed, anteroseptal and apical defects are noted suggestive of artifact. 2. Global left ventricular systolic function is normal without segmental abnormalities and ejection fraction of 67%. 3. Equivocal response to stress by electrocardiographic criterion without development of chest pain. 4. No previous study is available for direct comparison. Wilfredo Gill MD, [facility] This laboratory has been accredited by the Intersocietal Commission for the Accreditation of Nuclear Medicine Laboratories (ICANL). Ag Urbina MD [place] ORDERABLES Final Result INTERFACE SYSTEM Refer to clinic/hospital department documented in this encounter Visit Diagnoses Diagnosis Chest pain, unspecified- Primary Wheezing Chest pain, unspecified Wheezing Chest pain, unspecified Wheezing documented in this encounter Care Teams Corporate Tax Manager Relationship Specialty Start Date End Date Chung Holden MD [address] [place] [address] PCP - General Family Practice 04/12/20 documented as of this encounter
--- OUTSIDE RECORDS SUMMARY | 2025-05-02 07:03 | XMS_ITS | Encounter Summary ---
Author Organization [facility] Address [address] [place] [address] Care Team Providers Care Dry Press Operator Name Role Phone Chung Holden MD Primary Care Provider [phone] Encounter Details Date Type Department Care Team (Latest Contact Info) Description 02/12/2004 Outpatient Historical [facility] Podiatry-[place] [address] [place] [phone] Rambo Cuellar, DPM NO ADDRESS ON FILE OTHER HAMMER TOE (Primary Dx) Social History Tobacco Use Types Packs/Day Years Used Date Smoking Tobacco: Never Assessed Comments Unknown Sex and Gender Information Value Date Recorded Sex Assigned at Not on file 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
--- OUTSIDE RECORDS SUMMARY | 2025-05-02 07:03 | XMS_ITS | Encounter Summary ---
Author Organization [facility] Address [address] [place] [address] Care Team Providers Care Otr Flatbed Driver Name Role Phone Chung Holden MD Primary Care Provider [phone] Encounter Details Date Type Department Care Team (Latest Contact Info) Description 06/06/2006 Outpatient Historical [facility] OBGYN-[address] [place] [address] Sandra Rader NP NO ADDRESS ON FILE Routine Medical Exam (Primary Dx); Routine Gynecological Examination; Screening for Malignant Neoplasm of the Rectum Social History Tobacco Use Types Packs/Day Years Used Date Smoking Tobacco: Never Assessed Comments Unknown Sex and Gender Information Value Date Recorded Sex Assigned at Not on file 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
--- OUTSIDE RECORDS SUMMARY | 2025-05-02 07:03 | XMS_ITS | Encounter Summary ---
Author Organization [facility] Address [address] [place] [address] Care Team Providers Care Accounting Machine Servicer Name Role Phone Chung Holden MD Primary Care Provider [phone] Reason for Referral * Outpatient Services (Routine) - Closed Specialty Diagnoses / Procedures Referred By Mini crowley Referred To Contact Diagnoses Other screening mammogram Procedures MAMMO DIGITAL SCREEN BILAT Candace An MD [address] [facility] [address] [place] [address] Phone: tel: fax: [facility] Pre-Registration [place] CALL TO MAKE APPOINTMENT ONLY [address] [place] [address] Phone: tel: fax: Referral ID Status Reason Start Date Expiration Date Visits Re quested Visits Authorized [id number] Closed 08/03/2014 09/03/2015 1 1 Encounter Details Date Type Department Care Team (Late st Contact Info) Description 08/03/2014 Ancillary Orders [facility] Pre-Registration [place] CALL TO MAKE APPOINTMENT ONLY [address] [place] [address] Candace An MD [address] [facility] [address] [place] [phone] Other screening mammogram (Primary Dx) Social History Tobacco Use Types Packs/Day Years Used Date Smoking Tobacco: Never Smokeless Tobacco: Never Alcohol Use Standard Drinks/Week Comments No 0 (1 standard drink = 0.6 oz pur e alcohol) Comments No Sex and Gender Information Value Date Recorded Sex Assigned at Not on file Legal Sex Female 5:35 AM HR ASSISTANT Gender Identity Not on file Sexual Orientation [...] encounter Results * MAMMO DIGITAL SCREEN BILAT (09/18/2014 11:39 AM HR ASSISTANT) Anatomical Region Laterality Modality Breast Bilateral Mammography Narrative 09/21/2014 10:28 AM HR ASSISTANT Bilateral Mammogram Reason for Exam: Screening Comparison: Compared to: 09/12/2013 MAMMO DIGITAL SCREEN BILAT, 09/09/2012 MAMMO DIGITAL SCREEN BILAT, 09/08/2011 MAMMO DIGITAL SCREEN BILAT, 06/17/2010 MAMMO SCREENING BILAT, 06/10/2009 MAMMO SCREENING BILAT Findings: Bilateral CC and MLO views were obtained. This examination was reviewed with the aid of a computer-aided detection system(CAD). The breast tissue density is fatty. No significant new findings since the prior mammogram(s). Procedure Note Ida Lane MD - 09/21/2014 Bilateral Mammogram Reason for Exam: Screening Comparison: Compared to: 09/12/2013 MAMMO DIGITAL SCREEN BILAT, 09/09/2012MAMMO DIGITAL SCREEN BILAT, 09/08/2011 MAMMO DIGITAL SCREEN BILAT,06/17/2010 MAMMO SCREENING BILAT, 06/10/2009 MAMMO SCREENING BILAT Findings: Bilateral CC and MLO views were obtained. This examination was reviewed with the aid of a computer-aided detectionsystem(CAD). The breast tissue density is fatty. No significant new findings since the prior mammogram(s). us Candace An MD MAMMO ORDERABLES Final Res ult documented in this encounter Visit Diagnoses Diagnosis Other screening mammogram- Primary Other screening mammogram documented in this encounter Care Teams Accounting Machine Servicer Relationship Specialty Start Date End Date Chung Holden MD [address] [place] [phone] PCP - General Family Practice 04/12/20 documented as of this encounter
--- OUTSIDE RECORDS SUMMARY | 2025-05-02 07:03 | XMS_ITS | Encounter Summary ---
Author Organization [facility] Address [address] [place] [address] Care Team Providers Care Bed Laborer Name Role Phone Chung Holden MD Primary Care Provider Reason for Referral * Outpatient Services (Routine) - Closed Specialty Diagnoses / Procedures Referred By Mini crowley Referred To Contact Radiology Diagnoses Visit for screening mammogram Procedures MAMMO SCRN BILAT 3D MADHU W OR WO CAD MAMMO SCREEN BILAT W OR WO CAD Candace An MD Phone: tel: fax: [facility] [place] [address] [facility] [address] [place] [address] Phone: tel: fax: Referral ID Status Reason Start Date Expiration Date Visits Re quested Visits Authorized [id number] Closed 05/16/2018 06/16/2019 1 1 Encounter Details Date Type Department Care Team (Late st Contact Info) Description 05/16/2018 Ancillary Orders [facility] Pre-Registration [place] CALL TO MAKE APPOINTMENT ONLY [address] [place] [address] Candace An MD [address] [facility] [address] [place] [address] Visit for screening mammogram Social History Tobacco Use Types Packs/Day Years Used Date Smoking Tobacco: Never Smokeless Tobacco: Never Alcohol Use Standard Drinks/Week Comments No 0 (1 standard drink = 0.6 oz pur e alcohol) Comments No Sex and Gender Information Value Date Recorded Sex Assigned at Not on file 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 Gender Identity Not on file Sexual Orientation Not on file Occupation Industry Job Start Date Job End Date Not on file Not on file Not on file Not on file Not on file Not on file Not on file Not on file documented as of this encounter Plan of Treatment Not on file documented as of this encounter Results * MAMMO SCRN BILAT 3D MADHU W OR WO CAD (05/30/2018 1:29 PM CDT) Anatomical Region Laterality Modality Breast Bilateral Mammography Narrative 05/31/2018 12:42 PM CDT Bilateral Mammogram Reason for Exam: Screening Comparison: Compared to: 12/06/2016 MAMMO DIGITAL SCREEN BILAT, 09/20/2015 MAMMO DIGITAL SCREEN BILAT, 09/18/2014 MAMMO DIGITAL SCREEN BILAT, 09/12/2013 MAMMO DIGITAL SCREEN BILAT, and 09/09/2012 MAMMO DIGITAL SCREEN BILAT Technique: 3D MLO and CC digital tomosynthesis images were acquired and synthesized 2D images (C view) were generated. This digital mammogram was also analyzed by the Computer Aided Detection System CAD). Breast Composition: The breasts are almost entirely fatty. There are no suspicious masses, areas of architectural distortions, or microcalcifications to suggest malignancy. No significant new findings since the prior mammogram(s). us Candace An MD MAMMO ORDERABLES Final Res ult documented in this encounter Visit Diagnoses Diagnosis Visit for screening mammogram Other screening mammogram Visit for screening mammogram Other screening mammogram documented in this encounter Care Teams Bed Laborer Relationship Specialty Start Date End Date Chung Holden MD [address] [place] [phone] PCP - General Family Practice 04/12/20 documented as of this encounter
--- OUTSIDE RECORDS SUMMARY | 2025-05-02 07:03 | XMS_ITS | Encounter Summary ---
Author Organization [facility] Address [address] [place] [address] Care Team Providers Care Chemical Dependency Professional Name Role Phone Chung Holden MD Primary Care Provider Encounter Details Date Type Department Care Team (Latest Contact Info) Description 11/17/2005 Outpatient Historical [facility] Services [address] [place] [address] Ramses Chairez, Tin Stewart MD [address] [place] [address] PULMONARY COLLAPSE (Primary Dx) Social History Tobacco Use Types Packs/Day Years Used Date Smoking Tobacco: Never Assessed Comments Unknown Sex and Gender Information Value Date Recorded Sex Assigned at Not on file Legal Sex Female 5:35 AM POPCORN ATTENDANT Gender Identity Not on file Sexual Orientation Not on file documented as of this encounter Plan of Treatment Not on file documented as of this encounter Procedures Procedure Name Priority Date/Time Associated Diagnosis Comments POC CREATININE Routine 11/17/2005 4:56 PM POPCORN ATTENDANT CTA CHEST W WO CONTRAST Routine 11/17/2005 3:15 PM POPCORN ATTENDANT XR CHEST PA AND LATERAL 2 VW Routine 11/17/2005 3:15 PM POPCORN ATTENDANT documented in this encounter Results * POC CREATININE (11/17/2005 4:56 PM POPCORN ATTENDANT) CREATININE POC 1.0 0.7 - 1.2 mg/dL INTERFACE SYSTEM 11/17/2005 4:56 PM POPCORN ATTENDANT us Tin Pearce Jr., MD POINT OF CARE TESTING F inal Result INTERFACE SYSTEM Refer to clinic/hospital department * CTA CHEST W WO CONTRAST (11/17/2005 3:15 PM POPCORN ATTENDANT) Anatomical Region Laterality Modality Chest Other 11/17/2005 3:15 PM POPCORN ATTENDANT Narrative 11/17/2005 3:15 PM POPCORN ATTENDANT CTA OF THE CHEST: 11-17-05 HISTORY: Chest pain. Axial tomograms obtained through the chest pre and post administration of IV contrast following PE protocol. No CT evidence for pulmonary emboli. Ground glass opacification of the posterior lung zones compatible with atelectasis. Plate-like areas of atelectasis of the right middle lobe and lingula. Granulomatous residuals. No lymphadenopathy. Visualized tracheobronchial tree unremarkable. Mild cardiomegaly. No pleural effusion or pericardial thickening. Limited images of the upper abdomen with cholelithiasis. No CT evidence for pulmonary emboli. Areas of plate atelectasis. Limited images of the upper abdomen with cholelithiasis. [facility] D: 11-17-05 1810 Dictated By: Yesenia Thomas M.D. Electronically Signed By: Yesenia Thomas M.D. Date Signed: 11/18/05 Procedure Note 09/30/2009 CTA OF THE CHEST: 11-17-05 HISTORY: Chest pain. Axial tomograms obtained through the chest pre and post administration ofIV contrast following PE protocol. No CT evidence for pulmonary emboli. Ground glass opacification of theposterior lung zones compatible with atelectasis. Plate-like areas of atelectasis of the right middlelobe and lingula. Granulomatous residuals. No lymphadenopathy. Visualized tracheobronchial treeunremarkable. Mild cardiomegaly. No pleural effusion or pericardial thickening. Limited images of the upperabdomen with cholelithiasis. No CT evidence for pulmonary emboli. Areas of plate atelectasis. Limitedimages of the upper abdomen with cholelithiasis. [facility] D: 11-17-05 1810 Dictated By: Yesenia Thomas M.D. Electronically Signed By: Yesenia Thomas M.D. Date Signed: 11/18/[address] ORDERABLES Edited * XR CHEST PA AND LATERAL (11/17/2005 3:15 PM POPCORN ATTENDANT) Anatomical Region Laterality Modality Chest Other 11/17/2005 3:15 PM POPCORN ATTENDANT Narrative 11/17/2005 3:15 PM POPCORN ATTENDANT PA AND LATERAL CHEST - 11/17/05 Bronchial cuffing of the perihilar regions. Plate atelectasis and/or scarring of the right middle lobe. Mild inflammatory infiltrate of the right infrahilar region cannot be entirely excluded. Cardiac silhouette within normal limits. Mild inflammatory infiltrate of the right infrahilar region cannot be entirely excluded with adjacent plate atelectasis and/or scarring of the right middle lobe. lmt Dictated By: Yesenia Thomas M.D. Electronically Signed By: Yesenia Thomas M.D. Date Signed: 11/18/05 LMT Procedure Note 09/30/2009 PA AND LATERAL CHEST - 11/17/05 Bronchial cuffing of the perihilar regions. Plate atelectasis and/orscarring of the right middle lobe. Mild inflammatory infiltrate of the right infrahilar region cannot beentirely excluded. Cardiac silhouette within normal limits. Mild inflammatory infiltrate of the right infrahilar region cannot beentirely excluded with adjacent plate atelectasis and/or scarring of the right middle lobe. lmt Dictated By: Yesenia Thomas M.D. Electronically Signed By: Yesenia Thomas M.D. Date Signed: 11/18/05 LMT Maxime Trevino MD DIAGNOSTIC IMAGING ORDERABLES Ed ited documented in this encounter Visit Diagnoses Diagnosis Pulmonary collapse- Primary documented in this encounter Care Teams Chemical Dependency Professional Relationship Specialty Start Date End Date Chung Holden MD [address] [place] [phone] PCP - General Family Practice 04/12/20 documented as of this encounter
--- OUTSIDE RECORDS SUMMARY | 2025-05-02 07:04 | XMS_ITS | Clinical Summary ---
Author Organization [facility] Address [address] [place] [address] Care Team Providers Care Pathology Laboratory Technologist Name Role Phone Chung Holden MD Primary Care Provider [phone] Allergies Active Allergy Reactions Criticality Noted Date Comments Erythromycin Nausea and Vomiting Low 04/04/2009 Mold Extracts Other (See Comments) Medium 06/22/2009 Sinus problems Medications lisinopril (PRINIVIL) 20 mg Oral Tab Take 1 Tab by mouth daily. 30 Tab 1 9 Active fluticasone (FLONASE) 50 mcg/spray Both Nostril SpSn Administer 2 Sprays in each nostril 1 time daily as needed . Active metFORMIN (GLUCOPHAGE) 500 mg tablet Take 500 mg by mouth daily at bedtime . Active OTHER Take 1 Dose by mouth 1 time daily as needed Chewable ACEROLA Vitamin C Complex . Active VITAMIN B COMPLEX ORAL Take 1 Capsule by mouth daily. Active OTHER Take 2 Capsules by mouth daily Ultra-Biotics Probiotic & Prebiotic . Active cholecalciferol , Vitamin D3, (VITAMIN D3) 1,000 unit Capsule Take 1,000 Units by mouth daily. Active MENTHOL/CAMPHOR (BIOFREEZE TOPICAL) Apply to affected area 1 time daily as needed. Active CYANOCOBALAMIN/ MECOBALAMIN (CYANOCOBALAMIN -METHYLCOBALAMI N SUBLINGUAL) Place 1 Tablet under tongue 1 time daily as needed. Active OTHER Take 30 mg by mouth 4 times daily as needed (Congestion) Cleveed . Active Magnesium 200 mg Tablet Take 1 Tablet by mouth daily. Active PSEUDOEPHEDRINE HCL (SUDAFED ORAL) Take 1 Tablet by mouth 1 time daily as needed. Active traMADol (ULTRAM) 50 mg tablet Take 2 Tablets (100 mg) by mouth every 6 hours as needed for Pain. 60 Tablet 8 Active hydrocortisone- pramoxine (PROCTOFOAM HC) 1-1 % Foam Insert by rectum 1 time daily as needed for Hemorrhoids. 10 Gram 6 9 Active Active Problems Problem Noted Date Diagnosed Date Postoperative visit 12/24/2017 Preoperative general physical examination 2017 Cervical stenosis of spine 11/30/2017 Essential hypertension 11/30/2017 DM type 2 (diabetes mellitus, type 2) 11/30/2017 Gastroesophageal reflux disease 11/30/2017 Allergic rhinitis 11/30/2017 Severe obesity (BMI 35.0-39.9) with comorbidity 11/30/2017 Diverticulitis, s/p lap L A R 10/17/16 10/12/2016 Atrophic vaginitis 08/16/2015 Pseudophakia 01/23/2012 Major depression in remission 02/17/2011 Family History Medical History Relation Name Comments Heart Disease Brother Healthy Daughter 1 Healthy Daughter 2 Healthy Daughter 3 Heart Disease Father High Cholesterol Father Hypertension Father Stroke Father Cataract Mother Colon Cancer Mother Heart Attack Mother Breast Cancer Paternal Cousin positive ri sk assessment to genetic counselor- see media tab Hypertension Sister Healthy Son Detachment/Tears Neg Hx Diabetes Neg Hx Macular Degen Neg Hx Ovarian Cancer Neg Hx Relation Name Status Comments Brother Daughter 1 Alive Daughter 2 Alive Daughter 3 Alive Father Maternal Grandfather Maternal Grandmother Mother Alive Paternal Cousin Paternal Grandfather Paternal Grandmother Sister Alive Son Alive Social History Tobacco Use Types Packs/Day Years Used Date Smoking Tobacco: Never Smokeless Tobacco: Never Alcohol Use Standard Drinks/Week Comments No 0 (1 standard drink = 0.6 oz pur e alcohol) Comments No Sex and Gender Information Value Date Recorded Sex Assigned at Not on file Legal Sex Female 5:[address] Gender Identity Not on file Sexual Orientation Not on file Occupation Industry Job Start Date Job End Date Not on file Not on file Not on file Not on file Not on file Not on file Not on file Not on file Last Filed Vital Signs Vital Sign Reading Time Taken Comments Blood Pressure 122/70 01/09/2020 9:[address] Pulse 79 02/18/2018 10:26 AM CDT Temperature 37.1 C (98.8 F) 12/17/2017 4:[address] Respiratory Rate 18 12/17/2017 4:[address] Oxygen Saturation 97% 12/17/2017 4:[address] Inhaled Oxygen Concentration - - Weight 84.8 kg (187 lb) 01/09/2020 9:[address] Height 154.9 cm (5' 1 ) 01/09/2020 9:[address] Body Mass Index 35.33 01/09/2020 9:[address] Plan of Treatment Health Maintenance Due Date Last Done Comments DIABETES ANNUAL FOOT EXAM 1967 DIABETES MICROALBUMIN ANNUAL SCREEN 1967 LDL CHOLESTEROL ANNUAL 1967 DTAP/TDAP/TD VACCINES (1 - Tdap) 1968 PNEUMOCOCCAL VACCINE 50+ YEA RS (1 of 2 - PCV) 1968 FIT-DNA Q 3 years 1994 Flex Sig/CT Colonography Q 5 years 1994 ZOSTER VACCINE (1 of 2) 1999 FIT/FOBT Q 1 year 05/31/2012 05/31/2011, , 06/04/2008, Additional history exists DIABETES ANNUAL RETINAL EXAM 10/02/2013, 10/02/2012, 10/02/2012, Additional history exists COLORECTAL SCREENING 05/29/2017 05/29/2007 Colorectal Cancer Screening 05/29/2017 DIABETES HBA1C Q 6 MONTHS 05/30/2018 11/30/2017, 05/2016 OSTEOPOROSIS SCREENING 06/06/2024 06/06/2019 INFLUENZA VACCINE (#1) 2024 RSV VACCINE (60+ or ) (1 - 1-dose 75+ series) 2024 Medical Devices Implanted Type Area Financial Officer Device Identifier Shelf Expiration Date Model / Serial / Lot Lens Io Sn60wf 20.5 - [id number] Implanted:Qty : 1 on 01/23/2012 at [facility] Right: Eye [facility] 07/12/2016 SN60WF.205 / [id number] / Lens Io Sn60wf 20.5 - [id number] Implanted:Qty : 1 on 10/22/2012 at [facility] Left: Eye [facility] 01/09/2017 SN60WF.205 / [id number] / Hemostatic Gelfoam Spng 12-7mm [id number] - Csc - Sna Implanted:Qty : 1 on 12/12/2017 by Duncan Bains MD at [facility] Hemostatic N/A: Spine Cervical Posterior [employer] 10/11/2019 [id number] / NA / [id number] Hemostatic Gelfoam Powder 1gm [id number] - Sna Implanted:Qty : 1 on 12/12/2017 by Duncan Bains MD at [facility] Hemostatic N/A: Spine Cervical Posterior [employer] 06/11/2020 [id number] / NA / [id number] Procedures Procedure Name Priority Date/Time Associated Diagnosis Comments XR DEXA BONE DENSITY AXIAL 1 OR MORE SITES Routine 06/06/2019 9:29 AM CDT Age-related osteoporosis without current pathological fracture Osteoporosis screening HEMOGLOBIN A1C Routine 11/30/2017 1:[address] POC OCCULT BLOOD 1 CARD Routine 05/31/2011 2:13 PM CDT Screening for colon cancer from Last 3 Months or Most Recently Relevant to Health Maintenance Results * XR DEXA BONE DENSITY AXIAL 1 OR MORE SITES (06/06/2019 9:29 AM CDT) Anatomical Region Laterality Modality Nuclear Medicine 06/06/2019 9:29 AM CDT Impressions 06/06/2019 7:04 PM CDT IMPRESSION: Abnormal examination Lobe bone density/osteopenia is present at all locations more marked in the left proximal femur lying just below the average the patient's age-matched control of concern for early accelerated bone demineralization. NOF guidelines recommend consideration of FDA-approved medical therapies in patients with FRAX determined 10-year probabilities of hip/major osteoporosis-related fractures equal or greater than 3%/20% respectively. Consider assessing fracture risk using the FRAX analysis tool for guidance of clinical management available online at www.shef.ac.uk/FRAX/. Enter Fourandhalf for Select DXA and the Femoral Neck BMD value. Narrative 06/06/2019 7:04 PM CDT DEXA Evaluation of the Lumbar Spine and Left Proximal Femur Reason for Consultation: Ovarian failure for osteoporosis screening. Evaluation of bone mineral density. The following absorptiometry data were obtained. The quality of this examination is acceptable with regards to count density, processed images, data display and lack of important artifacts (including but not limited to motion and attenuation artifacts). Serial examination number one. Lumbar spine images demonstrate degenerative changes at lower levels resulting in spurious elevation of bone density to some degree. L1-L2 BMD (g/cm2): 1.02. Adult T-score: -1.1 Adult Z-score: -0.2 Left Femoral Neck BMD (g/cm2): 0.754 Adult T-score: -2.0 Adult Z-score: -0.8 Left Total Hip BMD (g/cm2): 0.849 Adult T-score: -1.3 Adult Z-score: -0.3 Procedure Note Len Steele MD - 06/06/2019 DEXA Evaluation of the Lumbar Spine and Left Proximal Femur Reason for Consultation: Ovarian failure for osteoporosis screening. Evaluation of bone mineral density. The following absorptiometry data were obtained. The quality of this examination is acceptable with regards to count density, processed images, data display and lack of important artifacts (including but not limited to motion and attenuation artifacts). Serial examination number one. Lumbar spine images demonstrate degenerative changes at lower levels resulting in spurious elevation of bone density to some degree. L1-L2 BMD (g/cm2): 1.02. Adult T-score: -1.1 Adult Z-score: -0.2 Left Femoral Neck BMD (g/cm2): 0.754 Adult T-score: -2.0 Adult Z-score: -0.8 Left Total Hip BMD (g/cm2): 0.849 Adult T-score: -1.3 Adult Z-score: -0.3 IMPRESSION: Abnormal examination Lobe bone density/osteopenia is present at all locations more marked in the left proximal femur lying just below the average the patient's age-matched control of concern for early accelerated bone demineralization. NOF guidelines recommend consideration of FDA-approved medical therapies in patients with FRAX determined 10-year probabilities of hip/major osteoporosis-related fractures equal or greater than 3%/20% respectively. Consider assessing fracture risk using the FRAX analysis tool for guidance of clinical management available online at www.shef.ac.uk/FRAX/. Enter Fourandhalf for Select DXA and the Femoral Neck BMD value. Bijal Castilloin Smith HR BUSINESS PARTNER- DIAGNOSTIC IMAGING ORD ERABLES Final Result * (ABNORMAL) HEMOGLOBIN A1C (11/30/2017 1:[address]) HEMOGLOBIN A1C 6.2(H) 4.0 - 6.0 % 11/30/2017 2:[address] [facility] EST. AVG GLUCOSE, A1C 131 mg/dL 11/30/2017 2:[address] [facility] Blood Venipuncture / Unknown 11/30/2017 1:[address] 11/30/2017 1:[address] Fabiola Adamson [facility] CHEMISTRY ORDERABLES Final Result Performing Organization Address City/State/[facility] Co de Phone Number [facility] CLIA #[id number] [address] [place] [address] * POC OCCULT BLOOD 1 CARD (05/31/2011 2:13 PM CDT) Pathologist [facility] OCCULT BLOOD #1 Negative Negative Stool specimen (specimen) Candace An MD POINT OF CARE TESTING Heidi l Result from Last 3 Months or Most Recently Relevant to Health Maintenance Insurance MEDICARE PART A AND B [facility] Advance Directives For more information, please contact: [phone] * Full Code (Latest Code Status on File) Date Activated Date Inactivated Comments 12/12/2017 2:40 PM 12/17/2017 9:29 PM * Full Code Date Activated Date Inactivated Comments 12/12/2017 10:43 AM 12/12/2017 2:40 PM * Full Code Date Activated Date Inactivated Comments 10/17/2016 12:05 PM 10/20/2016 4:54 PM * Full Code Date Activated Date Inactivated Comments 10/17/2016 9:32 AM 10/17/2016 12:05 PM * Full Code Date Activated Date Inactivated Comments 10/17/2016 6:53 AM 10/17/2016 9:32 AM Care Teams Pathology Laboratory Technologist Relationship Specialty Start Date End Date Chung Holden MD [address] [place] [address] PCP - General Family Practice 04/12/20
--- OUTSIDE RECORDS SUMMARY | 2025-05-02 07:04 | XMS_ITS | Encounter Summary ---
Author Organization [facility] Address [address] [place] [address] Care Team Providers Care Wind Turbine Engineer Name Role Phone Chung Holden MD Primary Care Provider [phone] Encounter Details Date Type Department Care Team (Latest Contact Info) Description 10/24/1999 Outpatient Historical [facility] Family Medicine [address] [place] [phone] Magali Appiah MD NO ADDRESS ON FILE Excessive menstruation (Primary Dx); Abdominal pain, unspecified site; Unspecified essential hypertension; Allergy, unspecified not elsewhere classified Social History Tobacco Use Types Packs/Day Years Used Date Smoking Tobacco: Never Assessed Comments Unknown Sex and Gender Information Value Date Recorded Sex Assigned at Not on file Legal Sex Female 5:35 AM FLEET MAINTENANCE FOREMAN Gender Identity Not on file Sexual Orientation Not on file documented as of this encounter Plan of Treatment Not on file documented as of this encounter Visit Diagnoses Diagnosis Excessive menstruation- Primary Excessive or frequent menstruation Abdominal pain, unspecified site Unspecified essential hypertension Allergy, unspecified not elsewhere classified documented in this encounter Care Teams Wind Turbine Engineer Relationship Specialty Start Date End Date Chung Holden MD [address] [place] [phone] PCP - General Family Practice 04/12/20 documented as of this encounter
--- OUTSIDE RECORDS SUMMARY | 2025-05-02 07:04 | XMS_ITS | Encounter Summary ---
Author Organization [facility] Address [address] Cummingsn: Epic [place] [address] Care Team Providers Care Hypo Splasher Name Role Phone hCung Holden MD Primary Care Provider Encounter Details Date Type Department Care Team (Late st Contact Info) Description 01/22/2002 Outpatient Historical Candace An MD [address] [facility] [address] [place] [address] Social History Tobacco Use Types Packs/Day Years Used Date Smoking Tobacco: Never Assessed Comments Unknown Sex and Gender Information Value Date Recorded Sex Assigned at Not on file Legal Sex Female 5:35 AM ADJUSTMENT EXAMINER Gender Identity Not on file Sexual Orientation Not on file documented as of this encounter Plan of Treatment Not on file documented as of this encounter Visit Diagnoses Not on filedocumented in this encounter Care Teams Hypo Splasher Relationship Specialty Start Date End Date Chung Holden MD [address] [place] [address] PCP - General Family Practice 04/12/20 documented as of this encounter
--- OUTSIDE RECORDS SUMMARY | 2025-05-02 07:04 | XMS_ITS | Encounter Summary ---
Author Organization [facility] Address [address] [place] [address] Care Team Providers Care Assistant Farm Operations Manager Name Role Phone Chung Holden MD Primary Care Provider [phone] Encounter Details Date Type Department Care Team (Late st Contact Info) Description 05/10/[address] [facility] Robbie Coreas [place] [address] [place] [phone] Akbar Orellana MD [address] [phone] Other Screening Mammogram (Primary Dx) Social History Tobacco Use Types Packs/Day Years Used Date Smoking Tobacco: Never Assessed Comments Unknown Sex and Gender Information Value Date Recorded Sex Assigned at Not on file Legal Sex Female 5:35 AM PIPE BENDER Gender Identity Not on file Sexual Orientation Not on file documented as of this encounter Plan of Treatment Not on file documented as of this encounter Visit Diagnoses Diagnosis Other screening mammogram- Primary documented in this encounter Care Teams Assistant Farm Operations Manager Relationship Specialty Start Date End Date Chung Holden MD [address] [place] [phone] PCP - General Family Practice 04/12/20 documented as of this encounter
--- OUTSIDE RECORDS SUMMARY | 2025-05-02 07:04 | XMS_ITS | Encounter Summary ---
Author Organization [facility] Address [address] [place] [address] Care Team Providers Care Compilation Clerk Name Role Phone Chung Holden MD Primary Care Provider Encounter Details Date Type Department Care Team (Late st Contact Info) Description 03/13/2007 Outpatient Historical [facility] [address] Sandra Rader, PEDIATRIC PHYSICIAN ASSISTANT NO ADDRESS ON FILE Social History Tobacco Use Types Packs/Day Years Used Date Smoking Tobacco: Never Assessed Comments Unknown Sex and Gender Information Value Date Recorded Sex Assigned at Not on file Legal Sex Female 5:35 AM HISTOLOGIC AIDE Gender Identity Not on file Sexual Orientation Not on file documented as of this encounter Plan of Treatment Not on file documented as of this encounter Visit Diagnoses Not on filedocumented in this encounter Care Teams Compilation Clerk Relationship Specialty Start Date End Date Chung Holden MD [address] [place] [address] PCP - General Family Practice 04/12/20 documented as of this encounter
--- OUTSIDE RECORDS SUMMARY | 2025-05-02 07:04 | XMS_ITS | Encounter Summary ---
Author Organization [facility] Address [address] [place] [address] Care Team Providers Care Underwear Welter Name Role Phone Chung Holden MD Primary Care Provider Reason for Referral * Outpatient Services (Routine) - Closed Specialty Diagnoses / Procedures Referred By Mini crowley Referred To Contact Diagnoses Other screening mammogram Procedures MAMMO SCREENING BILAT Tin Pearce Jr., MD [address] [place] [address] Phone: tel: fax: Referral ID Status Reason Start Date Expiration Date Visits Re quested Visits Authorized [id number] Closed 06/02/2010 11/29/2010 1 1 Encounter Details Date Type Department Care Team (Late st Contact Info) Description 06/02/2010 Ancillary Orders [facility] [address] [address] Tin Pearce Jr., MD [facility] [place] [address] Other Screening Mammogram Social History Tobacco Use Types Packs/Day Years Used Date Smoking Tobacco: Never Alcohol Use Standard Drinks/Week Comments No 0 (1 standard drink = 0.6 oz pur e alcohol) Comments No Sex and Gender Information Value Date Recorded Sex Assigned at Not on file Legal Sex Female 5:35 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 PHOSPHORUS PROCESSING Gender Identity Not on file Sexual Orientation Not on file documented as of this encounter Plan of Treatment Not on file documented as of this encounter Results * MAMMO SCREENING BILAT (06/17/2010 8:19 AM CDT) Anatomical Region Laterality Modality Breast Bilateral Mammography Narrative 06/21/2010 3:29 PM CDT Bilateral Mammogram Reason for Exam: Screening Comparison: Comparison is made with the prior exam(s) dated 05.18.06, 06.10.09 Findings: Bilateral CC and MLO views were obtained. This examination was reviewed with the aid of a computer-aided detection system(CAD). The breast tissue density is fatty. No significant new findings since the prior mammogram(s). Procedure Note Nellie Mijares MD - 06/21/2010 Bilateral Mammogram Reason for Exam: Screening Comparison: Comparison is made with the prior exam(s) dated 05.18.06,06.10.09 Findings: Bilateral CC and MLO views were obtained. This examination was reviewed with the aid of a computer-aided detectionsystem(CAD). The breast tissue density is fatty. No significant new findings since the prior mammogram(s). Tin Pearce Jr., MD MAMMO ORDERABLES Final Result documented in this encounter Visit Diagnoses Diagnosis Other screening mammogram Other screening mammogram documented in this encounter Care Teams Underwear Welter Relationship Specialty Start Date End Date Chung Holden MD [address] [place] [address] PCP - General Family Practice 04/12/20 documented as of this encounter
--- OUTSIDE RECORDS SUMMARY | 2025-05-02 07:04 | XMS_ITS | Encounter Summary ---
Author Organization [facility] Address [address] [place] [address] Care Team Providers Care Interior Mechanic Name Role Phone Chung Holden MD Primary Care Provider [phone] Encounter Details Date Type Department Care Team (Latest Contact Info) Description 05/30/2002 Outpatient Historical [facility] Tin Pearce Jr., MD [address] [place] [address] HYPERTENSION NOS (Primary Dx); OTHER MALAISE AND FATIGUE; ANEMIA NOS Social History Tobacco Use Types Packs/Day Years Used Date Smoking Tobacco: Never Assessed Comments Unknown Sex and Gender Information Value Date Recorded Sex Assigned at Not on file Legal Sex Female 5:35 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
--- OUTSIDE RECORDS SUMMARY | 2025-05-02 07:04 | XMS_ITS | Encounter Summary ---
Author Organization [facility] Address [address] [place] [address] Care Team Providers Care Oceanography Teacher Name Role Phone Chung Holden MD Primary Care Provider [phone] Encounter Details Date Type Department Care Team (Latest Contact Info) Description 02/01/2001 Outpatient Historical [facility] Tiburcio Gutierrez NO ADDRESS ON FILE Contusion of hand(s) (Primary Dx); Accidental fall on or from other stairs or steps Social History Tobacco Use Types Packs/Day Years Used Date Smoking Tobacco: Never Assessed Comments Unknown Sex and Gender Information Value Date Recorded Sex Assigned at Not on file Legal Sex Female 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
--- OUTSIDE RECORDS SUMMARY | 2025-05-02 07:04 | XMS_ITS | Encounter Summary ---
Author Organization [facility] Address [address] [place] [address] Care Team Providers Care Energy Conservation Representative Name Role Phone Chung Holden MD Primary Care Provider Encounter Details Date Type Department Care Team (Latest Contact Info) Description 11/14/2001 Outpatient Historical [facility] Pulmonology-[facility] [place] [address] [place] [address] Chun Gonzalez MD NO ADDRESS ON FILE ABNORMAL FINDINGS-LUNG FIELD (Primary Dx) Social History Tobacco Use Types Packs/Day Years Used Date Smoking Tobacco: Never Assessed Comments Unknown Sex and Gender Information Value Date Recorded Sex Assigned at Not on file Legal Sex Female 5:35 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
--- OUTSIDE RECORDS SUMMARY | 2025-05-02 07:04 | XMS_ITS | Encounter Summary ---
Author Organization [facility] Address [address] [place] [address] Care Team Providers Care Flooring Installer Name Role Phone Chung Holden MD Primary Care Provider [phone] Encounter Details Date Type Department Care Team (Latest Contact Info) Description 12/21/1999 Outpatient Historical [facility] Tiburcio Gutierrez NO ADDRESS ON FILE Bronchitis, not specified as acute or chronic (Primary Dx); Cough Social History Tobacco Use Types Packs/Day Years Used Date Smoking Tobacco: Never Assessed Comments Unknown Sex and Gender Information Value Date Recorded Sex Assigned at Not on file 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
--- OUTSIDE RECORDS SUMMARY | 2025-05-02 07:04 | XMS_ITS | Encounter Summary ---
Author Organization [facility] Address [address] [place] [address] Care Team Providers Care Cut Order Hand Name Role Phone Chung Holden MD Primary Care Provider Encounter Details Date Type Department Care Team (Latest Contact Info) Description 05/29/2007 Outpatient Historical [facility] [address] [place] [address] Rihcard Bejarano MD [address] [place] [address] Special Screening for Malignant Neoplasms, Colon (Primary Dx) Social History Tobacco Use Types Packs/Day Years Used Date Smoking Tobacco: Never Assessed Comments Unknown Sex and Gender Information Value Date Recorded Sex Assigned at Not on file 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
--- OUTSIDE RECORDS SUMMARY | 2025-05-02 07:04 | XMS_ITS | Encounter Summary ---
Author Organization [facility] Address [address] [place] [address] Care Team Providers Care Equipment Manager Name Role Phone Chung Holden MD Primary Care Provider [phone] Encounter Details Date Type Department Care Team (Late st Contact Info) Description 11/14/2001 Outpatient Historical [facility] Imaging Services-[facility] [place] [address] [place] [address] Social History Tobacco Use Types Packs/Day Years Used Date Smoking Tobacco: Never Assessed Comments Unknown Sex and Gender Information Value Date Recorded Sex Assigned at Not on file Legal Sex Female 5:35 AM RAG SORTER Gender Identity Not on file Sexual Orientation Not on file documented as of this encounter Plan of Treatment Not on file documented as of this encounter Visit Diagnoses Not on filedocumented in this encounter Care Teams Equipment Manager Relationship Specialty Start Date End Date Chung Holden MD [address] [place] [phone] PCP - General Family Practice 04/12/20 documented as of this encounter
--- OUTSIDE RECORDS SUMMARY | 2025-05-02 07:04 | XMS_ITS | Encounter Summary ---
Author Organization [facility] Address [address] [place] [address] Care Team Providers Care Supervisor Chassis Assembly Name Role Phone Chung Holden MD Primary Care Provider Encounter Details Date Type Department Care Team (Late st Contact Info) Description 01/21/2002 Outpatient Historical [facility] [place] [address] [place] [address] Candace An MD [address] 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 Gender Identity Not on file Sexual Orientation Not on file documented as of this encounter Plan of Treatment Not on file documented as of this encounter Visit Diagnoses Diagnosis Gynecologic examination- Primary Gynecological examination Excessive menstruation Excessive or frequent menstruation Screening for malignant neoplasm of the rectum Anemia, unspecified documented in this encounter Care Teams Supervisor Chassis Assembly Relationship Specialty [place] [address] [place] [phone] PCP - General Family Practice 04/12/20 documented as of this encounter
--- OUTSIDE RECORDS SUMMARY | 2025-05-02 07:04 | XMS_ITS | Encounter Summary ---
Author Organization [facility] Address [address] [place] [address] Care Team Providers Care Stone Cleaner Name Role Phone Chung Holden MD Primary Care Provider Encounter Details Date Type Department Care Team (Latest Contact Info) Description 10/18/2001 Outpatient Historical [facility] Riki Onofre MD [address] [place] [address] HYPERTENSION NOS (Primary Dx); EDEMA Social History Tobacco Use Types Packs/Day Years Used Date Smoking Tobacco: Never Assessed Comments Unknown Sex and Gender Information Value Date Recorded Sex Assigned at Not on file Legal Sex Female 5:35 AM INFORMATION CODER Gender Identity Not on file Sexual Orientation Not on file documented as of this encounter Plan of Treatment Not on file documented as of this encounter Visit Diagnoses Diagnosis Unspecified essential hypertension- Primary Edema documented in this encounter Care Teams Stone Cleaner Relationship Specialty Start Date End Date Chung Holden MD [address] [place] [phone] PCP - General Family Practice 04/12/20 documented as of this encounter
--- OUTSIDE RECORDS SUMMARY | 2025-05-02 07:04 | XMS_ITS | Encounter Summary ---
Author Organization [facility] Address [address] [place] [address] Care Team Providers Care Videotape Recording Engineer Name Role Phone Chung Holden MD Primary Care Provider [phone] Encounter Details Date Type Department Care Team (Latest Contact Info) Description 12/27/2000 Outpatient Historical [facility] Nguyễn De La Rosa MD [address] [place] [address] Mumps uncomplicated (Primary Dx); Acute pharyngitis Social History Tobacco Use Types Packs/Day Years Used Date Smoking Tobacco: Never Assessed Comments Unknown Sex and Gender Information Value Date Recorded Sex Assigned at Not on file Legal Sex Female 5:35 AM 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
--- OUTSIDE RECORDS SUMMARY | 2025-05-02 07:04 | XMS_ITS | Encounter Summary ---
Author Organization [facility] Address [address] [place] [address] Care Team Providers Care Drag Sawyer Name Role Phone Chung Holden MD Primary Care Provider [phone] Encounter Details Date Type Department Care Team (Latest Contact Info) Description 05/31/2001 Outpatient Historical [facility] Tiburcio Gutierrez NO ADDRESS ON FILE Cellulitis and abscess of unspecified site (Primary Dx) Social History Tobacco Use Types Packs/Day Years Used Date Smoking Tobacco: Never Assessed Comments Unknown Sex and Gender Information Value Date Recorded Sex Assigned at Not on file Legal Sex Female 5:35 AM FOOD AND BEVERAGE MANAGER Gender Identity Not on file Sexual Orientation Not on file documented as of this encounter Plan of Treatment Not on file documented as of this encounter Visit Diagnoses Diagnosis Cellulitis and abscess of unspecified site- Primary documented in this encounter Care Teams Drag Sawyer Relationship Specialty Start Date End Date Chung Holden MD [address] [place] [phone] PCP - General Family Practice 04/12/20 documented as of this encounter
--- OUTSIDE RECORDS SUMMARY | 2025-05-02 07:04 | XMS_ITS | Encounter Summary ---
Author Organization [facility] Address [address] [place] [address] Care Team Providers Care Nuclear Physician Name Role Phone Chung Holden MD Primary Care Provider Encounter Details Date Type Department Care Team (Latest Contact Info) Description 05/10/2007 Outpatient Historical [facility] Robbie Coreas [place] [address] [place] [address] Tenzin Rizvi MD NO ADDRESS ON FILE Other Screening Mammogram (Primary Dx) Social History Tobacco Use Types Packs/Day Years Used Date Smoking Tobacco: Never Assessed Comments Unknown Sex and Gender Information Value Date Recorded Sex Assigned at Not on file Legal Sex Female 5:35 AM DIRECTOR INSTITUTION Gender Identity Not on file Sexual Orientation Not on file documented as of this encounter Plan of Treatment Not on file documented as of this encounter Visit Diagnoses Diagnosis Other screening mammogram- Primary documented in this encounter Care Teams Nuclear Physician Relationship Specialty Start Date End Date Chung Holden MD [address] [place] [phone] PCP - General Family Practice 04/12/20 documented as of this encounter
--- OUTSIDE RECORDS SUMMARY | 2025-05-02 07:04 | XMS_ITS | Encounter Summary ---
Author Organization [facility] Address [address] [place] [address] Care Team Providers Care Factory Superintendent Name Role Phone Chung Holden MD Primary Care Provider [phone] Encounter Details Date Type Department Care Team (Latest Contact Info) Description 12/20/2001 Outpatient Historical [facility] Tin Pearce Jr., MD [address] [place] [address] PNEUMONIA, ORGANISM NOS (Primary Dx); ROSACEA Social History Tobacco Use Types Packs/Day Years Used Date Smoking Tobacco: Never Assessed Comments Unknown Sex and Gender Information Value Date Recorded Sex Assigned at Not on file Legal Sex Female 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
--- OUTSIDE RECORDS SUMMARY | 2025-05-02 07:04 | XMS_ITS | Encounter Summary ---
Author Organization [facility] Address [address] [place] [address] Care Team Providers Care Clinical Support Associate Name Role Phone Chung Holden MD Primary Care Provider Encounter Details Date Type Department Care Team (Latest Contact Info) Description 01/02/2000 Outpatient Historical [facility] Robbie Coreas [place] [address] [place] [address] Tenzin Rizvi MD NO ADDRESS ON FILE Family history of malignant neoplasm of breast (Primary Dx) Social History Tobacco Use Types Packs/Day Years Used Date Smoking Tobacco: Never Assessed Comments Unknown Sex and Gender Information Value Date Recorded Sex Assigned at Not on file Legal Sex Female 5:35 AM NURSE SEXUAL ASSAULT Gender Identity Not on file Sexual Orientation Not on file documented as of this encounter Plan of Treatment Not on file documented as of this encounter Visit Diagnoses Diagnosis Family history of malignant neoplasm of breast- Primary documented in this encounter Care Teams Clinical Support Associate Relationship Specialty Start Date End Date Chung Holden MD [address] [place] [phone] PCP - General Family Practice 04/12/20 documented as of this encounter
--- OUTSIDE RECORDS SUMMARY | 2025-05-02 07:04 | XMS_ITS | Encounter Summary ---
Author Organization [facility] Address [address] [place] [address] Care Team Providers Care Collet Making Machine Operator Name Role Phone Chung Holden MD Primary Care Provider [phone] Encounter Details Date Type Department Care Team (Latest Contact Info) Description 04/09/2002 Outpatient Historical [facility] Tin Pearce Jr., MD [address] [place] [address] Plantar fibromatosis (Primary Dx) Social History Tobacco Use Types Packs/Day Years Used Date Smoking Tobacco: Never Assessed Comments Unknown Sex and Gender Information Value Date Recorded Sex Assigned at Not on file 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
--- OUTSIDE RECORDS SUMMARY | 2025-05-02 07:04 | XMS_ITS | Encounter Summary ---
Author Organization [facility] Address [address] [place] [address] Care Team Providers Care Retail Sales Clerk Name Role Phone Chung Holden MD Primary Care Provider [phone] Encounter Details Date Type Department Care Team (Latest Contact Info) Description 01/01/2001 Outpatient Historical [facility] Tiburcio Gutierrez NO ADDRESS ON FILE Acute pharyngitis (Primary Dx); Allergic rhinitis, cause unspecified; Anemia, unspecified; Predominant disturbance of emotions Social History Tobacco Use Types Packs/Day Years Used Date Smoking Tobacco: Never Assessed Comments Unknown Sex and Gender Information Value Date Recorded Sex Assigned at Not on file Legal Sex Female 5:35 AM MIGRATION SPECIALIST Gender Identity Not on file Sexual Orientation Not on file documented as of this encounter Plan of Treatment Not on file documented as of this encounter Visit Diagnoses Diagnosis Acute pharyngitis- Primary Allergic rhinitis, cause unspecified Anemia, unspecified Predominant disturbance of emotions documented in this encounter Care Teams Retail Sales Clerk Relationship Specialty Start Date End Date Chung Holden MD [address] [place] [phone] PCP - General Family Practice 04/12/20 documented as of this encounter
--- OUTSIDE RECORDS SUMMARY | 2025-05-02 07:04 | XMS_ITS | Encounter Summary ---
Author Organization [facility] Address [address] [place] [address] Care Team Providers Care Tax Technician Name Role Phone Chung Holden MD Primary Care Provider [phone] Encounter Details Date Type Department Care Team (Latest Contact Info) Description 03/04/2001 Outpatient Historical [facility] Tiburcio Gutierrez NO ADDRESS ON FILE Headache(784.0) (Primary Dx); Chest pain, unspecified; Benign hypertension Social History Tobacco Use Types Packs/Day Years Used Date Smoking Tobacco: Never Assessed Comments Unknown Sex and Gender Information Value Date Recorded Sex Assigned at Not on file Legal Sex Female 5:35 AM PAPERHANGER PIPE Gender Identity Not on file Sexual Orientation Not on file documented as of this encounter Plan of Treatment Not on file documented as of this encounter Visit Diagnoses Diagnosis Headache(784.0)- Primary Headache Chest pain, unspecified Benign hypertension Essential hypertension, benign documented in this encounter Care Teams Tax Technician Relationship Specialty Start Date End Date Chung Holden MD [address] [place] [phone] PCP - General Family Practice 04/12/20 documented as of this encounter
--- OUTSIDE RECORDS SUMMARY | 2025-05-02 07:04 | XMS_ITS | Encounter Summary ---
Author Organization [facility] Address [address] [place] [address] Care Team Providers Care Director Of Regional Sales Name Role Phone Chung Holden MD Primary Care Provider Encounter Details Date Type Department Care Team (Latest Contact Info) Description 01/14/2001 Outpatient Historical [facility] Robbie Coreas [place] [address] [place] [phone] Tenzin Rizvi MD NO ADDRESS ON FILE Other screening mammogram (Primary Dx) Social History Tobacco Use Types Packs/Day Years Used Date Smoking Tobacco: Never Assessed Comments Unknown Sex and Gender Information Value Date Recorded Sex Assigned at Not on file Legal Sex Female 5:35 AM SALESPERSON ART OBJECTS Gender Identity Not on file Sexual Orientation Not on file documented as of this encounter Plan of Treatment Not on file documented as of this encounter Visit Diagnoses Diagnosis Other screening mammogram- Primary documented in this encounter Care Teams Director Of Regional Sales Relationship Specialty Start Date End Date Chung Holden MD [address] [place] [phone] PCP - General Family Practice 04/12/20 documented as of this encounter
--- OUTSIDE RECORDS SUMMARY | 2025-05-02 07:04 | XMS_ITS | Encounter Summary ---
Author Organization [facility] Address [address] [place] [address] Care Team Providers Care Music Manager Name Role Phone Chung Holden MD Primary Care Provider [phone] Encounter Details Date Type Department Care Team (Latest Contact Info) Description 06/26/2002 Outpatient Historical [facility] Robbie Coreas [place] [address] [place] [phone] MD NO ADDRESS ON FILE SCREENING MAMM-MAILG NEOPL-OTHER (Primary Dx) Social History Tobacco Use Types Packs/Day Years Used Date Smoking Tobacco: Never Assessed Comments Unknown Sex and Gender Information Value Date Recorded Sex Assigned at Not on file Legal Sex Female 5:35 AM CORNER CUTTER Gender Identity Not on file Sexual Orientation Not on file documented as of this encounter Plan of Treatment Not on file documented as of this encounter Visit Diagnoses Diagnosis Other screening mammogram- Primary documented in this encounter Care Teams Music Manager Relationship Specialty Start Date End Date Chung Holden MD [address] [place] [phone] PCP - General Family Practice 04/12/20 documented as of this encounter
--- OUTSIDE RECORDS SUMMARY | 2025-05-02 07:04 | XMS_ITS | Encounter Summary ---
Author Organization [facility] Address [address] [place] [address] Care Team Providers Care Proteomics Scientist Name Role Phone Chung Holden MD Primary Care Provider Encounter Details Date Type Department Care Team (Late st Contact Info) Description 03/11/[address] [facility] Emergency Department [address] 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 Gender Identity Not on file Sexual Orientation Not on file documented as of this encounter Plan of Treatment Not on file documented as of this encounter Procedures Procedure Name Priority Date/Time Associated Diagnosis Comments URINALYSIS W/REFLEX MICROSCOPIC Routine 03/11/2007 9:41 AM CDT CBC WITH DIFFERENTIAL Routine 03/11/2007 9:19 AM CDT LIPASE Routine 03/11/2007 9:19 AM CDT COMPREHENSIVE METABOLIC PANEL Routine 03/11/2007 9:[address] ABDOMEN PELVIS W CONTRAST Routine 03/11/2007 8:47 AM CDT documented in this encounter Results * URINALYSIS (03/11/2007 9:41 AM CDT) COLOR UA Yellow Straw INTERFACE SYSTEM CLARITY UA Clear Clear INTERFACE SYSTEM LEUKOCYTE ESTERASE UA NEGATIVE NEGATIVE INTERFACE SYSTEM NITRITE UA NEGATIVE NEGATIVE INTERFACE SYSTEM PH UA 5.5 5.0 - 9.0 INTERFACE SYSTEM PROTEIN UA NEGATIVE NEGATIVE INTERFACE SYSTEM GLUCOSE UA NEGATIVE NEGATIVE INTERFACE SYSTEM KETONES UA NEGATIVE NEGATIVE INTERFACE SYSTEM UROBILINOGEN UA 0.2 0.2 INTE RFACE SYSTEM BILIRUBIN UA NEGATIVE NEGATIVE INTERFA CE SYSTEM BLOOD UA NEGATIVE NEGATIVE INTERFACE SYSTEM SPECIFIC GRAVITY UA 1.020 1.005 - 1.030 INTERFACE SYSTEM MICRO EXAM No No INTERFACE SYSTEM 03/11/2007 9:41 AM CDT Sundeep Guajardo MD URINE ORDERABLES Edited Performing Organization Address [facility] Phone Number INTERFACE SYSTEM Refer to clinic/hospital department * LIPASE (03/11/2007 9:19 AM CDT) LIPASE 39 6 - 51 U/L INTERFACE SYSTEM Comment: As of 06 the [facility] has changed testing methods. The new reference range is 6-51 The old referance range was 23-300 03/11/2007 9:19 AM CDT Sundeep Guajardo MD CHEMISTRY ORDERABLES Edit ed Performing Organization Address [facility] Phone Number INTERFACE SYSTEM Refer to clinic/hospital department * (ABNORMAL) COMPREHENSIVE METABOLIC PANEL (03/11/2007 9:19 AM CDT) GLUCOSE 121(H) 70 - 110 mg/dL INTERFACE SYSTEM BUN 13 7 - 17 mg/dL INTERFACE SYSTEM CREATININE 0.9 0.7 - 1.2 mg/dL INTERFACE SYSTEM SODIUM 143 136 - 145 mEq/L INTERFACE SYSTEM POTASSIUM 4.1 3.5 - 5.0 mEq/L INTERFACE SYSTEM CHLORIDE 107 95 - 110 mEq/L INTERFACE SYSTEM CO2 27 22 - 32 mmol/l INTERFACE SYSTEM CALCIUM 10.0 8.4 - 10.5 mg/dL INTERFACE SYSTEM TOTAL PROTEIN 7.3 6.3 - 8.2 g/dL INTERFACE SYSTEM ALBUMIN 4.6 3.5 - 5.0 g/dL INTERFACE SYSTEM ALKALINE PHOSPHATASE 126(H) 25 - 100 U/L INTERFACE SYSTEM AST 31 8 - 33 U/L INTERFACE SYSTEM ALT 37(H) 4 - 36 IU/L INTERFACE SYSTEM BILIRUBIN TOTAL 0.6 0.3 - 1.2 mg/dL INTERFACE SYSTEM GLOBULIN (CALC) 2.7 2.4 - 3.9 g/dL INTERFACE SYSTEM ALBUMIN/GLOBULIN RATIO 1.7 1.0 - 2.3 INTERFACE SYSTEM ANION GAP 13 9 - 20 mEq/L INTERFACE SYSTEM OSMOLALITY, CALCULATED 295 275 - 295 mOsm/Kg INTERFACE SYSTEM 03/11/2007 9:19 AM CDT us Sundeep Guajardo MD CHEMISTRY ORDERABLES Edit ed INTERFACE SYSTEM Refer to clinic/hospital department * (ABNORMAL) CBC WITH DIFFERENTIAL (03/11/2007 9:19 AM CDT) WBC 9.0 4.8 - 10.8 K/ul INTERFACE SYSTEM RBC 5.03 4.20 - 5.40 Mil/ul INTERFACE SYSTEM HEMOGLOBIN 14.5 12.0 - 16.0 g/dL INTERFACE SYSTEM HEMATOCRIT 42.3 36.0 - 46.0 % INTERFACE SYSTEM MCV 84.1 84.0 - 103.0 Fl INTERFACE SYSTEM MCH 28.8 27.0 - 34.0 pg INTERFACE SYSTEM MCHC 34.3 30.0 - 35.0 g/dL INTERFACE SYSTEM RDW 13.4 11.0 - 14.5 % INTERFACE SYSTEM PLATELETS 209 140 - 440 K/ul INTERFACE SYSTEM MPV 10.5 8.9 - 12.8 Fl INTERFACE SYSTEM NEUTROPHILS 75.2 42.2 - 75.2 % INTERFACE SYSTEM LYMPHOCYTES 9.6(L) 24.0 - 44.0 % INTERFACE SYSTEM MONOCYTES 13.8(H) 2.0 - 10.0 % INTERFACE SYSTEM EOSINOPHILS 1.1 0.0 - 7.0 % INTERFACE SYSTEM BASOPHILS 0.3 0.0 - 1.0 % INTERFACE SYSTEM NEUTROPHIL ABSOLUTE 6.8 2.0 - 8.0 K/ul INTERFACE SYSTEM LYMPHOCYTE ABSOLUTE 0.9(L) 1.2 - 4.0 K/ul INTERFACE SYSTEM MONOCYTE ABSOLUTE 1.2(H) 0.1 - 0.6 K/ul INTERFACE SYSTEM EOSINOPHIL ABSOLUTE 0.1 0.0 - 0.7 K/ul INTERFACE SYSTEM BASOPHILS ABSOLUTE 0.0 0.0 - 0.2 K/ul INTERFACE SYSTEM 03/11/2007 9:19 AM CDT us Sundeep Guajardo MD HEMATOLOGY ORDERABLES Davonte nadine INTERFACE SYSTEM Refer to clinic/hospital department * CT ABDOMEN PELVIS W CONTRAST (03/11/2007 8:47 AM CDT) Anatomical Region Laterality Modality Abdomen Other 03/11/2007 8:47 AM CDT Narrative 03/11/2007 8:[address] ABDOMEN AND PELVIS: HISTORY: Left lower quadrant pain. TECHNIQUE: CT of the abdomen and pelvis was performed following the administration of oral, rectaland intravenous contrast 75 mL Optiray 350. FINDINGS: Fatty infiltration of the liver is present. 3 mm hypodensity in the right hepatic lobeposterior segment on image 11. A portion of the dome of the liver is not imaged because ofrespiratory misregistration. Unremarkable spleen, pancreas, adrenals and kidneys. Inflammatorychanges are noted surrounding the distal aspect of the descending colon just proximal to thesigmoid with a dominant diverticulum in this region (image 53) in a pattern most consistent withdiverticulitis. There is no evidence of abscess or extraluminal air. The uterus, adnexa andurinary bladder are within normal limits. Small fat containing umbilical hernia. Small slidinghiatal hernia. 3 mm nodule in the right lower lobe on the first image of this study (image 1) and aleft basilar pleurally contiguous nodule measuring 5 mm on image 1 as well. Basilar groundglassopacities are likely at least partially related to dependent change/atelectasis. Degenerative discand facet disease of the spine, greatest at the lower lumbar portion. IMPRESSION: Acute diverticulitis of the distal descending colon with no evidence of abscess orextraluminal air. Indeterminate 3 mm lesion of the right hepatic lobe. Fatty infiltration of theliver. Cholelithiasis. Small hiatal and umbilical hernias. 3 mm right lower lobe nodule and 5 mmleft basilar pleurally contiguous nodule; twelve month followup could be performed for surveillanceif clinically warranted. - Dictated By: Villa Hagen M.D. Electronically Signed By: Villa Hagen M.D. Date Signed: 03/11/07 Procedure Note 10/02/2009 CT ABDOMEN AND PELVIS: HISTORY: Left lower quadrant pain. TECHNIQUE: CT of the abdomen and pelvis was performed following the administration oforal, rectaland intravenous contrast 75 mL Optiray 350. FINDINGS: Fatty infiltration of the liver is present. 3 mm hypodensity in the righthepatic lobeposterior segment on image 11. A portion of the dome of the liver is not imaged becauseofrespiratory misregistration. Unremarkable spleen, pancreas, adrenals and kidneys. Inflammatorychangesare noted surrounding the distal aspect of the descending colon just proximal to thesigmoid with adominant diverticulum in this region (image 53) in a pattern most consistent withdiverticulitis. There is noevidence of abscess or extraluminal air. The uterus, adnexa andurinary bladder are within normallimits. Small fat containing umbilical hernia. Small slidinghiatal hernia. 3 mm nodule in the rightlower lobe on the first image of this study (image 1) and aleft basilar pleurally contiguous nodulemeasuring 5 mm on image 1 as well. Basilar groundglassopacities are likely at least partially related todependent change/atelectasis. Degenerative discand facet disease of the spine, greatest at the lowerlumbar portion. IMPRESSION: Acute diverticulitis of the distal descending colon with no evidence ofabscess orextraluminal air. Indeterminate 3 mm lesion of the right hepatic lobe. Fatty infiltration oftheliver. Cholelithiasis. Small hiatal and umbilical hernias. 3 mm right lower lobe nodule and 5mmleft basilar pleurally contiguous nodule; twelve month followup could be performed forsurveillanceif clinically warranted. - Dictated By: Villa Hagen M.D. Electronically Signed By: Villa Hagen M.D. Date Signed: 03/11/[address] ORDERABLES Final Res ult documented in this encounter Visit Diagnoses Diagnosis Diverticulitis of colon (without mention of hemorrhage)(562.11)- Primary Diverticulitis of colon (without mention of hemorrhage) documented in this encounter Care Teams Proteomics Scientist Relationship Specialty Start Date End Date Chung Holden MD [address] [place] [address] PCP - General Family Practice 04/12/20 documented as of this encounter
--- OUTSIDE RECORDS SUMMARY | 2025-05-02 07:04 | XMS_ITS | Encounter Summary ---
Author Organization [facility] Address [address] [place] [address] Care Team Providers Care Aeronautical Drafter Name Role Phone Chung Holden MD Primary Care Provider [phone] Encounter Details Date Type Department Care Team (Latest Contact Info) Description 11/14/2001 Outpatient Historical [facility] Darron [address] [place] [address] Tin Pearce Jr., MD [address] [place] [address] SWELLING IN HEAD & NECK (Primary Dx) Social History Tobacco Use Types Packs/Day Years Used Date Smoking Tobacco: Never Assessed Comments Unknown Sex and Gender Information Value Date Recorded Sex Assigned at Not on file Legal Sex Female 5:35 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
--- OUTSIDE RECORDS SUMMARY | 2025-05-02 07:04 | XMS_ITS | Encounter Summary ---
Author Organization [facility] Address [address] [place] [address] Care Team Providers Care Etl Programmer Name Role Phone Chung Holden MD Primary Care Provider [phone] Encounter Details Date Type Department Care Team (Latest Contact Info) Description 01/31/2000 Outpatient Historical [facility] Tiburcio Gutierrez NO ADDRESS ON FILE Other chronic allergic conjunctivitis (Primary Dx); Unspecified symptom associated with female genital organs; Unspecified hypertrophic and atrophic condition of skin Social History Tobacco Use Types Packs/Day Years Used Date Smoking Tobacco: Never Assessed Comments Unknown Sex and Gender Information Value Date Recorded Sex Assigned at Not on file 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
--- OUTSIDE RECORDS SUMMARY | 2025-05-02 07:04 | XMS_ITS | Encounter Summary ---
Author Organization [facility] Address [address] [facility] Attn: [place] [address] Care Team Providers Care Solar Panel Installation Supervisor Name Role Phone Chung Holden MD Primary Care Provider [phone] Encounter Details Date Type Department Care Team (Late st Contact Info) Description 11/14/2001 Outpatient Historical Tin Pearce Jr., MD [address] [place] [address] Social History Tobacco Use Types Packs/Day Years Used Date Smoking Tobacco: Never Assessed Comments Unknown Sex and Gender Information Value Date Recorded Sex Assigned at Not on file Legal Sex Female 5:35 AM PSYCH RN Gender Identity Not on file Sexual Orientation Not on file documented as of this encounter Plan of Treatment Not on file documented as of this encounter Visit Diagnoses Not on filedocumented in this encounter Care Teams Solar Panel Installation Supervisor Relationship Specialty Start Date End Date Chung Holden MD [address] [place] [address] PCP - General Family Practice 04/12/20 documented as of this encounter
--- OUTSIDE RECORDS SUMMARY | 2025-05-02 07:04 | XMS_ITS | Encounter Summary ---
Author Organization [facility] Address [address] [place] [address] Care Team Providers Care Engine Emission Technician Name Role Phone Chung Holden MD Primary Care Provider [phone] Encounter Details Date Type Department Care Team (Latest Contact Info) Description 03/27/2001 Outpatient Historical [facility] Tiburcio Gutierrez NO ADDRESS ON FILE Unspecified essential hypertension (Primary Dx) Social History Tobacco Use Types Packs/Day Years Used Date Smoking Tobacco: Never Assessed Comments Unknown Sex and Gender Information Value Date Recorded Sex Assigned at Not on file 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
--- OUTSIDE RECORDS SUMMARY | 2025-05-02 07:04 | XMS_ITS | Encounter Summary ---
Author Organization [facility] Address [address] [place] [address] Care Team Providers Care Head Transfer Clerk Name Role Phone Chung Holden MD Primary Care Provider [phone] Encounter Details Date Type Department Care Team (Latest Contact Info) Description 12/06/1999 Outpatient Historical [facility] Tiburcio Gutierrez NO ADDRESS ON FILE Bronchitis, not specified as acute or chronic (Primary Dx) Social History Tobacco Use Types Packs/Day Years Used Date Smoking Tobacco: Never Assessed Comments Unknown Sex and Gender Information Value Date Recorded Sex Assigned at Not on file 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
--- OUTSIDE RECORDS SUMMARY | 2025-05-02 07:04 | XMS_ITS | Encounter Summary ---
Author Organization [facility] Address [address] [place] [address] Care Team Providers Care Upsetting Machine Operator Name Role Phone Chung Holden MD Primary Care Provider [phone] Encounter Details Date Type Department Care Team (Latest Contact Info) Description 11/13/2002 Outpatient Historical [facility] Tin Pearce Jr., MD [address] [place] [address] HEADACHE (Primary Dx); HYPERTENSION NOS Social History Tobacco Use Types Packs/Day Years Used Date Smoking Tobacco: Never Assessed Comments Unknown Sex and Gender Information Value Date Recorded Sex Assigned at Not on file Legal Sex Female 5:35 AM 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
--- OUTSIDE RECORDS SUMMARY | 2025-05-02 07:04 | XMS_ITS | Clinical Summary ---
Author Organization [facility] Address [address] Cummingsn: Epic [place] [address] Care Team Providers Care Wiring Inspector Name Role Phone Edison Johns DO Primary Care Provider [phone] Allergies Active Allergy Reactions Criticality Noted Date Comments Erythromycin Nausea and Vomiting Low 04/04/2009 Mold Extracts Other (See Comments) Medium 06/22/2009 Sinus problems Medications hydrocortisone- pramoxine (PROCTOFOAM HC) 1-1 % Foam Insert by rectum 1 time daily as needed for Hemorrhoids. 10 Gram 6 9 Active VITAMIN B COMPLEX ORAL Take 1 Capsule by mouth daily. 8 Active menthol/camphor (BIOFREEZE TOPICAL) Apply to affected area 1 time daily as needed. 8 Active OTHER Take 30 mg by mouth 4 times daily as needed (Congestion) Walphed . 8 Active OTHER Take 2 Capsules by mouth daily Ultra-Biotics Probiotic & Prebiotic . 8 Active metFORMIN (GLUCOPHAGE) 500 mg tablet Take 500 mg by mouth daily at bedtime . 7 Active traMADoL (ULTRAM) 50 mg tablet Take 2 Tablets (100 mg) by mouth every 6 hours as needed for Pain. 60 Tablet 0 8 Active cyanocobalamin/ mecobalamin (CYANOCOBALAMIN -METHYLCOBALAMI N SUBLINGUAL) Place 1 Tablet under tongue 1 time daily as needed. 8 Active OTHER Take 1 Dose by mouth 1 time daily as needed Chewable ACEROLA Vitamin C Complex . 8 Active cholecalciferol , Vitamin D3, (VITAMIN D3) 25 mcg (1,000 unit) Capsule Take 1,000 Units by mouth daily. 8 Active Magnesium 200 mg Tablet Take 1 Tablet by mouth daily. 8 Active cetirizine (ZyrTEC) 10 mg tablet Take 10 mg by mouth daily. Active lisinopriL (PRINIVIL) 20 mg tablet Take 20 mg by mouth daily. Active rosuvastatin (CRESTOR) 10 mg tablet Take 10 mg by mouth daily. Active Active Problems Problem Noted Date Diagnosed Date Postoperative visit 12/24/2017 Cervical stenosis of spine 11/30/2017 DM type 2 (diabetes mellitus, type 2) 11/30/2017 Essential hypertension 11/30/2017 Gastroesophageal reflux disease 11/30/2017 Allergic rhinitis 11/30/2017 Severe obesity (BMI 35.0-39.9) with comorbidity 11/30/2017 Preoperative general physical examination 2017 Diverticulitis, s/p lap L A R 10/17/16 10/12/2016 Atrophic vaginitis 08/16/2015 Pseudophakia 01/23/2012 Major depression in remission 02/17/2011 Encounters Date Type Department Care Team Description 04/28/2025 External Device Data [facility] ABSTRACTION Provider, Abstract 04/02/2025 External Device Data [facility] ABSTRACTION Provider, Abstract from Last 3 Months Family History Medical History Relation Name Comments [...] Degen Neg Hx Ovarian Cancer Neg Hx Uterine or Endometrial Cance r, Not Including Cervical Neg Hx Relation Name Status Comments Brother [...] on file Legal Sex Female 4:20 PM PRECISION DANCER Gender Identity Not on file Sexual Orientation Not on file Last Filed Vital Signs Vital Sign Reading Time Taken Comments Blood Pressure 114/63 04/24/2022 10:36 AM CDT Pulse 81 04/24/2022 10:36 AM CDT Temperature 36.7 C (98 F) 04/24/2022 10:36 AM CDT Respiratory Rate 18 12/17/2017 4:44 PM PRECISION DANCER Oxygen Saturation 97% 04/24/2022 10:36 AM CDT Inhaled Oxygen Concentration - - Weight 84.8 kg (187 lb) 01/09/2020 9:38 AM PRECISION DANCER Height 154.9 cm (5' 1 ) 04/24/2022 10:36 AM CDT Body Mass Index 35.33 01/09/2020 9:38 AM PRECISION DANCER Plan of Treatment Health Maintenance Due Date Last Done Comments DIABETES ANNUAL FOOT EXAM 1967 DIABETES MICROALBUMIN ANNUAL SCREEN 1967 LDL CHOLESTEROL ANNUAL 1967 DTAP/TDAP/TD VACCINES (1 - Tdap) 1968 PNEUMOCOCCAL VACCINE 50+ YEA RS (1 of 2 - PCV) 1968 COLORECTAL SCREENING 1994 Colorectal Cancer Screening 1994 FIT-DNA Q 3 years 1994 FIT/FOBT Q 1 year 1994 Flex Sig/CT Colonography Q 5 years 1994 ZOSTER VACCINE (1 of 2) 1999 DIABETES ANNUAL RETINAL EXAM 10/02/2013 10/02/2012, 01/08/2012 DIABETES HBA1C Q 6 MONTHS 05/30/20182017, 11/30/2017, 10/18/2016 OSTEOPOROSIS SCREENING 06/06/2024 06/06/2019, 2018 INFLUENZA VACCINE (#1) 2024 RSV VACCINE (60+ or ) (1 - 1-dose 75+ series) 2024 Medical Devices Implanted Type Area Cooler Deliverer Device Identifier Shelf Expiration Date Model / Serial / Lot Lens Io Sn60wf 20.5 - [id number] Implanted:Qty : 1 on 01/23/2012 Eye Right: Eye [facility] 07/12/2016 SN60WF.205 / [id number] / Lens Io Sn60wf 20.5 - [id number] Implanted:Qty : 1 on 10/22/2012 Eye Left: Eye [facility] 01/09/2017 SN60WF.205 / [id number] / Hemostatic Gelfoam Powder 1gm [id number] - Sna Implanted:Qty : 1 on 12/12/2017 by Duncan Bains MD Hemostatic N/A: Spine Cervical Posterior [facility] 06/11/2020 [id number] / NA / [id number] Hemostatic Gelfoam Spng 12-7mm [id number] - Csc - Sna Implanted:Qty : 1 on 12/12/2017 by Duncan Bains MD Hemostatic N/A: Spine Cervical Posterior [employer] 10/11/2019 [id number] / NA / [id number] Procedures Procedure Name Priority Date/Time Associated Diagnosis Comments XR DEXA BONE DENSITY AXIAL 1 OR MORE SITES Routine 06/06/2019 9:29 AM CDT Age-related osteoporosis without current pathological fracture Osteoporosis screening HEMOGLOBIN A1C Routine 11/30/2017 1:51 PM PRECISION DANCER from Last 3 Months or Most Recently Relevant to Health Maintenance Results * XR DEXA BONE DENSITY AXIAL 1 OR MORE SITES (06/06/2019 9:29 AM CDT) Anatomical Region Laterality Modality Other Impressions 06/06/2019 7:04 PM CDT Abnormal examination Lobe bone density/osteopenia is present [...] clinical management available online at [email or web address] Enter [employer] for Select DXA and the Femoral Neck [...] -0.3 Procedure Note Len Steele MD - 03/30/2021 DEXA Evaluation of the Lumbar Spine and [...] 0.849 Adult T-score: -1.3 Adult Z-score: -0.3 IMPRESSION Abnormal examination Lobe bone density/osteopenia is present [...] clinical management available online at [email or web address] Enter [employer] for Select DXA and the Femoral Neck BMD value. Bijal Mtz ANESTHESIOLOGY MEDICAL DOCTOR- DIAGNOSTIC IMAGING ORD ERABLES Final Result * (ABNORMAL) HEMOGLOBIN A1C (11/30/2017 1:51 PM PRECISION DANCER) HEMOGLOBIN A1C 6.2(H) 4.0 - 6.0 % 11/30/2017 2:06 PM PRECISION DANCER [facility] EST. AVG GLUCOSE, A1C 131 mg/dL 11/30/2017 2:06 PM PRECISION DANCER [facility] Blood Venipuncture / Unknown 11/30/2017 1:51 PM PRECISION DANCER 11/30/2017 1:51 PM PRECISION DANCER Fabiola Adamson REINFORCING IRON WORKER HELPER CHEMISTRY ORDERABLES Final Result Performing Organization Address City/State/[facility] [[email or web address]] Co de Phone Number [facility] #[id number] [address] [place] [address] [facility] CLIA #[id number] [address] [place] [address] from Last 3 Months or Most Recently Relevant to Health Maintenance Insurance MEDICARE PART A AND B [employer] LIFE INS SUPP [place] [id number] Care Teams Wiring Inspector Relationship Specialty Start Date End Date Edison Johns DO [address] [place] [address] PCP - General Family Practice 01/26/23
--- OUTSIDE RECORDS SUMMARY | 2025-05-02 07:04 | XMS_ITS | Encounter Summary ---
Author Organization [facility] Address [address] [place] [address] Care Team Providers Care Stone Mill Operator Name Role Phone Chung Holden MD Primary Care Provider [phone] Encounter Details Date Type Department Care Team (Latest Contact Info) Description 06/11/2002 Outpatient Historical [facility] Tin Pearce Jr., MD [address] [place] [address] PNEUMONIA, ORGANISM NOS (Primary Dx) Social History Tobacco Use Types Packs/Day Years Used Date Smoking Tobacco: Never Assessed Comments Unknown Sex and Gender Information Value Date Recorded Sex Assigned at Not on file Legal Sex Female 5:35 AM KEY FILER Gender Identity Not on file Sexual Orientation Not on file documented as of this encounter Plan of Treatment Not on file documented as of this encounter Visit Diagnoses Diagnosis Pneumonia, organism unspecified(486)- Primary Pneumonia, organism unspecified documented in this encounter Care Teams Stone Mill Operator Relationship Specialty Start Date End Date Chung Holden MD [address] [place] [phone] PCP - General Family Practice 04/12/20 documented as of this encounter
--- OUTSIDE RECORDS SUMMARY | 2025-05-02 07:04 | XMS_ITS | Encounter Summary ---
Author Organization [facility] Address [address] [place] [address] Care Team Providers Care Signs And Displays Sales Representative Name Role Phone Chung Holden MD Primary Care Provider [phone] Encounter Details Date Type Department Care Team (Latest Contact Info) Description 04/22/2001 Outpatient Historical [facility] Tiburcio Gutierrez NO ADDRESS ON FILE Encounter for long-term (current) use of other medications (Primary Dx) Social History Tobacco Use Types Packs/Day Years Used Date Smoking Tobacco: Never Assessed Comments Unknown Sex and Gender Information Value Date Recorded Sex Assigned at Not on file 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
--- OUTSIDE RECORDS SUMMARY | 2025-05-02 07:04 | XMS_ITS | Encounter Summary ---
Author Organization [facility] Address [address] [place] [address] Care Team Providers Care Dry Goods Clerk Name Role Phone Chung Holden MD Primary Care Provider [phone] Encounter Details Date Type Department Care Team (Late st Contact Info) Description 03/07/2010 Ancillary Orders [facility] Ultrasound [address] 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 Retroflexed uterus of heterogeneous attenuation with small punctate foci of increased echogenicity with possible shadowing. Findings may represent a myomatous uterus. [email or web address] 1414 PM - uploaded from [employer]- Punch! 03/09/2010 12:47 PM CDT Realtime transabdominal conventional ultrasound of the pelvis was performed. Static/grayscale images reviewed. No prior ultrasound is available for comparison. The uterus appears retroflexed measuring 7.6 x 4.2 x 6.3 cm in size. Scattered shadowing punctate foci of increased echogenicity of the uterine body is identified. A double wall endometrial thickness of 5.9 mm is identified. No free pelvic fluid is identified. The right ovary measures 2.3 x 2.0 x 2.0 cm. A right ovarian volume of 4.46 mL is calculated. No focal right adnexal tenderness during exam of the right adnexa was reported. The left ovary measures 1.9 x 1.0 x 1.8 cm. A left ovarian volume of 1.77 mL is calculated. No focal adnexal tenderness on the left was reported. Procedure Note OnFabian ortega MD - 03/09/2010 Realtime transabdominal conventional ultrasound of the pelvis was performed. Static/grayscale images reviewed. No prior ultrasound is available for comparison. The uterus appears retroflexed measuring 7.6 x 4.2 x 6.3 cm in size. Scattered shadowing punctate foci of increased echogenicity of the uterine body is identified. A double wall endometrial thickness of 5.9 mm is identified. No free pelvic fluid is identified. The right ovary measures 2.3 x 2.0 x 2.0 cm. A right ovarian volume of 4.46 mL is calculated. No focal right adnexal tenderness during exam of the right adnexa was reported. The left ovary measures 1.9 x 1.0 x 1.8 cm. A left ovarian volume of 1.77 mL is calculated. No focal adnexal tenderness on the left was reported. IMPRESSION Impression: 1. Retroflexed uterus of heterogeneous attenuation with small punctate foci of increased echogenicity with possible shadowing. Findings may represent a myomatous uterus. [email or web address] 1414 PM - uploaded from [employer]- us Tin Pearce Jr., MD US ORDERABLES Final R esult * US RIGHT UPR QUADRANT (03/08/2010 8:58 AM CDT) Anatomical Region Laterality Modality Abdomen Ultrasound 03/08/2010 8:09 AM CDT Impressions 03/09/2010 12:47 PM CDT Impression: 1. Cholelithiasis with the gallbladder wall upper limits of normal in thickness. 2. Diffuse coarsened echotexture of the liver. This ultrasound findings is most consistent with diffuse fatty infiltration of the liver however can be seen with additional chronic liver diseases or infiltrative processes. Clinical correlation is recommended. 3. Poor visualization of the tail of the pancreas secondary to overlying bowel gas. ekp - uploaded from [employer] - Narrative 03/09/2010 12:47 PM CDT Real-time transabdominal conventional ultrasound targeted to the right upper quadrant was performed. Static/yoon scale images and cine clips reviewed. There is poor visualization of the tail of the pancreas secondary to overlying bowel gas. The head and body of the pancreas appear normal in size, contour, and echogenicity. A diffuse coarsened echotexture of the liver is identified. No intra or extrahepatic biliary ductal dilatation is identified. The common bile duct is 5.2 mm in diameter. Multiple shadowing dependent calcified gallstones are present. No pericholecystic fluid is identified. The gallbladder wall is upper limits of normal thickness measuring 3.0 mm. No reported sonographic Cruz's sign is identified. The right kidney measures 13.1 cm in length without hydroureteronephrosis identified. Procedure Note OnFabian ortega MD - 03/09/2010 Real-time transabdominal conventional ultrasound targeted to the right upper quadrant was performed. Static/yoon scale images and cine clips reviewed. There is poor visualization of the tail of the pancreas secondary to overlying bowel gas. The head and body of the pancreas appear normal in size, contour, and echogenicity. A diffuse coarsened echotexture of the liver is identified. No intra or extrahepatic biliary ductal dilatation is identified. The common bile duct is 5.2 mm in diameter. Multiple shadowing dependent calcified gallstones are present. No pericholecystic fluid is identified. The gallbladder wall is upper limits of normal thickness measuring 3.0 mm. No reported sonographic Cruz's sign is identified. The right kidney measures 13.1 cm in length without hydroureteronephrosis identified. IMPRESSION Impression: 1. Cholelithiasis with the gallbladder wall upper limits of normal in thickness. 2. Diffuse coarsened echotexture of the liver. This ultrasound findings is most consistent with diffuse fatty infiltration of the liver however can be seen with additional chronic liver diseases or infiltrative processes. Clinical correlation is recommended. 3. Poor visualization of the tail of the pancreas secondary to overlying bowel gas. ekp - uploaded from [employer] - us Tin Pearce Jr., MD ORDERABLES Final R esult documented in this encounter Visit Diagnoses Diagnosis RUQ pain Abdominal pain, right upper quadrant RLQ abdominal pain Abdominal pain, right lower quadrant RUQ pain Abdominal pain, right upper quadrant RLQ abdominal pain Abdominal pain, right lower quadrant documented in this encounter Care Teams Dry Goods Clerk Relationship Specialty Start Date End Date Chung Holden MD [address] [place] [phone] PCP - General Family Practice 04/12/20 documented as of this encounter
--- OUTSIDE RECORDS SUMMARY | 2025-05-02 07:04 | XMS_ITS | Encounter Summary ---
Author Organization [facility] Address [address] 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
--- OUTSIDE RECORDS SUMMARY | 2025-05-02 07:04 | XMS_ITS | Encounter Summary ---
Author Organization [facility] Address [address] [place] [address] Care Team Providers Care Hog Ribber Name Role Phone Chung Holden MD Primary Care Provider Encounter Details Date Type Department Care Team (Latest Contact Info) Description 05/29/[address] 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 Gender Identity Not on file Sexual Orientation Not on file documented as of this encounter Plan of Treatment Not on file documented as of this encounter Visit Diagnoses Diagnosis Special screening for malignant neoplasms, colon- Primary Diverticulosis of colon Diverticulosis of colon (without mention of hemorrhage) Internal hemorrhoids without mention of complication documented in this encounter Care Teams Hog Ribber Relationship Specialty Start Date End Date Chung Holden MD [address] [place] [phone] PCP - General Family Practice 04/12/20 documented as of this encounter
--- OUTSIDE RECORDS SUMMARY | 2025-05-02 07:04 | XMS_ITS | Encounter Summary ---
Author Organization [facility] Address [address] [place] [address] Care Team Providers Care Reinforcing Steel Worker Wire Mesh Name Role Phone Chung Holden MD Primary Care Provider [phone] Encounter Details Date Type Department Care Team (Latest Contact Info) Description 11/07/2001 Outpatient Historical [facility] Tin Pearce Jr., MD [address] [place] [address] UNDIAGNOSED CARDIAC MURMURS (Primary Dx); OTHER LUNG DISEASE NEC; COUGH; SIALOADENITIS Social History Tobacco Use Types Packs/Day Years Used Date Smoking Tobacco: Never Assessed Comments Unknown Sex and Gender Information Value Date Recorded Sex Assigned at Not on file 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
--- OUTSIDE RECORDS SUMMARY | 2025-05-02 07:04 | XMS_ITS | Encounter Summary ---
Author Organization [facility] Address [address] [place] [address] Care Team Providers Care Tie Tape Machine Operator Name Role Phone Chung Holden MD Primary Care Provider [phone] Reason for Referral * Outpatient Services (Routine) - Closed Specialty Diagnoses / Procedures Referred By Mini crowley Referred To Contact Diagnoses Female pelvic pain Procedures US RENAL AND BLADDER Tin Pearce Jr., MD [address] [place] [address] Phone: tel: fax: Referral ID Status Reason Start Date Expiration Date Visits Re quested Visits Authorized [id number] Closed 03/08/2011 09/04/2011 1 1 Encounter Details Date Type Department Care Team (Late st Contact Info) Description 03/08/2011 Ancillary Orders [facility] Pre-Registration [place] CALL TO MAKE APPOINTMENT ONLY [address] [place] [address] Tin Pearce Jr., MD [address] [place] [address] Female pelvic pain Social History Tobacco Use Types Packs/Day Years Used Date Smoking Tobacco: Never Alcohol Use Standard Drinks/Week Comments No 0 (1 standard drink = 0.6 oz pur e alcohol) Comments No Sex and Gender Information Value Date Recorded Sex Assigned at Not on file 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 The right length measures 12.7 cm and the left measures 11.7 cm. With regard to the urinary bladder, it seems unremarkable. [email or web address] 1725 PM - uploaded from [employer]- Procedure Note Len Parks MD - 03/12/2011 Exam: US RENAL AND BLADDER Date/Time of Exam: Mar 10, 2011 02:12:00 PM History: FEMALE PELVIC PAIN Findings/Impression: Bilaterally, the kidneys are unremarkable. The right length measures 12.7 cm and the left measures 11.7 cm. With regard to the urinary bladder, it seems unremarkable. [email or web address] 1725 PM - uploaded from [employer]- us Tin Pearce Jr., MD US ORDERABLES Final R esult documented in this encounter Visit Diagnoses Diagnosis Female pelvic pain Unspecified symptom associated with female genital organs Female pelvic pain Unspecified symptom associated with female genital organs documented in this encounter Care Teams Tie Tape Machine Operator Relationship Specialty Start Date End Date Chung Holden MD [address] [place] [address] PCP - General Family Practice 04/12/20 documented as of this encounter
--- OUTSIDE RECORDS SUMMARY | 2025-05-02 07:04 | XMS_ITS | Patient Health Record ---
Author Organization [facility] Address [address] [place] [address] Care Team Providers Care Coal Shooter Name Role Phone Tin Pearce Unavailable [phone] Allergies Allergen (clinical drug ingredient) Drug/Non Drug Allergy documented on EMR Reaction Allergy Type Onset Date Status erythromycin Erythromycin , Drug Allergy A ctive Septra DS Unknown Drug Allergy 02/25/2007 Active Reason For Referral No Information Medications Medication SIG (Take, Route, Frequency, Duration) Notes Start Date End Date Status NexIUM 40 MG Take 1 capsule(s) by mouth daily Oral for 30 Nexium 40mg Capsules, Delayed Release Take 1 capsule(s) by mouth daily 08/08/2012 Active tizanidine 2 MG Oral Tablet tizanidine 2 MG Oral Tablet 07/26/2016 Active Magnesium Citrate magnesium citrate 07/14/201611/1899 Active Fluticasone propionate 0.05 MG/ACTUAT Metered Dose Nasal [place] [Flonase] Fluticasone propionate 0.05 MG/ACTUAT Metered Dose Nasal [place] [Flonase] 07/14/2016 Active Vitamin A Vitamin A 07/14/2016 Active Lisinopril 20 MG Oral Tablet Lisinopril 20 MG Oral Tablet 07/14/2016 Active Problems Problem Type SNOMED Code ICD Code Onset Dates Problem Status W/U Status Risk Notes Problem Mild recurrent major depression (27898740) Major depression, recurrent episode, mild (296.31) 004 Problem resolved confirmed [id number] 911- Problem Earache (75497723) Earache (388.71) 11/11 004 Problem resolved confirmed Tay-985 911- Problem Wrist pain (58743711) Wrist pain (719.43) 006 Problem resolved confirmed Tay-985 911- Problem Generalized abdominal pain (418412174) Generalized abdominal pain (789.07) 006 Problem resolved confirmed Tay-985 911- Problem Generalized osteoarthritis (675351427) Generalized osteoarthritis, multiple sites (715.09) 004 Problem resolved confirmed Tay-985 911- Problem Acute upper respiratory infection (06593094) Acute upper respiratory infection (465.8) 005 Problem resolved confirmed Tay-985 911- Problem Hip pain (64707544) Hip pain (719.45) 006 Problem resolved confirmed Tay-985 911- Problem Diverticulitis (362145802) Diverticulitis (562.11) 007 Problem resolved confirmed Tay-985 911- Problem Suprapubic pain (686446990) Suprapubic abdominal pain (789.09) 011 Problem resolved confirmed Tay-985 911- Problem Anxiety depression (177903242) Anxiety with depression (300.4) 011 Active confirmed Tay-985 911- Problem Adjustment disorder with depressed mood (35459741) Adjustment disorder with depressed mood (309.0) 005 Problem resolved confirmed Tay-985 911- Problem Dysuria (58089402) Dysuria (788.1) 007 Problem resolved confirmed Tay-985 911- Problem Rash (562525302) Rash (782.1) 006 Problem resolved confirmed Tay-985 911- Problem Dizziness (793073503) Dizziness (780.4) 005 Problem resolved confirmed Tay-985 911- Problem Low back pain (031341811) Low back pain (724.2) 005 Problem resolved confirmed Tay-985 911- Problem Fatigue (06689019) Fatigue (780.79) 11/11 004 Problem resolved confirmed Tay-985 911- Problem Acne (30257075) Acne (706.1) 004 Problem resolved confirmed Tay-985 911- Problem Lymphadenopathy (95241064) Lymphadenopathy (785.6) 004 Problem resolved confirmed Tay-985 911- Problem Laceration of hand (067312875) Laceration of hand (882.0) 004 Problem resolved confirmed Tay-985 911- Problem Gallbladder calculus (600714552) Cholelithiasis, without mention of obstruction (574.20) 010 Problem resolved confirmed Tay-985 911- Problem Itching (133100877) Itching (698.9) 006 Problem resolved confirmed Tay-985 911- Problem Urinary tract infection (79652852) Urinary tract infection (595.0) 012 Problem resolved confirmed Tay-985 911- Problem Mild major depression, single episode (28366184) Major depression, single episode, mild (296.21) 006 Problem resolved confirmed Tay-985 911- Problem Moderate major depression, single episode (87858986) Major depression, single episode, moderate (296.22) 005 Problem resolved confirmed Tay-985 911- Problem Precordial pain (49290687) Precordial chest pain (786.51) 006 Problem resolved confirmed Tay-985 911- Problem History of noncompliance with medication regimen (559373738) History of noncompliance with medical treatment (V15.81) 012 Active confirmed Tay-985 911- Problem Hypercalcemia (53781440) Hypercalcemia (275.42) 004 Problem resolved confirmed Tay-985 911- Problem Dysphagia (85762192) Dysphagia (787.2) 006 Problem resolved confirmed Tay-985 911- Problem Sore throat (877081252) Sore Throat (462) 011 Problem resolved confirmed Tay-985 911- Problem Ear ache (58821619) Ear ache (388.71) 006 Problem resolved confirmed Tay-985 911- Problem Depression (692026798) Depression (296.20) 004 Problem resolved confirmed Tay-985 911- Problem Essential hypertension (83487709) Essential hypertension (401.1) 004 Problem resolved confirmed Tay-985 911- Problem External hemorrhoids without complication (17374691) Hemorrhoids, external (455.3) 011 Problem resolved confirmed [facility]888 114- Plan Of Treatment No Information Medical (General) History Surgical History Surgery Date(Month/Year) Appendectomy: 1983; Toe surgery;Nerve re pair R finger;
--- OUTSIDE RECORDS SUMMARY | 2025-05-02 07:04 | XMS_ITS | Encounter Summary ---
Author Organization [facility] Address [address] [place] [address] Care Team Providers Care Production Finisher Name Role Phone Chung Holden MD Primary Care Provider Reason for Referral * Outpatient Services (Routine) - Closed Specialty Diagnoses / Procedures Referred By Mini crowley Referred To Contact Diagnoses Pain in both shoulders Procedures MRI CERVICAL WO CONTRAST Greg Sargent MD [address] [address] Phone: tel: fax: [facility] Pre-Registration [place] CALL TO MAKE APPOINTMENT ONLY [address] [place] [address] Phone: tel: fax: Referral ID Status Reason Start Date Expiration Date V isits Requested Visits Authorized [id number] Closed F [facility] TO SCHEDULE (SGF) 08/10/2017 09/10/2018 1 1 Encounter Details Date Type Department Care Team (Latest Contact Info) Description 08/10/2017 Ancillary Orders [facility] Pre-Registration [place] CALL TO MAKE APPOINTMENT ONLY [address] [place] [address] Greg Sargent MD [address] [place] [phone] Pain in both shoulders Social History Tobacco Use Types Packs/Day Years Used Date Smoking Tobacco: Never Smokeless Tobacco: Never Alcohol Use Standard Drinks/Week Comments No 0 (1 standard drink = 0.6 oz pur e alcohol) Comments No Sex and Gender Information Value Date Recorded Sex Assigned at Not on file 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 Exam: MRI CERVICAL WO CONTRAST Date/Time of Exam: 08/22/2017 1:29 PM Reason For Exam: Pain in both shoulders,Pain in both shoulders. Technique: MRI of the cervical spine was performed without the administration of intravenous contrast. Findings: The cervical spine is normal in sagittal alignment. The posterior fossa and foramen magnum appear normal. Mild abnormal cord signal appears be present at the C3-4 and C4-5 levels and is poorly defined. STIR images are otherwise unremarkable. The paraspinal tissues appear normal. Skull base to C3: Unremarkable. C3-4: Diffuse spondylosis causes mild spinal stenosis and mild cord compression. Prominent right and moderate to prominent left foraminal stenosis is present. C4-5: Diffuse spondylosis causes moderate spinal stenosis and moderate cord compression. Prominent bilateral foraminal stenoses are present. C5-6: Spondylosis causes mild spinal stenosis with mild left cord compression and prominent bilateral foraminal stenoses. C6-7: Moderate diffuse spondylosis is present with minimal spinal stenosis. C7-T1: Normal. IMPRESSION: 1. Moderate spinal stenosis with spinal cord compression is present at the C4-5 and C5-6 levels. Mild abnormal cord signal changes are present which could reflect edema or more likely chronic myelomalacia. 2. Mild spinal stenosis with mild cord impingement is seen at C3-4 without cord signal change. 3. Several sites of prominent bony foraminal stenoses are present as noted above. This report was called to the patient's PCP Dr. Urbina, by the precision honing machine operator. Narrative Procedure Note Tin Berg MD - 08/22/2017 IMPRESSION: Please see below. Exam: MRI CERVICAL WO CONTRAST Date/Time of Exam: 08/22/2017 1:29 PM Reason For Exam: Pain in both shoulders,Pain in both shoulders. Technique: MRI of the cervical spine was performed without the administration of intravenous contrast. Findings: The cervical spine is normal in sagittal alignment. The posterior fossa and foramen magnum appear normal. Mild abnormal cord signal appears be present at the C3-4 and C4-5 levels and is poorly defined. STIR images are otherwise unremarkable. The paraspinal tissues appear normal. Skull base to C3: Unremarkable. C3-4: Diffuse spondylosis causes mild spinal stenosis and mild cord compression. Prominent right and moderate to prominent left foraminal stenosis is present. C4-5: Diffuse spondylosis causes moderate spinal stenosis and moderate cord compression. Prominent bilateral foraminal stenoses are present. C5-6: Spondylosis causes mild spinal stenosis with mild left cord compression and prominent bilateral foraminal stenoses. C6-7: Moderate diffuse spondylosis is present with minimal spinal stenosis. C7-T1: Normal. IMPRESSION: 1. Moderate spinal stenosis with spinal cord compression is present at the C4-5 and C5-6 levels. Mild abnormal cord signal changes are present which could reflect edema or more likely chronic myelomalacia. 2. Mild spinal stenosis with mild cord impingement is seen at C3-4 without cord signal change. 3. Several sites of prominent bony foraminal stenoses are present as noted above. This report was called to the patient's PCP Dr. Urbina, by the precision honing machine operator. us Greg Sargent MD MR ORDERABLES Final Resul t documented in this encounter Visit Diagnoses Diagnosis Pain in both shoulders Pain in both shoulders documented in this encounter Care Teams Production Finisher Relationship Specialty Start Date End Date Chung Holden MD [address] [place] [phone] PCP - General Family Practice 04/12/20 documented as of this encounter
[2025-05-02 07:50] VITALS: BP 157/25; PULSE 50; RESP 15; TEMP 36.7; O2SAT 92
[2025-05-02] MEDS: clopidogrel 75 mg Tablet PO (08:03)
[2025-05-02] MEDS: docusate sodium 100 mg Capsule PO (08:03)
[2025-05-02] MEDS: sertraline 50 mg Tablet PO (08:03)
[2025-05-02] MEDS: atorvastatin 40 mg Tablet 10 MG PO (08:03)
[2025-05-02] MEDS: aspirin 81 mg EC Tablet PO (08:03)
--- NOTE | 2025-05-02 10:51 | USCV_ITS ---
Belkis Henson Age: 74 Gender: F : 1950 Exam Date: 05/02/2025 12:46 Ordering Phys: Anthony Moore MD Technologist: Manfred Bonilla Exam Location: [facility] Indication: cva BP: 136 / 71 HR: Rhythm: Sinus Technical Quality: Adequate MEASUREMENTS (Male / Female) Normal Values 2D ECHO LV Diastolic Diameter PLAX 5.0 cm 4.2 - 5.9 / 3.9 - 5.3 cm IVS Diastolic Thickness 1.2 cm 0.6 - 1.0 / 0.6 - 0.9 cm IVS Systolic Thickness 1.6 cm LVPW Diastolic Thickness 2.1 cm 0.6 - 1.0 / 0.6 - 0.9 cm LVPW Systolic Thickness 2.1 cm LVOT Diameter 2.0 cm LV Ejection Fraction 2D Teich 67.1 % LV Ejection Fraction MOD 4C 77.9 % LV Ejection Fraction MOD 2C 77.2 % LV Ejection Fraction 2C AL 76.9 % LA Diameter 4.0 cm RA Systolic Volume 4C AL 50.9 ml RA Systolic Volume 4C MOD 49.2 ml LA Sys Volume AL 42.0 cm cubed LA Sys Volume Index AL 22.5 cm cubed/m squared Aorta at Sinotubular Diameter 1.8 cm IVC Diameter 1.9 cm M-MODE LA Ao Ratio MM 1.4 AV Cusp Separation MM 1.5 cm FINDINGS Left Ventricle Normal left ventricular size, systolic function and wall thickness, with no regional wall motion abnormalities. LVEF estimated normal 65%. Right Ventricle Normal right ventricular size and systolic function. Right Atrium Normal right atrial size. Left Atrium Mildly increased left atrial size. Mitral Valve Aortic Valve Tricuspid Valve Pulmonic Valve Pericardium No pericardial effusion. Aorta Normal size aortic root and proximal ascending aorta. IVC Normal IVC dimension with >50% respiratory change of the inferior vena cava. CONCLUSIONS Limited echo to assess LV systolic function and with bubble study to assess intracardiac shunt. Normal LV systolic function. LVEF estimated normal 65%. Normal RV size and RV systolic function. Bubble study negative for PFO/ASD. Divina Jose MD (Electronically Signed) Final Date: 02 May 2025 13:31 S
[2025-05-02 11:13] VITALS: BP 136/71; PULSE 48; RESP 16; TEMP 36.7; O2SAT 93
[2025-05-02 11:25] LABS: Glucose Point of Care 241 mg/dL (70-110)
[2025-05-02] MEDS: insulin lispro 100 unit/1 mL SUBCUT (11:35)
[2025-05-02 11:40] LABS: Glucose Point of Care 228 mg/dL (70-110)
--- NOTE | 2025-05-02 13:20 | PM.DCS ---
Discharge Providers Date of Admission: 05/01/25 17:16 Date of Discharge: May 02, 2025 Attending Provider at Admission: Anthony Moore MD Attending Provider at Discharge: Anthony Moore MD Primary Care Provider: Edison Johns DO Diagnoses at Discharge Discharge Diagnosis (1) Acute CVA (cerebrovascular accident): Status: Acute Reason for Visit Reason for Visit: stroke like Hospital Course Hospital Course Belkis Henson is a 74 year old female with a past medical history of hypertension, hyperlipidemia, type 2 diabetes who presents to [facility] for right sided weakness. Currently patient is alert oriented x 3, following all commands, currently denying any significant symptomatology, she tells me that she does not have any symptomatology. But at about 11 AM she was going between [employer], she noticed numbness around her mouth, which was associated with the right hand numbness and clumsiness, she tells me that her right upper extremity felt weird so must if he was having a spasm, she dropped her phone, but was able to call her who is in the car, she eventually got into car, continue to have numbness around her mouth, right arm weakness she does report unsteadiness on her feet, potentially right leg weakness but very mild, she does report some word finding difficulty, does report slurring of her words, troubles with S's and T's, her symptoms lasted for about 30 minutes, eventually they got home, they had asked the family friends what to do, her daughter recommended for them to go to the emergency room, but they were not entirely convinced, so her had googled some of her symptoms, and recommended for her to the emergency room so at that point they decided to come to the emergency room. Patient was a stroke alert on admission, NIH stroke scale on admission was 2, [facility] was involved, patient was not deemed a tPA candidate, not a candidate for embolectomy, patient had a CT done a few weeks ago which was within normal limits so there was no need for a repeat CTA, head CT shows suspected small subacute infarct in the left thalamus measuring 6 to 7 mm, she does not take Plavix at home, she does take aspirin, she tells me that she has a intolerance to statins more specifically atorvastatin, so she does have Crestor at home which she tolerates, but has not been using it recently, during my evaluation, no significant slurring of her words, no facial droop, no paresthesias, pupils equal round reactive to light, extraocular movements intact, right hand numbness and clumsiness has resolved, she does have slight weakness of the right lower extremity compared to the left, right upper extremity compared to the left, NIH stroke scale would be 2-3, patient tells me that she is back to baseline she feels. Patient was here in the emergency room on 04/19/2025 reporting spots in her vision, headache, and a stroke scale 0, CT head no acute findings, CTA no acute findings, discharged on aspirin/statin, she was here in the emergency room on 04/24, she reported elevated blood pressures at 199/111, 220/111 prompting her to visit the ER, she does tell me that her blood pressures have been elevated, when she got home today after the garage sale her systolic blood pressures were in the 170s Acute CVA (cerebrovascular accident): Head CT CT/CT head thrombolytic 13261 IMPRESSION: 1. No evidence of intracranial hemorrhage or mass effect. 2. Suspected small subacute infarct in the LEFT thalamus measuring 6 to 7 mm. This can be followed up with MRI if indicated 3. No other new findings. Had CTA from 04/19/2025 CT/CT angio headneck* [id number] IMPRESSION: No large vessel stenosis or occlusion. IMPRESSION: No significant stenosis or occlusion. - [facility] neurology consulted -Not a tPA candidate -Echocardiogram CONCLUSIONS Limited echo to assess LV systolic function and with bubble study to assess intracardiac shunt. Normal LV systolic function. LVEF estimated normal 65%. Normal RV size and RV systolic function. Bubble study negative for PFO/ASD. -NIH stroke scale 2 - Patient was monitored as inpatient -Received permissive hypertension -Received PT OT -Speech therapy eval -Morning of 05/02/2025 patient was asymptomatic, NIH stroke scale 0, no focal neurologic deficits during my examination -She does have subtle word finding difficulties at times, her tells me that this has been going on for the last few months, whenever she gets flustered/anxious, she at times develops word finding difficulties -No facial droop, no slurring words, no visual deficits - No cerebellar signs - No significant right arm or right lower extremity weakness - Nonetheless no other focal logical deficits -Will discharge on aspirin, statin, Plavix for 21 days -Patient was advised if she were to have any recurrent strokelike symptoms she will call 07 23 -Discharge with event monitor in place -Discharge with a close follow-up with neurology - Charged with close follow-up with cardiology -discharged with instructions to check blood pressure BID, record in log, bring into primary care office, -discharged with clonidine for htn urgency Physical Exam Const: COMMON NORMALS: no acute distress and patient oriented x3 Resp: COMMON NORMALS: normal respiratory effort, No retractions, No use of accessory muscles and clear to auscultation bilaterally AUSCULTATION: clear to auscultation bilaterally Cardio: COMMON NORMALS: regular rate, regular rhythm, S1 normal heart sound present and S2 normal heart sound present RATE: regular rate RHYTHM: regular rhythm HEART SOUNDS: S1 normal heart sound present and S2 normal heart sound present GI: COMMON NORMALS: Normal to inspection, nondistended, normoactive bowel sounds present and non-tender Extremity: COMMON NORMALS: no pedal edema Neuro: COMMON NORMALS: patient oriented x3 Psych: COMMON NORMALS: mental status grossly normal Discharge Data Studies Completed and Pending Completed Studies During Hospitalization Category Date Time Status CT head thrombolytic [id number] Stat Cat Scan 05/01/25 14:15 Completed Pending at discharge Category Date Time Status Complete Blood Count w/Auto AM LABS Lab 05/03/25 04:00 Ordered Complete Blood Count w/Auto AM LABS Lab 05/04/25 04:00 Ordered Comprehensive Metabolic Panel AM LABS Lab 05/03/25 04:00 Ordered Comprehensive Metabolic Panel AM LABS Lab 05/04/25 04:00 Ordered CV. echo lmt wo/w bubble [id number] Stat Ultrasound 05/02/25 10:51 Taken Radiology Impressions Head CT 05/01/25 14:15 IMPRESSION: 1. No evidence of intracranial hemorrhage or mass effect. 2. Suspected small subacute infarct in the LEFT thalamus measuring 6 to 7 mm. This can be followed up with MRI if indicated 3. No other new findings. Notified Pako Chavarria DO at 05/01/2025 2:26 PM. Laboratory Results WBC 6.09 10^3/uL (3.29-11.43) 05/02/25 03:12 RBC 4.49 10^6/uL (3.85-5.65) 05/02/25 03:12 Hgb 13.50 g/dL (11.27-16.99) 05/02/25 03:12 Hct 38.8 % (36-47) 05/02/25 03:12 MCV 86.4 fl (85-98) 05/02/25 03:12 MCH 30.1 pg (27-33) 05/02/25 03:12 MCHC 34.8 g/dL (30-55) 05/02/25 03:12 RDW 12.3 % (12.1-15.1) 05/02/25 03:12 Plt Count 175 10^3/cmm (157-399) 05/02/25 03:12 MPV 11.3 fL (7.4-10.4) H 05/02/25 03:12 Neut % (Auto) 43.5 % 05/02/25 03:12 Lymph % (Auto) 30.4 % 05/02/25 03:12 [place] % (Auto) 19.7 % 05/02/25 03:12 Eos % (Auto) 3.6 % 05/02/25 03:12 Baso % (Auto) 1.5 % 05/02/25 03:12 Neut # (Auto) 2.65 10^3/uL (1.8-7.7) 05/02/25 03:12 Lymph # (Auto) 1.9 10^3/uL (0.8-4.8) 05/02/25 03:12 [place] # (Auto) 1.2 10^3/uL (0.2-0.9) H 05/02/25 03:12 Eos # (Auto) 0.2 10^3/uL (0.0-0.8) 05/02/25 03:12 Baso # (Auto) 0.1 10^3/uL (0.0-0.1) 05/02/25 03:12 Nucleated RBC % (auto) 0 % 05/02/25 03:12 Nucleated RBCs # 0.0 /100WBC 05/02/25 03:12 PT 13.60 SECONDS (12.1-14.9) 05/01/25 14:15 INR 0.97 (0.8-1.2) 05/01/25 14:15 APTT 19.0 SECONDS (23.9-36.7) L 05/01/25 14:15 Sodium 138 mmol/L (136-145) 05/02/25 03:12 Potassium 4.1 mmol/L (3.5-5.1) 05/02/25 03:12 Chloride 102 mmol/L (98-107) 05/02/25 03:12 Carbon Dioxide 25 mmol/L (22-29) 05/02/25 03:12 Anion Gap 15.1 (5-19) 05/02/25 03:12 BUN 12 mg/dL (8-23) 05/02/25 03:12 Creatinine 0.6 mg/dL (0.5-0.9) 05/02/25 03:12 GFR Calculation Not Reportable 05/02/25 03:12 Glucose 126 mg/dL (65-115) H 05/02/25 03:12 POC Glucose 228 mg/dL (70-110) H 05/02/25 11:34 Estimat Average Glucose 166 05/01/25 14:15 Hemoglobin A1c 7.4 % (4.0-6.0) H 05/01/25 14:15 Calculated Osmolality 287 mOsm/kg (285-295) 05/02/25 03:12 Calcium 9.4 mg/dL (8.5-10.5) 05/02/25 03:12 Total Bilirubin 0.6 mg/dL (0.15-1.2) 05/02/25 03:12 AST 18 U/L (0-32) 05/02/25 03:12 ALT 13 U/L (0-33) 05/02/25 03:12 Alkaline Phosphatase 106 U/L (35-105) H 05/02/25 03:12 NT-Pro-B Natriuret Pep 335 pg/mL (0-450) 05/01/25 14:15 Total Protein 6.1 g/dL (6.6-8.7) L 05/02/25 03:12 Albumin 4.0 g/dL (3.5-5.2) 05/02/25 03:12 Globulin 2.1 g/dL (1.3-4.6) 05/02/25 03:12 Triglycerides 181 mg/dL (0-150) H 05/01/25 14:15 Cholesterol 227 mg/dL (0-200) H 05/01/25 14:15 LDL Cholesterol, Calc 143 mg/dL (50-129) H 05/01/25 14:15 HDL Cholesterol 48 mg/dL (60-100) L 05/01/25 14:15 LDL/HDL Ratio 2.98 RATIO (0.00-3.22) 05/01/25 14:15 Cholesterol/HDL Ratio 4.73 mg/dL (0.0-4.40) H 05/01/25 14:15 TSH 0.41 uIU/mL (0.27-4.20) 05/01/25 14:15 Urine Color Yellow (Yellow) 05/01/25 16:45 Urine Appearance Clear (CLEAR) 05/01/25 16:45 Urine pH 5.0 (5-7) 05/01/25 16:45 Ur Specific [place] 1.008 (1.005-1.030) 05/01/25 16:45 Urine Protein Negative (Negative) 05/01/25 16:45 Urine Glucose (UA) Negative (Normal) 05/01/25 16:45 Urine Ketones Negative (Negative) 05/01/25 16:45 Urine Blood Negative (Negative) 05/01/25 16:45 Urine Nitrate Negative (Negative) 05/01/25 16:45 Urine Bilirubin Negative (Negative) 05/01/25 16:45 Urine Urobilinogen 0.2 mg/dL (Negative) 05/01/25 16:45 Ur Leukocyte Esterase Negative (Negative) 05/01/25 16:45 Urine RBC 0-2 /hpf (0-2) 05/01/25 16:45 Urine WBC 0-5 /hpf (0-5) 05/01/25 16:45 Ur Squamous Epith Cells 0-5 /hpf (0-5) 05/01/25 16:45 Amorphous Sediment Not Reportable 05/01/25 16:45 Urine Bacteria None seen /hpf (NONE) 05/01/25 16:45 Hyaline Casts 0-4 /lpf H 05/01/25 16:45 Urine Opiates Screen Negative ng/mL (Negative) 05/01/25 16:45 Ur Barbiturates Screen Negative ng/mL (Negative) 05/01/25 16:45 Ur Phencyclidine Scrn Negative ng/mL (Negative) 05/01/25 16:45 Ur Amphetamines Screen Negative ng/mL (Negative) 05/01/25 16:45 U Benzodiazepines Scrn Negative ng/mL (Negative) 05/01/25 16:45 Urine Cocaine Screen Negative ng/mL (Negative) 05/01/25 16:45 U Marijuana (THC) Screen Negative ng/mL (Negative) 05/01/25 16:45 Vitals Last Vital Signs Temp 98.0 F 05/02/25 11:13 Pulse 48 L 05/02/25 11:13 Resp 16 05/02/25 11:13 BP 136/71 05/02/25 11:13 Pulse Ox 93 05/02/25 11:13 O2 Del Method Room Air 05/02/25 11:13 Discharge Plan Discharge Patient Disposition: Home Condition: Stable Prescriptions: New clopidogrel 75 mg Tablet 75 mg PO DAILY 20 Days Qty: 20 0RF rosuvastatin [Crestor] 5 mg tablet 5 mg PO DAILY 30 Days Qty: 30 0RF clonidine HCl 0.1 mg tablet 0.1 mg PO BID PRN (Reason: for sbp>180 or dbp>90) 30 Days Qty: 60 0RF Continued fluticasone propionate 50 mcg/actuation spray,suspension 1 spray intranasal DAILY PRN (Reason: allergies) Rx Instructions: administer into each nostril metformin 500 mg tablet extended release 24 hr 500 mg PO DAILY hydrocodone-acetaminophen 5-325 mg tablet 1 tab PO Q6H PRN (Reason: pain) Qty: 14 0RF acetaminophen 325 mg Tablet 650 mg PO QID PRN (Reason: Pain) cyanocobalamin (vitamin B-12) [Vitamin B-12] 100 mcg Tablet 100 mcg PO DAILY tramadol 50 mg tablet 50 mg PO TID PRN (Reason: Pain) ascorbic acid (vitamin C) [Vitamin C] 500 mg Tablet 500 mg PO BID vitamin B complex Tablet 1 tab PO DAILY magnesium 250 mg Tablet 250 mg PO DAILY cholecalciferol (vitamin D3) [Vitamin D3] 50 mcg (2,000 unit) Tablet 50 mcg PO DAILY Felice 3-6-9 1,233 mg Capsule 2 cap PO DAILY sucralfate 1 gram tablet 1 g PO QID PRN (Reason: stomach pain) pantoprazole 40 mg tablet,delayed release (DR/EC) 40 mg PO DAILY sertraline 50 mg tablet 50 mg PO DAILY aspirin 81 mg capsule 81 mg PO DAILY 30 Days Qty: 30 0RF Held metoprolol succinate 50 mg tablet extended release 24 hr 50 mg PO QPM Hold Instructions: Resume on 05/03/25. Discontinued atorvastatin [Lipitor] 80 mg tablet 80 mg PO DAILY Qty: 30 0RF No Action (DME) FreeStyle Lite Strips Strip See Rx Instructions .Route Qty: 100 3RF Rx Instructions: to use once daily in freestyle lite meter 90 day supply Discharge Orders: Discharge Order (Routine); Ordered 05/02/25 Ordered By: Anthony Moore Other Ambulatory Orders: MCT/Event Monitor 30 Days (Routine) Timeframe: 1 Day Facility: [facility] - Location: Radiology Ordered By: Anthony Moore Referrals: Jose Elias Toussaint M.D [Physician, Cardiology] - 1 month Edison Johns DO [Primary Care Provider, [facility]] Tima Estrada MD [Occupational Therapist, Neurological Surgery] - 1 week Referral Note: cva Discharge Diet: Cardiac Discharge Activity: Resume usual activity Patient Instructions: Stroke (DC), Stroke Prevention (DC), Opioid Safety, Pain Management Activity Restrictions/Additional Instructions: -if any recurrent stroke like symptoms manage call 9 11 - Please take aspirin 81 mg daily - Continue Plavix and 5 mg daily for 21 days then stop - Continue Crestor 5 mg daily - Monitor blood pressure twice daily - If your systolic blood pressures greater than 180 or diastolic is greater than 90 please take clonidine as prescribed for hypertensive urgency - Please follow-up with primary care provider for your blood pressure logs in 1 week - Please follow-up with neurology in 2 to 3 weeks - Discharge with event monitor in place - Follow-up with cardiology in 1 month - Your hemoglobin A1c is 7.4 please discuss with primary care provider about trying medication such as Jardiance or Ozempic to decrease your A1c, cardiovascular risk, risk of CVA Discharge Attestations Time Spent in Discharge Care*: greater than 30 min Quality Metrics Clinical Quality Measures [ Cerebrovascular Accident { Contraindication to Antithrombotic: None; antithrombotic prescribed; Contraindication to Anticoagulation: Overlap treatment not indicated; Contraindication to Statin: None; Statin prescribed;}] Coding Level of Care Code 55393 Total time (in minutes) for Discharge: 45 Diagnoses Acute CVA (cerebrovascular accident) I63.9
[2025-05-02 14:38] VITALS: BP 136/71; PULSE 48; RESP 16; TEMP 36.6; O2SAT 93
--- NOTE | 2025-05-02 14:39 | PC.NURSE ---
Discharge instructions provided to pt and her . No questions or concerns voiced at this time. To private vehicle via wheelchair with all belongings
== END 2025-05-02 14:53 | disposition home or self-care (01) ==
LOC: ER 16:00 → MEDSURG 17:24 → ER IP 05-02 07:00
PROVIDERS: Admitting Provider Family Medicine; Emergency Provider Family Medicine; PCP Electrodiagnostic Medicine; Visit Provider Family Medicine
DX: I63.9 Cerebral infarction, unspecified (principal); R29.702 NIHSS score 2; Z79.82 Long term (current) use of aspirin; Z79.84 Long term (current) use of oral hypoglycemic drugs; I10 Essential (primary) hypertension; E78.5 Hyperlipidemia, unspecified; E11.9 Type 2 diabetes mellitus without complications; K21.9 Gastro-esophageal reflux disease without esophagitis
CPT/HCPCS: 36415; 36416; 70450; 80053; 80061; 80306; 81001; 82962; 83036; 83880; 84443; 85025; 85610; 85730; 92523; 92610; 93005; 94664; 96372; 96374; 97161; 97165; 99285; C8924; G0378; J1650; J1815; J2470; J9999

== ENCOUNTER 2025-05-03 01:31 | Observation (INO) | payer MEDICARE, OTHER, SELFPAY ==
[2025-05-03] VITALS (22 sets, daily range): BP systolic 105–195; BP diastolic 59–102; PULSE 55–87; RESP 15–19; TEMP 36.4–36.7; O2SAT 89–98; BMI 32.1
--- NOTE | 2025-05-03 01:53 | ECG_ITS ---
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 Measurements Intervals [place] Rate: 62 P: 57 CA: 184 QRS: 11 QRSD: 83 T: 63 QT: 397 QTc: 406 Interpretive Statements SINUS RHYTHM Compared to ECG 05/01/2025 14:31:21 Sinus bradycardia no longer present Left ventricular hypertrophy no longer present Electronically Signed On 05-03-2025 19:18:42 CDT by Divina Jose M.D. [email or web address]
--- NOTE | 2025-05-03 02:01 | CTR_ITS ---
PROCEDURE INFORMATION: Exam: CT Head Without Contrast Exam date and time: 05/03/2025 2:07 AM Age: 74 years old Clinical indication: Stroke-like symptoms; Other: Mouth numbness/paresthesia; Additional info: C/O mouth numbness. Suspected sub acute infarct of left thalmus noted on head CT from 05/01/2025. TECHNIQUE: Imaging protocol: Computed tomography of the head without contrast. Radiation optimization: All CT scans at this facility use at least one of these dose optimization techniques: automated exposure control; mA and/or kV adjustment per patient size (includes targeted exams where dose is matched to clinical indication); or iterative reconstruction. Other technique: STROKE PROTOCOL was implemented. COMPARISON: CT head thrombolytic [id number] 05/01/2025 2:08 PM RADIATION DOSE METRICS: Total DLP (mGy-cm): 1076.38 FINDINGS: Brain: No acute intracranial hemorrhage. No mass effect or midline shift. No acute extraaxial fluid collection. Unremarkable white matter. Pineal gland is calcified. Cerebral ventricles: No ventriculomegaly. Paranasal sinuses: The left sphenoid sinus is completely opacified. There is mild mucosal thickening in the left ethmoid sinus. Other paranasal sinuses are clear. Mastoid air cells: Visualized mastoid air cells are well aerated. Orbital cavities: Previous bilateral cataract surgery. Bones: Unremarkable. No acute fracture. Soft tissues: Unremarkable. Vasculature: Atherosclerotic calcifications in the intracranial segments of bilateral internal carotid arteries. CT/CT head thrombolytic [id number] IMPRESSION: 1. No acute intracranial findings. 2. The left sphenoid sinus is completely opacified. There is mild mucosal thickening in the left ethmoid sinus. ASSESSMENT: ASPECTS (Dorothy Stroke Program Early CT Score) is 10.
[2025-05-03 02:11] LABS: Basophils # 0.1 10^3/uL (0.0-0.1); Basophils % 1.1 %; Eosinophils # 0.2 10^3/uL (0.0-0.8); Eosinophils % 2.7 %; Hematocrit 38.8 % (36-47); Lymphocytes # 1.1 10^3/uL (0.8-4.8); Lymphocytes % 15.8 %; Mean Corpuscular HGB Conc 34.3 g/dL (30-55); Mean Corpuscular Hemoglobin 29.2 pg (27-33); Mean Corpuscular Volume 85.3 fl (85-98); Mean Platelet Volume 10.6 fL (7.4-10.4); Monocytes # 1.1 10^3/uL (0.2-0.9); Monocytes % 15.7 %; Neutrophils % 64.3 %; Nucleated Red Blood Cells % 0 %; Platelet Count 191 10^3/cmm (157-399); Red Blood Count 4.55 10^6/uL (3.85-5.65); Red Cell Distribution Width 12.3 % (12.1-15.1); White Blood Count 7.01 10^3/uL (3.29-11.43)
--- NOTE | 2025-05-03 02:16 | XRR_ITS ---
PROCEDURE INFORMATION: Exam: XR Chest Exam date and time: 05/03/2025 2:22 AM Age: 74 years old Clinical indication: Other: General weakness TECHNIQUE: Imaging protocol: Radiologic exam of the chest. Views: 1 view. COMPARISON: CR XR chest 1V portable [id number] 08/04/2023 6:33 PM FINDINGS: Lungs: No consolidation or pulmonary edema. Pleural spaces: No pleural effusion. No pneumothorax. Heart/Mediastinum: Cardiomediastinal silhouette is normal in size. Vasculature: Atherosclerotic calcifications in the thoracic aorta. Bones/joints: No acute fractures. XR/XR chest 1V portable [id number] IMPRESSION: No acute findings.
[2025-05-03 02:21] LABS: INR 1.04 (0.8-1.2); Partial Thromboplastin Time 25.3 SECONDS (23.9-36.7)
[2025-05-03 02:26] LABS: Alanine Aminotransferase 13 U/L (0-33); Albumin Level 3.9 g/dL (3.5-5.2); Alkaline Phosphatase 106 U/L (35-105); Anion Gap 17.1 (5-19); Aspartate Amino Transferase 22 U/L (0-32); Blood Urea Nitrogen 9 mg/dL (8-23); Calcium 8.9 mg/dL (8.5-10.5); Carbon Dioxide 23 mmol/L (22-29); Chloride 101 mmol/L (98-107); Globulin 2.3 g/dL (1.3-4.6); Glucose 165 mg/dL (65-115); Osmolality Calculated 286 mOsm/kg (285-295); Potassium 4.1 mmol/L (3.5-5.1); Sodium 137 mmol/L (136-145); Total Bilirubin 0.6 mg/dL (0.15-1.2); Total Protein 6.2 g/dL (6.6-8.7)
--- NOTE | 2025-05-03 02:41 | PC.NURSE ---
pts systolic 166. provider notified and will hold hydralyzine at this time and repeat b/ps
--- NOTE | 2025-05-03 02:47 | W.ED.NEUROSD ---
Documented by User: Sy Maxime Junior, 05/03/25 16:24 HPI - Neuro Symptoms/Deficit General: Chief Complaint: ER Hold Stated Complaint: TINGLY MOUTH Time Seen by Provider: 05/03/25 01:38 History of Present Illness: 74-year-old female with a somewhat complicated history the last couple of weeks. She was discharged from the hospital about 14 hours ago after being observed for symptoms of acute stroke. TNKase was not used, as the patient had waxing and waning symptoms, that were mild and constituted a low NIH score. Tonight, she went to bed around 9 PM. She woke up around 1:00 in the morning with a tingling sensation to her face, particularly the left side of her mouth. She had shaking that was worse in her left arm than her right arm. She had trouble walking. She may remain out of had trouble with language. Symptoms are mostly resolved now. She has a slight sensation change in her face she says. No significant headache, although she does relate some mild facial pain. She was quite hypertensive at home blood pressures in the 180s systolic. On presentation here, her blood pressure was 195 systolic. Related Data Home Medications ?Medication ?Instructions ?Recorded ?Confirmed fluticasone propionate 50 1 spray intranasal DAILY PRN 05/18/21 05/03/25 mcg/actuation nasal allergies spray,suspension metformin 500 mg tablet,extended 500 mg PO DAILY 03/13/25 05/03/25 release 24 hr acetaminophen 325 mg tablet 650 mg PO QID PRN Pain 04/19/25 05/03/25 ascorbic acid (vitamin C) 500 mg 500 mg PO BID 04/19/25 05/03/25 tablet (Vitamin C) cholecalciferol (vitamin D3) 50 50 mcg PO DAILY 04/19/25 05/03/25 mcg (2,000 unit) tablet (Vitamin D3) cyanocobalamin (vitamin B-12) 100 100 mcg PO DAILY 04/19/25 05/03/25 mcg tablet (Vitamin B-12) magnesium 250 mg tablet 250 mg PO DAILY 04/19/25 05/03/25 metoprolol succinate 50 mg 50 mg PO QPM 04/19/25 05/03/25 tablet,extended release 24 hr Held on 05/02/25. Instructions: Resume on 05/03/25. omega 3,6,9-borage seed 2 cap PO DAILY 04/19/25 05/03/25 oil-flaxseed oil-fish oil 1,233 mg capsule (Felice 3-6-9) tramadol 50 mg tablet 50 mg PO TID PRN Pain 04/19/25 05/03/25 vitamin B complex 1 tab PO DAILY 04/19/25 05/03/25 pantoprazole 40 mg tablet,delayed 40 mg PO DAILY 05/01/25 05/03/25 release sertraline 50 mg tablet 50 mg PO DAILY 05/01/25 05/03/25 sucralfate 1 gram tablet 1 g PO QID PRN stomach pain 05/01/25 05/03/25 aspirin 81 mg tablet,delayed 81 mg PO DAILY 05/03/25 05/03/25 release sennosides 8.6 mg-docusate sodium 1 tab PO BID constipation 05/03/25 05/03/25 50 mg tablet (Senexon-S) Previous Rx's ?Medication ?Instructions ?Recorded blood sugar diagnostic (FreeStyle #100 ea 03/19/23 Lite Strips) hydrocodone 5 mg-acetaminophen 325 1 tab PO Q6H PRN pain #14 tabs 03/13/25 mg tablet clonidine HCl 0.1 mg tablet 0.1 mg PO BID PRN for sbp>180 or 05/02/25 dbp>90 30 days #60 tabs clopidogrel 75 mg tablet (Plavix) 75 mg PO DAILY 20 days #20 tabs 05/02/25 rosuvastatin 5 mg tablet (Crestor) 5 mg PO DAILY 30 days #30 tabs 05/02/25 amlodipine 5 mg tablet 5 mg PO DAILY #30 tabs 05/03/25 Allergies Allergy/AdvReac Type Severity Reaction Status Date / Time erythromycin base Allergy ADR-Gastrointestinal Verified 04/24/25 20:54 Upset naproxen Allergy ADR-Abdominal Verified 05/01/25 16:02 Pain PFSH ED PFSH: Medical History HTN (hypertension) Surgical History History of laminectomy Social History Smoking and tobacco/nicotine status: never used tobacco/nicotine Alcohol intake: never Substance/Drug Use: never NIH stroke score NIHSS: Level Of Consciousness - 1a: 0 Level Of Consciousness Questions - 1b: Both Correct Level Of Consciousness Commands - 1c: Both Correct Best Gaze - 2: Normal Visual Workman - 3: No Visual Loss Facial Palsy - 4: Normal Motor Arm Right - 5: No Drift Motor Arm Left - 5: No Drift Motor Leg Right - 6: No Drift Motor Leg Left - 6: No Drift Limb Ataxia - 7: Absent Sensory - 8: Mild To Moderate Loss Best Language - 9: No Aphasia Dysarthia - 10: Normal Extinction And Inattention - 11: 0 Score: Total Score: 1 Physical Exam Const: COMMON NORMALS: no acute distress GENERAL APPEARANCE: cooperative; not ill appearing and not frail appearing HENMT: COMMON NORMALS: normocephalic, atraumatic and Normal external nose present HEAD & SCALP: normocephalic and atraumatic NOSE: Normal external nose present Eye: COMMON NORMALS: Equal, round and reactive pupils present and EOMs intact bilaterally PUPIL: Yes Equal, round and reactive pupils present Neck/C-Spine: GENERAL: Yes trachea midline Chest: CHEST: Yes Symmetrical chest wall rise Resp: COMMON NORMALS: normal respiratory effort, No retractions, No use of accessory muscles and clear to auscultation bilaterally AUSCULTATION: clear to auscultation bilaterally Cardio: COMMON NORMALS: regular rate and regular rhythm RATE: regular rate RHYTHM: regular rhythm GI: COMMON NORMALS: Normal to inspection, nondistended, normoactive bowel sounds present Extremity: COMMON NORMALS: no pedal edema Neuro: MICHELLE COMA SCALE: document GCS findings [place] coma scale eye opening: Spontaneous [place] coma scale verbal response: Orientated Michelle coma scale motor response: Obey commands [place] coma scale total score: 15 SENSORY EXAM: Yes extremities (intact) Psych: COMMON NORMALS: speech normal SPEECH: Yes normal speech Skin: COMMON NORMALS: no rashes or lesions noted GENERAL SKIN EXAM: no rashes or lesions noted Course Vital Signs: Vital signs: Vital Signs Temperature 97.5 F L 05/03/25 16:00 Pulse Rate 59 L 05/03/25 16:00 Respiratory Rate 18 05/03/25 16:00 Blood Pressure 158/69 05/03/25 16:00 Pulse Oximetry 95 05/03/25 16:00 Oxygen Delivery Me thod Room Air 05/03/25 16:00 MDM - Neuro Symptoms/Deficit Medical Decision Making The only symptoms left for this patient in terms of NIH stroke scale are slight sensation changes of the left lower extremity. This gives her an NIH of 1. With this low score she is not a TNKase candidate. Also, she had a CT 2 days ago showing potential thalamic stroke, recent or subacute stroke is a relative contraindication to thrombolysis. Also, with her last known well being at 9 PM, she is out of the treatment window. Her symptoms have improved from prior. Blood pressure is now 166 systolic without treatment. She has essentially completed her workup for stroke yesterday and the day before, except for MRI scan, which she has not had. She is complaining of a headache. Blood pressure is back up above 190 systolic. she was given morphine 2 milligrams IV, and 10 milligrams of hydralazine. Headache was improved. She was feeling better. upon getting up to use the restroom, however, she began to get nauseated, feel generally weak, and her blood pressure sank significantly. it had been 160s systolic prior to getting up. As she is still symptomatic, with labile blood pressures, she will require observation. MRI scan can hopefully be completed at this point as an inpatient as well. We'll speak with the hospitals regarding potential admission. Lab Data 05/03/25 02:00 05/03/25 02:[address] 05/03/25 02:01 IMPRESSION: 1. No acute intracranial findings. 2. The left sphenoid sinus is completely opacified. There is mild mucosal thickening in the left ethmoid sinus. ASSESSMENT: ASPECTS (Dorothy Stroke Program Early CT Score) is 10. ADDENDUM: 05/03/25 0224 The patient's physician, SY Galeana was informed by phone by Dr. Romero about the findings and recommendations on 05/03/2025 at 2:22 AM CDT. The ordering physician verbalized understanding. Chest X-Ray 05/03/25 02:16 IMPRESSION: No acute findings. Laboratory Results WBC 7.01 10^3/uL (3.29-11.43) 05/03/25 02:00 RBC 4.55 10^6/uL (3.85-5.65) 05/03/25 02:00 Hgb 13.30 g/dL (11.27-16.99) 05/03/25 02:00 Hct 38.8 % (36-47) 05/03/25 02:00 MCV 85.3 fl (85-98) 05/03/25 02:00 MCH 29.2 pg (27-33) 05/03/25 02:00 MCHC 34.3 g/dL (30-55) 05/03/25 02:00 RDW 12.3 % (12.1-15.1) 05/03/25 02:00 Plt Count 191 10^3/cmm (157-399) 05/03/25 02:00 MPV 10.6 fL (7.4-10.4) H 05/03/25 02:00 Neut % (Auto) 64.3 % 05/03/25 02:00 Lymph % (Auto) 15.8 % 05/03/25 02:00 Jerauld % (Auto) 15.7 % 05/03/25 02:00 Eos % (Auto) 2.7 % 05/03/25 02:00 Baso % (Auto) 1.1 % 05/03/25 02:00 Neut # (Auto) 4.50 10^3/uL (1.8-7.7) 05/03/25 02:00 Lymph # (Auto) 1.1 10^3/uL (0.8-4.8) 05/03/25 02:00 Jerauld # (Auto) 1.1 10^3/uL (0.2-0.9) H 05/03/25 02:00 Eos # (Auto) 0.2 10^3/uL (0.0-0.8) 05/03/25 02:00 Baso # (Auto) 0.1 10^3/uL (0.0-0.1) 05/03/25 02:00 Nucleated RBC % (auto) 0 % 05/03/25 02:00 Nucleated RBCs # 0.0 /100WBC 05/03/25 02:00 PT 14.40 SECONDS (12.1-14.9) 05/03/25 02:00 INR 1.04 (0.8-1.2) 05/03/25 02:00 APTT 25.3 SECONDS (23.9-36.7) 05/03/25 02:00 Sodium 137 mmol/L (136-145) 05/03/25 02:00 Potassium 4.1 mmol/L (3.5-5.1) 05/03/25 02:00 Chloride 101 mmol/L (98-107) 05/03/25 02:00 Carbon Dioxide 23 mmol/L (22-29) 05/03/25 02:00 Anion Gap 17.1 (5-19) 05/03/25 02:00 BUN 9 mg/dL (8-23) 05/03/25 02:00 Creatinine 0.5 mg/dL (0.5-0.9) 05/03/25 02:00 GFR Calculation Not Reportable 05/03/25 02:00 Glucose 165 mg/dL (65-115) H 05/03/25 02:00 Calculated Osmolality 286 mOsm/kg (285-295) 05/03/25 02:00 Calcium 8.9 mg/dL (8.5-10.5) 05/03/25 02:00 Total Bilirubin 0.6 mg/dL (0.15-1.2) 05/03/25 02:00 AST 22 U/L (0-32) 05/03/25 02:00 ALT 13 U/L (0-33) 05/03/25 02:00 Alkaline Phosphatase 106 U/L (35-105) H 05/03/25 02:00 Total Protein 6.2 g/dL (6.6-8.7) L 05/03/25 02:00 Albumin 3.9 g/dL (3.5-5.2) 05/03/25 02:00 Globulin 2.3 g/dL (1.3-4.6) 05/03/25 02:00 Discharge Plan Discharge Patient Disposition: Placed in Observation Admit Provider: Kateryna Barbosa Clinical Impression: Hypertensive urgency, Cerebrovascular accident Coding Level of Care Code ED Regional Marketing Manager for Chg Fwd Documented by User: Alba Stiles MD 05/03/25 07:58 HPI - Neuro Symptoms/Deficit General: Chief Complaint: ER Hold Stated Complaint: TINGLY MOUTH Time Seen by Provider: 05/03/25 01:38 Related Data Home Medications ?Medication ?Instructions ?Recorded ?Confirmed fluticasone propionate 50 1 spray intranasal DAILY PRN 05/18/21 05/03/25 mcg/actuation nasal allergies spray,suspension metformin 500 mg tablet,extended 500 mg PO DAILY 03/13/25 05/03/25 release 24 hr acetaminophen 325 mg tablet 650 mg PO QID PRN Pain 04/19/25 05/03/25 ascorbic acid (vitamin C) 500 mg 500 mg PO BID 04/19/25 05/03/25 tablet (Vitamin C) cholecalciferol (vitamin D3) 50 50 mcg PO DAILY 04/19/25 05/03/25 mcg (2,000 unit) tablet (Vitamin D3) cyanocobalamin (vitamin B-12) 100 100 mcg PO DAILY 04/19/25 05/03/25 mcg tablet (Vitamin B-12) magnesium 250 mg tablet 250 mg PO DAILY 04/19/25 05/03/25 metoprolol succinate 50 mg 50 mg PO QPM 04/19/25 05/03/25 tablet,extended release 24 hr Held on 05/02/25. Instructions: Resume on 05/03/25. omega 3,6,9-borage seed 2 cap PO DAILY 04/19/25 05/03/25 oil-flaxseed oil-fish oil 1,233 mg capsule (Felice 3-6-9) tramadol 50 mg tablet 50 mg PO TID PRN Pain 04/19/25 05/03/25 vitamin B complex 1 tab PO DAILY 04/19/25 05/03/25 pantoprazole 40 mg tablet,delayed 40 mg PO DAILY 05/01/25 05/03/25 release sertraline 50 mg tablet 50 mg PO DAILY 05/01/25 05/03/25 sucralfate 1 gram tablet 1 g PO QID PRN stomach pain 05/01/25 05/03/25 aspirin 81 mg tablet,delayed 81 mg PO DAILY 05/03/25 05/03/25 release sennosides 8.6 mg-docusate sodium 1 tab PO BID constipation 05/03/25 05/03/25 50 mg tablet (Senexon-S) Previous Rx's ?Medication ?Instructions ?Recorded blood sugar diagnostic (FreeStyle #100 ea 03/19/23 Lite Strips) hydrocodone 5 mg-acetaminophen 325 1 tab PO Q6H PRN pain #14 tabs 03/13/25 mg tablet clonidine HCl 0.1 mg tablet 0.1 mg PO BID PRN for sbp>180 or 05/02/25 dbp>90 30 days #60 tabs clopidogrel 75 mg tablet (Plavix) 75 mg PO DAILY 20 days #20 tabs 05/02/25 rosuvastatin 5 mg tablet (Crestor) 5 mg PO DAILY 30 days #30 tabs 05/02/25 amlodipine 5 mg tablet 5 mg PO DAILY #30 tabs 05/03/25 Allergies Allergy/AdvReac Type Severity Reaction Status Date / Time erythromycin base Allergy ADR-Gastrointestinal Verified 04/24/25 20:54 Upset naproxen Allergy ADR-Abdominal Verified 05/01/25 16:02 Pain PFSH ED PFSH: Medical History HTN (hypertension) Surgical History History of laminectomy Social History Smoking and tobacco/nicotine status: never used tobacco/nicotine Alcohol intake: never Substance/Drug Use: never NIH stroke score Score: Total Score: 1 Physical Exam Neuro: MICHELLE COMA SCALE: document GCS findings [place] coma scale total score: 15 Course Vital Signs: Vital signs: Vital Signs Temperature 97.5 F L 05/03/25 16:00 Pulse Rate 59 L 05/03/25 16:00 Respiratory Rate 18 05/03/25 16:00 Blood Pressure 158/69 05/03/25 16:00 Pulse Oximetry 95 05/03/25 16:00 Oxygen Delivery Me thod Room Air 05/03/25 16:00 MDM - Neuro Symptoms/Deficit Lab Data 05/03/25 02:00 05/03/25 02:[address] 05/03/25 02:01 IMPRESSION: 1. No acute intracranial findings. 2. The left sphenoid sinus is completely opacified. There is mild mucosal thickening in the left ethmoid sinus. ASSESSMENT: ASPECTS (Dorothy Stroke Program Early CT Score) is 10. ADDENDUM: 05/03/25 0224 The patient's physician, SY Galeana was informed by phone by Dr. Romero about the findings and recommendations on 05/03/2025 at 2:22 AM CDT. The ordering physician verbalized understanding. Chest X-Ray 05/03/25 02:16 IMPRESSION: No acute findings. Laboratory Results WBC 7.01 10^3/uL (3.29-11.43) 05/03/25 02:00 RBC 4.55 10^6/uL (3.85-5.65) 05/03/25 02:00 Hgb 13.30 g/dL (11.27-16.99) 05/03/25 02:00 Hct 38.8 % (36-47) 05/03/25 02:00 MCV 85.3 fl (85-98) 05/03/25 02:00 MCH 29.2 pg (27-33) 05/03/25 02:00 MCHC 34.3 g/dL (30-55) 05/03/25 02:00 RDW 12.3 % (12.1-15.1) 05/03/25 02:00 Plt Count 191 10^3/cmm (157-399) 05/03/25 02:00 MPV 10.6 fL (7.4-10.4) H 05/03/25 02:00 Neut % (Auto) 64.3 % 05/03/25 02:00 Lymph % (Auto) 15.8 % 05/03/25 02:00 Jerauld % (Auto) 15.7 % 05/03/25 02:00 Eos % (Auto) 2.7 % 05/03/25 02:00 Baso % (Auto) 1.1 % 05/03/25 02:00 Neut # (Auto) 4.50 10^3/uL (1.8-7.7) 05/03/25 02:00 Lymph # (Auto) 1.1 10^3/uL (0.8-4.8) 05/03/25 02:00 Jerauld # (Auto) 1.1 10^3/uL (0.2-0.9) H 05/03/25 02:00 Eos # (Auto) 0.2 10^3/uL (0.0-0.8) 05/03/25 02:00 Baso # (Auto) 0.1 10^3/uL (0.0-0.1) 05/03/25 02:00 Nucleated RBC % (auto) 0 % 05/03/25 02:00 Nucleated RBCs # 0.0 /100WBC 05/03/25 02:00 PT 14.40 SECONDS (12.1-14.9) 05/03/25 02:00 INR 1.04 (0.8-1.2) 05/03/25 02:00 APTT 25.3 SECONDS (23.9-36.7) 05/03/25 02:00 Sodium 137 mmol/L (136-145) 05/03/25 02:00 Potassium 4.1 mmol/L (3.5-5.1) 05/03/25 02:00 Chloride 101 mmol/L (98-107) 05/03/25 02:00 Carbon Dioxide 23 mmol/L (22-29) 05/03/25 02:00 Anion Gap 17.1 (5-19) 05/03/25 02:00 BUN 9 mg/dL (8-23) 05/03/25 02:00 Creatinine 0.5 mg/dL (0.5-0.9) 05/03/25 02:00 GFR Calculation Not Reportable 05/03/25 02:00 Glucose 165 mg/dL (65-115) H 05/03/25 02:00 Calculated Osmolality 286 mOsm/kg (285-295) 05/03/25 02:00 Calcium 8.9 mg/dL (8.5-10.5) 05/03/25 02:00 Total Bilirubin 0.6 mg/dL (0.15-1.2) 05/03/25 02:00 AST 22 U/L (0-32) 05/03/25 02:00 ALT 13 U/L (0-33) 05/03/25 02:00 Alkaline Phosphatase 106 U/L (35-105) H 05/03/25 02:00 Total Protein 6.2 g/dL (6.6-8.7) L 05/03/25 02:00 Albumin 3.9 g/dL (3.5-5.2) 05/03/25 02:00 Globulin 2.3 g/dL (1.3-4.6) 05/03/25 02:00 All radiology interpretation(s) finalized by discharge Discharge Plan Discharge Patient Disposition: Placed in Observation Admit Provider: Kateryna Barbosa Clinical Impression: Hypertensive urgency, Cerebrovascular accident Coding Level of Care Code ED Regional Marketing Manager for Walt Tong
[2025-05-03] MEDS: morphine 4 mg/mL SDV 1 mL 2 MG IVP (04:23)
[2025-05-03] MEDS: ondansetron 2 mg/ML SDV 2 mL 4 MG IVP ×2 (04:23→12:44)
[2025-05-03] MEDS: hyDRALAzine 20 mg/mL INJ 1 mL 10 MG IVP (04:23)
--- NOTE | 2025-05-03 05:27 | PC.NURSE ---
0445- checked on patient and pt states pain better and asked to ambulate. pt ambulated to restroom with no difficulties. upon leaving bathroom pt states i dont feel right. pt points to abdomen and states feeling of nausea. upon entering room pt with noted dry heaves x 2 . pt placed on desk interviewer again and blood pressure noted to be lower. upon asking patient how urination went pt states it was hard, i had to push the water out of me.' pt sit in chair with nausea bag . Provider notified of changes and will speak with patient.
--- NOTE | 2025-05-03 06:57 | PC.NURSE ---
assumed care of patient at 0657 from JOSÉ MIGUEL Aquino.
--- NOTE | 2025-05-03 07:47 | PC.PHAR ---
Pt discharged yesterday 05/02/25. Several new orders added. Unsure if pt was able to get started on home medications prior to returning.
--- NOTE | 2025-05-03 08:35 | PM.HP ---
Providers/Chief Complaint Admitting Physician: Kateryna Barbosa MD Primary Care Provider: Edison Johns DO Chief Complaint: TINGLY MOUTH History of Present Illness Belkis Henson is a 74 year old female with a past medical history of hypertension, hyperlipidemia, type 2 diabetes who presents to [facility] for right sided weakness. She was recently discharged home after diagnosis of a subacute infarct in the left thalamus. [facility] neurology was consulted. Not a tPA candidate. She was sent home with aspirin statin Plavix and cardiac event monitor was ordered. Clonidine was given for hypertensive urgency. Today patient comes back to the hospital because she has been having a headache and developed tingling sensation to her face particularly left side of her mouth. She had some trouble walking. states that they were given medication to take for high blood pressure however she did not take any of her medications. Patient states she got up and she was shaking and her lips was numb. This happened while she woke up from her sleep. Does have a headache. [place] nauseous. Has pain in her forehead. She states she is not taking her medications at home. She was also ordered amlodipine 5 daily however both and patient states that she did not take that either. On arrival to the hospital her blood pressure was 166/73. No medication was given. Medications/Allergies Home Medications ?Medication ?Instructions ?Recorded ?Confirmed ?Last Taken ?Type fluticasone propionate 50 1 spray intranasal DAILY PRN 05/18/21 05/03/25 04/17/25 History mcg/actuation nasal allergies spray,suspension blood sugar diagnostic (FreeStyle #100 ea 03/19/23 05/03/25 Unknown Rx Lite Strips) hydrocodone 5 mg-acetaminophen 325 1 tab PO Q6H PRN pain #14 tabs 03/13/25 05/03/25 Unknown Rx mg tablet metformin 500 mg tablet,extended 500 mg PO DAILY 03/13/25 05/03/25 04/30/25 History release 24 hr acetaminophen 325 mg tablet 650 mg PO QID PRN Pain 04/19/25 05/03/25 04/30/25 History ascorbic acid (vitamin C) 500 mg 500 mg PO BID 04/19/25 05/03/25 04/30/25 History tablet (Vitamin C) cholecalciferol (vitamin D3) 50 50 mcg PO DAILY 04/19/25 05/03/25 04/30/25 History mcg (2,000 unit) tablet (Vitamin D3) cyanocobalamin (vitamin B-12) 100 100 mcg PO DAILY 04/19/25 05/03/25 04/18/25 History mcg tablet (Vitamin B-12) magnesium 250 mg tablet 250 mg PO DAILY 04/19/25 05/03/25 04/30/25 History metoprolol succinate 50 mg 50 mg PO QPM 04/19/25 05/03/25 05/01/25 History tablet,extended release 24 hr Held on 05/02/25. Instructions: Resume on 05/03/25. omega 3,6,9-borage seed 2 cap PO DAILY 04/19/25 05/03/25 04/30/25 History oil-flaxseed oil-fish oil 1,233 mg capsule (Felice 3-6-9) tramadol 50 mg tablet 50 mg PO TID PRN Pain 04/19/25 05/03/25 Unknown History vitamin B complex 1 tab PO DAILY 04/19/25 05/03/25 04/18/25 History pantoprazole 40 mg tablet,delayed 40 mg PO DAILY 05/01/25 05/03/25 Unknown History release sertraline 50 mg tablet 50 mg PO DAILY 05/01/25 05/03/25 05/01/25 08:00 History sucralfate 1 gram tablet 1 g PO QID PRN stomach pain 05/01/25 05/03/25 Unknown History clonidine HCl 0.1 mg tablet 0.1 mg PO BID PRN for sbp>180 or 05/02/25 05/03/25 Unknown Rx dbp>90 30 days #60 tabs clopidogrel 75 mg tablet (Plavix) 75 mg PO DAILY 20 days #20 tabs 05/02/25 05/03/25 Unknown Rx rosuvastatin 5 mg tablet (Crestor) 5 mg PO DAILY 30 days #30 tabs 05/02/25 05/03/25 Unknown Rx amlodipine 5 mg tablet 5 mg PO DAILY #30 tabs 05/03/25 Unknown Rx aspirin 81 mg tablet,delayed 81 mg PO DAILY 05/03/25 05/03/25 Unknown History release sennosides 8.6 mg-docusate sodium 1 tab PO BID constipation 05/03/25 05/03/25 Unknown History 50 mg tablet (Senexon-S) Allergies Allergy/AdvReac Type Severity Reaction Status Date / Time erythromycin base Allergy ADR-Gastrointestinal Verified 04/24/25 20:54 Upset naproxen Allergy ADR-Abdominal Verified 05/01/25 16:02 Pain PFSH Acute PFSH: Medical History HTN (hypertension) Surgical History History of laminectomy Social History Smoking and tobacco/nicotine status: never used tobacco/nicotine Alcohol intake: never Substance/Drug Use: never Vitals/I&O/Wt Last Vital Signs Temp 98.1 F 05/03/25 01:44 Pulse 76 05/03/25 07:49 Resp 16 05/03/25 06:01 BP 166/73 05/03/25 07:49 Pulse Ox 91 05/03/25 07:49 O2 Del Method Room Air 05/03/25 06:01 Physical Exam Const: COMMON NORMALS: no acute distress and patient oriented x3 Resp: COMMON NORMALS: normal respiratory effort, No retractions, No use of accessory muscles and clear to auscultation bilaterally AUSCULTATION: clear to auscultation bilaterally Cardio: COMMON NORMALS: regular rate, regular rhythm, S1 normal heart sound present and S2 normal heart sound present RATE: regular rate RHYTHM: regular rhythm HEART SOUNDS: S1 normal heart sound present and S2 normal heart sound present GI: COMMON NORMALS: Normal to inspection, nondistended, normoactive bowel sounds present and non-tender Extremity: COMMON NORMALS: no pedal edema Neuro: COMMON NORMALS: patient oriented x3 Psych: COMMON NORMALS: mental status grossly normal Data 05/03/25 02:00 05/03/25 02:00 A&P Assessment and plan (1) HTN (hypertension): (2) Hypertensive urgency: (3) Cerebrovascular accident: (4) Numbness of face: (5) Headache: Plan #Recent stroke #Numbness to face #Nausea #Headache #Hypertensive urgency ? I believe patient's symptoms are secondary to high blood pressure. She states she did not take any other medications when she went home that were prescribed to her. Event monitor has not been set up yet either. She was discharged on a Sunday. ? I would continue aspirin Plavix ? Atorvastatin was discontinued at discharge last time. ? Check MRI brain. ? Patient has a headache. She could possibly have sinusitis. ? I will start on Augmentin for 7 days. ? Will place on amlodipine 5 daily first dose now. ? Hold off on clonidine unless absolutely noted ? Patient states she may not want to have an MRI because the machine is too loud. She would like the machine to dial down the noise. ? She would like to eat. ? Symptoms have resolved at this time however headache is still present ? Neurocheck every 2 hours ? Monitor on telemetry ? Check MRI brain. Full code DVT prophylaxis: Heparin SQ twice daily PDMP PDMP Reviewed: Not Reviewed Attestations Medical Necessity Statement*: Observation admission for strokelike symptoms. Diagnoses HTN (hypertension) I10 Hypertensive urgency I16.0 Cerebrovascular accident I63.9 Numbness of face R20.0 Headache R51.9
[2025-05-03] MEDS: acetaminophen 325 mg Tablet 650 MG PO (09:07)
[2025-05-03] MEDS: sodium chloride 0.9% 1,000 ML 75 ML IV ×2 (09:10→21:53)
[2025-05-03] MEDS: heparin 5,000 unit/mL INJ 1 mL 5000 UNIT SUBCUT ×2 (09:14→19:48)
--- NOTE | 2025-05-03 09:17 | PC.NURSE ---
THIS NURSE ENTERED ROOM TO ADMINISTER SCHEDULED MEDICATIONS. PT WAS EDUCATED ON MEDICATIONS AND VERBALIZED UNDERSTANDING. PT ASKED HOW LONG SHE WOULD BE WAITING ON A BED ON A DIFFERENT FLOOR. THIS NURSE INFORMED PT THAT WE DID NOT KNOW HOW LONG IT WOULD BE, BUT SHE WOULD BE RECIEVING HER FLOOR ORDERS DOWN IN THE ED. PT BECAME TEARFUL AND CONTINUALLY STATED I DON'T KNOW IF I CAN DO IT. I JUST DON'T KNOW. THIS NURSE ASKED PT IF SHE WAS WANTING TO LEAVE. PT STATED I JUST DON'T KNOW. I DON'T WANT ANOTHER MRI. I NEED TO GO TO A QUIETER MACHINE. THIS NURSE INFORMED PT THAT THERE ARE ACCOMMODATIONS WE CAN DO TO HELP WITH THE MRI. PT STILL TEARFUL. PT AGREED TO MEDICATIONS. MEDICATIONS WERE ADMINISTERED BY THIS NURSE. PT CONTINUES TO CRY. THIS NURSE ASKED PT WHAT PT NEEDED FOR THIS NURSE TO HELP HER. PT STATES I DON'T KNOW. I JUST NEED MY HEAD TO STOP HURTING. THIS NURSE INFORMED PT THAT SHE GAVE MEDICATIONS TO HELP WITH HER HEADACHE AND THAT THEY SHOULD START WORKING SOON. PT VERBALIZED UNDERSTANDING.
[2025-05-03] MEDS: HYDROcodone-acetaminophen 5-325 mg Tablet 1 TAB PO ×2 (12:47→17:27)
--- NOTE | 2025-05-03 15:02 | MRR_ITS ---
PROCEDURE INFORMATION: Exam: MR Head Without Contrast Exam date and time: 05/03/2025 4:39 PM Age: 74 years old Clinical indication: Speech disturbance and weakness, facial; Dysphasia; Additional info: R/O stroke TECHNIQUE: Imaging protocol: Magnetic resonance imaging of the head without contrast. COMPARISON: CT head thrombolytic [id number] 05/03/2025 2:07 AM FINDINGS: Brain: Bilateral periventricular white matter and centrum semiovale foci of high FLAIR signal, consistent with chronic ischemic small vessel disease. No acute infarct, intracranial bleed or intracranial mass. Cerebral ventricles: Normal. No ventriculomegaly. Bones: Unremarkable. Paranasal sinuses: Mucosal disease of the left maxillary sinus and left sphenoid sinus. Mastoid air cells: Normal as visualized. No mastoid effusion. Orbital cavities: Post bilateral cataract surgery. Soft tissues: Unremarkable. MR/MR head wo con* [id number] IMPRESSION: No acute infarct or intracranial bleed.
[2025-05-03] MEDS: sertraline 50 mg Tablet PO (15:09)
[2025-05-03] MEDS: magnesium oxide 400 mg tablet 200 MG PO (15:09)
[2025-05-03] MEDS: ATORVASTATIN 10 MG TABLET 20 MG PO (15:09)
[2025-05-03] MEDS: pantoprazole DR 40 mg Tablet PO (15:09)
[2025-05-03] MEDS: clopidogrel 75 mg Tablet PO (15:10)
[2025-05-03] MEDS: aspirin 81 mg EC Tablet PO (15:10)
[2025-05-03] MEDS: amoxicillin-clav 875-125 mg Tablet 1 TAB PO (17:27)
[2025-05-03] MEDS: sucralfate 1 gm Tablet PO (17:27)
[2025-05-04 03:36] VITALS: BP 152/68; PULSE 73; RESP 17; TEMP 36.8; O2SAT 96
[2025-05-04 05:22] LABS: Basophils # 0.1 10^3/uL (0.0-0.1); Basophils % 1.5 %; Eosinophils # 0.1 10^3/uL (0.0-0.8); Eosinophils % 2.3 %; Hematocrit 35.6 % (36-47); Lymphocytes # 1.4 10^3/uL (0.8-4.8); Lymphocytes % 23.7 %; Mean Corpuscular Hemoglobin 29.7 pg (27-33); Mean Corpuscular Volume 87.5 fl (85-98); Mean Platelet Volume 11.2 fL (7.4-10.4); Monocytes # 0.9 10^3/uL (0.2-0.9); Monocytes % 15.3 %; Neutrophils # 3.45 10^3/uL (1.8-7.7); Neutrophils % 56.9 %; Nucleated Red Blood Cells % 0 %; Platelet Count 167 10^3/cmm (157-399); Red Blood Count 4.07 10^6/uL (3.85-5.65); Red Cell Distribution Width 12.3 % (12.1-15.1); White Blood Count 6.07 10^3/uL (3.29-11.43)
[2025-05-04 05:44] LABS: Alanine Aminotransferase 11 U/L (0-33); Albumin Level 3.5 g/dL (3.5-5.2); Alkaline Phosphatase 85 U/L (35-105); Anion Gap 13.8 (5-19); Aspartate Amino Transferase 17 U/L (0-32); Blood Urea Nitrogen 6 mg/dL (8-23); Calcium 8.6 mg/dL (8.5-10.5); Carbon Dioxide 24 mmol/L (22-29); Chloride 103 mmol/L (98-107); Creatinine Clr Calc Pharmacy 57.0959; Globulin 1.8 g/dL (1.3-4.6); Glucose 113 mg/dL (65-115); Magnesium 1.8 mg/dL (1.7-2.3); Osmolality Calculated 282 mOsm/kg (285-295); Phosphorus 2.7 mg/dL (2.5-4.5); Potassium 3.8 mmol/L (3.5-5.1); Sodium 137 mmol/L (136-145); Total Bilirubin 0.5 mg/dL (0.15-1.2); Total Protein 5.3 g/dL (6.6-8.7)
[2025-05-04 06:13] VITALS: PULSE 59
[2025-05-04 07:05] VITALS: BP 152/67; PULSE 63; RESP 16; TEMP 36.7; O2SAT 93
[2025-05-04] MEDS: amoxicillin-clav 875-125 mg Tablet 1 TAB PO (09:00)
[2025-05-04] MEDS: ATORVASTATIN 10 MG TABLET 20 MG PO (09:00)
[2025-05-04] MEDS: magnesium oxide 400 mg tablet 200 MG PO (09:00)
[2025-05-04] MEDS: heparin 5,000 unit/mL INJ 1 mL 5000 UNIT SUBCUT (09:01)
[2025-05-04] MEDS: clopidogrel 75 mg Tablet PO (09:01)
[2025-05-04] MEDS: pantoprazole DR 40 mg Tablet PO (09:01)
[2025-05-04] MEDS: sertraline 50 mg Tablet PO (09:01)
[2025-05-04] MEDS: aspirin 81 mg EC Tablet PO (09:01)
[2025-05-04 09:36] VITALS: BP 152/67; PULSE 63; RESP 16; TEMP 36.7; O2SAT 93
--- NOTE | 2025-05-04 15:52 | PM.DCS ---
Discharge Providers Date of Admission: 05/03/25 07:56 Date of Discharge: May 04, 2025 Attending Provider at Admission: Kateryna Barbosa MD Attending Provider at Discharge: Orin Hernandez MD Primary Care Provider: Edison Johns DO Diagnoses at Discharge Discharge Diagnosis (1) HTN (hypertension): Status: Acute (2) Hypertensive urgency: Status: Acute (3) Cerebrovascular accident: Status: Acute (4) Numbness of face: Status: Acute (5) Headache: Status: Inactive Reason for Visit Reason for Visit: TINGLY MOUTH Hospital Course Hospital Course Belkis Henson is a 74 year old female with a past medical history of hypertension, hyperlipidemia, type 2 diabetes who was recently admitted at [facility] on 05/02-05/03 for right sided weakness and numbness aroun dthe mouth. She had reported some word finding difficulty, slurring of her words, troubles with S's and T's, her symptoms lasted for about 30 minutes and then improved. Patient was a stroke alert on admission, NIH stroke scale on admission was 2, [facility] was involved, patient was not deemed a tPA candidate, not a candidate for embolectomy. Head CT showed suspected small subacute infarct in the left thalamus measuring 6 to 7 mm. A CTA head had previosuly been performed on 04/19 when she had presented to the emergency room with visual disturbance described as sharp with light in her vision, headache and elevated blood pressure.No large vessel stenosis or occlusion was noted at that time. She presented to the hospital again on May 03, 2025 for headache and tingling to her face particularly the left side of her mouth this time. She had some trouble walking. MRI of the head was performed which was negative for any acute infarct. Patient states that during 1 of these episodes she was noted to have elevated blood pressure ranging between 160-230 systolic. States she has recently had a change in her antihypertensive medications from lisinopril to metoprolol and feels that it may not be providing adequate blood pressure control. In the hospital Toprol 50 mg daily was continued. Add additional amlodipine 5 mg twice daily was added for better blood pressure management. Dose of metoprolol was not increased as she was noted to have intermittent asymptomatic bradycardia with heart rate in the 50s. Other differentials for her neurological symptoms include possible migraine versus TIA. Patient is recommended to follow-up with neurology as an outpatient. She states that she had previously received a referral to [facility] per her request and would like to be seen there. On her last visit an event monitor was recommended at the time of discharge which has been arranged today. She would like to set up with cardiology as an outpatient for blood pressure management, referral was provided for the same. She is recommended to continue taking aspirin 81 mg daily, Plavix 75 mg daily for 21 days and then stop. She is intolerant of atorvastatin and therefore is being discharged with Crestor which she is agreeable for taking. Incidental note was made of sinusitis which could potentially be contributing to the headache. She started treatment with Augmentin in the hospital and states that she feels much better today. Prescription for Augmentin has been continued for 3 additional days at discharge. Physical Exam Narrative: General: No acute distress, AO x3 HEENT: PERRLA, pupils bilaterally equal and reactive, pallors not present Chest: Normal vesicular breath sounds, no added sounds, equal good air entry bilaterally CVS: S1-S2 regular, no murmurs, no tachycardia, no gallops, no rubs Abdomen: Soft, nontender, no organomegaly, bowel sounds present Neuro: No focal deficits, no facial deformity, AO x3, power 5/5 in all limbs Discharge Data Studies Completed and Pending Completed Studies During Hospitalization Category Date Time Status CT head thrombolytic [id number] Stat Cat Scan 05/03/25 02:01 Completed XR chest 1V portable [id number] Stat Exams 05/03/25 02:16 Completed MR head wo con* [id number] Routine MRI 05/03/25 15:02 Completed Radiology Impressions Head CT 05/03/25 02:01 IMPRESSION: 1. No acute intracranial findings. 2. The left sphenoid sinus is completely opacified. There is mild mucosal thickening in the left ethmoid sinus. ASSESSMENT: ASPECTS ([place] Stroke Program Early CT Score) is 10. ADDENDUM: 05/03/25 0224 The patient's physician, BRENDEN Galeana was informed by phone by Dr. Romero about the findings and recommendations on 05/03/2025 at 2:22 AM CDT. The ordering physician verbalized understanding. Chest X-Ray 05/03/25 02:16 IMPRESSION: No acute findings. Head MRI 05/03/25 15:02 IMPRESSION: No acute infarct or intracranial bleed. Laboratory Results WBC 6.07 10^3/uL (3.29-11.43) 05/04/25 04:37 RBC 4.07 10^6/uL (3.85-5.65) 05/04/25 04:37 Hgb 12.10 g/dL (11.27-16.99) 05/04/25 04:37 Hct 35.6 % (36-47) L 05/04/25 04:37 MCV 87.5 fl (85-98) 05/04/25 04:37 MCH 29.7 pg (27-33) 05/04/25 04:37 MCHC 34.0 g/dL (30-55) 05/04/25 04:37 RDW 12.3 % (12.1-15.1) 05/04/25 04:37 Plt Count 167 10^3/cmm (157-399) 05/04/25 04:37 MPV 11.2 fL (7.4-10.4) H 05/04/25 04:37 Neut % (Auto) 56.9 % 05/04/25 04:37 Lymph % (Auto) 23.7 % 05/04/25 04:37 [place] % (Auto) 15.3 % 05/04/25 04:37 Eos % (Auto) 2.3 % 05/04/25 04:37 Baso % (Auto) 1.5 % 05/04/25 04:37 Neut # (Auto) 3.45 10^3/uL (1.8-7.7) 05/04/25 04:37 Lymph # (Auto) 1.4 10^3/uL (0.8-4.8) 05/04/25 04:37 [place]al # (Auto) 0.9 10^3/uL (0.2-0.9) 05/04/25 04:37 Eos # (Auto) 0.1 10^3/uL (0.0-0.8) 05/04/25 04:37 Baso # (Auto) 0.1 10^3/uL (0.0-0.1) 05/04/25 04:37 Nucleated RBC % (auto) 0 % 05/04/25 04:37 Nucleated RBCs # 0.0 /100WBC 05/04/25 04:37 PT 14.40 SECONDS (12.1-14.9) 05/03/25 02:00 INR 1.04 (0.8-1.2) 05/03/25 02:00 APTT 25.3 SECONDS (23.9-36.7) 05/03/25 02:00 Sodium 137 mmol/L (136-145) 05/04/25 04:37 Potassium 3.8 mmol/L (3.5-5.1) 05/04/25 04:37 Chloride 103 mmol/L (98-107) 05/04/25 04:37 Carbon Dioxide 24 mmol/L (22-29) 05/04/25 04:37 Anion Gap 13.8 (5-19) 05/04/25 04:37 BUN 6 mg/dL (8-23) L 05/04/25 04:37 Creatinine 0.6 mg/dL (0.5-0.9) 05/04/25 04:37 GFR Calculation Not Reportable 05/04/25 04:37 Glucose 113 mg/dL (65-115) 05/04/25 04:37 Calculated Osmolality 282 mOsm/kg (285-295) L 05/04/25 04:37 Calcium 8.6 mg/dL (8.5-10.5) 05/04/25 04:37 Phosphorus 2.7 mg/dL (2.5-4.5) 05/04/25 04:37 Magnesium 1.8 mg/dL (1.7-2.3) 05/04/25 04:37 Total Bilirubin 0.5 mg/dL (0.15-1.2) 05/04/25 04:37 AST 17 U/L (0-32) 05/04/25 04:37 ALT 11 U/L (0-33) 05/04/25 04:37 Alkaline Phosphatase 85 U/L (35-105) 05/04/25 04:37 Total Protein 5.3 g/dL (6.6-8.7) L 05/04/25 04:37 Albumin 3.5 g/dL (3.5-5.2) 05/04/25 04:37 Globulin 1.8 g/dL (1.3-4.6) 05/04/25 04:37 Vitals Last Vital Signs Temp 98.1 F 05/04/25 09:36 Pulse 63 05/04/25 09:36 Resp 16 05/04/25 09:36 BP 152/67 05/04/25 09:36 Pulse Ox 93 05/04/25 09:36 O2 Del Method Room Air 05/04/25 07:05 Discharge Plan Discharge Patient Disposition: Home Condition: Stable Prescriptions: New amoxicillin-pot clavulanate 875-125 mg Tablet 1 tab PO BID 3 Days Qty: 6 0RF amlodipine 5 mg tablet 5 mg PO BID 30 Days Qty: 60 0RF Continued fluticasone propionate 50 mcg/actuation spray,suspension 1 spray intranasal DAILY PRN (Reason: allergies) Rx Instructions: administer into each nostril metformin 500 mg tablet extended release 24 hr 500 mg PO DAILY hydrocodone-acetaminophen 5-325 mg tablet 1 tab PO Q6H PRN (Reason: pain) Qty: 14 0RF acetaminophen 325 mg Tablet 650 mg PO QID PRN (Reason: Pain) cyanocobalamin (vitamin B-12) [Vitamin B-12] 100 mcg Tablet 100 mcg PO DAILY metoprolol succinate 50 mg tablet extended release 24 hr 50 mg PO QPM tramadol 50 mg tablet 50 mg PO TID PRN (Reason: Pain) ascorbic acid (vitamin C) [Vitamin C] 500 mg Tablet 500 mg PO BID vitamin B complex Tablet 1 tab PO DAILY magnesium 250 mg Tablet 250 mg PO DAILY cholecalciferol (vitamin D3) [Vitamin D3] 50 mcg (2,000 unit) Tablet 50 mcg PO DAILY Felice 3-6-9 1,233 mg Capsule 2 cap PO DAILY sucralfate 1 gram tablet 1 g PO QID PRN (Reason: stomach pain) pantoprazole 40 mg tablet,delayed release (DR/EC) 40 mg PO DAILY sertraline 50 mg tablet 50 mg PO DAILY rosuvastatin [Crestor] 5 mg tablet 5 mg PO DAILY 30 Days Qty: 30 0RF clonidine HCl 0.1 mg tablet 0.1 mg PO BID PRN (Reason: for sbp>180 or dbp>90) 30 Days Qty: 60 0RF clopidogrel [Plavix] 75 mg tablet 75 mg PO DAILY 20 Days Qty: 20 0RF sennosides-docusate sodium [Senexon-S] 8.6-50 mg tablet 1 tab PO BID aspirin 81 mg tablet,delayed release (DR/EC) 81 mg PO DAILY No Action (DME) FreeStyle Lite Strips Strip See Rx Instructions .Route Qty: 100 3RF Rx Instructions: to use once daily in freestyle lite meter 90 day supply Discharge Orders: Discharge Order (Routine); Ordered 05/04/25 Ordered By: Orin Hernandez Referrals: Jose Elias Toussaint M.D [Physician, Cardiology] - 06/11/25 2:30 pm Edison Johns DO [Primary Care Provider, [facility]] - 05/06/25 10:50 am Tima Estrada MD [Occupational Therapist, Neurological Surgery] Referral Note: We have notified your physician's clinic of the need for a follow-up appointment to be scheduled. If you have not heard from them within the next 2 business days, please call them directly. Discharge Diet: Low Salt Discharge Activity: Resume usual activity Patient Instructions: Amoxicillin/Clavulanate Potassium (By mouth), Amlodipine (By mouth), Hypertensive Crisis (ED), Opioid Safety, Pain Management, Stroke Stoplight Activity Restrictions/Additional Instructions: Continue to check your blood pressure twice daily. If numbers are greater than 150 systolic (the top number), take the amlodipine prescribed to you. Continue to hold the metoprolol. For blood pressures greater than 180/90, you may use the clonidine your previously prescribed. Return for worsening speech, language problems, vision problems, significant weakness, other concerning symptoms. Call your doctor in the morning for a follow-up appointment. Discharge Attestations Time Spent in Discharge Care*: greater than 30 min Quality Metrics Clinical Quality Measures [ No reported AMI, CVA or VTE this stay] Coding Level of Care Code Acute Code for Chg Fwd Diagnoses HTN (hypertension) I10 Hypertensive urgency I16.0 Cerebrovascular accident I63.9 Numbness of face R20.0 Headache R51.9
== END 2025-05-04 09:37 | disposition home or self-care (01) ==
LOC: ER 06:27 → MEDSURG 12:27
PROVIDERS: Emergency Medicine; Admitting Provider Internal Medicine; Emergency Provider Emergency Medicine; PCP Electrodiagnostic Medicine; Visit Provider Student in an Organized Health Care Education/Training Program
DX: I63.9 Cerebral infarction, unspecified (principal); R29.702 NIHSS score 2; R20.0 Anesthesia of skin; I10 Essential (primary) hypertension; I16.0 Hypertensive urgency; R51.9 Headache, unspecified; Z79.82 Long term (current) use of aspirin; K21.9 Gastro-esophageal reflux disease without esophagitis; Z79.84 Long term (current) use of oral hypoglycemic drugs; E11.9 Type 2 diabetes mellitus without complications; Z79.01 Long term (current) use of anticoagulants; E78.5 Hyperlipidemia, unspecified
CPT/HCPCS: 36415; 70450; 70551; 71045; 80053; 83735; 84100; 85025; 85610; 85730; 93005; 96372; 96374; 96375; 96376; 99285; G0378; J0360; J1644; J2270; J2405; J7030; J9999

== ENCOUNTER → 2025-06-11 14:34 | Outpatient (BNVA) | payer MEDICARE, OTHER, SELFPAY | PROVIDERS: PCP Electrodiagnostic Medicine; Visit Provider Internal Medicine | DX: I10 Essential (primary) hypertension (principal); Z79.02 Long term (current) use of antithrombotics/antiplatelets; Z79.82 Long term (current) use of aspirin; Z86.73 Personal history of transient ischemic attack (TIA), and cerebral infarction without residual deficits | CPT/HCPCS: 99204 ==

== ENCOUNTER 2025-07-03 22:05 | Emergency (ER) | payer MEDICARE, OTHER, SELFPAY ==
[2025-07-03 22:09] VITALS: BP 151/92; PULSE 81; RESP 17; TEMP 36.7; O2SAT 98; BMI 33.0
--- OUTSIDE RECORDS SUMMARY | 2025-07-03 22:11 | XMS_ITS | Encounter Summary ---
Author Organization [facility] Address [address] [place] [address] Care Team Providers Care Manufacturing Engineering Technologist Name Role Phone Chung Holden MD Primary Care Provider [phone] Encounter Details Date Type Department Care Team (Late st Contact Info) Description 05/26/2008 Outpatient [facility] Breast Center [facility] [address] [place], [place] [address] Candace An MD [address] [facility] [address] [place] [address] Social History Tobacco Use Types Packs/Day Years Used Date Smoking Tobacco: Never Alcohol Use Standard Drinks/Week Comments No 0 (1 standard drink = 0.6 oz pur e alcohol) Comments Unknown Sex and Gender Information Value Date Recorded Sex Assigned at Not on file 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
--- OUTSIDE RECORDS SUMMARY | 2025-07-03 22:11 | XMS_ITS | Encounter Summary ---
Author Organization [facility] Address [address] [place] [address] Care Team Providers Care Office Machine Servicer Apprentice Name Role Phone Chung Holden MD Primary Care Provider [phone] Encounter Details Date Type Department Care Team (Late st Contact Info) Description 05/20/2009 Ancillary Orders [facility] [address] 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
--- OUTSIDE RECORDS SUMMARY | 2025-07-03 22:12 | XMS_ITS | Encounter Summary ---
Author Organization [facility] Address [address] [place] [address] Care Team Providers Care Instrument Technologist Name Role Phone Chung Holden MD Primary Care Provider Reason for Referral * Outpatient Services (Routine) - Closed Specialty Diagnoses / Procedures Referred By Mini crowley Referred To Contact Diagnoses Other screening mammogram Procedures MAMMO SCREENING BILAT Tin Pearce Jr., MD [address] [place] [address] Phone: tel: fax: Referral ID Status Reason Start Date Expiration Date Visits Re quested Visits Authorized [id number] Closed 06/02/2010 11/29/2010 1 1 Encounter Details Date Type Department Care Team (Late st Contact Info) Description 06/02/[address] 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
--- OUTSIDE RECORDS SUMMARY | 2025-07-03 22:12 | XMS_ITS | Encounter Summary ---
Author Organization [facility] Address [address] [place] [address] Care Team Providers Care Maitre D Name Role Phone Chung Holden MD Primary Care Provider [phone] Encounter Details Date Type Department Care Team (Late st Contact Info) Description 02/18/2003 Outpatient Historical [facility] Dermatology- 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
--- OUTSIDE RECORDS SUMMARY | 2025-07-03 22:12 | XMS_ITS | Encounter Summary ---
Author Organization [facility] Address [address] [place] [address] Care Team Providers Care Commercial Green Retrofit Architect Name Role Phone Chung Holden MD Primary Care Provider Encounter Details Date Type Department Care Team (Latest Contact Info) Description 05/10/2007 Outpatient Historical [facility] Robbie Coreas Darron [address] [place] [phone] Tenzin Rizvi MD NO ADDRESS ON FILE Other Screening Mammogram (Primary Dx) Social History Tobacco Use Types Packs/Day Years Used Date Smoking Tobacco: Never Assessed Comments Unknown Sex and Gender Information Value Date Recorded Sex Assigned at Not on file Legal Sex Female 5:35 AM WEB 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
--- OUTSIDE RECORDS SUMMARY | 2025-07-03 22:12 | XMS_ITS | Encounter Summary ---
Author Organization [facility] Address [address] [place] [address] Care Team Providers Care Toll Gate Tender Name Role Phone Chung Holden MD Primary Care Provider Reason for Referral * Outpatient Services (Routine) - Closed Specialty Diagnoses / Procedures Referred By Mini crowley Referred To Contact Diagnoses Pain in both shoulders Procedures MRI CERVICAL WO CONTRAST Greg Sargent MD [address] [address] Phone: tel: fax: [facility] Pre-Registration [place] CALL TO MAKE APPOINTMENT ONLY [address] [place] [address] Phone: tel: fax: Referral ID Status Reason Start Date Expiration Date V isits Requested Visits Authorized [id number] Closed F [facility] TO SCHEDULE (SGF) 08/10/2017 09/10/2018 1 1 Encounter Details Date Type Department Care Team (Latest Contact Info) Description 08/10/2017 Ancillary Orders [facility] Pre-Registration [facility] [place] CALL TO MAKE APPOINTMENT ONLY [address] [place] [address] Greg Sargent MD [address] [place] [phone] Pain in both shoulders Social History Tobacco Use Types Packs/Day Years Used Date Smoking Tobacco: Never Smokeless Tobacco: Never Alcohol Use Standard Drinks/Week Comments No 0 (1 standard drink = 0.6 oz pur e alcohol) Comments No Sex and Gender Information Value Date Recorded Sex Assigned at Not on file Legal Sex Female 5:35 AM DYE OPERATOR Gender Identity Not on file Sexual [...] the patient's PCP Dr. Urbina, by the court interpreter. Narrative Procedure Note Tin Berg MD - [...] the patient's PCP Dr. Urbina, by the court interpreter. us Greg Sargent MD MR ORDERABLES Final Resul t documented in this encounter Visit Diagnoses Diagnosis Pain in both shoulders Pain in both shoulders documented in this encounter Care Teams Toll Gate Tender Relationship Specialty Start Date End Date Chung Holden MD [address] [place] [phone] PCP - General Family Practice 04/12/20 documented as of this encounter
--- OUTSIDE RECORDS SUMMARY | 2025-07-03 22:12 | XMS_ITS | Encounter Summary ---
Author Organization [facility] Address [address] [place] [address] Care Team Providers Care Numerical Analysis Group Manager Name Role Phone Chung Holden MD Primary Care Provider [phone] Encounter Details Date Type Department Care Team (Latest Contact Info) Description 11/14/2002 Outpatient Historical [facility] Tin Pearce Jr., MD [address] [place] [address] HEADACHE (Primary Dx); HYPERTENSION NOS Social History Tobacco Use Types Packs/Day Years Used Date Smoking Tobacco: Never Assessed Comments Unknown Sex and Gender Information Value Date Recorded Sex Assigned at Not on file Legal Sex Female 5:35 AM EMBOSSING PRESS OPERATOR Gender Identity Not on file Sexual Orientation Not on file documented as of this encounter Plan of Treatment Not on file documented as of this encounter Visit Diagnoses Diagnosis Headache(784.0)- Primary Headache Unspecified essential hypertension documented in this encounter Care Teams Numerical Analysis Group Manager Relationship Specialty Start Date End Date Chung Holden MD [address] [place] [phone] PCP - General Family Practice 04/12/20 documented as of this encounter
--- OUTSIDE RECORDS SUMMARY | 2025-07-03 22:12 | XMS_ITS | Encounter Summary ---
Author Organization [facility] Address [address] [place] [address] Care Team Providers Care Saw Maker Name Role Phone Chung Holden MD Primary Care Provider Encounter Details Date Type Department Care Team (Late st Contact Info) Description 01/14/2003 Outpatient Historical [facility] Dermatology- 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
--- OUTSIDE RECORDS SUMMARY | 2025-07-03 22:12 | XMS_ITS | Encounter Summary ---
Author Organization [facility] Address [address] [place] [address] Care Team Providers Care Airline Manager Name Role Phone Chung Holden MD Primary Care Provider Reason for Referral * Outpatient Services (Routine) - Closed Specialty Diagnoses / Procedures Referred By Mini crowley Referred To Contact Radiology Diagnoses Visit for screening mammogram Procedures MAMMO SCRN BILAT 3D MADHU W OR WO CAD MAMMO SCREEN BILAT W OR WO CAD Candace An MD Phone: tel: fax: [facility] Breast [facility] [address] [facility] [address] [place] [address] Phone: tel: fax: Referral ID Status Reason Start Date Expiration Date Visits Re quested Visits Authorized [id number] Closed 05/16/2018 06/16/2019 1 1 Encounter Details Date Type Department Care Team (Late st Contact Info) Description 05/16/2018 Ancillary Orders [facility] Pre-Registration [place] CALL TO MAKE APPOINTMENT ONLY [address] [place] [address] Candace An MD [address] [facility] [address] [place] [address] Visit for screening mammogram Social History Tobacco Use Types Packs/Day Years Used Date Smoking Tobacco: Never Smokeless Tobacco: Never Alcohol Use Standard Drinks/Week Comments No 0 (1 standard drink = 0.6 oz pur e alcohol) Comments No Sex and Gender Information Value Date Recorded Sex Assigned at Not on file Legal Sex Female 5:35 AM STAMP ANALYST Gender Identity Not on file Sexual Orientation [...] mammogram documented in this encounter Care Teams Airline Manager Relationship Specialty Start Date End Date Chung Holden MD [address] [place] [phone] PCP - General Family Practice 04/12/20 documented as of this encounter
--- OUTSIDE RECORDS SUMMARY | 2025-07-03 22:12 | XMS_ITS | Encounter Summary ---
Author Organization [facility] Address [address] [place] [address] Care Team Providers Care Property Coordinator Name Role Phone Chung Holden MD Primary Care Provider [phone] Encounter Details Date Type Department Care Team (Late st Contact Info) Description 05/10/2007 Outpatient Historical [facility] Breast [place] Robbie Coreas Darron [address] [place] [phone] Akbar Orellana MD [address] [phone] Other Screening Mammogram (Primary Dx) Social History Tobacco Use Types Packs/Day Years Used Date Smoking Tobacco: Never Assessed Comments Unknown Sex and Gender Information Value Date Recorded Sex Assigned at Not on file Legal Sex Female 5:35 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
--- OUTSIDE RECORDS SUMMARY | 2025-07-03 22:12 | XMS_ITS | Encounter Summary ---
Author Organization [facility] Address [address] [place] [address] Care Team Providers Care Special Needs Bus Driver Name Role Phone Chung Holden MD Primary Care Provider [phone] Encounter Details Date Type Department Care Team (Latest Contact Info) Description 01/05/2003 Outpatient Historical [facility] Tin Pearce Jr., MD [address] [place] [address] HYPERTENSION NOS (Primary Dx); Plantar fibromatosis; GENERALIZED ANXIETY DIS Social History Tobacco Use Types Packs/Day Years Used Date Smoking Tobacco: Never Assessed Comments Unknown Sex and Gender Information Value Date Recorded Sex Assigned at Not on file Legal Sex Female 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
--- OUTSIDE RECORDS SUMMARY | 2025-07-03 22:12 | XMS_ITS | Clinical Summary ---
Author Organization [facility] Address [address] Cummingsn: Epic [place] [address] Care Team Providers Care Acid Pumper Name Role Phone Edison Johns DO Primary Care Provider [phone] Allergies Active Allergy Reactions Criticality Noted Date [...] Encounters Date Type Department Care Team Description 05/27/2025 External Device Data STL ABSTRACTION Provider, Abstract 05/27/2025 External Device Data STL ABSTRACTION Provider, Abstract 04/28/2025 External Device Data STL ABSTRACTION Provider, [...] on file Legal Sex Female 4:20 PM TRIM DIE MAKER Gender Identity Not on file Sexual Orientation Not on file Last Filed Vital Signs Vital Sign Reading Time Taken Comments Blood Pressure 114/63 04/24/2022 10:36 AM CDT Pulse 81 04/24/2022 10:36 AM CDT Temperature 36.7 C (98 F) 04/24/2022 10:36 AM CDT Respiratory Rate 18 12/17/2017 4:44 PM TRIM DIE MAKER Oxygen Saturation 97% 04/24/2022 10:36 AM CDT Inhaled Oxygen Concentration - - Weight 84.8 kg (187 lb) 01/09/2020 9:38 AM TRIM DIE MAKER Height 154.9 cm (5' 1 ) 04/24/2022 10:36 AM CDT Body Mass Index 35.33 01/09/2020 9:38 AM TRIM DIE MAKER Plan of Treatment Health Maintenance Due Date [...] 11/30/2017, 10/18/2016 OSTEOPOROSIS SCREENING 06/06/2024 06/06/2019, 2018 RSV VACCINE (60+ or ) (1 - 1-dose 75+ series) 2024 INFLUENZA VACCINE (#1) 2025 Medical Devices Implanted Type Area Staff Registered Nurse Device Identifier Shelf Expiration Date Model / Serial / Lot Lens Sn60wf 20.5 - [id number] Implanted:Qty : 1 on 01/23/2012 Eye Right: Eye [facility] 07/12/2016 SN60WF.205 / [id number] / Lens Io Sn60wf 20.5 - [id number] Implanted:Qty : 1 on 10/22/2012 Eye Left: Eye [facility] 01/09/2017 SN60WF.205 / [id number] / Hemostatic Gelfoam Powder 1gm [id number] - Sna Implanted:Qty : 1 on 12/12/2017 by Duncan Bains MD Hemostatic N/A: Spine Cervical Posterior [facility] 06/11/2020 [id number] / NA / [id number] Hemostatic Gelfoam Spng 12-7mm [id number] - Csc - Sna Implanted:Qty : 1 on 12/12/2017 by Duncan Bains MD Hemostatic N/A: Spine Cervical Posterior [facility] 10/11/2019 [id number] / NA / [id number] Procedures Procedure Name Priority Date/Time Associated Diagnosis Comments XR DEXA BONE DENSITY AXIAL 1 OR MORE SITES Routine 06/06/2019 9:29 AM CDT Age-related osteoporosis without current pathological fracture Osteoporosis screening HEMOGLOBIN A1C Routine 11/30/2017 1:51 PM TRIM DIE MAKER from Last 3 Months or Most Recently [...] clinical management available online at [email or web address] Enter Ranovus for Select DXA and the Femoral Neck [...] clinical management available online at [email or web address]/. Enter Ranovus for Select DXA and the Femoral Neck BMD value. Bijal Mtz APRN- DIAGNOSTIC IMAGING ORD ERABLES Final Result * (ABNORMAL) HEMOGLOBIN A1C (11/30/2017 1:51 PM TRIM DIE MAKER) HEMOGLOBIN A1C 6.2(H) 4.0 - 6.0 % 11/30/2017 2:06 PM TRIM DIE MAKER [facility] EST. AVG GLUCOSE, A1C 131 mg/dL 11/30/2017 2:06 PM TRIM DIE MAKER [facility] Blood Venipuncture / Unknown 11/30/2017 1:51 PM TRIM DIE MAKER 11/30/2017 1:51 PM TRIM DIE MAKER Fabiola Adamson RN BABY CHEMISTRY ORDERABLES Final Result Performing Organization Address [facility]/State/[facility] Co de Phone Number [facility] #[id number] [address] [place] [address] [facility] #[id number] [address] [place] [address] from Last 3 Months or Most Recently Relevant to Health Maintenance Insurance MEDICARE PART A AND B [employer] SUPP [place]IT [place] [id number] Care Teams Acid Pumper Relationship Specialty Start Date End Date Edison Johns DO [address] [facility] [address] [place] [address] PCP - General Family Practice 01/26/23
--- OUTSIDE RECORDS SUMMARY | 2025-07-03 22:12 | XMS_ITS | Encounter Summary ---
Author Organization [facility] Address [address] [place] [address] Care Team Providers Care Senior Internet Sales Consultant Name Role Phone Chung Holden MD Primary Care Provider [phone] Encounter Details Date Type Department Care Team (Late st Contact Info) Description 11/14/2002 Outpatient Historical [facility] Tin Pearce Jr., MD [address] [place] [address] Social History Tobacco Use Types Packs/Day Years Used Date Smoking Tobacco: Never Assessed Comments Unknown Sex and Gender Information Value Date Recorded Sex Assigned at Not on file Legal Sex Female 5:35 AM WELDER FIRST CLASS Gender Identity Not on file Sexual Orientation Not on file documented as of this encounter Plan of Treatment Not on file documented as of this encounter Visit Diagnoses Not on filedocumented in this encounter Care Teams Senior Internet Sales Consultant Relationship Specialty Start Date End Date Chung Holden MD [address] [place] [address] PCP - General Family Practice 04/12/20 documented as of this encounter
--- OUTSIDE RECORDS SUMMARY | 2025-07-03 22:12 | XMS_ITS | Encounter Summary ---
Author Organization [facility] Address [address] [place] [address] Care Team Providers Care Pretzel Twisting Machine Operator Name Role Phone Chung Holden MD Primary Care Provider Encounter Details Date Type Department Care Team (Late st Contact Info) Description 03/11/2007 Emergency [facility] Emergency Department [address] [place] [address] Sundeep Guajardo MD NO ADDRESS ON FILE Diverticulitis of Colon (without Mention of Hemorrhage) (Primary Dx) Social History Tobacco Use Types Packs/Day Years Used Date Smoking Tobacco: Never Assessed Comments Unknown Sex and Gender Information Value Date Recorded Sex Assigned at Not on file Legal Sex Female 5:35 AM EDGE TRIMMER MECHANIC Gender Identity Not on file Sexual [...] MD URINE ORDERABLES Edited Performing Organization Address [facility] Phone Number INTERFACE SYSTEM Refer to clinic/hospital department * LIPASE (03/11/2007 9:19 AM CDT) LIPASE 39 6 - 51 U/L INTERFACE SYSTEM Comment: As of 06 the [facility] has changed testing methods. The new reference range is 6-51 The old referance range was 23-300 03/11/2007 9:19 AM CDT Sundeep Guajardo MD CHEMISTRY ORDERABLES Edit ed Performing Organization Address [facility] Phone Number INTERFACE SYSTEM Refer to clinic/hospital [...] hemorrhage) documented in this encounter Care Teams Pretzel Twisting Machine Operator Relationship Specialty Start Date End Date Chung Holden MD [address] [place] [address] PCP - General Family Practice 04/12/20 documented as of this encounter
--- OUTSIDE RECORDS SUMMARY | 2025-07-03 22:12 | XMS_ITS | Encounter Summary ---
Author Organization [facility] Address [address] [place] [address] Care Team Providers Care Coating Operator Name Role Phone Chung Holden MD Primary Care Provider [phone] Encounter Details Date Type Department Care Team (Late st Contact Info) Description 03/13/2007 Outpatient Historical [facility] [address] Sandra Rader, POULTRY FARMER MEAT NO ADDRESS ON FILE Social History Tobacco Use Types Packs/Day Years Used Date Smoking Tobacco: Never Assessed Comments Unknown Sex and Gender Information Value Date Recorded Sex Assigned at Not on file Legal Sex Female 5:35 AM CROP SPECIALIST Gender Identity Not on file Sexual Orientation Not on file documented as of this encounter Plan of Treatment Not on file documented as of this encounter Visit Diagnoses Not on filedocumented in this encounter Care Teams Coating Operator Relationship Specialty Start Date End Date Chung Holden MD [address] [place] [address] PCP - General Family Practice 04/12/20 documented as of this encounter
--- OUTSIDE RECORDS SUMMARY | 2025-07-03 22:12 | XMS_ITS | Encounter Summary ---
Author Organization [facility] Address [address] [place] [address] Care Team Providers Care Tank Truck Mechanic Name Role Phone Chung Holden MD Primary Care Provider [phone] Encounter Details Date Type Department Care Team (Latest Contact Info) Description 11/18/2002 Outpatient Historical [facility] [address] [place] [address] Ramses Chairez, Tin Stewart MD [address] [place] [address] CHOLELITH W CHOLECYS NEC (Primary [...] Primary documented in this encounter Care Teams Tank Truck Mechanic Relationship Specialty Start Date End Date Chung Holden MD [address] [place] [address] PCP - General Family Practice 04/12/20 documented as of this encounter
--- OUTSIDE RECORDS SUMMARY | 2025-07-03 22:12 | XMS_ITS | Encounter Summary ---
Author Organization [facility] Address [address] [place] [address] Care Team Providers Care Correspondence Review Clerk Name Role Phone Chung Holden MD Primary Care Provider [phone] Encounter Details Date Type Department Care Team (Late st Contact Info) Description 02/18/2003 Outpatient Historical [facility] Dermatology- [place] [address] [facility] [address] [place] [address] Juan Ramon Womack MD [address] [place] [address] KERATODERMA, ACQUIRED (Primary Dx) Social History Tobacco Use Types Packs/Day Years Used Date Smoking Tobacco: Never Assessed Comments Unknown Sex and Gender Information Value Date Recorded Sex Assigned at Not on file Legal Sex Female 5:35 AM PROP SETTER Gender Identity Not on file Sexual Orientation Not on file documented as of this encounter Plan of Treatment Not on file documented as of this encounter Visit Diagnoses Diagnosis Acquired keratoderma- Primary documented in this encounter Care Teams Correspondence Review Clerk Relationship Specialty Start Date End Date Chung Holden MD [address] [place] [address] PCP - General Family Practice 04/12/20 documented as of this encounter
--- OUTSIDE RECORDS SUMMARY | 2025-07-03 22:12 | XMS_ITS | Encounter Summary ---
Author Organization [facility] Address [address] [place] [address] Care Team Providers Care Ripsaw Operator Name Role Phone Chung Holden MD Primary Care Provider [phone] Encounter Details Date Type Department Care Team (Latest Contact Info) Description 10/16/2017 Ancillary Orders [facility] Pre-Registration [place] CALL TO MAKE APPOINTMENT ONLY [address] [place] [address] Aries Mcdermott MD [facility] [place] [address] Dizziness and giddiness Social History Tobacco Use Types Packs/Day Years Used Date Smoking Tobacco: Never Smokeless Tobacco: Never Alcohol Use Standard Drinks/Week Comments No 0 (1 standard drink = 0.6 oz pur e alcohol) Comments No Sex and Gender Information Value Date Recorded Sex Assigned at Not on file Legal Sex Female 5:35 AM TAXICAB DISPATCHER Gender Identity Not on file Sexual Orientation [...] giddiness documented in this encounter Care Teams Ripsaw Operator Relationship Specialty Start Date End Date Chung Holden MD [address] [place] [address] PCP - General Family Practice 04/12/20 documented as of this encounter
--- OUTSIDE RECORDS SUMMARY | 2025-07-03 22:12 | XMS_ITS | Clinical Summary ---
Author Organization [facility] Address [address] [place] [address] Care Team Providers Care Brim Ironer Hand Name Role Phone Chung Holden MD Primary Care Provider [phone] Allergies Active Allergy Reactions Criticality Noted Date [...] on file Legal Sex Female 5:35 AM AGENT TICKETING GATE Gender Identity Not on file Sexual Orientation Not on file Occupation Industry Job Start Date Job End Date Not on file Not on file Not on file Not on file Not on file Not on file Not on file Not on file Last Filed Vital Signs Vital Sign Reading Time Taken Comments Blood Pressure 122/70 01/09/2020 9:38 AM AGENT TICKETING GATE Pulse 79 02/18/2018 10:26 AM CDT Temperature 37.1 C (98.8 F) 12/17/2017 4:44 PM AGENT TICKETING GATE Respiratory Rate 18 12/17/2017 4:44 PM AGENT TICKETING GATE Oxygen Saturation 97% 12/17/2017 4:44 PM AGENT TICKETING GATE Inhaled Oxygen Concentration - - Weight 84.8 kg (187 lb) 01/09/2020 9:38 AM AGENT TICKETING GATE Height 154.9 cm (5' 1 ) 01/09/2020 9:38 AM AGENT TICKETING GATE Body Mass Index 35.33 01/09/2020 9:38 AM AGENT TICKETING GATE Plan of Treatment Health Maintenance Due Date [...] 05/30/2018 11/30/2017, 05/2016 OSTEOPOROSIS SCREENING 06/06/2024 06/06/2019 RSV VACCINE (60+ or ) (1 - 1-dose 75+ series) 2024 INFLUENZA VACCINE (#1) 2025 Medical Devices Implanted Type Area Sieve Maker Device Identifier Shelf Expiration Date Model / Serial / Lot Lens Io Sn60wf 20.5 - [id number] Implanted:Qty : 1 on 01/23/[address] [facility] Eye Right: Eye [facility] 07/12/2016 SN60WF.205 / [id number] / Lens Io Sn60wf 20.5 - [id number] Implanted:Qty : 1 on 10/22/[address] [facility] Eye Left: Eye [facility] 01/09/2017 SN60WF.205 / [id number] / Hemostatic Gelfoam Spng 12-7mm [id number] - Csc - Sna Implanted:Qty : 1 on 12/12/2017 by Duncan Bains MD at [facility] Hemostatic N/A: Spine Cervical Posterior [facility] 10/11/2019 [id number] / NA / [id number] Hemostatic Gelfoam Powder 1gm [id number] - Sna Implanted:Qty : 1 on 12/12/2017 by Duncan Bains MD at [facility] Hemostatic N/A: Spine Cervical Posterior [facility] 06/11/2020 [id number] / NA / [id number] Procedures Procedure Name Priority Date/Time Associated Diagnosis Comments XR DEXA BONE DENSITY AXIAL 1 OR MORE SITES Routine 06/06/2019 9:29 AM CDT Age-related osteoporosis without current pathological fracture Osteoporosis screening HEMOGLOBIN A1C Routine 11/30/2017 1:51 PM AGENT TICKETING GATE POC OCCULT BLOOD 1 CARD Routine 05/31/2011 [...] clinical management available online at [email or web address]/. Enter SYLOB for Select DXA and the Femoral Neck [...] clinical management available online at [email or web address]/. Enter SYLOB for Select DXA and the Femoral Neck BMD value. Bijal Castilloin Smith ASSESSMENT COUNSELOR- DIAGNOSTIC IMAGING ORD ERABLES Final Result * (ABNORMAL) HEMOGLOBIN A1C (11/30/2017 1:51 PM AGENT TICKETING GATE) HEMOGLOBIN A1C 6.2(H) 4.0 - 6.0 % 11/30/2017 2:06 PM AGENT TICKETING GATE [facility] EST. AVG GLUCOSE, A1C 131 mg/dL 11/30/2017 2:06 PM AGENT TICKETING GATE [facility] Blood Venipuncture / Unknown 11/30/2017 1:51 PM AGENT TICKETING GATE 11/30/2017 1:51 PM AGENT TICKETING GATE Fabiola Adamson [facility] CHEMISTRY ORDERABLES Final Result Performing Organization Address City/State/[facility] Co de Phone Number [facility] CLIA #[id number] [address] [place] [address] * POC OCCULT BLOOD 1 CARD (05/31/2011 2:13 PM CDT) Pathologist [facility] OCCULT BLOOD #1 Negative Negative Stool specimen (specimen) Candace An MD POINT OF CARE TESTING Heidi l Result from Last 3 Months or Most Recently Relevant to Health Maintenance Insurance MEDICARE PART A AND B [facility] Advance Directives For more information, please contact: [phone] * Full Code (Latest Code Status on [...] 6:53 AM 10/17/2016 9:32 AM Care Teams Brim Ironer Hand Relationship Specialty Start Date End Date Chung Holden MD [address] [place] [address] PCP - General Family Practice 04/12/20
--- OUTSIDE RECORDS SUMMARY | 2025-07-03 22:12 | XMS_ITS | Encounter Summary ---
Author Organization [facility] Address [address] [place] [address] Care Team Providers Care Architectural Administrative Assistant Name Role Phone Chung Holden MD Primary Care Provider Encounter Details Date Type Department Care Team (Latest Contact Info) Description 05/29/2007 Outpatient Historical [facility] Gastroenterology[address] [place] [address] Richard Bejarano MD [address] [place] [address] Special Screening for Malignant Neoplasms, Colon (Primary Dx); Diverticulosis of Colon; Internal Hemorrhoids without Mention of Complication Social History Tobacco Use Types Packs/Day Years Used Date Smoking Tobacco: Never Assessed Comments Unknown Sex and Gender Information Value Date Recorded Sex Assigned at Not on file 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 Gender Identity Not on file Sexual Orientation Not on file documented as of this encounter Plan of Treatment Not on file documented as of this encounter Visit Diagnoses Diagnosis Special screening for malignant neoplasms, colon- Primary Diverticulosis of colon Diverticulosis of colon (without mention of hemorrhage) Internal hemorrhoids without mention of complication documented in this encounter Care Teams Architectural Administrative Assistant Relationship Specialty Start Date End Date Chung Holden MD [address] [place] [address] PCP - General Family Practice 04/12/20 documented as of this encounter
--- OUTSIDE RECORDS SUMMARY | 2025-07-03 22:12 | XMS_ITS | Encounter Summary ---
Author Organization [facility] Address [address] [place] [address] Care Team Providers Care Zyglo Technician Name Role Phone Chung Holden MD Primary Care Provider [phone] Encounter Details Date Type Department Care Team (Latest Contact Info) Description 02/04/2003 Outpatient Historical [facility] Tin Pearce Jr., MD [address] [place] [address] BRONCHITIS NOS (Primary Dx); HYPERTENSION NOS; ACUTE PHARYNGITIS Social History Tobacco Use Types Packs/Day Years Used Date Smoking Tobacco: Never Assessed Comments Unknown Sex and Gender Information Value Date Recorded Sex Assigned at Not on file Legal Sex Female 5:35 AM DB2 DBA Gender Identity Not on file Sexual Orientation Not on file documented as of this encounter Plan of Treatment Not on file documented as of this encounter Visit Diagnoses Diagnosis Bronchitis, not specified as acute or chronic- Primary Unspecified essential hypertension Acute pharyngitis documented in this encounter Care Teams Zyglo Technician Relationship Specialty Start Date End Date Chung Holden MD [address] [place] [address] PCP - General Family Practice 04/12/20 documented as of this encounter
--- OUTSIDE RECORDS SUMMARY | 2025-07-03 22:12 | XMS_ITS | Encounter Summary ---
Author Organization [facility] Address [address] [facility] Attn: [place] [address] Care Team Providers Care Epic Ambulatory Analysts Name Role Phone Chung Holden MD Primary Care Provider [phone] Encounter Details Date Type Department Care Team (Late st Contact Info) Description 06/04/2008 Outpatient Historical Sandra Rader, PRICER NO ADDRESS ON FILE Social History Tobacco Use Types Packs/Day Years Used Date Smoking Tobacco: Never Alcohol Use Standard Drinks/Week Comments No 0 (1 standard drink = 0.6 oz pur e alcohol) Comments No Sex and Gender Information Value Date Recorded Sex Assigned at Not on file 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 Gender Identity Not on file Sexual Orientation Not on file documented as of this encounter Plan of Treatment Not on file documented as of this encounter Procedures Procedure Name Priority Date/Time Associated Diagnosis Comments PATHOLOGY Routine 06/04/2008 12:23 AM CDT documented in this encounter Results * PATHOLOGY (06/04/2008 12:23 AM CDT) PATHOLOGY/MARGIE ACOSTA REPORT [facility] Anatomic Pathology Dept [address] [facility] [address] Patient: CORDELIA DEMARCO Accn No: [id number] Collected: 06/04/2008 12:23:00 AM CYTOLOGY KENNEL KEEPER FINAL REPORT - - [facility] [employer] PAP History Specimen Source: None Provided Post-Menopausal Last Pap Date: None Provided Specimen Adequacy No endocervical cells identified. The presence or absence of an endocervical component is indeterminate in this specimen secondary to atrophy causing difficulty in distinguishing parabasilar type cells from squamous metaplastic cells. Diagnosis NEGATIVE FOR INTRAEPITHELIAL LESION OR MALIGNANCY. (Previously noted as Within Normal Limits) Lawn Mower CHAIM 06/09/08 Completed by: TANNER PERRY(ASCP) (Electronically [...] 06/04/2008 12:2 3 AM CDT Sandra Rader PRICER PATHOLOGY/CYTOLOGY ORDERABLES Fi nal Result INTERFACE SYSTEM Refer to clinic/hospital department documented in this encounter Visit Diagnoses Not on filedocumented in this encounter Care Teams Epic Ambulatory Analysts Relationship Specialty Start Date End Date Chung Holden MD [address] [place] [address] PCP - General Family Practice 04/12/20 documented as of this encounter
--- OUTSIDE RECORDS SUMMARY | 2025-07-03 22:12 | XMS_ITS | Encounter Summary ---
Author Organization [facility] Address [address] [place] [address] Care Team Providers Care Fire Equipment Operator Name Role Phone Chung Holden MD Primary Care Provider [phone] Encounter Details Date Type Department Care Team (Latest Contact Info) Description 05/29/2007 Outpatient Historical [facility] Endoscopy [place] [address] [place] [address] Richard Bejarano MD [address] [place] [address] Special Screening for Malignant Neoplasms, Colon (Primary Dx) Social History Tobacco Use Types Packs/Day Years Used Date Smoking Tobacco: Never Assessed Comments Unknown Sex and Gender Information Value Date Recorded Sex Assigned at Not on file 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
--- OUTSIDE RECORDS SUMMARY | 2025-07-03 22:12 | XMS_ITS | Encounter Summary ---
Author Organization [facility] Address [address] [place] [address] Care Team Providers Care Motion Picture Photographer Name Role Phone Chung Holden MD Primary Care Provider Encounter Details Date Type Department Care Team (Latest Contact Info) Description 11/21/2002 Outpatient Historical [facility] Tin Pearce Jr., MD [address] [place] [address] HYPERTENSION NOS (Primary Dx); IRON DEFIC ANEMIA NOS Social History Tobacco Use Types Packs/Day Years Used Date Smoking Tobacco: Never Assessed Comments Unknown Sex and Gender Information Value Date Recorded Sex Assigned at Not on file 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
--- OUTSIDE RECORDS SUMMARY | 2025-07-03 22:12 | XMS_ITS | Encounter Summary ---
Author Organization [facility] Address [address] [place] [address] Care Team Providers Care Alcohol Still Operator Name Role Phone Chung Holden MD Primary Care Provider [phone] Encounter Details Date Type Department Care Team (Latest Contact Info) Description 06/18/2003 Outpatient Historical [facility] Tin Pearce Jr., MD [address] [place] [address] ACUTE PHARYNGITIS (Primary Dx); ACUTE SINUSITIS NOS Social History Tobacco Use Types Packs/Day Years Used Date Smoking Tobacco: Never Assessed Comments Unknown Sex and Gender Information Value Date Recorded Sex Assigned at Not on file 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
--- OUTSIDE RECORDS SUMMARY | 2025-07-03 22:13 | XMS_ITS | Encounter Summary ---
Author Organization [facility] Address [address] [place] [address] Care Team Providers Care Branch Account Manager Name Role Phone Chung Holden MD Primary Care Provider Encounter Details Date Type Department Care Team (Latest Contact Info) Description 10/24/1999 Outpatient Historical [facility] Family Medicine [address] 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
--- OUTSIDE RECORDS SUMMARY | 2025-07-03 22:13 | XMS_ITS | Encounter Summary ---
Author Organization [facility] Address [address] [place] [address] Care Team Providers Care Outside Industrial Sales Representative Name Role Phone Chung Holden MD Primary Care Provider Encounter Details Date Type Department Care Team (Latest Contact Info) Description 06/06/2006 Outpatient Historical [facility] OBGYN-[address] [place] [address] Sandra Rader NP NO ADDRESS ON FILE Routine Medical Exam (Primary Dx); Routine Gynecological Examination; Screening for Malignant Neoplasm of the Rectum Social History Tobacco Use Types Packs/Day Years Used Date Smoking Tobacco: Never Assessed Comments Unknown Sex and Gender Information Value Date Recorded Sex Assigned at Not on file 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
--- OUTSIDE RECORDS SUMMARY | 2025-07-03 22:13 | XMS_ITS | Encounter Summary ---
Author Organization [facility] Address [address] [place] [address] Care Team Providers Care Wrapper Selector Name Role Phone Chung Holden MD Primary Care Provider [phone] Encounter Details Date Type Department Care Team (Latest Contact Info) Description 04/09/2002 Outpatient Historical [facility] Tin Pearce Jr., MD [address] [place] [address] Plantar fibromatosis (Primary Dx) Social History Tobacco Use Types Packs/Day Years Used Date Smoking Tobacco: Never Assessed Comments Unknown Sex and Gender Information Value Date Recorded Sex Assigned at Not on file 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
--- OUTSIDE RECORDS SUMMARY | 2025-07-03 22:13 | XMS_ITS | Encounter Summary ---
Author Organization [facility] Address [address] [place] [address] Care Team Providers Care College Physics Instructor Name Role Phone Chung Holden MD Primary Care Provider Encounter Details Date Type Department Care Team (Latest Contact Info) Description 01/02/2000 Outpatient Historical [facility] Robbie Coreas Darron [address] [place] [address] Tenzin Rizvi MD NO ADDRESS ON FILE Family history of malignant neoplasm of breast (Primary Dx) Social History Tobacco Use Types Packs/Day Years Used Date Smoking Tobacco: Never Assessed Comments Unknown Sex and Gender Information Value Date Recorded Sex Assigned at Not on file 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
--- OUTSIDE RECORDS SUMMARY | 2025-07-03 22:13 | XMS_ITS | Encounter Summary ---
Author Organization [facility] Address [address] [place] [address] Care Team Providers Care Inhalation Therapy Aide Name Role Phone Chung Holden MD Primary Care Provider [phone] Encounter Details Date Type Department Care Team (Late st Contact Info) Description 05/21/2006 Outpatient Historical [facility] Ear, Nose [facility] Th[facility]at [address] 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 Date Signed: 05/21/06 JAW Procedure [...] on filedocumented in this encounter Care Teams Inhalation Therapy Aide Relationship Specialty Start Date End Date Chung Holden MD [address] [place] [address] PCP - General Family Practice 04/12/20 documented as of this encounter
--- OUTSIDE RECORDS SUMMARY | 2025-07-03 22:13 | XMS_ITS | Encounter Summary ---
Author Organization [facility] Address [address] [place] [address] Care Team Providers Care Wood Floor Layer Name Role Phone Chung Holden MD Primary Care Provider Encounter Details Date Type Department Care Team (Latest Contact Info) Description 12/06/1999 Outpatient Historical [facility] Tiburcio Gutierrez NO ADDRESS ON FILE Bronchitis, not specified as acute or chronic (Primary Dx) Social History Tobacco Use Types Packs/Day Years Used Date Smoking Tobacco: Never Assessed Comments Unknown Sex and Gender Information Value Date Recorded Sex Assigned at Not on file Legal Sex Female 5:35 AM CLIENT 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
--- OUTSIDE RECORDS SUMMARY | 2025-07-03 22:13 | XMS_ITS | Encounter Summary ---
Author Organization [facility] Address [address] [place] [address] Care Team Providers Care Capsule Machine Operator Name Role Phone Chung Holden MD Primary Care Provider [phone] Encounter Details Date Type Department Care Team (Late st Contact Info) Description 05/21/2006 Outpatient Historical [facility] Imaging Services-[facility] Thomas [address] [place] [address] Ramses Chairez, Tin Stewart MD [address] [place] [address] Unspecified Otalgia (Primary Dx) Social History Tobacco Use Types Packs/Day Years Used Date Smoking Tobacco: Never Assessed Comments Unknown Sex and Gender Information Value Date Recorded Sex Assigned at Not on file Legal Sex Female 5:35 AM LAST TRIMMER Gender Identity Not on file Sexual Orientation [...] Primary documented in this encounter Care Teams Capsule Machine Operator Relationship Specialty Start Date End Date Chung Holden MD [address] [place] [address] PCP - General Family Practice 04/12/20 documented as of this encounter
--- OUTSIDE RECORDS SUMMARY | 2025-07-03 22:13 | XMS_ITS | Encounter Summary ---
Author Organization [facility] Address [address] [place] [address] Care Team Providers Care Measurement Technician Name Role Phone Chung Holden MD Primary Care Provider [phone] Reason for Referral * Outpatient Services (Routine) - Closed Specialty Diagnoses / Procedures Referred By Mini crowley Referred To Contact Diagnoses Other screening mammogram Procedures MAMMO DIGITAL SCREEN BILAT Candace An MD [address] [facility] [address] [place] [address] Phone: tel: fax: Referral ID Status Reason Start Date Expiration Date Visits Re quested Visits Authorized [id number] Closed 07/04/2011 07/03/2012 1 1 Encounter Details Date Type Department Care Team (Late st Contact Info) Description 07/04/2011 Ancillary Orders [facility] Pre-Registration [place] CALL TO MAKE APPOINTMENT ONLY [address] [place] [address] Candace An MD [address] [facility] [address] [place] [address] Other screening mammogram Social History Tobacco Use Types Packs/Day Years Used Date Smoking Tobacco: Never Smokeless Tobacco: Never Alcohol Use Standard Drinks/Week Comments No 0 (1 standard drink = 0.6 oz pur e alcohol) Comments No Sex and Gender Information Value Date Recorded Sex Assigned at Not on file 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
--- OUTSIDE RECORDS SUMMARY | 2025-07-03 22:13 | XMS_ITS | Encounter Summary ---
Author Organization [facility] Address [address] [place] [address] Care Team Providers Care Program Professional Name Role Phone Chung Holden MD Primary Care Provider [phone] Encounter Details Date Type Department Care Team (Latest Contact Info) Description 05/30/2002 Outpatient Historical [facility] Tin Pearce Jr., MD [address] [place] [address] HYPERTENSION NOS (Primary Dx); OTHER MALAISE AND FATIGUE; ANEMIA NOS Social History Tobacco Use Types Packs/Day Years Used Date Smoking Tobacco: Never Assessed Comments Unknown Sex and Gender Information Value Date Recorded Sex Assigned at Not on file 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
--- OUTSIDE RECORDS SUMMARY | 2025-07-03 22:13 | XMS_ITS | Encounter Summary ---
Author Organization [facility] Address [address] [place] [address] Care Team Providers Care Relief Charge Nurse Name Role Phone Chung Holden MD Primary Care Provider [phone] Encounter Details Date Type Department Care Team (Latest Contact Info) Description 01/29/2004 Outpatient Historical [facility] Podiatry-[place] [address] [place] [address] Rambo Cuellar, DPM NO ADDRESS ON FILE OTHER HAMMER TOE (Primary Dx) Social History Tobacco Use Types Packs/Day Years Used Date Smoking Tobacco: Never Assessed Comments Unknown Sex and Gender Information Value Date Recorded Sex Assigned at Not on file Legal Sex Female 5:35 AM 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
--- OUTSIDE RECORDS SUMMARY | 2025-07-03 22:13 | XMS_ITS | Encounter Summary ---
Author Organization [facility] Address [address] [place] [address] Care Team Providers Care Account Support Manager Name Role Phone Chung Holden MD Primary Care Provider [phone] Encounter Details Date Type Department Care Team (Late st Contact Info) Description 05/18/2006 Outpatient [facility] [address] [id number] [place], [place] [address] Tin Pearce Jr., MD [address] [place] [address] Other Screening Mammogram (Primary Dx) Social History Tobacco Use Types Packs/Day Years Used Date Smoking Tobacco: Never Assessed Comments Unknown Sex and Gender Information Value Date Recorded Sex Assigned at Not on file 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
--- OUTSIDE RECORDS SUMMARY | 2025-07-03 22:13 | XMS_ITS | Encounter Summary ---
Author Organization [facility] Address [address] [place] [address] Care Team Providers Care Catalyst Plant Supervisor Name Role Phone Chung Holden MD Primary Care Provider [phone] Encounter Details Date Type Department Care Team (Latest Contact Info) Description 11/14/2001 Outpatient Historical [facility] Pulmonology[facility] Darron [address] [place] [address] Chun Gonzalez MD NO ADDRESS ON FILE ABNORMAL FINDINGS-LUNG FIELD (Primary Dx) Social History Tobacco Use Types Packs/Day Years Used Date Smoking Tobacco: Never Assessed Comments Unknown Sex and Gender Information Value Date Recorded Sex Assigned at Not on file Legal Sex Female 5:35 AM LAB ANIMAL TECHNICIAN Gender Identity Not on file Sexual Orientation Not on file documented as of this encounter Plan of Treatment Not on file documented as of this encounter Visit Diagnoses Diagnosis Nonspecific (abnormal) findings on radiological and other examination of lung field- Primary documented in this encounter Care Teams Catalyst Plant Supervisor Relationship Specialty [place] [address] [place] [phone] PCP - General Family Practice 04/12/20 documented as of this encounter
--- OUTSIDE RECORDS SUMMARY | 2025-07-03 22:13 | XMS_ITS | Encounter Summary ---
Author Organization [facility] Address [address] [place] [address] Care Team Providers Care Insulation Engineman Name Role Phone Chung Holden MD Primary Care Provider [phone] Encounter Details Date Type Department Care Team (Late st Contact Info) Description 08/11/2011 Ancillary Orders [facility] Pre-Registration [place] CALL TO MAKE APPOINTMENT ONLY [address] [place] [address] Candace An MD [address] [facility], [facility] [address] [place] [address] Social History Tobacco Use Types Packs/Day Years Used Date Smoking Tobacco: Never Smokeless Tobacco: Never Alcohol Use Standard Drinks/Week Comments No 0 (1 standard drink = 0.6 oz pur e alcohol) Comments No Sex and Gender Information Value Date Recorded Sex Assigned at Not on file 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
--- OUTSIDE RECORDS SUMMARY | 2025-07-03 22:13 | XMS_ITS | Encounter Summary ---
Author Organization [facility] Address [address] [place] [address] Care Team Providers Care Medical Information Officer Name Role Phone Chung Holden MD Primary Care Provider [phone] Encounter Details Date Type Department Care Team (Latest Contact Info) Description 01/31/2000 Outpatient Historical [facility] Tiburcio Gutierrez NO ADDRESS ON FILE Other chronic allergic conjunctivitis (Primary Dx); Unspecified symptom associated with female genital organs; Unspecified hypertrophic and atrophic condition of skin Social History Tobacco Use Types Packs/Day Years Used Date Smoking Tobacco: Never Assessed Comments Unknown Sex and Gender Information Value Date Recorded Sex Assigned at Not on file 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
--- OUTSIDE RECORDS SUMMARY | 2025-07-03 22:13 | XMS_ITS | Encounter Summary ---
Author Organization [facility] Address [address] [place] [address] Care Team Providers Care Tag Press Operator Name Role Phone Chung Holden MD Primary Care Provider [phone] Encounter Details Date Type Department Care Team (Latest Contact Info) Description 11/14/2001 Outpatient Historical [facility] Titus [address] [place] [address] Tin Pearce Jr., MD [address] [place] [address] SWELLING IN HEAD & NECK (Primary Dx) Social History Tobacco Use Types Packs/Day Years Used Date Smoking Tobacco: Never Assessed Comments Unknown Sex and Gender Information Value Date Recorded Sex Assigned at Not on file 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
--- OUTSIDE RECORDS SUMMARY | 2025-07-03 22:13 | XMS_ITS | Encounter Summary ---
Author Organization [facility] Address [address] [place] [address] Care Team Providers Care Hospice Massage Therapist Name Role Phone Chung Holden MD Primary Care Provider [phone] Encounter Details Date Type Department Care Team (Late st Contact Info) Description 06/06/2006 Outpatient Historical [facility]OM[facility] 06 Sandra Rader, BATCH PLANT OPERATOR NO ADDRESS ON FILE Social History Tobacco Use Types Packs/Day Years Used Date Smoking Tobacco: Never Assessed Comments Unknown Sex and Gender Information Value Date Recorded Sex Assigned at Not on file 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
--- OUTSIDE RECORDS SUMMARY | 2025-07-03 22:13 | XMS_ITS | Encounter Summary ---
Author Organization [facility] Address [address] [place] [address] Care Team Providers Care Religious Ritual Slaughterer Name Role Phone Chung Holden MD Primary Care Provider [phone] Encounter Details Date Type Department Care Team (Late st Contact Info) Description 03/07/2010 Ancillary Orders [facility] Ultrasound [address] 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 alejandra 1414 PM - uploaded from [employer]- 3VR 03/09/2010 12:47 PM CDT Realtime transabdominal conventional [...] uterus. alejandra 1414 PM - uploaded from [employer]- us Tin Pearce Jr., MD US ORDERABLES [...] overlying bowel gas. ekp - uploaded from [employer] - Narrative 03/09/2010 12:47 PM CDT Real-time [...] overlying bowel gas. ekp - uploaded from [employer] - us Tin Pearce Jr., MD ORDERABLES Final R esult documented in this encounter Visit Diagnoses Diagnosis RUQ pain Abdominal pain, right upper quadrant RLQ abdominal pain Abdominal pain, right lower quadrant RUQ pain Abdominal pain, right upper quadrant RLQ abdominal pain Abdominal pain, right lower quadrant documented in this encounter Care Teams Religious Ritual Slaughterer Relationship Specialty Start Date End Date Chung Holden MD [address] [place] [phone] PCP - General Family Practice 04/12/20 documented as of this encounter
--- OUTSIDE RECORDS SUMMARY | 2025-07-03 22:13 | XMS_ITS | Encounter Summary ---
Author Organization [facility] Address [address] [place] [address] Care Team Providers Care Electric Blanket Packer Name Role Phone Chung Holden MD Primary Care Provider + [phone] Encounter Details Date Type Department Care Team (Latest Contact Info) Description 01/01/2001 Outpatient Historical [facility] Tiburcio Gutierrez NO ADDRESS ON FILE Acute pharyngitis (Primary Dx); Allergic rhinitis, cause unspecified; Anemia, unspecified; Predominant disturbance of emotions Social History Tobacco Use Types Packs/Day Years Used Date Smoking Tobacco: Never Assessed Comments Unknown Sex and Gender Information Value Date Recorded Sex Assigned at Not on file Legal Sex Female 5:35 AM POLICY SPECIALIST Gender Identity Not on file Sexual Orientation Not on file documented as of this encounter Plan of Treatment Not on file documented as of this encounter Visit Diagnoses Diagnosis Acute pharyngitis- Primary Allergic rhinitis, cause unspecified Anemia, unspecified Predominant disturbance of emotions documented in this encounter Care Teams Electric Blanket Packer Relationship Specialty Start Date End Date Chung Holden MD [address] [place] [phone] PCP - General Family Practice 04/12/20 documented as of this encounter
--- OUTSIDE RECORDS SUMMARY | 2025-07-03 22:13 | XMS_ITS | Encounter Summary ---
Author Organization [facility] Address [address] [place] [address] Care Team Providers Care Chef Assistant Name Role Phone Chung Holden MD Primary Care Provider [phone] Encounter Details Date Type Department Care Team (Latest Contact Info) Description 05/09/2004 Outpatient Historical [facility] Podiatry-Avalos Herkimer Burnett [address] [place] [address] Rambo Cuellar, DPM NO ADDRESS ON FILE OTHER HAMMER TOE (Primary Dx) Social History Tobacco Use Types Packs/Day Years Used Date Smoking Tobacco: Never Assessed Comments Unknown Sex and Gender Information Value Date Recorded Sex Assigned at Not on file 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
--- OUTSIDE RECORDS SUMMARY | 2025-07-03 22:13 | XMS_ITS | Encounter Summary ---
Author Organization [facility] Address [address] [place] [address] Care Team Providers Care Hotel Valet Attendant Name Role Phone Chung Holden MD Primary Care Provider Encounter Details Date Type Department Care Team (Latest Contact Info) Description 05/20/2012 Ancillary Orders [facility] Pre-Registration [place] CALL TO MAKE APPOINTMENT ONLY [address] [place] [address] Tin Pearce Jr., MD [address] [place] [address] Other screening mammogram Social History Tobacco Use Types Packs/Day Years Used Date Smoking Tobacco: Never Smokeless Tobacco: Never Alcohol Use Standard Drinks/Week Comments No 0 (1 standard drink = 0.6 oz pur e alcohol) Comments No Sex and Gender Information Value Date Recorded Sex Assigned at Not on file 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
--- OUTSIDE RECORDS SUMMARY | 2025-07-03 22:13 | XMS_ITS | Encounter Summary ---
Author Organization [facility] Address [address] [place] [address] Care Team Providers Care Broadcast Operations Director Name Role Phone Chung Holden MD Primary Care Provider Reason for Referral * Outpatient Services (Routine) - Closed Specialty Diagnoses / Procedures Referred By Mini crowley Referred To Contact Diagnoses Female pelvic pain Procedures US RENAL AND BLADDER Tin Pearce Jr., MD [address] [place] [address] Phone: tel: fax: Referral ID Status Reason Start Date Expiration Date Visits Re quested Visits Authorized [id number] Closed 03/08/2011 09/04/2011 1 1 Encounter Details Date Type Department Care Team (Late st Contact Info) Description 03/08/2011 Ancillary Orders [facility] Pre-Registration [place] CALL TO MAKE APPOINTMENT ONLY [address] [place] [address] Tin Pearce Jr., MD [address] [place] [address] Female pelvic pain Social History Tobacco Use Types Packs/Day Years Used Date Smoking Tobacco: Never Alcohol Use Standard Drinks/Week Comments No 0 (1 standard drink = 0.6 oz pur e alcohol) Comments No Sex and Gender Information Value Date Recorded Sex Assigned at Not on file Legal Sex Female 5:35 AM SOCIAL WORK 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 ljw 1725 PM - uploaded from [employer]- Procedure Note Len Parks MD - 03/12/2011 Exam: US RENAL AND BLADDER Date/Time of Exam: Mar 10, 2011 02:12:00 PM History: FEMALE PELVIC PAIN Findings/Impression: Bilaterally, the kidneys are unremarkable. The right length measures 12.7 cm and the left measures 11.7 cm. With regard to the urinary bladder, it seems unremarkable. ljw 1725 PM - uploaded from [employer]- us Tin Pearce Jr., MD US ORDERABLES Final R esult documented in this encounter Visit Diagnoses Diagnosis Female pelvic pain Unspecified symptom associated with female genital organs Female pelvic pain Unspecified symptom associated with female genital organs documented in this encounter Care Teams Broadcast Operations Director Relationship Specialty Start Date End Date Chung Holden MD [address] [place] [address] PCP - General Family Practice 04/12/20 documented as of this encounter
--- OUTSIDE RECORDS SUMMARY | 2025-07-03 22:13 | XMS_ITS | Encounter Summary ---
Author Organization [facility] Address [address] [place] [address] Care Team Providers Care News Director Name Role Phone Chung Holden MD Primary Care Provider [phone] Encounter Details Date Type Department Care Team (Late st Contact Info) Description 11/14/2001 Outpatient Historical [facility] Imaging Services-[facility] [place] [address] [place] [address] Social History Tobacco Use Types Packs/Day Years Used Date Smoking Tobacco: Never Assessed Comments Unknown Sex and Gender Information Value Date Recorded Sex Assigned at Not on file 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
--- OUTSIDE RECORDS SUMMARY | 2025-07-03 22:13 | XMS_ITS | Encounter Summary ---
Author Organization [facility] Address [address] [place] [address] Care Team Providers Care Director Of Digital Platforms Name Role Phone Chung Holden MD Primary Care Provider Encounter Details Date Type Department Care Team (Latest Contact Info) Description 02/12/2004 Outpatient Historical [facility] Imaging Services-[facility] [place] [address] [place] [phone] Rambo Cuellar, DPM NO ADDRESS ON FILE Pain in limb (Primary Dx) Social History Tobacco Use Types Packs/Day Years Used Date Smoking Tobacco: Never Assessed Comments Unknown Sex and Gender Information Value Date Recorded Sex Assigned at Not on file 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
--- OUTSIDE RECORDS SUMMARY | 2025-07-03 22:13 | XMS_ITS | Encounter Summary ---
Author Organization [facility] Address [address] [place] [address] Care Team Providers Care Instrument Adjuster Name Role Phone Chung Holden MD Primary Care Provider [phone] Reason for Referral * Outpatient Services (Routine) - Closed Specialty Diagnoses / Procedures Referred By Contac t Referred To Contact Diagnoses Other screening mammogram Procedures MAMMO DIGITIZED STUDY Candace An MD [address] [address] Phone: tel: fax: Referral ID Status Reason Start Date Expiration Date Visits Re quested Visits Authorized [id number] Closed 09/07/2011 09/06/2012 1 1 * Outpatient Services (Routine) - Closed Specialty Diagnoses / Procedures Referred By Mini crowley Referred To Contact Diagnoses Other screening mammogram Procedures MAMMO DIGITIZED STUDY Candace An MD [address] [address] Phone: tel: fax: Referral ID Status Reason Start Date Expiration Date Visits Re quested Visits Authorized [id number] Closed 09/07/2011 09/06/2012 1 1 Encounter Details Date Type Department Care Team (Late st Contact Info) Description 09/07/2011 Ancillary Orders [facility] Pre-Registration [place] CALL TO MAKE APPOINTMENT ONLY [address] [place] [facility] [place] [address] Candace An MD [address] [facility] [place] [address] Other screening mammogram Social History Tobacco Use Types Packs/Day Years Used Date Smoking Tobacco: Never Smokeless Tobacco: Never Alcohol Use Standard Drinks/Week Comments No 0 (1 standard drink = 0.6 oz pur e alcohol) Comments No Sex and Gender Information Value Date Recorded Sex Assigned at Not on file 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
--- OUTSIDE RECORDS SUMMARY | 2025-07-03 22:13 | XMS_ITS | Encounter Summary ---
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
--- OUTSIDE RECORDS SUMMARY | 2025-07-03 22:13 | XMS_ITS | Encounter Summary ---
Author Organization [facility] Address [address] [place] [address] Care Team Providers Care Hoop Punch And Coiler Operator Name Role Phone Chung Holden MD Primary Care Provider Reason for Referral * Outpatient Services (Routine) - Closed Specialty Diagnoses / Procedures Referred By Mini crowley Referred To Contact Diagnoses Other screening mammogram Breast cancer screening Procedures MAMMO DIGITAL SCREEN BILAT Ag Urbina MD [address] [address] Phone: tel: fax: [facility] Pre-Registration [place] CALL TO MAKE APPOINTMENT ONLY [address] [place] [address] Phone: tel: fax: Referral ID Status Reason Start Date Expiration Date V isits Requested Visits Authorized [id number] Closed [facility] TO SCHEDULE (SGF) 08/15/2013 09/15/2014 1 1 Encounter Details Date Type Department Care Team (Late st Contact Info) Description 08/15/2013 Ancillary Orders [facility] Imaging Services [address] [place] [address] Ag Urbina MD [address] [facility] [address] [place] [address] Other screening mammogram (Primary Dx); Breast cancer screening Social History Tobacco Use Types Packs/Day Years Used Date Smoking Tobacco: Never Smokeless Tobacco: Never Alcohol Use Standard Drinks/Week Comments No 0 (1 standard drink = 0.6 oz pur e alcohol) Comments No Sex and Gender Information Value Date Recorded Sex Assigned at Not on file 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
--- OUTSIDE RECORDS SUMMARY | 2025-07-03 22:13 | XMS_ITS | Encounter Summary ---
Author Organization [facility] Address [address] [place] [address] Care Team Providers Care Satellite Dish Repairer Name Role Phone Chung Holden MD Primary Care Provider [phone] Encounter Details Date Type Department Care Team (Latest Contact Info) Description 12/02/2003 Outpatient Historical [facility] OBGYN-[address] [place] [address] Nguyễn Chairez, Angel Cano MD NO ADDRESS ON FILE Routine medical exam (Primary Dx); Gynecologic examination; SCREENING MAL NEOP-RECTUM Social History Tobacco Use Types Packs/Day Years Used Date Smoking Tobacco: Never Assessed Comments Unknown Sex and Gender Information Value Date Recorded Sex Assigned at Not on file Legal Sex Female 5:35 AM BUSHWALKING 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
--- OUTSIDE RECORDS SUMMARY | 2025-07-03 22:13 | XMS_ITS | Encounter Summary ---
Author Organization [facility] Address [address] [place] [address] Care Team Providers Care Jr. 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 Systems Administrator Relationship Specialty Start Date End Date Chung Holden MD [address] [place] [phone] PCP - General Family Practice 04/12/20 documented as of this encounter
--- OUTSIDE RECORDS SUMMARY | 2025-07-03 22:13 | XMS_ITS | Encounter Summary ---
Author Organization [facility] Address [address] [place] [address] Care Team Providers Care Remotely Operated Vehicle Name Role Phone Chung Holden MD Primary Care Provider Encounter Details Date Type Department Care Team (Latest Contact Info) Description 06/26/2002 Outpatient Historical [facility] Robbie Coreas Darron [address] [place] [address] MD NO ADDRESS ON FILE SCREENING MAMM-MAILG NEOPL-OTHER (Primary Dx) Social History Tobacco Use Types Packs/Day Years Used Date Smoking Tobacco: Never Assessed Comments Unknown Sex and Gender Information Value Date Recorded Sex Assigned at Not on file 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
--- OUTSIDE RECORDS SUMMARY | 2025-07-03 22:13 | XMS_ITS | Encounter Summary ---
Author Organization [facility] Address [address] [place] [address] Care Team Providers Care Filler Picker Name Role Phone Chung Holden MD Primary Care Provider Encounter Details Date Type Department Care Team (Latest Contact Info) Description 12/02/2003 Outpatient Historical [facility] Robbie Coreas Darron [address] [place] [address] Tenzin Rizvi MD NO ADDRESS ON FILE SCREENING MAMM-MAILG NEOPL-OTHER (Primary Dx) Social History Tobacco Use Types Packs/Day Years Used Date Smoking Tobacco: Never Assessed Comments Unknown Sex and Gender Information Value Date Recorded Sex Assigned at Not on file 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
--- OUTSIDE RECORDS SUMMARY | 2025-07-03 22:13 | XMS_ITS | Encounter Summary ---
Author Organization [facility] Address [address] [place] [address] Care Team Providers Care Repairer Maintenance Building Name Role Phone Chung Holden MD Primary Care Provider [phone] Encounter Details Date Type Department Care Team (Latest Contact Info) Description 02/12/2004 Outpatient Historical [facility] Podiatry-Avalos Esmeralda [place] [address] [place] [phone] Rambo Cuellar, DPM NO ADDRESS ON FILE OTHER HAMMER TOE (Primary Dx) Social History Tobacco Use Types Packs/Day Years Used Date Smoking Tobacco: Never Assessed Comments Unknown Sex and Gender Information Value Date Recorded Sex Assigned at Not on file 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
--- OUTSIDE RECORDS SUMMARY | 2025-07-03 22:13 | XMS_ITS | Encounter Summary ---
Author Organization [facility] Address [address] [place] [address] Care Team Providers Care Spot Machine Operator Name Role Phone Chung Holden MD Primary Care Provider [phone] Encounter Details Date Type Department Care Team (Latest Contact Info) Description 05/18/2006 Outpatient Historical [facility] [address] [phone] Tenzin Rizvi MD NO ADDRESS ON FILE Other Screening Mammogram (Primary Dx) Social History Tobacco Use Types Packs/Day Years Used Date Smoking Tobacco: Never Assessed Comments Unknown Sex and Gender Information Value Date Recorded Sex Assigned at Not on file 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
--- OUTSIDE RECORDS SUMMARY | 2025-07-03 22:13 | XMS_ITS | Encounter Summary ---
Author Organization [facility] Address [address] [place] [address] Care Team Providers Care Photographic Plate Maker Name Role Phone Chung Holden MD Primary Care Provider Encounter Details Date Type Department Care Team (Latest Contact Info) Description 01/14/2001 Outpatient Historical [facility] Robbie Coreas Darron [address] [place] [phone] Tenzin Rizvi MD NO ADDRESS ON FILE Other screening mammogram (Primary Dx) Social History Tobacco Use Types Packs/Day Years Used Date Smoking Tobacco: Never Assessed Comments Unknown Sex and Gender Information Value Date Recorded Sex Assigned at Not on file 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
--- OUTSIDE RECORDS SUMMARY | 2025-07-03 22:13 | XMS_ITS | Encounter Summary ---
Author Organization [facility] Address [address] [place] [address] Care Team Providers Care Customs Appraiser Name Role Phone Cuhng Holden MD Primary Care Provider [phone] Encounter Details Date Type Department Care Team (Latest Contact Info) Description 12/21/1999 Outpatient Historical [facility] Tiburcio Gutierrez NO ADDRESS ON FILE Bronchitis, not specified as acute or chronic (Primary Dx); Cough Social History Tobacco Use Types Packs/Day Years Used Date Smoking Tobacco: Never Assessed Comments Unknown Sex and Gender Information Value Date Recorded Sex Assigned at Not on file 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
--- OUTSIDE RECORDS SUMMARY | 2025-07-03 22:13 | XMS_ITS | Encounter Summary ---
Author Organization [facility] Address [address] [place] [address] Care Team Providers Care Councilor Name Role Phone Chung Holden MD Primary Care Provider [phone] Encounter Details Date Type Department Care Team ([facility] st Contact Info) Description 08/14/2006 Outpatient Historical [facility] D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
--- OUTSIDE RECORDS SUMMARY | 2025-07-03 22:13 | XMS_ITS | Encounter Summary ---
Author Organization [facility] Address [address] [place] [address] Care Team Providers Care Measurement Supervisor Name Role Phone Chung Holden MD Primary Care Provider Encounter Details Date Type Department Care Team (Latest Contact Info) Description 04/07/2004 Outpatient Historical [facility] Podiatry-[place] [address] [place] [address] Rambo Cuellar, DPM NO ADDRESS ON FILE OTHER HAMMER TOE (Primary Dx); JOINT EFFUSION-ANKLE; JOINT PAIN-ANKLE Social History Tobacco Use Types Packs/Day Years Used Date Smoking Tobacco: Never Assessed Comments Unknown Sex and Gender Information Value Date Recorded Sex Assigned at Not on file 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
--- OUTSIDE RECORDS SUMMARY | 2025-07-03 22:13 | XMS_ITS | Encounter Summary ---
Author Organization [facility] Address [address] [place] [address] Care Team Providers Care Galley Hand Name Role Phone Chung Holden MD Primary Care Provider [phone] Encounter Details Date Type Department Care Team (Latest Contact Info) Description 02/17/2004 Outpatient Historical [facility] Podiatry-Robbie Stovallnn Ravalli [address] [place] [phone] Rambo Cuellar, DPM NO ADDRESS ON FILE ANOMALIES OF TOES NEC (Primary Dx) Social History Tobacco Use Types Packs/Day Years Used Date Smoking Tobacco: Never Assessed Comments Unknown Sex and Gender Information Value Date Recorded Sex Assigned at Not on file 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
--- OUTSIDE RECORDS SUMMARY | 2025-07-03 22:13 | XMS_ITS | Encounter Summary ---
Author Organization [facility] Address [address] [place] [address] Care Team Providers Care Access Liaison Name Role Phone Chung Holden MD Primary Care Provider [phone] Encounter Details Date Type Department Care Team (Late st Contact Info) Description 01/03/2005 Outpatient Historical [facility] Robbie Coreas Darron [address] [place] [phone] Nellie Mijares MD NO ADDRESS ON FILE SCREENING MAMM-MAILG NEOPL-OTHER (Primary Dx) Social History Tobacco Use Types Packs/Day Years Used Date Smoking Tobacco: Never Assessed Comments Unknown Sex and Gender Information Value Date Recorded Sex Assigned at Not on file 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
--- OUTSIDE RECORDS SUMMARY | 2025-07-03 22:13 | XMS_ITS | Encounter Summary ---
Author Organization [facility] Address [address] [place] [address] Care Team Providers Care Surveillance System Monitor Name Role Phone Chung Holden MD Primary Care Provider [phone] Reason for Referral * Outpatient Services (Routine) - Closed Specialty Diagnoses / Procedures Referred By Mini crowley Referred To Contact Diagnoses Other screening mammogram Procedures MAMMO DIGITAL SCREEN BILAT Ag Urbina MD [address] [address] Phone: tel: fax: Referral ID Status Reason Start Date Expiration Date Visits Re quested Visits Authorized [id number] Closed 09/09/2012 09/09/2013 1 1 Encounter Details Date Type Department Care Team (Late st Contact Info) Description 09/09/2012 Ancillary Orders [facility] [address] [facility] [address] [place] [address] Ag Urbina MD [address] [address] Other screening mammogram Social History Tobacco Use Types Packs/Day Years Used Date Smoking Tobacco: Never Smokeless Tobacco: Never Alcohol Use Standard Drinks/Week Comments No 0 (1 standard drink = 0.6 oz pur e alcohol) Comments No Sex and Gender Information Value Date Recorded Sex Assigned at Not on file 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
--- OUTSIDE RECORDS SUMMARY | 2025-07-03 22:13 | XMS_ITS | Encounter Summary ---
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
--- OUTSIDE RECORDS SUMMARY | 2025-07-03 22:13 | XMS_ITS | Encounter Summary ---
Author Organization [facility] Address [address] [place] [address] Care Team Providers Care Back Padder Name Role Phone Chung Holden MD Primary Care Provider [phone] Encounter Details Date Type Department Care Team (Latest Contact Info) Description 01/22/2004 Outpatient Historical [facility] Riki Onofre MD [address] [place] [address] INGROWING NAIL (Primary Dx); ALLERGIC RHINITIS NOS; ACUTE PHARYNGITIS Social History Tobacco Use Types Packs/Day Years Used Date Smoking Tobacco: Never Assessed Comments Unknown Sex and Gender Information Value Date Recorded Sex Assigned at Not on file 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
--- OUTSIDE RECORDS SUMMARY | 2025-07-03 22:13 | XMS_ITS | Encounter Summary ---
Author Organization [facility] Address [address] [place] [address] Care Team Providers Care Cement Storage Worker Name Role Phone Chung Holden MD Primary Care Provider Encounter Details Date Type Department Care Team (Latest Contact Info) Description 12/02/2003 Outpatient Historical [facility] Robbie Coreas Darron [address] [place] [address] Riki Onofre MD [address] [place] [address] SCREENING MAMM-MAILG NEOPL-OTHER (Primary Dx) Social History Tobacco Use Types Packs/Day Years Used Date Smoking Tobacco: Never Assessed Comments Unknown Sex and Gender Information Value Date Recorded Sex Assigned at Not on file 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
--- OUTSIDE RECORDS SUMMARY | 2025-07-03 22:13 | XMS_ITS | Encounter Summary ---
Author Organization [facility] Address [address] [place] [address] Care Team Providers Care Composition Floor Layer Name Role Phone Chung Holden MD Primary Care Provider [phone] Encounter Details Date Type Department Care Team (Latest Contact Info) Description 12/27/2000 Outpatient Historical [facility] Nguyễn De La Rosa MD [address] [place] [address] Mumps uncomplicated (Primary Dx); Acute pharyngitis Social History Tobacco Use Types Packs/Day Years Used Date Smoking Tobacco: Never Assessed Comments Unknown Sex and Gender Information Value Date Recorded Sex Assigned at Not on file 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
--- OUTSIDE RECORDS SUMMARY | 2025-07-03 22:13 | XMS_ITS | Encounter Summary ---
Author Organization [facility] Address [address] [place] [address] Care Team Providers Care Cutter In Name Role Phone Chung Holden MD Primary Care Provider Reason for Referral * Outpatient Services (Routine) - Closed Specialty Diagnoses / Procedures Referred By Mini crowley Referred To Contact Diagnoses Other screening mammogram Procedures MAMMO DIGITAL SCREEN BILAT Candace An MD Phone: tel: fax: Referral ID Status Reason Start Date Expiration Date Visits Re quested Visits Authorized [id number] Closed 08/05/2015 09/04/2016 1 1 Encounter Details Date Type Department Care Team (Late st Contact Info) Description 08/05/2015 Ancillary Orders [facility] Pre-Registration [place] CALL TO MAKE APPOINTMENT ONLY [address] [place] [address] Candace An MD [address] [facility] [address] [place] [address] Other screening mammogram (Primary Dx) Social History Tobacco Use Types Packs/Day Years Used Date Smoking Tobacco: Never Smokeless Tobacco: Never Alcohol Use Standard Drinks/Week Comments No 0 (1 standard drink = 0.6 oz pur e alcohol) Comments No Sex and Gender Information Value Date Recorded Sex Assigned at Not on file Legal Sex Female 5:35 AM GAMMA OPERATOR Gender Identity Not on file Sexual [...] MAMMO DIGITAL SCREEN BILAT (09/20/2015 8:55 AM GAMMA OPERATOR) Anatomical Region Laterality Modality Breast Bilateral Mammography Narrative 09/21/2015 11:15 AM GAMMA OPERATOR Bilateral Mammogram Reason for Exam: Screening Comparison: [...] mammogram documented in this encounter Care Teams Cutter In Relationship Specialty Start Date End Date Chung Holden MD [address] [place] [address] PCP - General Family Practice 04/12/20 documented as of this encounter
--- OUTSIDE RECORDS SUMMARY | 2025-07-03 22:13 | XMS_ITS | Encounter Summary ---
Author Organization [facility] Address [address] [place] [address] Care Team Providers Care Slot Floor Person Name Role Phone Chung Holden MD Primary Care Provider [phone] Encounter Details Date Type Department Care Team (Latest Contact Info) Description 12/20/2001 Outpatient Historical [facility] Tin Pearce Jr., MD [address] [place] [address] PNEUMONIA, ORGANISM NOS (Primary Dx); ROSACEA Social History Tobacco Use Types Packs/Day Years Used Date Smoking Tobacco: Never Assessed Comments Unknown Sex and Gender Information Value Date Recorded Sex Assigned at Not on file 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
--- OUTSIDE RECORDS SUMMARY | 2025-07-03 22:13 | XMS_ITS | Encounter Summary ---
Author Organization [facility] Address [address] [facility] [address] Cummingsn: Epic [place] [address] Care Team Providers Care Rn Emergency Name Role Phone Chung Holden MD Primary Care Provider [phone] Encounter Details Date Type Department Care Team (Late st Contact Info) Description 06/26/2002 Outpatient Historical Candace An MD [address] 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
--- OUTSIDE RECORDS SUMMARY | 2025-07-03 22:13 | XMS_ITS | Encounter Summary ---
Author Organization [facility] Address [address] [place] [address] Care Team Providers Care Conference Director Name Role Phone Chung Holden MD Primary Care Provider [phone] Encounter Details Date Type Department Care Team (Latest Contact Info) Description 05/21/2006 Outpatient Historical [facility] 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
--- OUTSIDE RECORDS SUMMARY | 2025-07-03 22:13 | XMS_ITS | Encounter Summary ---
Author Organization [facility] Address [address] [place] [address] Care Team Providers Care Lab Aid Name Role Phone Chung Holden MD Primary Care Provider Encounter Details Date Type Department Care Team (Latest Contact Info) Description 01/29/2004 Outpatient Historical [facility] [address] [place] [address] Rambo Cuellar, DPM NO ADDRESS ON FILE OTHER HAMMER TOE (Primary Dx) Social History Tobacco Use Types Packs/Day Years Used Date Smoking Tobacco: Never Assessed Comments Unknown Sex and Gender Information Value Date Recorded Sex Assigned at Not on file 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
--- OUTSIDE RECORDS SUMMARY | 2025-07-03 22:13 | XMS_ITS | Encounter Summary ---
Author Organization [facility] Address [address] [place] [address] Care Team Providers Care Information Assurance Name Role Phone Chung Holden MD Primary Care Provider [phone] Encounter Details Date Type Department Care Team (Late st Contact Info) Description 10/26/2016 Ancillary Orders [facility] Pre-Registration [place] CALL TO MAKE APPOINTMENT ONLY [address] [place] [address] Jason Ramos MD [address] [phone] Social History Tobacco Use Types Packs/Day Years Used Date Smoking Tobacco: Never Smokeless Tobacco: Never Alcohol Use Standard Drinks/Week Comments No 0 (1 standard drink = 0.6 oz pur e alcohol) Comments No Sex and Gender Information Value Date Recorded Sex Assigned at Not on file 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
--- OUTSIDE RECORDS SUMMARY | 2025-07-03 22:13 | XMS_ITS | Encounter Summary ---
Author Organization [facility] Address [address] [place] [address] Care Team Providers Care Mill Worker Name Role Phone Chung Holden MD Primary Care Provider [phone] Encounter Details Date Type Department Care Team (Latest Contact Info) Description 08/02/2004 Outpatient Historical [facility] Imaging Services [address] [place] [address] Tin Pearce Jr., MD [address] [place] [address] SWELLING IN HEAD & NECK (Primary Dx) Social History Tobacco Use Types Packs/Day Years Used Date Smoking Tobacco: Never Assessed Comments Unknown Sex and Gender Information Value Date Recorded Sex Assigned at Not on file 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
--- OUTSIDE RECORDS SUMMARY | 2025-07-03 22:13 | XMS_ITS | Encounter Summary ---
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
--- OUTSIDE RECORDS SUMMARY | 2025-07-03 22:13 | XMS_ITS | Encounter Summary ---
Author Organization [facility] Address [address] [place] [address] Care Team Providers Care Tafe Teacher Name Role Phone Chung Holden MD Primary Care Provider [phone] Encounter Details Date Type Department Care Team (Latest Contact Info) Description 03/02/2004 Outpatient Historical [facility] Podiatry-Robbie [place] [address] [place] [phone] Rambo Cuellar, DPM NO ADDRESS ON FILE ANOMALIES OF TOES NEC (Primary Dx) Social History Tobacco Use Types Packs/Day Years Used Date Smoking Tobacco: Never Assessed Comments Unknown Sex and Gender Information Value Date Recorded Sex Assigned at Not on file 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
--- OUTSIDE RECORDS SUMMARY | 2025-07-03 22:13 | XMS_ITS | Encounter Summary ---
Author Organization [facility] Address [address] [place] [address] Care Team Providers Care Heart Coordinator Name Role Phone Chung Holden MD Primary Care Provider Reason for Referral * Outpatient Services (Routine) - Closed Specialty Diagnoses / Procedures Referred By Mini crowley Referred To Contact Diagnoses Other screening mammogram Procedures MAMMO DIGITAL SCREEN BILAT Candace An MD [address] [facility] [address] [place] [address] Phone: tel: fax: [facility] Pre-Registration [place] CALL TO MAKE APPOINTMENT ONLY [address] [place] [address] Phone: tel: fax: Referral ID Status Reason Start Date Expiration Date Visits Re quested Visits Authorized [id number] Closed 08/03/2014 09/03/2015 1 1 Encounter Details Date Type Department Care Team (Late st Contact Info) Description 08/03/2014 Ancillary Orders [facility] Pre-Registration [place] CALL TO MAKE APPOINTMENT ONLY [address] [place] [address] Candace An MD [address] [facility] [address] [place] [phone] Other screening mammogram (Primary Dx) Social History Tobacco Use Types Packs/Day Years Used Date Smoking Tobacco: Never Smokeless Tobacco: Never Alcohol Use Standard Drinks/Week Comments No 0 (1 standard drink = 0.6 oz pur e alcohol) Comments No Sex and Gender Information Value Date Recorded Sex Assigned at Not on file 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
--- OUTSIDE RECORDS SUMMARY | 2025-07-03 22:13 | XMS_ITS | Encounter Summary ---
Author Organization [facility] Address [address] [place] [address] Care Team Providers Care Chemist Physical Name Role Phone Chung Holden MD Primary Care Provider Encounter Details Date Type Department Care Team (Latest Contact Info) Description 12/07/2003 Outpatient Historical [facility] Riki Onofre MD [address] [place] [address] URIN TRACT INFECTION NOS (Primary Dx); LUMBAGO Social History Tobacco Use Types Packs/Day Years Used Date Smoking Tobacco: Never Assessed Comments Unknown Sex and Gender Information Value Date Recorded Sex Assigned at Not on file 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
--- OUTSIDE RECORDS SUMMARY | 2025-07-03 22:13 | XMS_ITS | Encounter Summary ---
Author Organization [facility] Address [address] [place] [address] Care Team Providers Care Sales Activity Manager Name Role Phone Chung Holden MD Primary Care Provider [phone] Encounter Details Date Type Department Care Team (Late st Contact Info) Description 01/21/2002 Outpatient Historical [facility] OBGYN-A[place] [address] [place] [address] Candace An MD [address] [facility] [address] [place] [address] Gynecologic examination (Primary Dx); Excessive menstruation; SCREENING MAL NEOP-RECTUM; ANEMIA NOS Social History Tobacco Use Types Packs/Day Years Used Date Smoking Tobacco: Never Assessed Comments Unknown Sex and Gender Information Value Date Recorded Sex Assigned at Not on file 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 Gender Identity Not on file Sexual Orientation Not on file documented as of this encounter Plan of Treatment Not on file documented as of this encounter Visit Diagnoses Diagnosis Gynecologic examination- Primary Gynecological examination Excessive menstruation Excessive or frequent menstruation Screening for malignant neoplasm of the rectum Anemia, unspecified documented in this encounter Care Teams Sales Activity Manager Relationship Specialty [place] [address] [place] [phone] PCP - General Family Practice 04/12/20 documented as of this encounter
--- OUTSIDE RECORDS SUMMARY | 2025-07-03 22:13 | XMS_ITS | Encounter Summary ---
Author Organization [facility] Address [address] [place] [address] Care Team Providers Care Crm Functional Analyst Name Role Phone Chung Holden MD Primary Care Provider [phone] Encounter Details Date Type Department Care Team (Late st Contact Info) Description 01/03/2005 Outpatient Historical [facility] Robbie Coreas [place] [address] [place] [phone] Tin Pearce Jr., MD [address] [place] [address] SCREENING MAMM-MAILG NEOPL-OTHER (Primary Dx) Social History Tobacco Use Types Packs/Day Years Used Date Smoking Tobacco: Never Assessed Comments Unknown Sex and Gender Information Value Date Recorded Sex Assigned at Not on file 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
--- OUTSIDE RECORDS SUMMARY | 2025-07-03 22:13 | XMS_ITS | Encounter Summary ---
Author Organization [facility] Address [address] 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
--- OUTSIDE RECORDS SUMMARY | 2025-07-03 22:13 | XMS_ITS | Encounter Summary ---
Author Organization [facility] Address [address] [place] [address] Care Team Providers Care Applications Support Analyst Name Role Phone Chung Holden MD Primary Care Provider Reason for Referral * Outpatient Services (Routine) - Closed Specialty Diagnoses / Procedures Referred By Contac t Referred To Contact Diagnoses Chest pain, unspecified Wheezing Procedures NM PHARMACOLOGICAL STRESS TEST Ag Urbina MD [address] [address] Phone: tel: fax: [facility] Pre-Registration [place] CALL TO MAKE APPOINTMENT ONLY [address] [place] [address] Phone: tel: fax: Referral ID Status Reason Start Date Expiration Date V isits Requested Visits Authorized [id number] Closed [facility] TO SCHEDULE ([facility]) 02/27/2014 03/30/2015 1 1 * Outpatient Services (Routine) - Closed Specialty Diagnoses / Procedures Referred By Contac t Referred To Contact Diagnoses Chest pain, unspecified Wheezing Procedures NM MYOCARD PERF IMAG SPECT MULT Ag Urbina MD [address] [address] Phone: tel: fax: [facility] Pre-Registration [place] CALL TO MAKE APPOINTMENT ONLY [address] [place] [address] Phone: tel: fax: Referral ID Status Reason Start Date Expiration Date V isits Requested Visits Authorized [id number] Closed [facility] TO SCHEDULE ([facility]) 02/18/2014 04/10/2014 1 1 Encounter Details Date Type Department Care Team (Late st Contact Info) Description 02/27/2014 Ancillary Orders [facility] Pre-Registration [place] CALL TO MAKE APPOINTMENT ONLY [address] [place] [address] Ag Urbina MD [address] [address] Chest pain, unspecified (Primary Dx); Wheezing Social History Tobacco Use Types Packs/Day Years Used Date Smoking Tobacco: Never Smokeless Tobacco: Never Alcohol Use Standard Drinks/Week Comments No 0 (1 standard drink = 0.6 oz pur e alcohol) Comments No Sex and Gender Information Value Date Recorded Sex Assigned at Not on file 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 Wilfredo Gill MD, [facility] This laboratory has been accredited by the [...] available for direct comparison. Wilfredo Gill MD, [facility] This laboratory has been accredited by the Intersocietal Commission for the Accreditation of Nuclear Medicine Laboratories (ICANL). us Ag Urbina MD MA ORDERABLES Final Result INTERFACE SYSTEM Refer to [...] available for direct comparison. Wilfredo Gill MD, [facility] This laboratory has been accredited by the [...] available for direct comparison. Wilfredo Gill MD, [facility] This laboratory has been accredited by the Intersocietal Commission for the Accreditation of Nuclear Medicine Laboratories (ICANL). Ag Urbina MD MA ORDERABLES Final Result INTERFACE SYSTEM Refer to clinic/hospital department documented in this encounter Visit Diagnoses Diagnosis Chest pain, unspecified- Primary Wheezing Chest pain, unspecified Wheezing Chest pain, unspecified Wheezing documented in this encounter Care Teams Applications Support Analyst Relationship Specialty Start Date End Date Chung Holden MD [address] [place] [address] PCP - General Family Practice 04/12/20 documented as of this encounter
--- OUTSIDE RECORDS SUMMARY | 2025-07-03 22:13 | XMS_ITS | Encounter Summary ---
Author Organization [facility] Address [address] [place] [address] Care Team Providers Care Lesson Instructor Name Role Phone Chung Holden MD Primary Care Provider [phone] Encounter Details Date Type Department Care Team (Latest Contact Info) Description 02/09/2004 Outpatient Historical [facility] [address] [place] [address] [phone] Rambo Cuellar, DPM NO ADDRESS ON FILE OTHER HAMMER TOE (Primary Dx) Social History Tobacco Use Types Packs/Day Years Used Date Smoking Tobacco: Never Assessed Comments Unknown Sex and Gender Information Value Date Recorded Sex Assigned at Not on file 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
--- OUTSIDE RECORDS SUMMARY | 2025-07-03 22:13 | XMS_ITS | Encounter Summary ---
Author Organization [facility] Address [address] [place] [address] Care Team Providers Care Sales Representative Church Furniture Name Role Phone Chung Holden MD Primary Care Provider [phone] Encounter Details Date Type Department Care Team (Latest Contact Info) Description 06/11/2002 Outpatient Historical [facility] Tin Pearce Jr., MD [address] [place] [address] PNEUMONIA, ORGANISM NOS (Primary Dx) Social History Tobacco Use Types Packs/Day Years Used Date Smoking Tobacco: Never Assessed Comments Unknown Sex and Gender Information Value Date Recorded Sex Assigned at Not on file 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
--- OUTSIDE RECORDS SUMMARY | 2025-07-03 22:13 | XMS_ITS | Patient Health Record ---
Author Organization [facility] Address [address] [place] [address] Care Team Providers Care Nursing Informatics Clinical Analyst Name Role Phone Tin Pearce Unavailable [phone] Allergies Allergen (clinical drug ingredient) Drug/Non Drug Allergy documented on EMR Reaction Allergy Type Onset Date Status erythromycin Erythromycin , Drug Allergy A ctive Septra DS Unknown Drug Allergy 02/25/2007 Active Reason For Referral No Information Medications Medication SIG (Take, Route, Frequency, Duration) Notes Start Date End Date Status NexIUM 40 MG Capsule Delayed Release Take 1 capsule(s) by mouth daily Oral; Duration: 30 Nexium 40mg Capsules, Delayed Release Take 1 capsule(s) by mouth daily 08/08/2012 Active tizanidine 2 MG Oral Tablet tizanidine 2 MG Oral Tablet 07/26/2016 Active Magnesium Citrate magnesium citrate 07/14/201611/1899 Active Fluticasone propionate 0.05 MG/ACTUAT Metered Dose [place] [Flonase] Fluticasone propionate 0.05 MG/ACTUAT Metered Dose Nas[place] [Flonase] 07/14/2016 Active Vitamin A Vitamin A 07/14/2016 Active Lisinopril 20 MG Oral Tablet Lisinopril 20 MG Oral Tablet 07/14/2016 Active Social History Social History Additional Details Category Social Info Options Details zzMigrated Social History Migrated Social History Smoking Status:Never smoked tobacco (finding) Problems Problem Type SNOMED Code ICD Code Onset Dates Problem Status W/U Status Risk Notes Problem Anxiety depression (471713975) Anxiety with depression (300.4) 011 Active confirmed [facility] [place] [facility]-985 911- Problem History of noncompliance with medication regimen (837354533) History of noncompliance with medical treatment (V15.81) 012 Active confirmed [facility]-985 911- Problem Adjustment disorder with depressed mood (96272328) Adjustment disorder with depressed mood (309.0) 005 Problem resolved confirmed [facility]-985 911- Problem Hypercalcemia (52549095) Hypercalcemia (275.42) 004 Problem resolved confirmed [facility]-985 911- Problem Dysphagia (45869203) Dysphagia (787.2) 006 Problem resolved confirmed [facility]-985 911- Problem Dysuria (00681385) Dysuria (788.1) 007 Problem resolved confirmed [facility]-985 911- Problem Diverticulitis (209500421) Diverticulitis (562.11) 007 Problem resolved confirmed Tay-985 911- Problem Rash (146750298) Rash (782.1) 006 Problem resolved confirmed [facility]-985 911- Problem Dizziness (218734796) Dizziness (780.4) 005 Problem resolved confirmed Tay-985 911- Problem Low back pain (749086163) Low back pain (724.2) 005 Problem resolved confirmed Tay-985 911- Problem Fatigue (89648507) Fatigue (780.79) 11/11 004 Problem resolved confirmed [facility]-985 911- Problem Mild recurrent major depression (78621757) Major depression, recurrent episode, mild (296.31) 004 Problem resolved confirmed [facility]-985 911- Problem Sore throat (165961515) Sore Throat (462) 011 Problem resolved confirmed Tay-985 911- Problem Acne (79722184) Acne (706.1) 004 Problem resolved confirmed Tay-985 911- Problem Earache (358297615) Earache (388.71) 004 Problem resolved confirmed Tay-985 911- Problem Generalized abdominal pain (387387609) Generalized abdominal pain (789.07) 006 Problem resolved confirmed Tay-985 911- Problem Generalized osteoarthritis (980338090) Generalized osteoarthritis, multiple sites (715.09) 004 Problem resolved confirmed Tay-985 911- Problem Lymphadenopathy (26653713) Lymphadenopathy (785.6) 004 Problem resolved confirmed Tay-985 911- Problem Ear ache (117165429) Ear ache (388.71) 006 Problem resolved confirmed Tay-985 911- Problem Laceration of hand (869590526) Laceration of hand (882.0) 004 Problem resolved confirmed Tay-985 911- Problem Precordial pain (71708509) Precordial chest pain (786.51) 006 Problem resolved confirmed [facility]-985 911- Problem Acute upper respiratory infection (65024267) Acute upper respiratory infection (465.8) 005 Problem resolved confirmed Tay-985 911- Problem Gallbladder calculus (527117944) Cholelithiasis, without mention of obstruction (574.20) 010 Problem resolved confirmed Tay-985 911- Problem Depression (291016246) Depression (296.20) 004 Problem resolved confirmed Tay-985 911- Problem Itching (235020447) Itching (698.9) 006 Problem resolved confirmed [facility]-985 911- Problem Urinary tract infection (94079180) Urinary tract infection (595.0) 012 Problem resolved confirmed Tay-985 911- Problem Wrist pain (23568546) Wrist pain (719.43) 006 Problem resolved confirmed Tay-985 911- Problem Suprapubic pain (659454504) Suprapubic abdominal pain (789.09) 011 Problem resolved confirmed Tay-985 911- Problem Hip pain (92593803) Hip pain (719.45) 006 Problem resolved confirmed Tay-985 911- Problem Mild major depression, single episode (98490549) Major depression, single episode, mild (296.21) 006 Problem resolved confirmed Tay-985 911- Problem Moderate major depression, single episode (79935658) Major depression, single episode, moderate (296.22) 04/04/2 005 Problem resolved confirmed Tay-985 911- Problem Essential hypertension (95010801) Essential hypertension (401.1) 004 Problem resolved confirmed Tay-985 911- Problem Hemorrhoids (disorder) (37629835) Hemorrhoids, external (455.3) 011 Problem resolved confirmed Tay-985 911- Plan Of Treatment No Information Medical (General) History Surgical History Surgery Date(Month/Year) Appendectomy: 1983; Toe surgery;Nerve re pair R finger;
--- OUTSIDE RECORDS SUMMARY | 2025-07-03 22:13 | XMS_ITS | Encounter Summary ---
Author Organization [facility] Address [address] [place] [address] Care Team Providers Care Cook Fruit Name Role Phone Chung Holden MD Primary Care Provider [phone] Encounter Details Date Type Department Care Team (Latest Contact Info) Description 02/05/2004 Outpatient Historical [facility] Riki Onofre MD [address] [place] [address] PREOP EXAM OTHER SPECIFIED (Primary Dx); Preop cardiovascular exam Social History Tobacco Use Types Packs/Day Years Used Date Smoking Tobacco: Never Assessed Comments Unknown Sex and Gender Information Value Date Recorded Sex Assigned at Not on file 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
--- OUTSIDE RECORDS SUMMARY | 2025-07-03 22:14 | XMS_ITS | Encounter Summary ---
Author Organization [facility] Address [address] [place] [address] Care Team Providers Care Waterproof Bag Sewer Name Role Phone Chung Holden MD Primary Care Provider [phone] Encounter Details Date Type Department Care Team (Latest Contact Info) Description 04/07/2005 Outpatient Historical [address] [address] Maxime Nance PsyD NO ADDRESS ON FILE ADJUSTMENT DISORDER W MIXED MOOD (Primary Dx) Social History Tobacco Use Types Packs/Day Years Used Date Smoking Tobacco: Never Assessed Comments Unknown Sex and Gender Information Value Date Recorded Sex Assigned at Not on file 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
--- OUTSIDE RECORDS SUMMARY | 2025-07-03 22:14 | XMS_ITS | Encounter Summary ---
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
--- OUTSIDE RECORDS SUMMARY | 2025-07-03 22:14 | XMS_ITS | Encounter Summary ---
Author Organization [email or web address] Address [address] [place] [address] Care Team Providers Care Erp Programmer Name Role Phone Chung Holden MD Primary Care Provider [phone] Encounter Details Date Type Department Care Team (Latest Contact Info) Description 03/27/2001 Outpatient Historical [facility] Tiburcio Gutierrez NO ADDRESS ON FILE Unspecified essential hypertension (Primary Dx) Social History Tobacco Use Types Packs/Day Years Used Date Smoking Tobacco: Never Assessed Comments Unknown Sex and Gender Information Value Date Recorded Sex Assigned at Not on file 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
--- OUTSIDE RECORDS SUMMARY | 2025-07-03 22:14 | XMS_ITS | Encounter Summary ---
Author Organization [facility] Address [address] [place] [address] Care Team Providers Care Litigation Support Analyst Name Role Phone Chung Holden MD Primary Care Provider [phone] Encounter Details Date Type Department Care Team (Latest Contact Info) Description 04/18/2005 Outpatient Historical [address] [address] Maxime Nance PsyD NO ADDRESS ON FILE ADJUSTMENT DISORDER W MIXED MOOD (Primary Dx) Social History Tobacco Use Types Packs/Day Years Used Date Smoking Tobacco: Never Assessed Comments Unknown Sex and Gender Information Value Date Recorded Sex Assigned at Not on file 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
--- OUTSIDE RECORDS SUMMARY | 2025-07-03 22:14 | XMS_ITS | Encounter Summary ---
Author Organization [facility] Address [address] [place] [address] Care Team Providers Care Wheel Setter Name Role Phone Chung Holden MD Primary Care Provider [phone] Reason for Referral * Outpatient Services (Routine) - Closed Specialty Diagnoses / Procedures Referred By Mini crowley Referred To Contact Radiology Diagnoses Encounter for screening mammogram for malignant neoplasm of breast Procedures MAMMO DIGITAL SCREEN Candace Billings MD Phone: tel: fax: [facility] [address] [facility] [address] [place] [address] Phone: tel: fax: Referral ID Status Reason Start Date Expiration Date V isits Requested Visits Authorized [id number] Closed F [facility] TO SCHEDULE (SGF) 09/11/2016 10/12/2017 1 1 Encounter Details Date Type Department Care Team (Late st Contact Info) Description 09/11/2016 Ancillary Orders [facility] Pre[facility]Registration [place] CALL TO MAKE APPOINTMENT ONLY [address] [place] [address] Candace An MD [address] [facility] [address] [place] [phone] Encounter for screening mammogram for malignant neoplasm of breast (Primary Dx) Social History Tobacco Use Types Packs/Day Years Used Date Smoking Tobacco: Never Smokeless Tobacco: Never Alcohol Use Standard Drinks/Week Comments No 0 (1 standard drink = 0.6 oz pur e alcohol) Comments No Sex and Gender Information Value Date Recorded Sex Assigned at Not on file Legal Sex Female 5:35 AM BROADCAST CORRESPONDENT Gender Identity Not on file Sexual Orientation [...] MAMMO DIGITAL SCREEN BILAT (12/06/2016 8:33 AM BROADCAST CORRESPONDENT) Anatomical Region Laterality Modality Breast Bilateral Mammography Narrative 12/07/2016 4:21 PM BROADCAST CORRESPONDENT Bilateral Mammogram Reason for Exam: Screening Comparison: [...] mammogram documented in this encounter Care Teams Wheel Setter Relationship Specialty Start Date End Date Chung Holden MD [address] [place] [phone] PCP - General Family Practice 04/12/20 documented as of this encounter
--- OUTSIDE RECORDS SUMMARY | 2025-07-03 22:14 | XMS_ITS | Encounter Summary ---
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
--- OUTSIDE RECORDS SUMMARY | 2025-07-03 22:14 | XMS_ITS | Encounter Summary ---
Author Organization [facility] Address [address] [place] [address] Care Team Providers Care Access Database Developer Name Role Phone Chung Holden MD Primary Care Provider [phone] Encounter Details Date Type Department Care Team (Latest Contact Info) Description 05/26/2005 Outpatient Historical [facility] Imaging Services [address] [place] [address] Tin Pearce Jr., MD [address] [facility], [address] URINARY SYS SYMPTOM NEC (Primary Dx) Social History Tobacco Use Types Packs/Day Years Used Date Smoking Tobacco: Never Assessed Comments Unknown Sex and Gender Information Value Date Recorded Sex Assigned at Not on file 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
--- OUTSIDE RECORDS SUMMARY | 2025-07-03 22:14 | XMS_ITS | Encounter Summary ---
Author Organization [facility] Address [address] [place] [address] Care Team Providers Care Cognos Report Developer Name Role Phone Chung Holden MD Primary Care Provider [phone] Encounter Details Date Type Department Care Team (Latest Contact Info) Description 11/07/2001 Outpatient Historical [facility] Tin Pearce Jr., MD [address] [place] [address] UNDIAGNOSED CARDIAC MURMURS (Primary Dx); OTHER LUNG DISEASE NEC; COUGH; SIALOADENITIS Social History Tobacco Use Types Packs/Day Years Used Date Smoking Tobacco: Never Assessed Comments Unknown Sex and Gender Information Value Date Recorded Sex Assigned at Not on file 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
--- OUTSIDE RECORDS SUMMARY | 2025-07-03 22:14 | XMS_ITS | Encounter Summary ---
Author Organization [facility] Address [address] [place] [address] Care Team Providers Care Superintendent Communications Name Role Phone Chung Holden MD Primary Care Provider Encounter Details Date Type Department Care Team (Latest Contact Info) Description 11/17/2005 Outpatient Historical [facility] Imaging Services [address] [place] [phone] Ramses Chairez, Tin Stewart MD [address] [place] [address] PULMONARY COLLAPSE (Primary Dx) Social History Tobacco Use Types Packs/Day Years Used Date Smoking Tobacco: Never Assessed Comments Unknown Sex and Gender Information Value Date Recorded Sex Assigned at Not on file 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 MVC 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 Gender Identity Not on file Sexual Orientation Not on file documented as of this encounter Plan of Treatment Not on file documented as of this encounter Procedures Procedure Name Priority Date/Time Associated Diagnosis Comments POC CREATININE Routine 11/17/2005 4:56 PM NET MVC DEVELOPER CTA CHEST W WO CONTRAST Routine 11/17/2005 3:15 PM NET MVC DEVELOPER XR CHEST PA AND LATERAL 2 VW Routine 11/17/2005 3:15 PM NET MVC DEVELOPER documented in this encounter Results * POC CREATININE (11/17/2005 4:56 PM NET MVC DEVELOPER) CREATININE POC 1.0 0.7 - 1.2 mg/dL INTERFACE SYSTEM 11/17/2005 4:56 PM NET MVC DEVELOPER us Tin Pearce Jr., MD POINT OF CARE TESTING F inal Result INTERFACE SYSTEM Refer to clinic/hospital department * CTA CHEST W WO CONTRAST (11/17/2005 3:15 PM NET MVC DEVELOPER) Anatomical Region Laterality Modality Chest Other 11/17/2005 3:15 PM NET MVC DEVELOPER Narrative 11/17/2005 3:15 PM NET MVC DEVELOPER CTA OF THE CHEST: 11-17-05 HISTORY: Chest [...] Limitedimages of the upper abdomen with cholelithiasis. [facility] D: 11-17-05 1810 Dictated By: Yesenia Thomas M.D. Electronically Signed By: Yesenia Thomas M.D. Date Signed: 11/18/[address] ORDERABLES Edited * XR CHEST PA AND LATERAL (11/17/2005 3:15 PM NET MVC DEVELOPER) Anatomical Region Laterality Modality Chest Other 11/17/2005 3:15 PM NET MVC DEVELOPER Narrative 11/17/2005 3:15 PM NET MVC DEVELOPER PA AND LATERAL CHEST - 11/17/05 Bronchial [...] Thomas M.D. Date Signed: 11/18/05 LMT Maxime Tervino MD DIAGNOSTIC IMAGING ORDERABLES Ed ited documented in this encounter Visit Diagnoses Diagnosis Pulmonary collapse- Primary documented in this encounter Care Teams Superintendent Communications Relationship Specialty Start Date End Date Chung Holden MD [address] [place] [phone] PCP - General Family Practice 04/12/20 documented as of this encounter
--- OUTSIDE RECORDS SUMMARY | 2025-07-03 22:14 | XMS_ITS | Encounter Summary ---
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
--- OUTSIDE RECORDS SUMMARY | 2025-07-03 22:14 | XMS_ITS | Encounter Summary ---
Author Organization [facility] Address [address] [place] [address] Care Team Providers Care Wastewater Supervisor Name Role Phone Chung Holden MD Primary Care Provider Encounter Details Date Type Department Care Team (Latest Contact Info) Description 10/18/2001 Outpatient Historical [facility] Riki Onofre MD [address] [place] [address] HYPERTENSION NOS (Primary Dx); EDEMA Social History Tobacco Use Types Packs/Day Years Used Date Smoking Tobacco: Never Assessed Comments Unknown Sex and Gender Information Value Date Recorded Sex Assigned at Not on file 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
--- OUTSIDE RECORDS SUMMARY | 2025-07-03 22:14 | XMS_ITS | Encounter Summary ---
Author Organization [facility] Address [address] [place] [address] Care Team Providers Care Coding Educator Name Role Phone Chung Holden MD Primary Care Provider [phone] Encounter Details Date Type Department Care Team (Late st Contact Info) Description 05/09/2005 Outpatient Historical [facility] [address] [facility] [address] [place] [address] Candace An MD [address] [facility] [address] [place] [address] Routine medical exam (Primary Dx); ROUTINE ROOFING SUPERINTENDENT EXAMINATION; SCREENING MAL NEOP-RECTUM Social History Tobacco Use Types Packs/Day Years Used Date Smoking Tobacco: Never Assessed Comments Unknown Sex and Gender Information Value Date Recorded Sex Assigned at Not on file 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 Sex Female 5:35 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
--- OUTSIDE RECORDS SUMMARY | 2025-07-03 22:14 | XMS_ITS | Encounter Summary ---
Author Organization [email or web address] Address [address] [place] [address] Care Team Providers Care Orthotic Technician Name Role Phone Chung Holden MD Primary Care Provider [phone] Encounter Details Date Type Department Care Team (Latest Contact Info) Description 04/22/2001 Outpatient Historical [facility] Tiburcio Gutierrez NO ADDRESS ON FILE Encounter for long-term (current) use of other medications (Primary Dx) Social History Tobacco Use Types Packs/Day Years Used Date Smoking Tobacco: Never Assessed Comments Unknown Sex and Gender Information Value Date Recorded Sex Assigned at Not on file 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
--- OUTSIDE RECORDS SUMMARY | 2025-07-03 22:14 | XMS_ITS | Encounter Summary ---
Author Organization [facility] Address [address] [place] [address] Care Team Providers Care Dental Laboratory Assistant Name Role Phone Chung Holden MD Primary Care Provider [phone] Encounter Details Date Type Department Care Team (Late st Contact Info) Description 05/09/2005 Outpatient Historical [address] [address] Social History Tobacco Use Types Packs/Day Years Used Date Smoking Tobacco: Never Assessed Comments Unknown Sex and Gender Information Value Date Recorded Sex Assigned at Not on file Legal Sex Female 5:35 AM BUSINESS SERVICES REPRESENTATIVE Gender Identity Not on file Sexual Orientation Not on file documented as of this encounter Plan of Treatment Not on file documented as of this encounter Visit Diagnoses Not on filedocumented in this encounter Care Teams Dental Laboratory Assistant Relationship Specialty Start Date End Date Chung Holden MD [address] [place] [phone] PCP - General Family Practice 04/12/20 documented as of this encounter
--- OUTSIDE RECORDS SUMMARY | 2025-07-03 22:14 | XMS_ITS | Encounter Summary ---
Author Organization [facility] Address [address] [place] [address] Care Team Providers Care Manager Programs Name Role Phone Chung Holden MD Primary Care Provider [phone] Encounter Details Date Type Department Care Team (Latest Contact Info) Description 03/04/2001 Outpatient Historical HIS [facility] Tiburcio Gutierrez NO ADDRESS ON FILE Headache(784.0) (Primary Dx); Chest pain, unspecified; Benign hypertension Social History Tobacco Use Types Packs/Day Years Used Date Smoking Tobacco: Never Assessed Comments Unknown Sex and Gender Information Value Date Recorded Sex Assigned at Not on file 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
--- OUTSIDE RECORDS SUMMARY | 2025-07-03 22:14 | XMS_ITS | Encounter Summary ---
Author Organization [facility] Address [address] [place] [address] Care Team Providers Care Quantitative Researcher Name Role Phone Chung Holden MD Primary Care Provider [phone] Encounter Details Date Type Department Care Team (Latest Contact Info) Description 05/31/2001 Outpatient Historical [facility] Tiburcio Gutierrez NO ADDRESS ON FILE Cellulitis and abscess of unspecified site (Primary Dx) Social History Tobacco Use Types Packs/Day Years Used Date Smoking Tobacco: Never Assessed Comments Unknown Sex and Gender Information Value Date Recorded Sex Assigned at Not on file 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
--- OUTSIDE RECORDS SUMMARY | 2025-07-03 22:14 | XMS_ITS | Encounter Summary ---
Author Organization [facility] Address [address] [place] [address] Care Team Providers Care Professional Healthcare Representative Name Role Phone Chung Holden MD Primary Care Provider [phone] Encounter Details Date Type Department Care Team (Latest Contact Info) Description 02/01/2001 Outpatient Historical [facility] Tiburcio Gutierrez NO ADDRESS ON FILE Contusion of hand(s) (Primary Dx); Accidental fall on or from other stairs or steps Social History Tobacco Use Types Packs/Day Years Used Date Smoking Tobacco: Never Assessed Comments Unknown Sex and Gender Information Value Date Recorded Sex Assigned at Not on file 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
--- OUTSIDE RECORDS SUMMARY | 2025-07-03 22:14 | XMS_ITS | Encounter Summary ---
Author Organization [facility] Address [address] Attn: Epic [place] [address] Care Team Providers Care Conductor Symphonic Orchestra Name Role Phone Chung Holden MD Primary Care Provider [phone] Encounter Details Date Type Department Care Team (Late st Contact Info) Description 11/14/2001 Outpatient Historical Tin Pearce Jr., MD [address] [place] [address] Social History Tobacco Use Types Packs/Day Years Used Date Smoking Tobacco: Never Assessed Comments Unknown Sex and Gender Information Value Date Recorded Sex Assigned at Not on file 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
--- NOTE | 2025-07-03 22:15 | ECG_ITS ---
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 Measurements Intervals [place] Rate: 76 P: 62 [place]: 135 QRS: 19 QRSD: 85 T: 69 QT: 358 QTc: 403 Interpretive Statements SINUS RHYTHM Compared to ECG 05/03/2025 01:53:21 No significant changes Electronically Signed On 07-04-2025 08:40:12 CDT by Jose Elias Toussaint M.D. [email or web address] [id number]
[2025-07-03 23:20] VITALS: BP 169/95; PULSE 66; O2SAT 98
--- NOTE | 2025-07-03 23:32 | XRR_ITS ---
PROCEDURE INFORMATION: Exam: XR Chest Exam date and time: 07/04/2025 12:03 AM Age: 74 years old Clinical indication: Chest pressure; C/O chest pain; Additional info: Chest tightness TECHNIQUE: Imaging protocol: Radiologic exam of the chest. Views: 1 view. COMPARISON: CR XR chest 1V portable [id number] 05/03/2025 2:22 AM FINDINGS: Lungs: Ill-defined increased parenchymal density left base with a left lower lobe pneumonia. Mild patchy densities right base represent pneumonia atelectasis Pleural spaces: Unremarkable. No pleural effusion. No pneumothorax. Heart/Mediastinum: Stable tortuosity thoracic aorta with calcification aortic arch. Borderline heart size. Bones/joints: Mild right convexity thoracic scoliosis. Upper abdomen: Unremarkable. XR/XR chest 1V portable [id number] IMPRESSION: 1. Findings consistent with a left lower lobe 2. Atelectasis or mild infiltrate right base. 3. Borderline cardiomegaly
[2025-07-03 23:35] VITALS: BP 160/95; PULSE 76; RESP 16; O2SAT 94
--- NOTE | 2025-07-03 23:47 | ECG_ITS ---
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 Measurements Intervals [place] Rate: 70 P: 29 [place]: 190 QRS: -7 QRSD: 88 T: 52 QT: 378 QTc: 408 Interpretive Statements SINUS RHYTHM MINIMAL VOLTAGE CRITERIA FOR LVH, CONSIDER NORMAL VARIANT [MEETS CRITERIA IN ONE OF: R(aVL), S(V1), R(V5), R(V5/V6)+S(V1)] Compared to ECG 07/03/2025 22:15:07 No significant changes Electronically Signed On 07-04-2025 08:39:48 CDT by Jose Elias Toussaint M.D. [id number] [id number]
[2025-07-03] MEDS: LORazepam 1 MG/0.5 ML injection 0.5 MG IVP (23:49)
[2025-07-03] MEDS: metoprolol tartrate 1 mg/1 mL SDV 5 mL 5 MG IVP (23:50)
[2025-07-03 23:51] LABS: Hematocrit 40.0 % (36-47); Hemoglobin 13.80 g/dL (11.27-16.99); Mean Corpuscular HGB Conc 34.5 g/dL (30-55); Mean Corpuscular Hemoglobin 29.2 pg (27-33); Mean Corpuscular Volume 84.6 fl (85-98); Nucleated Red Blood Cells % 0 %; Platelet Count 218 10^3/cmm (157-399); Red Blood Count 4.73 10^6/uL (3.85-5.65); White Blood Count 7.39 10^3/uL (3.29-11.43)
[2025-07-04 00:14] LABS: Alanine Aminotransferase 15 U/L (0-33); Albumin Level 4.6 g/dL (3.5-5.2); Alkaline Phosphatase 104 U/L (35-105); Aspartate Amino Transferase 21 U/L (0-32); Blood Urea Nitrogen 13 mg/dL (8-23); Calcium 9.7 mg/dL (8.5-10.5); Carbon Dioxide 22 mmol/L (22-29); Chloride 99 mmol/L (98-107); Creatinine Clr Calc Pharmacy 57.9661; Globulin 2.0 g/dL (1.3-4.6); Glucose 181 mg/dL (65-115); Osmolality Calculated 283 mOsm/kg (285-295); Sodium 134 mmol/L (136-145); Total Protein 6.6 g/dL (6.6-8.7)
[2025-07-04 00:18] LABS: Troponin(5th) Baseline 10 ng/L (0-10)
--- NOTE | 2025-07-04 00:19 | W.ED.RECABL ---
HPI - Recheck/Abnormal Lab/Rx General: Chief Complaint: Recheck/Abnormal Lab/Rx Stated Complaint: High BP, tightness in chest Time Seen by Provider: 07/03/25 23:04 History of Present Illness: Patient is a 74-year-old female who presents to the emergency department with concerns about elevated blood pressure. She reports her blood pressure this morning was 153/93, which is higher than her usual readings of approximately 144/86 or 148/83. Patient states she has been adherent to a low-sodium diet and has been monitoring her blood pressure at home. She reports mild chest tightness but denies any acute chest pain, shortness of breath, or other cardiac symptoms. She mentions having similar chest discomfort after strenuous gardening activities, including recent hoeing work. Patient recalls a previous episode of chest discomfort after extensive food preparation (chopping pears) last year. She expresses anxiety about her elevated blood pressure, particularly the diastolic reading above 90, as she was previously prescribed clonidine for diastolic readings over 90 but did not take it. Patient reports significant family history of sudden cardiac (brother from a massive heart attack without prodromal symptoms). She denies headaches or vision changes. Patient also mentions ankle swelling after starting amlodipine, for which she was prescribed spironolactone on June [address] Vela, but she has concerns about potential medication interactions, so she has not taken i. Related Data Home Medications ?Medication ?Instructions ?Recorded ?Confirmed fluticasone propionate 50 1 spray intranasal DAILY PRN 05/18/21 06/16/25 mcg/actuation nasal allergies spray,suspension acetaminophen 325 mg tablet 650 mg PO QID PRN Pain 04/19/25 06/16/25 ascorbic acid (vitamin C) 500 mg 500 mg PO BID 04/19/25 06/16/25 tablet (Vitamin C) cholecalciferol (vitamin D3) 50 50 mcg PO DAILY 04/19/25 06/16/25 mcg (2,000 unit) tablet (Vitamin D3) cyanocobalamin (vitamin B-12) 100 100 mcg PO DAILY 04/19/25 06/16/25 mcg tablet (Vitamin B-12) magnesium 250 mg tablet 250 mg PO DAILY 04/19/25 06/16/25 omega 3,6,9-borage seed 2 cap PO DAILY 04/19/25 06/16/25 oil-flaxseed oil-fish oil 1,233 mg capsule (Felice 3-6-9) tramadol 50 mg tablet 50 mg PO TID PRN Pain 04/19/25 06/16/25 vitamin B complex 1 tab PO DAILY 04/19/25 06/16/25 aspirin 81 mg tablet,delayed 81 mg PO DAILY 05/03/25 06/16/25 release CO Q10 PO 06/11/25 06/16/25 clonidine HCl 0.1 mg tablet 0.1 mg PO BID PRN 06/11/25 06/16/25 clopidogrel 75 mg tablet (Plavix) 75 mg PO DAILY 06/11/25 06/16/25 pantethine 300 mg tablet,extended mg PO 06/11/25 06/16/25 release metformin 500 mg tablet,extended 500 mg PO BID 06/16/25 06/16/25 release 24 hr Previous Rx's ?Medication ?Instructions ?Recorded blood sugar diagnostic (FreeStyle #100 ea 03/19/23 Lite Strips) amlodipine 10 mg tablet 10 mg PO DAILY #90 tabs 06/11/25 rosuvastatin 10 mg tablet 10 mg PO DAILY #90 tabs 06/11/25 spironolactone 25 mg tablet 25 mg PO DAILY #30 tabs 06/16/25 Allergies Allergy/AdvReac Type Severity Reaction Status Date / Time erythromycin base Allergy ADR-Gastrointestinal Verified 06/11/25 14:42 Upset naproxen Allergy ADR-Abdominal Verified 06/11/25 14:42 Pain Review of Systems Narrative: Constitutional: Denies fever. Reports feeling cold in the exam room. Cardiovascular: Reports mild chest tightness. Denies acute chest pain or palpitations. Respiratory: No shortness of breath mentioned. Neurological: Denies headaches or vision changes. Peripheral vascular: Reports ankle swelling after starting amlodipine, using compression socks. PFS ED PFSH: Medical History Diabetes mellitus HTN (hypertension) Surgical History History of colon resection Due to recurrent diverticulitis History of hand surgery Right after laceration Hx of toe surgery Both pinky toes Hx of cataract surgery History of appendectomy History of cholecystectomy History of laminectomy Family History (Updated 06/16/25 @ 12:01 by Maxime Vela MD) Father , of heart issues CAD (coronary artery disease) Mother , at age 103 CAD (coronary artery disease) Colon cancer Social History Smoking and tobacco/nicotine status: never used tobacco/nicotine Alcohol intake: never Substance/Drug Use: never Physical Exam Const: COMMON NORMALS: no acute distress GENERAL APPEARANCE: cooperative and anxious; not ill appearing and not frail appearing HENMT: COMMON NORMALS: normocephalic, atraumatic and Normal external nose present HEAD & SCALP: normocephalic and atraumatic FACE & SINUS: normal facial exam and face symmetric NOSE: Normal external nose present Eye: COMMON NORMALS: Equal, round and reactive pupils present and EOMs intact bilaterally PUPIL: Yes Equal, round and reactive pupils present Neck/C-Spine: GENERAL: Yes trachea midline Chest: CHEST: Yes Symmetrical chest wall rise Resp: COMMON NORMALS: normal respiratory effort, No retractions, No use of accessory muscles and clear to auscultation bilaterally AUSCULTATION: clear to auscultation bilaterally Cardio: COMMON NORMALS: regular rate and regular rhythm RATE: regular rate RHYTHM: regular rhythm GI: COMMON NORMALS: Normal to inspection, nondistended, normoactive bowel sounds present Extremity: GENERAL: Yes edema (1+) Neuro: MICHELLE COMA SCALE: document GCS findings Michelle coma scale eye opening: Spontaneous Michelle coma scale verbal response: Orientated [place] coma scale motor response: Obey commands Michelle coma scale total score: 15 SENSORY EXAM: Yes extremities (intact) Psych: COMMON NORMALS: speech normal SPEECH: Yes normal speech Skin: COMMON NORMALS: no rashes or lesions noted GENERAL SKIN EXAM: no rashes or lesions noted Course Vital Signs: Vital signs: Vital Signs Temperature 98.1 F 07/03/25 22:09 Pulse Rate 67 07/04/25 02:02 Respiratory Rate 18 07/04/25 01:30 Blood Pressure 153/81 07/04/25 02:02 Pulse Oximetry 95 07/04/25 02:02 Oxygen Delivery Me thod Room Air 07/03/25 22:09 MDM - Recheck/Abnormal Lab/Rx Medical Decision Making Patient is anxious. She was given 0.5 mg of lorazepam. She was also given 5 mg of metoprolol. Heart rate of 66, blood pressure 1 now 137/82. Saturation is 94% on room air. Her EKG does not show any acute ST-T wave changes. Her CBC and BMP are normal. Her first troponin is 10. Her chest x-ray appears similar to prior. Blood pressures improved. She is asymptomatic at this point. She will be discharged home. She was counseled on starting her spironolactone, as this can likely significantly help with her diastolic pressures. She is less anxious after lorazepam. Lab Data 07/03/25 23:43 07/03/25 23:43 Radiology Impressions Chest X-Ray 07/03/25 23:32 IMPRESSION: 1. Findings consistent with a left lower lobe 2. Atelectasis or mild infiltrate right base. 3. Borderline cardiomegaly Laboratory Results WBC 7.39 10^3/uL (3.29-11.43) 07/03/25 23:43 RBC 4.73 10^6/uL (3.85-5.65) 07/03/25 23:43 Hgb 13.80 g/dL (11.27-16.99) 07/03/25 23:43 Hct 40.0 % (36-47) 07/03/25 23:43 MCV 84.6 fl (85-98) L 07/03/25 23:43 MCH 29.2 pg (27-33) 07/03/25 23:43 MCHC 34.5 g/dL (30-55) 07/03/25 23:43 RDW 12.4 % (12.1-15.1) 07/03/25 23:43 Plt Count 218 10^3/cmm (157-399) 07/03/25 23:43 MPV 10.3 fL (7.4-10.4) 07/03/25 23:43 Neut % (Auto) 68.6 % 07/03/25 23:43 Lymph % (Auto) 14.2 % 07/03/25 23:43 [place] % (Auto) 13.3 % 07/03/25 23:43 Eos % (Auto) 2.3 % 07/03/25 23:43 Baso % (Auto) 1.2 % 07/03/25 23:43 Neut # (Auto) 5.07 10^3/uL (1.8-7.7) 07/03/25 23:43 Lymph # (Auto) 1.1 10^3/uL (0.8-4.8) 07/03/25 23:43 [place] # (Auto) 1.0 10^3/uL (0.2-0.9) H 07/03/25 23:43 Eos # (Auto) 0.2 10^3/uL (0.0-0.8) 07/03/25 23:43 Baso # (Auto) 0.1 10^3/uL (0.0-0.1) 07/03/25 23:43 Nucleated RBC % (auto) 0 % 07/03/25 23:43 Nucleated RBCs # 0.0 /100WBC 07/03/25 23:43 Sodium 134 mmol/L (136-145) L 07/03/25 23:43 Potassium 4.3 mmol/L (3.5-5.1) 07/03/25 23:43 Chloride 99 mmol/L (98-107) 07/03/25 23:43 Carbon Dioxide 22 mmol/L (22-29) 07/03/25 23:43 Anion Gap 17.3 (5-19) 07/03/25 23:43 BUN 13 mg/dL (8-23) 07/03/25 23:43 Creatinine 0.7 mg/dL (0.5-0.9) 07/03/25 23:43 GFR Calculation Not Reportable 07/03/25 23:43 Glucose 181 mg/dL (65-115) H 07/03/25 23:43 Calculated Osmolality 283 mOsm/kg (285-295) L 07/03/25 23:43 Calcium 9.7 mg/dL (8.5-10.5) 07/03/25 23:43 Total Bilirubin 0.5 mg/dL (0.15-1.2) 07/03/25 23:43 AST 21 U/L (0-32) 07/03/25 23:43 ALT 15 U/L (0-33) 07/03/25 23:43 Alkaline Phosphatase 104 U/L (35-105) 07/03/25 23:43 Troponin T Baseline 10 ng/L (0-10) 07/03/25 23:43 Total Protein 6.6 g/dL (6.6-8.7) 07/03/25 23:43 Albumin 4.6 g/dL (3.5-5.2) 07/03/25 23:43 Globulin 2.0 g/dL (1.3-4.6) 07/03/25 23:43 All radiology interpretation(s) finalized by discharge Discharge Plan Discharge Patient Disposition: Home Clinical Impression: HTN (hypertension) Condition: Stable Prescriptions: No Action fluticasone propionate 50 mcg/actuation spray,suspension 1 spray intranasal DAILY PRN (Reason: allergies) Rx Instructions: administer into each nostril spironolactone 25 mg tablet 25 mg PO DAILY Qty: 30 3RF clopidogrel [Plavix] 75 mg tablet 75 mg PO DAILY clonidine HCl 0.1 mg tablet 0.1 mg PO BID PRN Rx Instructions: As needed for systolic blood pressure >180 or diastolic blood pressure >90 pantethine 300 mg tablet extended release PO CO Q10 PO amlodipine 10 mg tablet 10 mg PO DAILY Qty: 90 3RF rosuvastatin 10 mg tablet 10 mg PO DAILY Qty: 90 3RF (DME) FreeStyle Lite Strips Strip See Rx Instructions .Route Qty: 100 3RF Rx Instructions: to use once daily in freestyle lite meter 90 day supply metformin 500 mg tablet extended release 24 hr 500 mg PO BID acetaminophen 325 mg Tablet 650 mg PO QID PRN (Reason: Pain) cyanocobalamin (vitamin B-12) [Vitamin B-12] 100 mcg Tablet 100 mcg PO DAILY tramadol 50 mg tablet 50 mg PO TID PRN (Reason: Pain) ascorbic acid (vitamin C) [Vitamin C] 500 mg Tablet 500 mg PO BID vitamin B complex Tablet 1 tab PO DAILY magnesium 250 mg Tablet 250 mg PO DAILY cholecalciferol (vitamin D3) [Vitamin D3] 50 mcg (2,000 unit) Tablet 50 mcg PO DAILY Felice 3-6-9 1,233 mg Capsule 2 cap PO DAILY aspirin 81 mg tablet,delayed release (DR/EC) 81 mg PO DAILY Discharge Orders: Discharge ED (Routine); Ordered 07/04/25 Ordered By: Sy Pacheco Referrals: Maxime Vela MD [Primary Care Provider, Family Practice] - 4-7 days Patient Instructions: Hypertension (ED), Opioid Safety, Pain Management, Patient Portal & Rosa Instructions Activity Restrictions/Additional Instructions: Consider starting your spironolactone tomorrow as we discussed. Check your blood pressure twice daily. Try to avoid checking it more often than twice daily, as checking more often can lead to hypertension on its own. Return for chest discomfort, headache, vision changes, alteration in mental status, or other concerning symptoms. Call your doctor Sunday for a follow-up appointment. Print Language: Latvian Coding Level of Care Code ED [place] Bottom Maker for Walt Tong
[2025-07-04 00:30] VITALS: BP 155/75; PULSE 74; RESP 20; O2SAT 95
[2025-07-04 00:34] LABS: Anion Gap 17.3 (5-19); Potassium 4.3 mmol/L (3.5-5.1)
[2025-07-04 01:30] VITALS: BP 153/81; PULSE 67; RESP 18; O2SAT 95
[2025-07-04 02:02] VITALS: BP 153/81; PULSE 67; O2SAT 95
== END 2025-07-04 02:04 | disposition home or self-care (01) ==
PROVIDERS: Emergency Provider Emergency Medicine; PCP Family Medicine
DX: I10 Essential (primary) hypertension (principal); Z79.02 Long term (current) use of antithrombotics/antiplatelets; Z79.84 Long term (current) use of oral hypoglycemic drugs; Z79.82 Long term (current) use of aspirin; E11.9 Type 2 diabetes mellitus without complications
CPT/HCPCS: 36415; 71045; 80053; 84484; 85025; 93005; 96374; 96375; 99285; J2060; J3490

== ENCOUNTER → 2025-07-09 15:25 | Outpatient (BNVA) | payer MEDICARE, OTHER, SELFPAY | PROVIDERS: PCP Family Medicine; Visit Provider Internal Medicine | DX: I10 Essential (primary) hypertension (principal) | CPT/HCPCS: 99213 ==

== ENCOUNTER → 2025-09-22 15:42 | Outpatient (BNVA) | payer MEDICARE, OTHER, SELFPAY | PROVIDERS: PCP Family Medicine; Visit Provider Internal Medicine | DX: I10 Essential (primary) hypertension (principal) | CPT/HCPCS: 99214 ==